=== PATIENT | female | born 1990 | race American Indian/Alaskan Native ===

== ENCOUNTER 2016-12-07 08:38 | Emergency (ER) | payer BC, MEDICAID ==
--- NOTE | 2016-12-07 09:43 | Emergency Department Report ---
Entered by ALEJANDRA CASAS, acting as scribe for TELMA MAYS PA. Chief Complaint: Nausea/Vomiting/Diarrhea Stated Complaint: DIZZINESS,N/V Time Seen by Provider: 12/07/16 09:26 - HPI History of Present Illness: 26 y/o female with Hx of sickle cell disease presents c/o dizziness, light headedness, WHITAKER, foul smelling urine, abd pain and N/V that started 2 days ago. Pt admits to chest pain and states Sx are similar to her past sick cell Sx. - ROS Review of Systems: as noted in HPI - Exam Vital Signs: Vital Signs 12/07/16 12/07/16 09:17 09:18 Temperature 98.2 F 98.2 F Pulse Rate 103 H 103 H Respiratory 16 16 Rate Blood Pressure 120/77 Blood Pressure 120/77 [Left] O2 Sat by Pulse 100 100 Oximetry Physical Exam: General: 26 y/o female in no acute distress. Well-developed, well-nourished. CV: Regular rate and rhythm. No murmurs rubs or gallops. Lungs: Clear to auscultation bilaterally. Abdomen: No tenderness to palpation. No guarding or rebound tenderness. Normal bowel sounds. Mini Neuro: Alert and oriented 3. MSE screening note: Focused history and physical exam performed. Due to findings the following was ordered: ED Disposition for MSE Condition: Stable This documentation as recorded by the scribe,ALEJANDRA CASAS,accurately reflects the service I personally performed and the decisions made by me,TELMA MAYS PA.
[2016-12-07 10:32] LABS: Basophils % (Auto) 1.1 % (0.0-1.8); Eosinophils % (Auto) 2.7 % (0.0-4.3); Hemoglobin 9.7 gm/dl (10.1-14.3); Mean Corpuscular HGB Conc 36 % (30-34); Mean Corpuscular Hemoglobin 34 pg (28-32); Mean Corpuscular Volume 93 fl (79-97); Platelet Count 434 K/mm3 (140-440); Red Blood Count 2.89 M/mm3 (3.65-5.03); Reticulocyte % 19.08 % (0.78-2.58); White Blood Count 15.5 K/mm3 (4.5-11.0)
[2016-12-07 10:45] LABS: Anion Gap 20 mmol/L; Blood Urea Nitrogen 8 mg/dL (7-17); Calcium 9.8 mg/dL (8.4-10.2); Carbon Dioxide 23 mmol/L (22-30); Chloride 102.1 mmol/L (98-107); Glucose 139 mg/dL (65-100); Potassium 4.6 mmol/L (3.6-5.0); Sodium 140 mmol/L (137-145)
[2016-12-07 10:55] LABS: Red Cell Distribution Width 23.3 % (13.2-15.2)
[2016-12-07 11:01] LABS: Bacteria,Urine 3+ /HPF (Negative); Bilirubin,Urine NEG (Negative); Blood,Urine SM (Negative); Ketones,Urine NEG (Negative); Leukocyte Esterase,Urine SM (Negative); Mucus,Urine FEW /HPF; Nitrite,Urine POS (Negative)
--- NOTE | 2016-12-07 11:12 | XRay Report ---
ROUTINE CHEST, TWO VIEWS: HISTORY: Sickle cell disease with chest pain. The trachea, heart, mediastinal contour, lung dior and bony thorax are unremarkable. IMPRESSION: Unremarkable chest x-ray.
[2016-12-07] MEDS ORDERED: DILAUDID IV ONE (13:06)
[2016-12-07] MEDS ORDERED: NACL 0.9% 1000 ML 1,000 ML IV ONE (13:06)
[2016-12-07] MEDS ORDERED: ZOFRAN IV ONE (13:06)
--- NOTE | 2016-12-07 13:40 | Emergency Department Report ---
ED Dizziness HPI - General Chief Complaint: Nausea/Vomiting/Diarrhea Stated Complaint: DIZZINESS,N/V Time Seen by Provider: 12/07/16 09:37 Source: patient Mode of arrival: Ambulatory Limitations: No Limitations - History of Present Illness MD Complaint: dizziness, lightheadedness -: Gradual Timing: gradual onset Description: sense of movement, "room spinning", lightheadedness History of Same: Yes History of Trauma: No Severity: mild Improves With: nothing Worsens With: nothing Associated Symptoms: other (diffuse joint pain " feels like a sickle cell crisis ") - Related Data Previous Rx's Medication Instructions Recorded Last Taken Type Folic Acid 1 mg PO DAILY #45 12/07/16 Unknown Rx HYDROcodone/APAP 10-325 [[place] 1 each PO Q6HR PRN #10 tablet 12/07/16 Unknown Rx 10-325 mg TAB] Hydroxyurea 500 mg PO DAILY #45 12/07/16 Unknown Rx Ondansetron [Zofran Odt] 4 mg PO TID #15 tab.rapdis 12/07/16 Unknown Rx Allergies Allergy/AdvReac Type Severity Reaction Status Date / Time morphine AdvReac Itching Verified 07/14/15 14:44 ED Review of Systems ROS: Stated complaint: DIZZINESS,N/V Other details as noted in HPI Comment: All other systems reviewed and negative ED Past Medical Hx - Past Medical History Previous Medical History?: Yes Hx Sickle Cell Disease: Yes (SS) Hx Asthma: Yes Hx HIV: No - Surgical History Past Surgical History?: Yes Hx Cholecystectomy: Yes (05/2012) - Social History Smoking Status: Never Smoker Substance Use Type: Prescribed - Medications Home Medications: Home Medications Medication Instructions Recorded Confirmed Last Taken Type Folic Acid 1 mg PO DAILY #45 12/07/16 Unknown Rx HYDROcodone/APAP 10-325 [[place] 1 each PO Q6HR PRN #10 tablet 12/07/16 Unknown Rx 10-325 mg TAB] Hydroxyurea 500 mg PO DAILY #45 12/07/16 Unknown Rx Ondansetron [Zofran Odt] 4 mg PO TID #15 tab.rapdis 12/07/16 Unknown Rx ED Physical Exam - General Limitations: No Limitations General appearance: alert, in no apparent distress - Head Head exam: Present: atraumatic, normocephalic - Eye Eye exam: Present: normal appearance, PERRL - ENT ENT exam: Present: normal exam, normal orophraynx, mucous membranes moist - Neck Neck exam: Present: normal inspection - Respiratory Respiratory exam: Present: normal lung sounds bilaterally. Absent: respiratory distress - Cardiovascular Cardiovascular Exam: Present: regular rate, normal rhythm. Absent: systolic murmur, diastolic murmur, rubs, gallop - GI/Abdominal GI/Abdominal exam: Present: soft, normal bowel sounds - Extremities Exam Extremities exam: Present: normal inspection - Back Exam Back exam: Present: normal inspection - Neurological Exam Neurological exam: Present: alert, oriented X3 - Psychiatric Psychiatric exam: Present: normal affect, normal mood - Skin Skin exam: Present: warm, dry, intact, normal color. Absent: rash ED Course Vital Signs 12/07/16 12/07/16 12/07/16 09:17 09:18 14:00 Temperature 98.2 F 98.2 F Pulse Rate 103 H 103 H 100 H Respiratory 16 16 16 Rate Blood Pressure 120/77 Blood Pressure 120/77 118/77 [Left] O2 Sat by Pulse 100 100 100 Oximetry ED Medical Decision Making - Lab Data Result diagrams: 12/07/16 10:08 12/07/16 10:08 - Medical Decision Making Patient doing well, labs unchanged, better after fluids and zofran , No need for admission , will dc and follow up Critical care attestation.: If time is entered above; I have spent that time in minutes in the direct care of this critically ill patient, excluding procedure time. ED Disposition Clinical Impression: Sickle cell pain crisis Disposition: DISCHARGED TO HOME OR SELFCARE Is pt being admited?: No Does the pt Need Aspirin: No Condition: Good Prescriptions: Folic Acid 1 mg PO DAILY #45 HYDROcodone/APAP 10-325 [[place] 10-325 mg TAB] 1 each PO Q6HR PRN #10 tablet PRN Reason: Pain Hydroxyurea 500 mg PO DAILY #45 Ondansetron [Zofran Odt] 4 mg PO TID #15 tab.palomadis Referrals: PRIMARY CARE, [Primary Care Provider] - 3-5 Days Time of Disposition: 15:11
[2016-12-07 16:09] VITALS: BP 120/69
== END 2016-12-07 16:10 | disposition home or self-care (01) ==
LOC: ED 08:38
DX: D57.00 Hb-SS disease with crisis, unspecified (principal); J45.909 Unspecified asthma, uncomplicated; Z90.49 Acquired absence of other specified parts of digestive tract; Z88.6 Allergy status to analgesic agent
CPT/HCPCS: 36415; 71020; 80048; 81001; 84703; 85025; 85045; 87076; 87086; 87186; 96361; 96374; 96375; 99284; J1170; J2405; J7030

== ENCOUNTER 2017-05-16 07:00 | Inpatient (IN) | payer BC ==
[2017-05-16 07:49] LABS: Basophils % (Auto) 1.1 % (0.0-1.8); Eosinophils % (Auto) 5.3 % (0.0-4.3); Hematocrit 25.4 % (30.3-42.9); Hemoglobin 9.2 gm/dl (10.1-14.3); Mean Corpuscular HGB Conc 36 % (30-34); Mean Corpuscular Hemoglobin 32 pg (28-32); Mean Corpuscular Volume 89 fl (79-97); Platelet Count 450 K/mm3 (140-440); Red Blood Count 2.86 M/mm3 (3.65-5.03); Reticulocyte % 10.95 % (0.78-2.58)
[2017-05-16 07:53] LABS: Red Cell Distribution Width 22.7 % (13.2-15.2)
[2017-05-16] MEDS ORDERED: D5NS 0.2% 1,000 ML IV SCH (08:00)
[2017-05-16] MEDS ORDERED: ZOFRAN IV ONE (10:34)
[2017-05-16] MEDS ORDERED: DILAUDID IV ONE (10:34)
[2017-05-16] MEDS ORDERED: BENADRYL IV ONE (10:34)
[2017-05-16] MEDS ORDERED: TORADOL IV ONE (10:34)
[2017-05-16 11:22] LABS: INR 1.16 (0.87-1.13)
[2017-05-16 11:23] LABS: Partial Thromboplastin Time 33.3 Sec. (24.2-36.6)
[2017-05-16 11:24] LABS: Bacteria,Urine 1+ /HPF (Negative); Bilirubin,Urine NEG (Negative); Blood,Urine NEG (Negative); Ketones,Urine NEG (Negative); Leukocyte Esterase,Urine LG (Negative); Mucus,Urine FEW /HPF; Nitrite,Urine POS (Negative); Protein,Urine <15 mg/dL mg/dL (Negative); Uric Acid Crystals,Urine 1+
[2017-05-16 11:36] LABS: Creatine Kinase MB < 1.0 ng/mL (0.0-4.0)
[2017-05-16 11:37] LABS: Alanine Aminotransferase 13 units/L (7-56); Albumin 4.2 g/dL (3.9-5); Albumin/Globulin Ratio 1.3 %; Alkaline Phosphatase 97 units/L (35-129); Anion Gap 19 mmol/L; BUN/Creatinine Ratio 12; Bilirubin,Direct 0.4 mg/dL (0-0.2); Blood Urea Nitrogen 7 mg/dL (7-17); Calcium 9.2 mg/dL (8.4-10.2); Carbon Dioxide 21 mmol/L (22-30); Chloride 104.5 mmol/L (98-107); Creatine Kinase 29 units/L (30-135); Glucose 108 mg/dL (65-100); Potassium 4.1 mmol/L (3.6-5.0); Sodium 140 mmol/L (137-145); Total Protein 7.4 g/dL (6.3-8.2)
[2017-05-16] MEDS ORDERED: ROCEPHIN/NS 1 GM/50 ML 1 GM/50 ML BAG IV ONE (12:21)
--- NOTE | 2017-05-16 12:28 | Emergency Department Report ---
ED General Adult HPI - General Chief complaint: Sickle Cell Crisis Stated complaint: SCC Time Seen by Provider: 05/16/17 10:25 Source: patient Mode of arrival: Ambulatory Limitations: No Limitations - History of Present Illness Initial comments: Patient describes a "sticking" chest pain and back pain and some left arm discomfort for the past more than 1 day. She states that this is not unusual for her to have chest pain with a sickle cell crisis which she believes this to be. She has has taken Aleve for the pain thus far. She does not take chronic opiates. She is a patient of Dr. Hernandez. She does not describe nausea and dizziness sweating dyspnea or cough. -: hour(s), days(s) Location: chest, back, left, upper extremity Radiation: non-radiation Severity scale (0 -10): 0 Quality: other ("sticking") Consistency: intermittent Improves with: none Worsens with: none Associated Symptoms: denies other symptoms Treatments Prior to Arrival: none - Related Data Previous Rx's Medication Instructions Recorded Last Taken Type Folic Acid 1 mg PO DAILY #45 12/07/16 Unknown Rx HYDROcodone/APAP 10-325 [[place] 1 each PO Q6HR PRN #10 tablet 12/07/16 Unknown Rx 10-325 mg TAB] Hydroxyurea 500 mg PO DAILY #45 12/07/16 Unknown Rx Ondansetron [Zofran Odt] 4 mg PO TID #15 tab.rapdis 12/07/16 Unknown Rx Allergies Allergy/AdvReac Type Severity Reaction Status Date / Time morphine AdvReac Itching Verified 07/14/15 14:44 ED Review of Systems ROS: Stated complaint: SCC Other details as noted in HPI Constitutional: denies: chills, fever Eyes: denies: eye pain, eye discharge, vision change ENT: denies: ear pain, throat pain Respiratory: denies: cough, shortness of breath, wheezing Cardiovascular: chest pain. denies: palpitations Endocrine: no symptoms reported Gastrointestinal: denies: abdominal pain, nausea, diarrhea Genitourinary: denies: urgency, dysuria, discharge Musculoskeletal: back pain. denies: joint swelling, arthralgia Skin: denies: rash, lesions Neurological: denies: headache, weakness, paresthesias Psychiatric: denies: anxiety, depression Hematological/Lymphatic: denies: easy bleeding, easy bruising ED Past Medical Hx - Past Medical History Hx Sickle Cell Disease: Yes (SS) Hx Asthma: Yes Hx HIV: No - Surgical History Hx Cholecystectomy: Yes (05/2012) - Social History Smoking Status: Never Smoker Substance Use Type: None Other Social History: No recent travel. - Medications Home Medications: Home Medications Medication Instructions Recorded Confirmed Last Taken Type Folic Acid 1 mg PO DAILY #45 12/07/16 Unknown Rx HYDROcodone/APAP 10-325 [[place] 1 each PO Q6HR PRN #10 tablet 12/07/16 Unknown Rx 10-325 mg TAB] Hydroxyurea 500 mg PO DAILY #45 12/07/16 Unknown Rx Ondansetron [Zofran Odt] 4 mg PO TID #15 tab.rapdis 12/07/16 Unknown Rx ED Physical Exam - General Limitations: No Limitations General appearance: alert, in no apparent distress - Head Head exam: Present: atraumatic, normocephalic - Eye Eye exam: Present: normal appearance, PERRL, EOMI. Absent: scleral icterus - ENT ENT exam: Present: normal exam, mucous membranes moist - Neck Neck exam: Present: normal inspection. Absent: tenderness, meningismus - Respiratory Respiratory exam: Present: normal lung sounds bilaterally. Absent: respiratory distress - Cardiovascular Cardiovascular Exam: Present: regular rate, normal rhythm. Absent: systolic murmur, diastolic murmur, rubs, gallop - GI/Abdominal GI/Abdominal exam: Present: soft, normal bowel sounds. Absent: distended, tenderness, guarding, rebound, rigid - Extremities Exam Extremities exam: Present: normal inspection, normal capillary refill. Absent: tenderness, pedal edema, joint swelling, calf tenderness - Back Exam Back exam: Present: normal inspection. Absent: CVA tenderness (R), CVA tenderness (L), muscle spasm, paraspinal tenderness, vertebral tenderness - Neurological Exam Neurological exam: Present: alert, oriented X3, CN II-XII intact. Absent: motor sensory deficit - Psychiatric Psychiatric exam: Present: normal affect, normal mood - Skin Skin exam: Present: warm, dry, intact, normal color. Absent: rash ED Course Vital Signs 05/16/17 05/16/17 07:12 11:31 Temperature 98.9 F 98.4 F Pulse Rate 92 H 84 Respiratory 18 20 Rate Blood Pressure 123/77 Blood Pressure 123/77 122/74 [Left] O2 Sat by Pulse 98 97 Oximetry - Reevaluation(s) Reevaluation #1: Given IV fluids, analgesia. Referred to Dr. Root, hospitalist for admission. Urinalysis this is consistent with UTI. I began ceftriaxone and cultured the urine. 05/16/17 12:28 ED Medical Decision Making - Lab Data Result diagrams: 05/16/17 07:30 05/16/17 10:57 Laboratory Results - last 24 hr 05/16/17 05/16/17 05/16/17 07:30 10:45 10:57 WBC 13.0 H RBC 2.86 L Hgb 9.2 L Hct 25.4 L MCV 89 MCH 32 MCHC 36 H RDW 22.7 H Plt Count 450 H Lymph % (Auto) 27.7 [place] % (Auto) 14.2 H Eos % (Auto) 5.3 H Baso % (Auto) 1.1 Lymph # 3.6 [place] # 1.9 H Eos # 0.7 H Baso # 0.1 Seg Neutrophils % 51.7 Seg Neutrophils # 6.7 Percent Retic 10.95 H PT INR APTT Sodium 140 Potassium 4.1 Chloride 104.5 Carbon Dioxide 21 L Anion Gap 19 BUN 7 Creatinine 0.6 L Estimated GFR > 60 BUN/Creatinine Ratio 12 Glucose 108 H Calcium 9.2 Magnesium 2.00 Total Bilirubin 3.40 H Direct Bilirubin 0.4 H Indirect Bilirubin 3.0 AST 30 ALT 13 Alkaline Phosphatase 97 Total Creatine Kinase 29 L CK-MB (CK-2) < 1.0 CK-MB (CK-2) Rel Index 3.4 Troponin T < 0.010 NT-Pro-B Natriuret Pep 160.2 Total Protein 7.4 Albumin 4.2 Albumin/Globulin Ratio 1.3 Urine Color Urine Turbidity Urine pH Ur Specific [place] Urine Protein Urine Glucose (UA) Urine Ketones Urine Blood Urine Nitrite Ur Reducing Substances Urine Bilirubin Urine Ictotest Urine Urobilinogen Ur Leukocyte Esterase Urine WBC (Auto) Urine RBC (Auto) U Epithel Cells (Auto) Urine Bacteria (Auto) Ur Transition Epith Cell Uric Acid Crystals Urine Mucus Urine HCG, Qual 05/16/17 05/16/17 10:57 Unknown WBC RBC Hgb Hct MCV MCH MCHC RDW Plt Count Lymph % (Auto) [place] % (Auto) Eos % (Auto) Baso % (Auto) Lymph # [place] # Eos # Baso # Seg Neutrophils % Seg Neutrophils # Percent Retic PT 15.4 H INR 1.16 H APTT 33.3 Sodium Potassium Chloride Carbon Dioxide Anion Gap BUN Creatinine Estimated GFR BUN/Creatinine Ratio Glucose Calcium Magnesium Total Bilirubin Direct Bilirubin Indirect Bilirubin AST ALT Alkaline Phosphatase Total Creatine Kinase CK-MB (CK-2) CK-MB (CK-2) Rel Index Troponin T NT-Pro-B Natriuret Pep Total Protein Albumin Albumin/Globulin Ratio Urine Color Yellow Urine Turbidity Clear Urine pH 6.0 Ur Specific [place] 1.011 Urine Protein <15 mg/dl Urine Glucose (UA) Neg Urine Ketones Neg Urine Blood Neg Urine Nitrite Pos Ur Reducing Substances Not Reportable Urine Bilirubin Neg Urine Ictotest Not Reportable Urine Urobilinogen 4.0 Ur Leukocyte Esterase Lg Urine WBC (Auto) 87.0 H Urine RBC (Auto) 6.0 U Epithel Cells (Auto) 1.0 Urine Bacteria (Auto) 1+ Ur Transition Epith Cell < 1 Uric Acid Crystals 1+ Urine Mucus Few Urine HCG, Qual Negative - EKG Data -: EKG Interpreted by Me EKG shows normal: sinus rhythm, axis, intervals, QRS complexes, ST-T waves Rate: normal - EKG Data Interpretation: nonspecific ST-T wave luis, other (somewhat prolonged QTC) Critical care attestation.: If time is entered above; I have spent that time in minutes in the direct care of this critically ill patient, excluding procedure time. ED Disposition Clinical Impression: Sickle cell pain crisis Chest pain Qualifiers: Chest pain type: unspecified Qualified Code(s): R07.9 - Chest pain, unspecified UTI (urinary tract infection) Qualifiers: Urinary tract infection type: acute cystitis Hematuria presence: without hematuria Qualified Code(s): N30.00 - Acute cystitis without hematuria Disposition: OP ADMIT IP TO THIS HOSP Is pt being admited?: Yes Does the pt Need Aspirin: Yes Condition: Stable Instructions: Chest Pain (ED) Referrals: PRIMARY CARE, [Primary Care Provider] - 3-5 Days Time of Disposition: 12:31
--- NOTE | 2017-05-16 12:46 | XRay Report ---
AP CHEST: HISTORY: chest pain AP view of the chest demonstrates a normal mediastinal and cardiac contour with clear lungs and normal bony and soft tissue structures. IMPRESSION: Unremarkable AP chest.
[2017-05-16] MEDS ORDERED: SODIUM BICARBONATE IV ONE ×2 (16:06→16:07)
[2017-05-16] MEDS ORDERED: CALCIUM CHLORIDE IV ONE (16:08)
--- NOTE | 2017-05-16 21:56 | Consultation ---
History of Present Illness - Reason for Consult Consult date: 05/16/17 anemia/SCD/Pain. Requesting physician: SUN LAO - History of Present Illness Thank you for this consult, patient seen/examined, record reviewed, case d/w patient. She presented, and admitted for sxs control.UA +, anemia., dehydration. Past History Past Medical History: anemia Social history: no significant social history, Family history: no significant family history Medications and Allergies Allergies Allergy/AdvReac Type Severity Reaction Status Date / Time morphine AdvReac Itching Verified 07/14/15 14:44 Home Medications Medication Instructions Recorded Confirmed Last Taken Type Folic Acid 1 mg PO DAILY #45 12/07/16 Unknown Rx HYDROcodone/APAP 10-325 [[place] 1 each PO Q6HR PRN #10 tablet 12/07/16 Unknown Rx 10-325 mg TAB] Hydroxyurea 500 mg PO DAILY #45 12/07/16 Unknown Rx Ondansetron [Zofran Odt] 4 mg PO TID #15 tab.rapdis 12/07/16 Unknown Rx Active Meds: Active Medications Dextrose/Sodium Chloride (D5ns 0.2%) 1,000 mls @ 250 mls/hr IV DIRECT VICTORINO Last Admin: 05/16/17 11:29 Dose: 250 mls/hr Review of Systems Constitutional: fatigue, chronic pain Breasts: deferred Endocrine: cold intolerance Exam - Constitutional Vitals: Temp Pulse Resp BP Pulse Ox 98.0 F 84 16 122/64 98 05/16/17 20:04 05/16/17 20:04 05/16/17 20:04 05/16/17 20:04 05/16/17 20:04 General appearance: Present: mild distress, well-nourished - EENT Eyes: Present: PERRL ENT: hearing intact, clear oral mucosa - Neck Neck: Present: supple, normal ROM - Respiratory Respiratory effort: normal Respiratory: bilateral: CTA - Cardiovascular Heart Sounds: Present: S1 & S2. Absent: rub, click - Extremities Extremities: pulses symmetrical, No edema Peripheral Pulses: within normal limits - Abdominal General gastrointestinal: Present: soft, non-tender, non-distended, normal bowel sounds Female genitourinary: Present: deferred - Rectal Rectal Exam: deferred - Integumentary Integumentary: Present: clear, warm, dry - Musculoskeletal Musculoskeletal: gait normal, strength equal bilaterally - Psychiatric Psychiatric: appropriate mood/affect, intact judgment & insight - Neurologic Neurologic: CNII-XII intact, moves all extremities Results - Labs CBC & Chem 7: 05/16/17 07:30 05/16/17 10:57 Labs: Abnormal lab results 05/16/17 Range/Units Unknown Urine WBC (Auto) 87.0 H (0.0-6.0) /HPF Assessment and Plan - Patient Problems (1) Chest pain Current Visit: Yes Status: Acute Qualifiers: Chest pain type: unspecified Ischemic chest pain type: I Qualified Code(s ): R07.9 - Chest pain, unspecified Plan to address problem: this is part of her crisis, but not ACS. (2) Sickle cell pain crisis Current Visit: Yes Status: Acute Plan to address problem: Pain control, hydration. (3) UTI (urinary tract infection) Current Visit: Yes Status: Acute Qualifiers: Urinary tract infection type: acute cystitis Hematuria presence: without hematuria Indwelling urinary catheter type: I Encounter type: E Qualified Code(s): N30.00 - Acute cystitis without hematuria Plan to address problem: culture, IV ABX.
[2017-05-16] MEDS ORDERED: DILAUDID IV PRN (22:05)
[2017-05-16] MEDS ORDERED: MILK OF MAGNESIA PO PRN (22:32)
[2017-05-16] MEDS ORDERED: TYLENOL PO PRN (22:32)
[2017-05-16] MEDS ORDERED: DULCOLAX PR PRN (22:32)
--- NOTE | 2017-05-16 22:32 | Event Note ---
Date: 05/16/17 See H/p in reports Sickle cell crisis UTI
[2017-05-16] MEDS: DILAUDID IV PRN (23:41)
[2017-05-16] MEDS: D5NS 1,000 ML IV SCH (23:41)
[2017-05-16] MEDS: ZOFRAN IV PRN (23:41)
[2017-05-16] MEDS: BENADRYL IV PRN (23:41)
[2017-05-17 06:06] LABS: Basophils % (Auto) 0.9 % (0.0-1.8); Eosinophils % (Auto) 5.4 % (0.0-4.3); Hematocrit 23.2 % (30.3-42.9); Hemoglobin 8.4 gm/dl (10.1-14.3); Mean Corpuscular HGB Conc 36 % (30-34); Mean Corpuscular Hemoglobin 33 pg (28-32); Mean Corpuscular Volume 90 fl (79-97); Platelet Count 451 K/mm3 (140-440); Red Blood Count 2.59 M/mm3 (3.65-5.03); Reticulocyte % 14.36 % (0.78-2.58); White Blood Count 15.7 K/mm3 (4.5-11.0)
[2017-05-17 06:07] LABS: Alanine Aminotransferase 15 units/L (7-56); Albumin 3.6 g/dL (3.9-5); Albumin/Globulin Ratio 1.2 %; Alkaline Phosphatase 83 units/L (35-129); Anion Gap 15 mmol/L; BUN/Creatinine Ratio 8; Blood Urea Nitrogen 5 mg/dL (7-17); Calcium 8.4 mg/dL (8.4-10.2); Carbon Dioxide 22 mmol/L (22-30); Glucose 107 mg/dL (65-100); Potassium 4.4 mmol/L (3.6-5.0); Sodium 138 mmol/L (137-145); Total Protein 6.5 g/dL (6.3-8.2)
[2017-05-17 06:13] LABS: Red Cell Distribution Width 22.4 % (13.2-15.2)
--- NOTE | 2017-05-17 07:57 | History and Physical Report ---
CHIEF COMPLAINT: Chest pain and pain all over for 1 day. HISTORY OF PRESENT ILLNESS: A 27-year-old female with history of sickle cell disease, comes in for retrosternal chest pain and left arm pain and mid back pain. The patient believes that she is in sickle cell crisis. The patient does not take any chronic opiates. Her last admission was many years ago as per the patient. No shortness of breath. No syncope, no seizures. PAST MEDICAL HISTORY: Significant for sickle cell disease. PAST SURGICAL HISTORY: Cholecystectomy in 2011. CURRENT MEDICATIONS: Hydroxyurea and [place] 10/325 q.i.d. p.r.n. SOCIAL HISTORY: Does not smoke. No alcohol, no recreational drugs. FAMILY HISTORY: Significant for hypertension. REVIEW OF SYSTEMS: Significant for pain all over, especially chest and mid back pain and left arm. Otherwise, review of systems is negative. PHYSICAL EXAMINATION: GENERAL: Young female, cooperative during examination. VITAL SIGNS: Blood pressure is 123/77, temperature is 98.9, pulse is 92, respirations are 18. HEENT: Unremarkable. Pupils equal and reactive. NECK: Supple, no lymphadenopathy, no thyromegaly. LUNGS: Clear to auscultation and percussion. Good air entry. CARDIOVASCULAR: S1, S2 heard. No gallop, no murmur, no rub. Apical impulse in left fifth intercostal space and midclavicular line. ABDOMEN: Soft and benign. No hepatosplenomegaly. No guarding, no rigidity. Hernial orifices are normal. EXTREMITIES: Good pedal pulses. No pedal edema. LABORATORY DATA: Significant for white count of 9.2 and hematocrit of 25.4. Retic count is 10.95. Urine was positive for 87 white cells. ASSESSMENT AND PLAN: 1. Sickle cell crisis. The patient did get IV fluids and IV Dilaudid. The patient is not on chronic opiates. He is not a pain medication seeker. Retic count is higher. Dr. Hernandez, her primary care physician and Hematology was consulted. 2. Urinary tract infection. The patient started on IV Rocephin. 3. Deep venous thrombosis prophylaxis. Lovenox 40 mg subcutaneous daily. [facility]# [id number] VSM/NTS
[2017-05-17] MEDS ORDERED: PEPCID IV SCH (10:00)
[2017-05-17] MEDS: D5NS 1,000 ML IV SCH (11:00)
[2017-05-17] MEDS: ZOFRAN IV PRN (11:01)
[2017-05-17] MEDS: DILAUDID IV PRN ×2 (11:01→20:45)
[2017-05-17] MEDS: BENADRYL IV PRN ×2 (11:02→20:44)
[2017-05-17] MEDS: ROCEPHIN/NS 1 GM/50 ML 1 GM/50 ML BAG IV SCH (11:23)
--- NOTE | 2017-05-17 14:13 | Progress Note ---
Assessment and Plan Assessment and plan: Patient 27-year-old woman with history of sickle cell disease followed by Dr. Hernandez presents with bone pains -Sickle cell anemia: Consulted hematology/oncology -Sickle cell vaso-occlusive pain crisis: Treated with fluids, pain control -UTI with sepsis poa: treat with abx and follow ctx -DVT prophylaxis: Subcutaneous Lovenox ordered History Interval history: Patient was seen and examined. Follow-up on current diagnosis/bone pain still present. Overnight uneventful. Patient denies any chest pain, shortness breath , nausea/vomiting or severe headaches. Imaging, nursing note, chart, labs and old chart reviewed. Discussed with patient. Hospitalist Physical - Physical exam Narrative exam: GEN: WDWN, NAD, AWAKE, ALERT, ORIENTATED 3 HEENT: NCAT, EOMI, PERRL, OP Clear NECK: supple, no adenopathy, no thyromegaly, no JVD CVS/HEART: RRR, NORMAL S1S2, NO JVD, pulses present bilaterally CHEST/LUNGS: CTA B, Symmetrical chest expansion, good air entry bilaterally GI/Abdomen: soft, NTND, good bowel sounds, no guarding or rebound /Bladder: no suprapubic tenderness, no CVA or paraspinal tenderness EXT/Skin: no c/c/e, no significant edema or obvious rash MSK: FROM x 4 Neuro: CN 2-12 grossly intact, no new focal deficits Psych: calm - Constitutional Vitals: Temp Pulse Resp BP Pulse Ox 98.4 F 82 16 109/67 97 05/17/17 04:30 05/17/17 12:59 05/17/17 04:30 05/17/17 04:30 05/17/17 12:59 General appearance: Present: well-nourished Results - Labs CBC & Chem 7: 05/17/17 04:58 05/17/17 04:58 Labs: Laboratory Last Values WBC 15.7 K/mm3 (4.5-11.0) H 05/17/17 04:58 RBC 2.59 M/mm3 (3.65-5.03) L 05/17/17 04:58 Hgb 8.4 gm/dl (10.1-14.3) L 05/17/17 04:58 Hct 23.2 % (30.3-42.9) L 05/17/17 04:58 MCV 90 fl (79-97) 05/17/17 04:58 MCH 33 pg (28-32) H 05/17/17 04:58 MCHC 36 % (30-34) H 05/17/17 04:58 RDW 22.4 % (13.2-15.2) H 05/17/17 04:58 Plt Count 451 K/mm3 (140-440) H 05/17/17 04:58 Lymph % (Auto) 20.5 % (13.4-35.0) 05/17/17 04:58 [place] % (Auto) 11.6 % (0.0-7.3) H 05/17/17 04:58 Eos % (Auto) 5.4 % (0.0-4.3) H 05/17/17 04:58 Baso % (Auto) 0.9 % (0.0-1.8) 05/17/17 04:58 Lymph # 3.2 K/mm3 (1.2-5.4) 05/17/17 04:58 [place] # 1.8 K/mm3 (0.0-0.8) H 05/17/17 04:58 Eos # 0.9 K/mm3 (0.0-0.4) H 05/17/17 04:58 Baso # 0.1 K/mm3 (0.0-0.1) 05/17/17 04:58 Seg Neutrophils % 61.6 % (40.0-70.0) 05/17/17 04:58 Seg Neutrophils # 9.7 K/mm3 (1.8-7.7) H 05/17/17 04:58 Percent Retic 14.36 % (0.78-2.58) H 05/17/17 04:58 PT 15.4 Sec. (12.2-14.9) H 05/16/17 10:57 INR 1.16 (0.87-1.13) H 05/16/17 10:57 APTT 33.3 Sec. (24.2-36.6) 05/16/17 10:57 Sodium 138 mmol/L (137-145) 05/17/17 04:58 Potassium 4.4 mmol/L (3.6-5.0) 05/17/17 04:58 Chloride 105.0 mmol/L (98-107) 05/17/17 04:58 Carbon Dioxide 22 mmol/L (22-30) 05/17/17 04:58 Anion Gap 15 mmol/L 05/17/17 04:58 BUN 5 mg/dL (7-17) L 05/17/17 04:58 Creatinine 0.6 mg/dL (0.7-1.2) L 05/17/17 04:58 Estimated GFR > 60 ml/min 05/17/17 04:58 BUN/Creatinine Ratio 8 % 05/17/17 04:58 Glucose 107 mg/dL (65-100) H 05/17/17 04:58 Calcium 8.4 mg/dL (8.4-10.2) 05/17/17 04:58 Magnesium 2.00 mg/dL (1.7-2.3) 05/16/17 10:57 Total Bilirubin 2.80 mg/dL (0.1-1.2) H 05/17/17 04:58 Direct Bilirubin 0.4 mg/dL (0-0.2) H 05/16/17 10:57 Indirect Bilirubin 3.0 mg/dL 05/16/17 10:57 AST 32 units/L (5-40) 05/17/17 04:58 ALT 15 units/L (7-56) 05/17/17 04:58 Alkaline Phosphatase 83 units/L (35-129) 05/17/17 04:58 Total Creatine Kinase 29 units/L (30-135) L 05/16/17 10:57 CK-MB (CK-2) < 1.0 ng/mL (0.0-4.0) 05/16/17 10:57 CK-MB (CK-2) Rel Index 3.4 (0-4) 05/16/17 10:57 Troponin T < 0.010 ng/mL (0.00-0.029) 05/16/17 10:45 NT-Pro-B Natriuret Pep 160.2 pg/mL (0-450) 05/16/17 10:45 Total Protein 6.5 g/dL (6.3-8.2) 05/17/17 04:58 Albumin 3.6 g/dL (3.9-5) L 05/17/17 04:58 Albumin/Globulin Ratio 1.2 % 05/17/17 04:58 Urine Color Yellow (Yellow) 05/16/17 Unknown Urine Turbidity Clear (Clear) 05/16/17 Unknown Urine pH 6.0 (5.0-7.0) 05/16/17 Unknown Ur Specific [place] 1.011 (1.003-1.030) 05/16/17 Unknown Urine Protein <15 mg/dl mg/dL (Negative) 05/16/17 Unknown Urine Glucose (UA) Neg mg/dL (Negative) 05/16/17 Unknown Urine Ketones Neg mg/dL (Negative) 05/16/17 Unknown Urine Blood Neg (Negative) 05/16/17 Unknown Urine Nitrite Pos (Negative) 05/16/17 Unknown Ur Reducing Substances Not Reportable 05/16/17 Unknown Urine Bilirubin Neg (Negative) 05/16/17 Unknown Urine Ictotest Not Reportable 05/16/17 Unknown Urine Urobilinogen 4.0 mg/dL (<2.0) 05/16/17 Unknown Ur Leukocyte Esterase Lg (Negative) 05/16/17 Unknown Urine WBC (Auto) 87.0 /HPF (0.0-6.0) H 05/16/17 Unknown Urine RBC (Auto) 6.0 /HPF (0.0-6.0) 05/16/17 Unknown U Epithel Cells (Auto) 1.0 /HPF (0-13.0) 05/16/17 Unknown Urine Bacteria (Auto) 1+ /HPF (Negative) 05/16/17 Unknown Ur Transition Epith Cell < 1 /HPF 05/16/17 Unknown Uric Acid Crystals 1+ 05/16/17 Unknown Urine Mucus Few /HPF 05/16/17 Unknown Urine HCG, Qual Negative (Negative) 05/16/17 Unknown
[2017-05-17] MEDS: NACL 0.45% 1000 ML 1,000 ML IV SCH (21:34)
[2017-05-17] MEDS: PEPCID PO SCH (21:34)
[2017-05-17] MEDS: LOVENOX SUB-Q SCH (21:34)
--- NOTE | 2017-05-17 23:44 | Event Note ---
Date: 05/17/17 patient seen/examined, labs reviewed.see full note.
--- NOTE | 2017-05-18 01:02 | Progress Note ---
Assessment and Plan - Patient Problems (1) Chest pain Current Visit: Yes Status: Acute Qualifiers: Chest pain type: unspecified Ischemic chest pain type: I Qualified Code(s ): R07.9 - Chest pain, unspecified Plan to address problem: this is part of her crisis, but not ACS. (2) Sickle cell pain crisis Current Visit: Yes Status: Acute Plan to address problem: Pain control, hydration. (3) UTI (urinary tract infection) Current Visit: Yes Status: Acute Qualifiers: Urinary tract infection type: acute cystitis Hematuria presence: without hematuria Indwelling urinary catheter type: I Encounter type: E Qualified Code(s): N30.00 - Acute cystitis without hematuria Plan to address problem: culture, IV ABX. Subjective Date of service: 05/18/17 Interval history: Patient seen, resting in bed, labs reviewed, profound UTI, resulting in leukocytosis. Objective - Constitutional Vitals: Vital Signs - 12hr 05/17/17 16:00 Temperature 98.2 F Pulse Rate 61 Blood Pressure 124/69 [Left] General appearance: Present: mild distress, well-nourished - EENT Eyes: PERRL, EOM intact ENT: hearing intact, clear oral mucosa Ears: bilateral: normal - Neck Neck: supple, normal ROM - Respiratory Respiratory effort: normal Respiratory: bilateral: CTA - Breasts Breasts: deferred - Cardiovascular Rhythm: regular Heart Sounds: Present: S1 & S2. Absent: gallop, rub Extremities: pulses intact, No edema, normal color, Full ROM - Gastrointestinal General gastrointestinal: Present: soft, non-tender, non-distended, normal bowel sounds Rectal Exam: deferred - Genitourinary Female genitourinary: deferred - Integumentary Integumentary: clear, warm, dry - Musculoskeletal Musculoskeletal: 1, strength equal bilaterally - Neurologic Neurologic: moves all extremities - Psychiatric Psychiatric: memory intact, appropriate mood/affect, intact judgment & insight - Labs CBC & Chem 7: 05/17/17 04:58 05/17/17 04:58 Labs: Abnormal lab results 05/17/17 05/17/17 Range/Units 04:58 04:58 WBC 15.7 H (4.5-11.0) K/mm3 RBC 2.59 L (3.65-5.03) M/mm3 Hgb 8.4 L (10.1-14.3) gm/dl Hct 23.2 L (30.3-42.9) % MCH 33 H (28-32) pg MCHC 36 H (30-34) % RDW 22.4 H (13.2-15.2) % Plt Count 451 H (140-440) K/mm3 [place] % (Auto) 11.6 H (0.0-7.3) % Eos % (Auto) 5.4 H (0.0-4.3) % [place] # 1.8 H (0.0-0.8) K/mm3 Eos # 0.9 H (0.0-0.4) K/mm3 Seg Neutrophils # 9.7 H (1.8-7.7) K/mm3 Percent Retic 14.36 H (0.78-2.58) % BUN 5 L (7-17) mg/dL Creatinine 0.6 L (0.7-1.2) mg/dL Glucose 107 H (65-100) mg/dL Total Bilirubin 2.80 H (0.1-1.2) mg/dL Albumin 3.6 L (3.9-5) g/dL
[2017-05-18] MEDS: NACL 0.45% 1000 ML 1,000 ML IV SCH ×2 (07:00→16:30)
[2017-05-18] MEDS: PEPCID PO SCH ×2 (09:39→23:40)
[2017-05-18] MEDS: ROCEPHIN/NS 1 GM/50 ML 1 GM/50 ML BAG IV SCH (09:40)
--- NOTE | 2017-05-18 13:16 | Progress Note ---
Assessment and Plan Assessment and plan: Patient 27-year-old woman with history of sickle cell disease followed by Dr. Hernandez presents with bone pains -Sickle cell anemia: Consulted hematology/oncology -Sickle cell vaso-occlusive pain crisis: Treated with fluids, pain control -UTI with sepsis poa: treat with abx and follow ctx -DVT prophylaxis: Subcutaneous Lovenox ordered full code Disposition: continue inpatient care, one more day of iv abx, anticipate discharge tomorrow History Interval history: Patient was seen and examined. Follow-up on current diagnosis/bone pain still present. Overnight uneventful. Patient denies any chest pain, shortness breath , nausea/vomiting or severe headaches. Imaging, nursing note, chart, labs and old chart reviewed. Discussed with patient. Hospitalist Physical - Physical exam Narrative exam: GEN: WDWN, NAD, AWAKE, ALERT, ORIENTATED 3 HEENT: NCAT, EOMI, PERRL, OP Clear NECK: supple, no adenopathy, no thyromegaly, no JVD CVS/HEART: RRR, NORMAL S1S2, NO JVD, pulses present bilaterally CHEST/LUNGS: CTA B, Symmetrical chest expansion, good air entry bilaterally GI/Abdomen: soft, NTND, good bowel sounds, no guarding or rebound /Bladder: no suprapubic tenderness, no CVA or paraspinal tenderness EXT/Skin: no c/c/e, no significant edema or obvious rash MSK: FROM x 4 Neuro: CN 2-12 grossly intact, no new focal deficits Psych: calm - Constitutional Vitals: Temp Pulse Resp BP Pulse Ox 97.6 F 79 18 112/73 94 05/18/17 11:29 05/18/17 04:46 05/18/17 11:29 05/18/17 11:29 05/18/17 04:46 General appearance: Present: well-nourished. Absent: mild distress Results - Labs CBC & Chem 7: 05/17/17 04:58 05/17/17 04:58 Labs: Laboratory Last Values WBC 15.7 K/mm3 (4.5-11.0) H 05/17/17 04:58 RBC 2.59 M/mm3 (3.65-5.03) L 05/17/17 04:58 Hgb 8.4 gm/dl (10.1-14.3) L 05/17/17 04:58 Hct 23.2 % (30.3-42.9) L 05/17/17 04:58 MCV 90 fl (79-97) 05/17/17 04:58 MCH 33 pg (28-32) H 05/17/17 04:58 MCHC 36 % (30-34) H 05/17/17 04:58 RDW 22.4 % (13.2-15.2) H 05/17/17 04:58 Plt Count 451 K/mm3 (140-440) H 05/17/17 04:58 Lymph % (Auto) 20.5 % (13.4-35.0) 05/17/17 04:58 [place] % (Auto) 11.6 % (0.0-7.3) H 05/17/17 04:58 Eos % (Auto) 5.4 % (0.0-4.3) H 05/17/17 04:58 Baso % (Auto) 0.9 % (0.0-1.8) 05/17/17 04:58 Lymph # 3.2 K/mm3 (1.2-5.4) 05/17/17 04:58 [place] # 1.8 K/mm3 (0.0-0.8) H 05/17/17 04:58 Eos # 0.9 K/mm3 (0.0-0.4) H 05/17/17 04:58 Baso # 0.1 K/mm3 (0.0-0.1) 05/17/17 04:58 Seg Neutrophils % 61.6 % (40.0-70.0) 05/17/17 04:58 Seg Neutrophils # 9.7 K/mm3 (1.8-7.7) H 05/17/17 04:58 Percent Retic 14.36 % (0.78-2.58) H 05/17/17 04:58 PT 15.4 Sec. (12.2-14.9) H 05/16/17 10:57 INR 1.16 (0.87-1.13) H 05/16/17 10:57 APTT 33.3 Sec. (24.2-36.6) 05/16/17 10:57 Sodium 138 mmol/L (137-145) 05/17/17 04:58 Potassium 4.4 mmol/L (3.6-5.0) 05/17/17 04:58 Chloride 105.0 mmol/L (98-107) 05/17/17 04:58 Carbon Dioxide 22 mmol/L (22-30) 05/17/17 04:58 Anion Gap 15 mmol/L 05/17/17 04:58 BUN 5 mg/dL (7-17) L 05/17/17 04:58 Creatinine 0.6 mg/dL (0.7-1.2) L 05/17/17 04:58 Estimated GFR > 60 ml/min 05/17/17 04:58 BUN/Creatinine Ratio 8 % 05/17/17 04:58 Glucose 107 mg/dL (65-100) H 05/17/17 04:58 Calcium 8.4 mg/dL (8.4-10.2) 05/17/17 04:58 Magnesium 2.00 mg/dL (1.7-2.3) 05/16/17 10:57 Total Bilirubin 2.80 mg/dL (0.1-1.2) H 05/17/17 04:58 Direct Bilirubin 0.4 mg/dL (0-0.2) H 05/16/17 10:57 Indirect Bilirubin 3.0 mg/dL 05/16/17 10:57 AST 32 units/L (5-40) 05/17/17 04:58 ALT 15 units/L (7-56) 05/17/17 04:58 Alkaline Phosphatase 83 units/L (35-129) 05/17/17 04:58 Total Creatine Kinase 29 units/L (30-135) L 05/16/17 10:57 CK-MB (CK-2) < 1.0 ng/mL (0.0-4.0) 05/16/17 10:57 CK-MB (CK-2) Rel Index 3.4 (0-4) 05/16/17 10:57 Troponin T < 0.010 ng/mL (0.00-0.029) 05/16/17 10:45 NT-Pro-B Natriuret Pep 160.2 pg/mL (0-450) 05/16/17 10:45 Total Protein 6.5 g/dL (6.3-8.2) 05/17/17 04:58 Albumin 3.6 g/dL (3.9-5) L 05/17/17 04:58 Albumin/Globulin Ratio 1.2 % 05/17/17 04:58 Urine Color Yellow (Yellow) 05/16/17 Unknown Urine Turbidity Clear (Clear) 05/16/17 Unknown Urine pH 6.0 (5.0-7.0) 05/16/17 Unknown Ur Specific [place] 1.011 (1.003-1.030) 05/16/17 Unknown Urine Protein <15 mg/dl mg/dL (Negative) 05/16/17 Unknown Urine Glucose (UA) Neg mg/dL (Negative) 05/16/17 Unknown Urine Ketones Neg mg/dL (Negative) 05/16/17 Unknown Urine Blood Neg (Negative) 05/16/17 Unknown Urine Nitrite Pos (Negative) 05/16/17 Unknown Ur Reducing Substances Not Reportable 05/16/17 Unknown Urine Bilirubin Neg (Negative) 05/16/17 Unknown Urine Ictotest Not Reportable 05/16/17 Unknown Urine Urobilinogen 4.0 mg/dL (<2.0) 05/16/17 Unknown Ur Leukocyte Esterase Lg (Negative) 05/16/17 Unknown Urine WBC (Auto) 87.0 /HPF (0.0-6.0) H 05/16/17 Unknown Urine RBC (Auto) 6.0 /HPF (0.0-6.0) 05/16/17 Unknown U Epithel Cells (Auto) 1.0 /HPF (0-13.0) 05/16/17 Unknown Urine Bacteria (Auto) 1+ /HPF (Negative) 05/16/17 Unknown Ur Transition Epith Cell < 1 /HPF 05/16/17 Unknown Uric Acid Crystals 1+ 05/16/17 Unknown Urine Mucus Few /HPF 05/16/17 Unknown Urine HCG, Qual Negative (Negative) 05/16/17 Unknown
[2017-05-18] MEDS: ZOFRAN IV PRN (13:42)
[2017-05-18] MEDS: DILAUDID IV PRN (14:21)
[2017-05-18] MEDS: BENADRYL IV PRN (14:21)
[2017-05-18] MEDS ORDERED: DILAUDID IV PRN (20:22)
[2017-05-18] MEDS: LOVENOX SUB-Q SCH (23:40)
[2017-05-19] MEDS: NACL 0.45% 1000 ML 1,000 ML IV SCH (07:50)
[2017-05-19 07:57] VITALS: BP 116/65
[2017-05-19] MEDS: ROCEPHIN/NS 1 GM/50 ML 1 GM/50 ML BAG IV SCH (09:20)
[2017-05-19] MEDS: BENADRYL IV PRN (09:21)
[2017-05-19] MEDS: PEPCID PO SCH (09:21)
[2017-05-19] MEDS: ZOFRAN IV PRN (09:23)
--- NOTE | 2017-05-19 13:22 | Discharge Summary ---
Providers - Providers Date of Admission: 05/16/17 13:21 Date of discharge: 05/19/17 Attending physician: AMINTA VILLA Primary care physician: ALICIA LIGHT MD Hospitalization Condition: Stable Hospital course: Patient 27-year-old woman with history of sickle cell disease followed by Dr. Hernandez presents with bone pains -Sickle cell anemia: Consulted hematology/oncology -Sickle cell vaso-occlusive pain crisis: Treated with fluids, pain control -UTI with sepsis poa: treat with abx and follow ctx -DVT prophylaxis: Subcutaneous Lovenox ordered full code Disposition: home, anticipate discharge Disposition: DC-01 TO HOME OR SELFCARE Time spent for discharge: 35 minutes Core Measure Documentation - Palliative Care Palliative Care/ Comfort Measures: Not Applicable - Core Measures Any of the following diagnoses?: none - VTE Discharge Requirements Deep Vein Thrombosis/Pulmonary Embolism Present on Admission: No Has pt received <5 days of overlap therapy or INR<2.0: No Anticoagulant overlap therapy prescribed at discharge: No Contraindication No Overlap Therapy order at DC: Not Indicated Exam - Physical Exam Narrative exam: GEN: WDWN, NAD, AWAKE, ALERT, ORIENTATED 3 HEENT: NCAT, EOMI, PERRL, OP Clear NECK: supple, no adenopathy, no thyromegaly, no JVD CVS/HEART: RRR, NORMAL S1S2, NO JVD, pulses present bilaterally CHEST/LUNGS: CTA B, Symmetrical chest expansion, good air entry bilaterally GI/Abdomen: soft, NTND, good bowel sounds, no guarding or rebound /Bladder: no suprapubic tenderness, no CVA or paraspinal tenderness EXT/Skin: no c/c/e, no significant edema or obvious rash MSK: FROM x 4 Neuro: CN 2-12 grossly intact, no new focal deficits Psych: calm - Constitutional Vitals: Temp Pulse Resp BP Pulse Ox 98.7 F 78 20 116/65 95 05/19/17 07:55 05/19/17 07:55 05/19/17 07:55 05/19/17 07:55 05/19/17 07:55 Plan Activity: other (no strenous activity until cleared by pcp) Diet: regular Additional Instructions: Sickle cell medication and pain medications from Dr. Hernandez Follow up with: PRIMARY CARE, [Primary Care Provider] - 3-5 Days SALOME HERNANDEZ DO [Staff Physician] - 7 Days Prescriptions: Levofloxacin [Levaquin TAB] 500 mg PO QDAY #4 day
== END 2017-05-19 15:03 | disposition home or self-care (01) | DRG 871 ==
LOC: ED 07:00 → 4A 13:21 → 3A 05-17 18:37
PROVIDERS: ADMIT Internal Medicine; ATTEND Internal Medicine
DX: A41.9 Sepsis, unspecified organism (principal); D57.00 Hb-SS disease with crisis, unspecified; N39.0 Urinary tract infection, site not specified; Z88.5 Allergy status to narcotic agent; J45.909 Unspecified asthma, uncomplicated; Z90.49 Acquired absence of other specified parts of digestive tract; Z82.49 Family history of ischemic heart disease and other diseases of the circulatory system
CPT/HCPCS: 36415; 71010; 80048; 80053; 80074; 81001; 81025; 82550; 82553; 83735; 83880; 84484; 85025; 85045; 85610; 85730; 87076; 87086; 87186; 93005; 93010; J0696; J1170; J1200; J1650; J1885; J2405; J7042

== ENCOUNTER 2017-09-06 08:57 | Emergency (ER) | payer BC ==
[2017-09-06 09:13] VITALS: BP 119/76
[2017-09-06 09:35] LABS: Hematocrit 28.6 % (30.3-42.9); Hemoglobin 9.9 gm/dl (10.1-14.3); Mean Corpuscular HGB Conc 35 % (30-34); Mean Corpuscular Hemoglobin 31 pg (28-32); Mean Corpuscular Volume 88 fl (79-97); Platelet Count 543 K/mm3 (140-440); Red Blood Count 3.25 M/mm3 (3.65-5.03)
[2017-09-06 09:40] LABS: Red Cell Distribution Width 24.6 % (13.2-15.2)
[2017-09-06] MEDS ORDERED: D5NS 0.2% 1,000 ML IV SCH (10:00)
[2017-09-06 11:23] LABS: Band Neutrophils # (Manual) 0.3 K/mm3; Basophils % (Manual) 0 % (0.0-1.8); Eosinophils % (Manual) 0 % (0.0-4.3); Total Cells Counted 100
[2017-09-06 11:24] LABS: Anisocytosis 3+; Poikilocytosis 2+; Sickle Cells 2+
== END 2017-09-06 10:00 | disposition left against medical advice (07) ==
LOC: ED 08:57
DX: M79.1 Myalgia (principal); Z53.21 Procedure and treatment not carried out due to patient leaving prior to being seen by health care provider
CPT/HCPCS: 36415; 85007; 85025; 85045

== ENCOUNTER 2018-02-15 11:48 | Emergency (ER) | payer BC ==
[2018-02-15] MEDS ORDERED: NACL 0.9% 1000 ML 1,000 ML IV ONE ×2 (12:33→12:34)
[2018-02-15] MEDS ORDERED: DILAUDID IV ONE (12:34)
[2018-02-15] MEDS ORDERED: ZOFRAN IV ONE ×2 (12:34→13:46)
[2018-02-15 12:55] LABS: Hemoglobin 8.6 gm/dl (10.1-14.3); Mean Corpuscular HGB Conc 36 % (30-34); Mean Corpuscular Hemoglobin 32 pg (28-32); Mean Corpuscular Volume 89 fl (79-97); Platelet Count 497 K/mm3 (140-440); Red Blood Count 2.71 M/mm3 (3.65-5.03)
[2018-02-15 12:58] LABS: Red Cell Distribution Width 25.6 % (13.2-15.2)
[2018-02-15 13:03] LABS: BUN/Creatinine Ratio 12; Blood Urea Nitrogen 7 mg/dL (7-17); Calcium 9.2 mg/dL (8.4-10.2); Hemolysis Index 13
--- NOTE | 2018-02-15 13:41 | Emergency Department Report ---
ED General Adult HPI - General Chief complaint: Sickle Cell Crisis Stated complaint: SICKLE CELL BACK AND JOINT PAIN Time Seen by Provider: 02/15/18 12:21 Source: patient Mode of arrival: Ambulatory Limitations: No Limitations - History of Present Illness Initial comments: Patient presents to the emergency department with complaint of diffuse body pain secondary to sickle cell. Patient has a history of sickle cell anemia status last 3 days she's had pain that she was trying to treat at home with hydrocodone but has not had any relief. Patient denies chest pain, abdominal pain, headache. No other associated symptoms. Radiation: non-radiation Severity scale (0 -10): 4 Quality: sharp Consistency: constant Improves with: none Worsens with: none Associated Symptoms: denies other symptoms Treatments Prior to Arrival: other ([place]) - Related Data Home Medications Medication Instructions Recorded Confirmed Last Taken Folic Acid [Folvite] 1 mg PO QDAY 06/14/17 06/14/17 Unknown HYDROcodone/APAP 10-325 [[place] 1 tab PO QDAY PRN 06/14/17 06/14/17 Unknown 10-325 mg TAB] Hydroxyurea [Hydrea] 500 mg PO QDAY 06/14/17 06/14/17 Unknown Previous Rx's Medication Instructions Recorded Last Taken Type Levofloxacin [Levaquin TAB] 500 mg PO QDAY #5 tablet 06/17/17 Unknown Rx Pantoprazole [Protonix TAB] 40 mg PO BID #60 tablet 06/17/17 Unknown Rx Promethazine [Phenergan SUPPOS] 12.5 mg [place] Q6H PRN #12 supp.rect 06/17/17 Unknown Rx HYDROcodone/ACETAMINOPHEN [[place] 1 each PO Q6HR PRN #12 tablet 02/15/18 Unknown Rx 10-325 Tablet] Allergies Allergy/AdvReac Type Severity Reaction Status Date / Time morphine AdvReac Itching Verified 07/14/15 14:44 ED Review of Systems ROS: Stated complaint: SICKLE CELL BACK AND JOINT PAIN Other details as noted in HPI Constitutional: denies: chills, fever Eyes: denies: eye pain, eye discharge, vision change ENT: denies: ear pain, throat pain Respiratory: denies: cough, shortness of breath, wheezing Cardiovascular: denies: chest pain, palpitations Endocrine: no symptoms reported Gastrointestinal: denies: abdominal pain, nausea, diarrhea Genitourinary: denies: urgency, dysuria, discharge Musculoskeletal: denies: back pain, joint swelling, arthralgia Skin: denies: rash, lesions Neurological: denies: headache, weakness, paresthesias Psychiatric: denies: anxiety, depression Hematological/Lymphatic: denies: easy bleeding, easy bruising ED Past Medical Hx - Past Medical History Hx Sickle Cell Disease: Yes (sickle cell, last crisis 05/25) Hx Asthma: Yes Hx COPD: No Hx HIV: No Additional medical history: Gastric ulcers - Surgical History Past Surgical History?: Yes Hx Cholecystectomy: Yes (05/2012) - Social History Smoking Status: Never Smoker Substance Use Type: None - Medications Home Medications: Home Medications Medication Instructions Recorded Confirmed Last Taken Type Folic Acid [Folvite] 1 mg PO QDAY 06/14/17 06/14/17 Unknown History HYDROcodone/APAP 10-325 [[place] 1 tab PO QDAY PRN 06/14/17 06/14/17 Unknown History 10-325 mg TAB] Hydroxyurea [Hydrea] 500 mg PO QDAY 06/14/17 06/14/17 Unknown History Levofloxacin [Levaquin TAB] 500 mg PO QDAY #5 tablet 06/17/17 Unknown Rx Pantoprazole [Protonix TAB] 40 mg PO BID #60 tablet 06/17/17 Unknown Rx Promethazine [Phenergan SUPPOS] 12.5 mg [place] Q6H PRN #12 supp.rect 06/17/17 Unknown Rx HYDROcodone/ACETAMINOPHEN [[place] 1 each PO Q6HR PRN #12 tablet 02/15/18 Unknown Rx 10-325 Tablet] ED Physical Exam - General Limitations: No Limitations General appearance: alert, in no apparent distress - Head Head exam: Present: atraumatic, normocephalic - Eye Eye exam: Present: normal appearance, EOMI - ENT ENT exam: Present: mucous membranes moist - Neck Neck exam: Present: normal inspection - Respiratory Respiratory exam: Present: normal lung sounds bilaterally. Absent: respiratory distress, wheezes, rales, rhonchi - Cardiovascular Cardiovascular Exam: Present: regular rate, normal rhythm. Absent: systolic murmur, diastolic murmur, rubs, gallop - GI/Abdominal GI/Abdominal exam: Present: soft, normal bowel sounds. Absent: distended, tenderness - Extremities Exam Extremities exam: Present: normal inspection - Back Exam Back exam: Present: normal inspection - Neurological Exam Neurological exam: Present: alert, oriented X3, CN II-XII intact. Absent: motor sensory deficit - Psychiatric Psychiatric exam: Present: normal affect, normal mood - Skin Skin exam: Present: warm, dry, intact, normal color. Absent: rash ED Course Vital Signs 02/15/18 11:55 Temperature 99.0 F Pulse Rate 96 H Respiratory 16 Rate Blood Pressure 117/68 O2 Sat by Pulse 100 Oximetry ED Medical Decision Making - Lab Data Result diagrams: 02/15/18 12:24 02/15/18 12:24 - Medical Decision Making Discussed results with the patient Patient had relief of her symptoms with IV Dilaudid Patient stated that she feels well enough to go home Critical care attestation.: If time is entered above; I have spent that time in minutes in the direct care of this critically ill patient, excluding procedure time. ED Disposition Clinical Impression: Sickle cell crisis Disposition: DC-01 TO HOME OR SELFCARE Is pt being admited?: No Does the pt Need Aspirin: No Condition: Stable Instructions: Sickle Cell Crisis (ED) Additional Instructions: Return if worse Prescriptions: HYDROcodone/ACETAMINOPHEN [[place] 10-325 Tablet] 1 each PO Q6HR PRN #12 tablet PRN Reason: pain Referrals: PRIMARY CARE, [Primary Care Provider] - 3-5 Days Time of Disposition: 13:49
[2018-02-15] MEDS ORDERED: DILAUDID IM ONE (13:46)
[2018-02-15 14:03] LABS: Anisocytosis 2+; Ovalocytes 1+; Poikilocytosis 3+; Sickle Cells 2+; Target Cells Few; Total Cells Counted 100
[2018-02-15 14:04] LABS: Platelet Estimate Cons
[2018-02-15 14:45] VITALS: BP 139/74
== END 2018-02-15 14:44 | disposition home or self-care (01) ==
LOC: ED 11:48
DX: D57.00 Hb-SS disease with crisis, unspecified (principal); J45.909 Unspecified asthma, uncomplicated; Z90.49 Acquired absence of other specified parts of digestive tract; Z88.5 Allergy status to narcotic agent
CPT/HCPCS: 36415; 80048; 83615; 84703; 85007; 85025; 85045; 96372; 96374; 96375; 96376; 99283; J1170; J2405; J7030

== ENCOUNTER 2018-02-19 15:11 | Emergency (ER) | payer BC ==
[2018-02-19 15:38] LABS: Basophils # (Auto) 0.1 K/mm3 (0.0-0.1); Basophils % (Auto) 0.8 % (0.0-1.8); Eosinophils # (Auto) 0.8 K/mm3 (0.0-0.4); Eosinophils % (Auto) 5.4 % (0.0-4.3); Hematocrit 26.2 % (30.3-42.9); Hemoglobin 8.9 gm/dl (10.1-14.3); Lymphocytes # (Auto) 3.5 K/mm3 (1.2-5.4); Lymphocytes % (Auto) 23.4 % (13.4-35.0); Mean Corpuscular HGB Conc 34 % (30-34); Mean Corpuscular Hemoglobin 30 pg (28-32); Mean Corpuscular Volume 89 fl (79-97); Monocytes # (Auto) 1.3 K/mm3 (0.0-0.8); Monocytes % (Auto) 8.6 % (0.0-7.3); Platelet Count 592 K/mm3 (140-440); Red Blood Count 2.95 M/mm3 (3.65-5.03)
[2018-02-19 15:39] LABS: Red Cell Distribution Width 23.3 % (13.2-15.2)
[2018-02-19 15:56] LABS: Alanine Aminotransferase 8 units/L (7-56); Albumin 4.5 g/dL (3.9-5); BUN/Creatinine Ratio 13; Blood Urea Nitrogen 8 mg/dL (7-17); Calcium 9.7 mg/dL (8.4-10.2); Hemolysis Index 14
[2018-02-19 17:12] LABS: Bacteria,Urine 2+ /HPF (Negative); Bilirubin,Urine NEG (Negative); Blood,Urine NEG (Negative); Color,Urine Yellow (Yellow); Hyaline Casts,Urine 1 /LPF; Mucus,Urine FEW /HPF; Protein,Urine <15 mg/dL mg/dL (Negative)
[2018-02-20] MEDS ORDERED: ZOFRAN IV ONE (00:21)
[2018-02-20] MEDS ORDERED: SUBLIMAZE IV ONE (00:21)
[2018-02-20] MEDS ORDERED: D5NS 0.2% 1,000 ML IV SCH (01:00)
[2018-02-20] MEDS ORDERED: BENADRYL IV ONE (01:43)
[2018-02-20] MEDS ORDERED: DILAUDID IV ONE (01:43)
--- NOTE | 2018-02-20 01:51 | Emergency Department Report ---
HPI - General Chief Complaint: Sickle Cell Crisis Time Seen by Provider: 02/20/18 00:20 - HPI HPI: The patient is a 28-year-old female who presents for evaluation of sickle cell pain. The patient reports bilateral low back pain since yesterday, 05/18 in severity, throbbing in quality, exacerbated with movement, The patient denies blunt trauma to the back, fall, fever, chills, night sweats, saddle anesthesia, paresthesias, numbness or tingling in the legs, leg weakness, urine or bowel incontinence or retention, difficulty ambulating, or other focal neurological deficits. ED Past Medical Hx - Past Medical History Hx Sickle Cell Disease: Yes (sickle cell, last crisis 05/25) Hx Asthma: Yes Hx COPD: No Hx HIV: No Additional medical history: Gastric ulcers - Surgical History Hx Cholecystectomy: Yes (05/2012) - Social History Smoking Status: Never Smoker Substance Use Type: None - Medications Home Medications: Home Medications Medication Instructions Recorded Confirmed Last Taken Type Folic Acid [Folvite] 1 mg PO QDAY 06/14/17 06/14/17 Unknown History HYDROcodone/APAP 10-325 [[place] 1 tab PO QDAY PRN 06/14/17 06/14/17 Unknown History 10-325 mg TAB] Hydroxyurea [Hydrea] 500 mg PO QDAY 06/14/17 06/14/17 Unknown History Levofloxacin [Levaquin TAB] 500 mg PO QDAY #5 tablet 06/17/17 Unknown Rx Pantoprazole [Protonix TAB] 40 mg PO BID #60 tablet 06/17/17 Unknown Rx Promethazine [Phenergan SUPPOS] 12.5 mg [place] Q6H PRN #12 supp.rect 06/17/17 Unknown Rx HYDROcodone/ACETAMINOPHEN [[place]and 1 each PO Q6HR PRN #12 tablet 02/15/18 Unknown Rx 10-325 Tablet] ED Review of Systems ROS: Stated complaint: SICKLE CELL PAIN Other details as noted in HPI Constitutional: denies: fever ENT: denies: throat or neck pain Respiratory: denies: cough, shortness of breath Cardiovascular: denies: chest pain Endocrine: denies unexplained weight loss or gain Gastrointestinal: denies: abdominal pain, nausea Genitourinary: denies: dysuria Musculoskeletal: reports back pain denies: leg swelling Skin: denies: rash Neurological: denies: headache Hematological/Lymphatic: denies: easy bleeding or easy bruising Psych: denies sadness or hopelessness Physical Exam - Physical Exam Vital Signs: Vital Signs 02/19/18 02/20/18 02/20/18 15:16 01:22 01:30 Temperature 98.3 F Pulse Rate 98 H 87 Respiratory 16 17 18 Rate Blood Pressure 135/77 116/67 O2 Sat by Pulse 99 99 98 Oximetry Physical Exam: General: well-nourished, well-developed, no acute distress Head: Normocephalic, atraumatic Eyes: normal sclera ENT: Mucous membranes are pink and moist Neck: trachea midline, neck supple, No neck stiffness, no cervical adenopathy Respiratory: Breath sounds equal bilaterally, no wheezing, rales, or rhonchi Cardio: S1 and S2 present, no murmurs, rubs, gallops, capillary refill is brisk Abdomen: Normoactive bowel sounds, soft abdomen, no rigidity, no guarding or rebound tenderness Musc: Tenderness to palpation present to bilateral lower lumbar paraspinal musculature, pain is elicited with flexion at the hip, normal active range of motion at the hip intact, no spinous step-off or obvious deformity, ipsi- lateral and contralateral straight leg raise tests are negative. On extremity testing, compartments are soft and pliable, no obvious gross motor strength deficit, 5+ motor strength, including extension of the great toe bilaterally, no muscular atrophy, spasticity, fasciculations, or clonus, no obvious gross sensation deficit including web space between 1st and 2nd toes, reflexes 2+ & symmetric on DTR testing at the knee and ankle joints, distal pulses intact. Skin: No rash Neuro: no facial drooping, normal speech Psych: Normal affect ED Course Vital Signs 02/19/18 02/20/18 02/20/18 15:16 01:22 01:30 Temperature 98.3 F Pulse Rate 98 H 87 Respiratory 16 17 18 Rate Blood Pressure 135/77 116/67 O2 Sat by Pulse 99 99 98 Oximetry ED Medical Decision Making - Lab Data Result diagrams: 02/19/18 15:24 02/19/18 15:24 - Medical Decision Making The patient was seen and examined by myself. The patient is placed on a payroll administrative assistant and continuous pulse ox. On initial evaluation, the patient was found to be in no distress. No findings on exam concerning for cauda equina syndrome, spinal stenosis, epidural abscess, or other emergent etiology of back pain. As the patient has no midline tenderness on exam, no neuro deficits, and no findings concerning for emergent etiology of their back pain, imaging will not be obtained at this time. IV access is established and the patient is given fluid resuscitation, Zofran, IV fentanyl, and IV dilaudid for her pain. Lab results reveal elevated reticulocyte count, and a stable hemoglobin level at patient baseline. Lab results otherwise are not concerning. The patient was reevaluated and reported that their pain was significantly improved. The patient is stable for discharge with outpatient follow-up. The patient is given follow-up and return instructions. The patient expressed understanding and agreed with the plan. The patient is discharged in stable condition. Critical care attestation.: If time is entered above; I have spent that time in minutes in the direct care of this critically ill patient, excluding procedure time. ED Disposition Clinical Impression: Sickle cell pain crisis, Dehydration Acute low back pain Qualifiers: Back pain laterality: bilateral Sciatica presence: without sciatica Qualified Code(s): M54.5 - Low back pain Disposition: DC-01 TO HOME OR SELFCARE Is pt being admited?: No Does the pt Need Aspirin: No Condition: Stable Instructions: Sickle Cell Crisis (ED) Referrals: PRIMARY CARE, [Primary Care Provider] - 3-5 Days Forms: Work/School Release Form(ED) Time of Disposition: 01:51
[2018-02-20 03:35] VITALS: BP 107/60
== END 2018-02-20 04:02 | disposition home or self-care (01) ==
LOC: ED 15:11
DX: D57.419 Sickle-cell thalassemia, unspecified, with crisis (principal); E86.0 Dehydration; M54.5 Low back pain; J45.909 Unspecified asthma, uncomplicated; Z90.49 Acquired absence of other specified parts of digestive tract
CPT/HCPCS: 36415; 80053; 81001; 85025; 85045; 96365; 96375; 99283; J1170; J1200; J2405; J3010

== ENCOUNTER 2018-02-21 09:05 | Emergency (ER) | payer BC, MEDICAID ==
[2018-02-21] MEDS ORDERED: NACL 0.9% 1000 ML 1,000 ML IV ONE ×2 (10:20→11:44)
[2018-02-21] MEDS ORDERED: ZOFRAN IV ONE (10:20)
[2018-02-21] MEDS ORDERED: DILAUDID IV ONE ×3 (10:20→19:10)
--- NOTE | 2018-02-21 10:25 | Emergency Department Report ---
Blank Doc - Documentation Documentation: 28-year-old female the past medical history sickle cell disease, previous cholecystectomy, and gastric ulcers presents to the hospital complaining of ongoing back pain secondary to sickle cell crisis and epigastric abdominal pain , vomiting, and by mouth intolerance since yesterday. Patient has been in the ER February 15 and February 20 for sickle cell related back and leg pain. Patient has continued back pain but now has epigastric pain radiating to her back and generalized abdominal pain. Patient states she has been unable to tolerate food or liquids since yesterday and having green vomitus. She denies melena, hematochezia, hematemesis, diarrhea, or fever. Patient is taking Prilosec and hydrocodone 10 mg at home without relief. 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 gen abd pain, max in epgastric generalized mid and lower back tenderness recent past med record reviewed labs pending Dilaudid, zofran, NS, ordered pt does not have a port transfer to main side for evaluation
[2018-02-21 10:45] LABS: Hematocrit 28.1 % (30.3-42.9); Hemoglobin 9.9 gm/dl (10.1-14.3); Mean Corpuscular HGB Conc 35 % (30-34); Mean Corpuscular Hemoglobin 31 pg (28-32); Mean Corpuscular Volume 89 fl (79-97); Platelet Count 631 K/mm3 (140-440); Red Blood Count 3.15 M/mm3 (3.65-5.03)
[2018-02-21 10:53] LABS: Red Cell Distribution Width 22.7 % (13.2-15.2)
[2018-02-21 11:01] LABS: Alanine Aminotransferase 21 units/L (7-56); Albumin 4.7 g/dL (3.9-5); BUN/Creatinine Ratio 13; Blood Urea Nitrogen 8 mg/dL (7-17); Calcium 10.7 mg/dL (8.4-10.2); Hemolysis Index 15; Lipase 23 units/L (13-60)
[2018-02-21] MEDS ORDERED: ZOFRAN ODT PO ONE (11:42)
[2018-02-21] MEDS ORDERED: ALUM-MAG HYDROX-SIMETH 200-200-20MG/5ML PO ONE (11:42)
[2018-02-21] MEDS ORDERED: LIDOCAINE VISCOUS 2% PO ONE (11:42)
--- NOTE | 2018-02-21 12:06 | Emergency Department Report ---
ED Abdominal Pain HPI - General Chief Complaint: Abdominal Pain Stated Complaint: VOMITING, BACK PAIN, LIGHT HEADED Time Seen by Provider: 02/21/18 10:09 Source: patient Mode of arrival: Ambulatory Limitations: No Limitations - History of Present Illness Initial Comments: 1 day of upper more than lower abdominal pain. Intermittent. Sharp in nature. The pain radiates to her back. Associated with nausea/vomiting. Worse when she eats. History cholecystectomy. Feels different from her sickle cell pain. No urinary or vaginal symptoms. Severity scale (0 -10): 9 - Related Data Home Medications Medication Instructions Recorded Confirmed Last Taken Folic Acid [Folvite] 1 mg PO QDAY 06/14/17 06/14/17 Unknown HYDROcodone/APAP 10-325 [Burr 1 tab PO QDAY PRN 06/14/17 06/14/17 Unknown 10-325 mg TAB] Hydroxyurea [Hydrea] 500 mg PO QDAY 06/14/17 06/14/17 Unknown Previous Rx's Medication Instructions Recorded Last Taken Type Levofloxacin [Levaquin TAB] 500 mg PO QDAY #5 tablet 06/17/17 Unknown Rx Pantoprazole [Protonix TAB] 40 mg PO BID #60 tablet 06/17/17 Unknown Rx Promethazine [Phenergan SUPPOS] 12.5 mg [place] Q6H PRN #12 supp.rect 06/17/17 Unknown Rx HYDROcodone/ACETAMINOPHEN [Burr 1 each PO Q6HR PRN #12 tablet 02/15/18 Unknown Rx 10-325 Tablet] Cephalexin [Keflex] 500 mg PO Q8HR #30 cap 02/21/18 Unknown Rx Ondansetron [Zofran TAB] 4 mg PO Q8HR PRN #10 tablet 02/21/18 Unknown Rx Allergies Allergy/AdvReac Type Severity Reaction Status Date / Time morphine AdvReac Itching Verified 07/14/15 14:44 ED Review of Systems ROS: Stated complaint: VOMITING, BACK PAIN, LIGHT HEADED Other details as noted in HPI Comment: All other systems reviewed and negative Gastrointestinal: abdominal pain, nausea, vomiting Neurological: weakness ED Past Medical Hx - Past Medical History Hx Sickle Cell Disease: Yes (sickle cell, last crisis 05/25) Hx Asthma: Yes Hx COPD: No Hx HIV: No Additional medical history: Gastric ulcers - Surgical History Hx Cholecystectomy: Yes (05/2012) - Social History Smoking Status: Never Smoker Substance Use Type: None - Medications Home Medications: Home Medications Medication Instructions Recorded Confirmed Last Taken Type Folic Acid [Folvite] 1 mg PO QDAY 06/14/17 06/14/17 Unknown History HYDROcodone/APAP 10-325 [Burr 1 tab PO QDAY PRN 06/14/17 06/14/17 Unknown History 10-325 mg TAB] Hydroxyurea [Hydrea] 500 mg PO QDAY 06/14/17 06/14/17 Unknown History Levofloxacin [Levaquin TAB] 500 mg PO QDAY #5 tablet 06/17/17 Unknown Rx Pantoprazole [Protonix TAB] 40 mg PO BID #60 tablet 06/17/17 Unknown Rx Promethazine [Phenergan SUPPOS] 12.5 mg [place] Q6H PRN #12 supp.rect 06/17/17 Unknown Rx HYDROcodone/ACETAMINOPHEN [Burr 1 each PO Q6HR PRN #12 tablet 02/15/18 Unknown Rx 10-325 Tablet] Cephalexin [Keflex] 500 mg PO Q8HR #30 cap 02/21/18 Unknown Rx Ondansetron [Zofran TAB] 4 mg PO Q8HR PRN #10 tablet 02/21/18 Unknown Rx ED Physical Exam - General Limitations: No Limitations General appearance: alert, in no apparent distress - Head Head exam: Present: atraumatic, normocephalic - Eye Eye exam: Present: normal appearance - ENT ENT exam: Present: mucous membranes moist - Neck Neck exam: Present: normal inspection - Respiratory Respiratory exam: Present: normal lung sounds bilaterally. Absent: respiratory distress - Cardiovascular Cardiovascular Exam: Present: regular rate, normal rhythm. Absent: systolic murmur, diastolic murmur, rubs, gallop - GI/Abdominal GI/Abdominal exam: Present: soft, tenderness (diffuse, but worse in the epigastric area), normal bowel sounds. Absent: guarding, rebound - Extremities Exam Extremities exam: Present: normal inspection - Back Exam Back exam: Present: normal inspection - Neurological Exam Neurological exam: Present: alert, oriented X3 - Psychiatric Psychiatric exam: Present: normal affect, normal mood - Skin Skin exam: Present: warm, dry, intact, normal color. Absent: rash ED Course Vital Signs 02/21/18 02/21/18 02/21/18 09:10 09:24 09:30 Temperature 98.8 F Pulse Rate 109 H 81 79 Respiratory 20 16 22 Rate Blood Pressure 123/84 Blood Pressure [Right] O2 Sat by Pulse 99 100 100 Oximetry 02/21/18 02/21/18 02/21/18 10:42 10:45 10:52 Temperature 98.6 F Pulse Rate 91 H 91 H Respiratory 15 16 Rate Blood Pressure Blood Pressure 130/86 [Right] O2 Sat by Pulse 99 99 100 Oximetry 02/21/18 02/21/18 02/21/18 11:00 11:16 11:26 Temperature Pulse Rate 96 H 102 H Respiratory 19 19 18 Rate Blood Pressure 129/81 129/81 Blood Pressure [Right] O2 Sat by Pulse 100 96 Oximetry 02/21/18 02/21/18 02/21/18 11:30 12:02 12:16 Temperature Pulse Rate 90 87 87 Respiratory 12 16 19 Rate Blood Pressure 129/81 124/78 124/78 Blood Pressure [Right] O2 Sat by Pulse 96 99 Oximetry 02/21/18 02/21/18 02/21/18 12:30 12:46 13:00 Temperature Pulse Rate 97 H 87 88 Respiratory 16 17 23 Rate Blood Pressure 124/78 129/81 130/72 Blood Pressure [Right] O2 Sat by Pulse 100 100 100 Oximetry 02/21/18 02/21/18 02/21/18 13:16 13:30 13:46 Temperature Pulse Rate 88 96 H 99 H Respiratory 20 20 16 Rate Blood Pressure 130/72 130/72 130/72 Blood Pressure [Right] O2 Sat by Pulse 95 89 95 Oximetry 02/21/18 02/21/18 02/21/18 14:00 14:16 14:30 Temperature Pulse Rate 92 H 94 H 90 Respiratory 13 17 20 Rate Blood Pressure 115/70 115/70 115/70 Blood Pressure [Right] O2 Sat by Pulse 100 95 94 Oximetry 02/21/18 02/21/18 02/21/18 15:24 16:24 16:30 Temperature Pulse Rate 90 95 H 94 H Respiratory 20 24 25 H Rate Blood Pressure 115/70 115/70 Blood Pressure 115/70 [Right] O2 Sat by Pulse 100 99 98 Oximetry 02/21/18 02/21/18 02/21/18 16:49 17:00 17:16 Temperature Pulse Rate 97 H 90 92 H Respiratory 15 20 22 Rate Blood Pressure 109/62 109/62 Blood Pressure [Right] O2 Sat by Pulse 97 97 97 Oximetry 02/21/18 02/21/18 02/21/18 17:30 17:46 18:00 Temperature Pulse Rate 89 89 106 H Respiratory 18 14 17 Rate Blood Pressure 109/62 109/62 109/62 Blood Pressure [Right] O2 Sat by Pulse 96 94 96 Oximetry ED Medical Decision Making - Lab Data Result diagrams: 02/21/18 10:24 02/21/18 10:24 - Radiology Data Radiology results: report reviewed, image reviewed - Medical Decision Making 28-year-old female with past history of sickle cell disease on Burr, gastric ulcers that presents to the ER with abdominal pain and vomiting. Vital signs significant for mild tachycardia with a heart rate of 109. This improved with fluids and pain control. Lab work showed elevated T bili of 5. Right upper quadrant ultrasound was unremarkable. CT scan of the abdomen/pelvis showed recurrent gastric wall thickening. Urinalysis is concerning for infection. Given patient's back pain symptoms, I am concerned for pyelonephritis. Patient was given Rocephin in the ER. When I went to reevaluate the patient and inform her of her CT results, she felt like she was having a pain crisis started to develop. She endorses diffuse joint/bone pain. I gave her 1 mg IV Dilaudid and 12.5 mg IV Benadryl. If her pain crisis is controlled, patient can be discharged home on Keflex as well as Zofran. Patient has been signed out to oncoming ER physician. - Differential Diagnosis pain crisis, sepsis, pancreatitis, gastritis, ischemic colitis, PUD Critical care attestation.: If time is entered above; I have spent that time in minutes in the direct care of this critically ill patient, excluding procedure time. ED Disposition Clinical Impression: Pyelonephritis Disposition: Z-01 MED SCREENING EXAM-CONT Is pt being admited?: No Does the pt Need Aspirin: No Condition: Stable Instructions: Abdominal Pain (ED), Acute Pyelonephritis (ED) Prescriptions: Cephalexin [Keflex] 500 mg PO Q8HR #30 cap Ondansetron [Zofran TAB] 4 mg PO Q8HR PRN #10 tablet PRN Reason: Nausea Referrals: ARIEL SWEET MD [Primary Care Provider] - 3-5 Days
--- NOTE | 2018-02-21 14:00 | Ultrasound Report ---
FINAL REPORT EXAM: US ABDOMEN LIMITED HISTORY: RUQ pain, elevated t. bili TECHNIQUE: Sonography of the right upper quadrant abdomen was performed. PRIORS: None. FINDINGS: No focal liver lesions are seen. The patient is status post cholecystectomy. There is no intra- or extrahepatic biliary dilatation. Proximal CBD is 2 mm. The visualized pancreas is unremarkable. There is no right hydronephrosis. IMPRESSION: There is no significant abnormality identified.
[2018-02-21 14:16] LABS: Basophils % (Manual) 0 % (0.0-1.8); Total Cells Counted 100
[2018-02-21 14:17] LABS: Anisocytosis 2+; Sickle Cells 2+; Target Cells 2+
[2018-02-21 14:18] LABS: Platelet Estimate Consistent w Auto
[2018-02-21 15:25] LABS: Bacteria,Urine 1+ /HPF (Negative); Bilirubin,Urine NEG (Negative); Blood,Urine NEG (Negative); Color,Urine Amber (Yellow); Hyaline Casts,Urine 1 /LPF; RBC,Urine < 1.0 /HPF (0.0-6.0)
[2018-02-21 15:35] LABS: HCG Qualitative,Urine Negative (Negative)
[2018-02-21] MEDS ORDERED: ROCEPHIN/NS 1 GM/50 ML 1 GM/50 ML BAG IV ONE (16:00)
--- NOTE | 2018-02-21 18:44 | Cat Scan Report ---
FINAL REPORT EXAM: CT ABDOMEN PELVIS W CON HISTORY: abd pain TECHNIQUE: Standard enhanced CT of the abdomen and pelvis. Coronal and sagittal reconstruction was also performed. Delayed imaging through the abdomen and pelvis was obtained. Contrast: 100 mL Omnipaque 300 given IV. PRIORS: CT a/P 06/13/2017 FINDINGS: There is diffuse concentric wall thickening of the distal half of the stomach again noted. An internal biliary drain is in place. Pneumobilia is noted which is expected with a stent in place. Gallbladder has been surgically removed. Within the abdomen, the liver, pancreas, adrenal glands, and kidneys are unremarkable. The spleen is shrunken and calcified with underlying cysts, stable. No evidence for retroperitoneal or pelvic lymphadenopathy is seen. Mesentery lymph nodes in the right lower quadrant are all normal in size. The bowel loops have normal caliber. No soft tissue mass, fluid collection, inflammatory change, or free air is seen within the abdomen or pelvis. The appendix is normal. Within the pelvis, the bladder is unremarkable. The uterus is normal. There is an involuting 1.6 cm cyst in the left ovary. No evidence for mass or lymphadenopathy is seen in the pelvis. Images through the upper abdomen include the lung bases which are expanded and clear. Bony structures show no focal abnormalities and are intact. IMPRESSION: 1. Persistent diffuse concentric wall thickening of the distal half of the stomach again noted. 2. Internal biliary stent in place with expected pneumobilia noted. No biliary dilatation is currently seen. 3. Otherwise, no change.
[2018-02-21] MEDS ORDERED: BENADRYL IV ONE (19:10)
[2018-02-21] MEDS ORDERED: SUBLIMAZE IV ONE (22:08)
[2018-02-21 23:19] VITALS: BP 112/63
== END 2018-02-21 23:20 | disposition home or self-care (01) ==
LOC: ED 09:05
DX: N12 Tubulo-interstitial nephritis, not specified as acute or chronic (principal); J45.909 Unspecified asthma, uncomplicated; Z90.49 Acquired absence of other specified parts of digestive tract; Z88.6 Allergy status to analgesic agent
CPT/HCPCS: 36415; 74177; 76705; 80053; 81001; 81025; 83690; 84703; 85007; 85025; 85045; 96361; 96365; 96366; 96375; 96376; 99285; J0696; J1170; J1200; J2405; J3010; J7030; Q9967

== ENCOUNTER 2018-02-24 17:03 | Emergency (ER) | payer BC ==
[2018-02-24] MEDS ORDERED: D5NS 0.2% 1,000 ML IV SCH (18:00)
[2018-02-24 18:02] LABS: Hematocrit 25.6 % (30.3-42.9); Hemoglobin 8.6 gm/dl (10.1-14.3); Mean Corpuscular HGB Conc 33 % (30-34); Mean Corpuscular Hemoglobin 31 pg (28-32); Mean Corpuscular Volume 93 fl (79-97); Platelet Count 560 K/mm3 (140-440); Red Blood Count 2.76 M/mm3 (3.65-5.03)
[2018-02-24 18:03] LABS: Red Cell Distribution Width 22.4 % (13.2-15.2)
[2018-02-24 18:51] LABS: Basophils % (Manual) 0 % (0.0-1.8); Total Cells Counted 100
[2018-02-24 18:52] LABS: Anisocytosis 1+; Platelet Estimate Appears Increased
[2018-02-24 18:53] LABS: Sickle Cells 2+; Target Cells 2+
[2018-02-24 18:54] LABS: Large Platelets 1+
[2018-02-24] MEDS ORDERED: BENADRYL IV ONE (21:57)
[2018-02-24] MEDS ORDERED: DILAUDID IV ONE (21:57)
[2018-02-24] MEDS ORDERED: ZOFRAN IV ONE (21:57)
--- NOTE | 2018-02-24 22:13 | Emergency Department Report ---
HPI - General Chief Complaint: Sickle Cell Crisis Time Seen by Provider: 02/24/18 21:51 - HPI HPI: Room 11 The patient is a 28-year-old female presented with a chief complaint 6 of pain crisis. Patient states she was seen in this ED 3 days ago no back pain. The initial pain had improved at the end of her visit before she began having pain crisis in bilateral lower extremities. The patient states she was administered pain medication in the ED and her left lower extremity pain improve the right lower extremity did not. The patient states she went home and the next day the pain began worse. This morning the patient noted swelling to the anterior right egan. Patient denies any preceding trauma. Patient denies any history of fever. Patient complains of pain in her right lower extremity and right upper extremity consistent with her sickle cell pain crises. The patient gives her pain score of 9/10. Location: [See above] Duration: [See above] Quality: Sickle cell pain crisis Severity: 9/10 Modifying factors: [see above] Context: [see above] Mode of transportation: [not driving] ED Past Medical Hx - Past Medical History Previous Medical History?: Yes Hx Sickle Cell Disease: Yes (sickle cell, last crisis 05/25) Hx Asthma: Yes Hx HIV: No Additional medical history: Gastric ulcers - Surgical History Past Surgical History?: Yes Hx Cholecystectomy: Yes (05/2012) - Family History Family history: no significant - Social History Smoking Status: Never Smoker Substance Use Type: None (denies illicit drug use) - Medications Home Medications: Home Medications Medication Instructions Recorded Confirmed Last Taken Type Folic Acid [Folvite] 1 mg PO QDAY 06/14/17 02/24/18 Unknown History HYDROcodone/APAP 10-325 [[place] 1 tab PO QDAY PRN 06/14/17 02/24/18 Unknown History 10-325 mg TAB] Hydroxyurea [Hydrea] 500 mg PO QDAY 06/14/17 02/24/18 Unknown History Levofloxacin [Levaquin TAB] 500 mg PO QDAY #5 tablet 06/17/17 02/24/18 Unknown Rx Pantoprazole [Protonix TAB] 40 mg PO BID #60 tablet 06/17/17 02/24/18 Unknown Rx Promethazine [Phenergan SUPPOS] 12.5 mg [place] Q6H PRN #12 supp.rect 06/17/17 Unknown Rx HYDROcodone/ACETAMINOPHEN [[place] 1 each PO Q6HR PRN #12 tablet 02/15/18 Unknown Rx 10-325 Tablet] Cephalexin [Keflex] 500 mg PO Q8HR #30 cap 02/21/18 02/24/18 Unknown Rx Ondansetron [Zofran TAB] 4 mg PO Q8HR PRN #10 tablet 02/21/18 02/24/18 Unknown Rx HYDROcodone/APAP 5-325 [[place] 1 - 2 each PO Q6HR PRN #14 tablet 02/25/18 Unknown Rx 5/325] ED Review of Systems ROS: Stated complaint: SICKLE CELL CRISIS/PAIN Other details as noted in HPI Constitutional: denies: fever Eyes: denies: eye pain ENT: denies: throat pain Respiratory: no symptoms reported Cardiovascular: denies: chest pain Endocrine: denies: unexplained weight loss Gastrointestinal: denies: abdominal pain Genitourinary: denies: dysuria Musculoskeletal: myalgia. denies: back pain Skin: denies: change in color Neurological: denies: headache Hematological/Lymphatic: other (sickle cell pain crisis) Physical Exam - Physical Exam Vital Signs: Vital Signs 02/24/18 17:07 Temperature 98.9 F Pulse Rate 104 H Respiratory 18 Rate Blood Pressure 127/79 O2 Sat by Pulse 97 Oximetry Physical Exam: GENERAL: The patient is well-developed well-nourished female lying on stretcher not appearing to be in acute distress. [] HEENT: Normocephalic. Atraumatic. Extraocular motions are intact. Patient has moist mucous membranes. NECK: Supple. Trachea midline CHEST/LUNGS: Clear to auscultation. There is no respiratory distress noted. HEART/CARDIOVASCULAR: Regular. There is no tachycardia. There is no gallop rub or murmur. ABDOMEN: Abdomen is soft, nontender. Patient has normal bowel sounds. There is no abdominal distention. SKIN: There is no cellulitis appreciated. There is no edema. There is no diaphoresis. NEURO: The patient is awake, alert, and oriented. The patient is cooperative. The patient has normal speech MUSCULOSKELETAL: There is an ovoid region of edema approximately 4 cm x 9 cm to the right pretibial region. There is no evidence of acute injury. ED Course Vital Signs 07/19/18 17:07 Temperature 98.9 F Pulse Rate 104 H Respiratory 18 Rate Blood Pressure 127/79 O2 Sat by Pulse 97 Oximetry - Reevaluation(s) Reevaluation #1: 02/25/18 00:22 Patient states she is feeling "good." Patient states she would prefer to go home. Strong warnings given. Discussion with Dr. Raines discussed with the patient - Consultations Consultation #1: 02/25/18 00:[address] Raines ED Medical Decision Making - Lab Data Result diagrams: 02/24/18 17:21 - Radiology Data Radiology results: report reviewed (left lower extremity Doppler), image reviewed (left lower extremity Doppler) CHELSIE SHERMAN Female : 1990 [facility]# [id number] 02/24/18 18:03 - Radiology Dept. Note by MIGUEL KAPLAN Acct Num: [id number] : 1990 Patient Age: 28 VASCULAR LAB.PRELIMINARY REPORT. RLE VENOUS DUPLEX DONE. NO EVIDENCE OF DVT/SVT IN VESSELS VISUALIZED. SOFT TISSUE CHANGES SEEN IN THE RT.MID TO DISTAL ANTERIOR LOWER LEG . Initialized on 02/24/18 18:03 - END OF NOTE - Differential Diagnosis sickle cell pain crisis, DVT Critical care attestation.: If time is entered above; I have spent that time in minutes in the direct care of this critically ill patient, excluding procedure time. ED Disposition Clinical Impression: Sickle cell pain crisis, Lower leg edema Disposition: DC-01 TO HOME OR SELFCARE Is pt being admited?: No Does the pt Need Aspirin: No Condition: Stable Instructions: Sickle Cell Crisis (ED) Additional Instructions: Return to the emergency department immediately should you develop worsening symptoms, fever, inability to tolerate food or liquid or any other concerns. Prescriptions: HYDROcodone/APAP 5-325 [Plato 5/325] 1 - 2 each PO Q6HR PRN #14 tablet PRN Reason: Pain Referrals: PRIMARY CARE, [Primary Care Provider] - 3-5 Days SALOME RAINES DO [Staff Physician] - [place] Time of Disposition: 00:30
[2018-02-25] MEDS ORDERED: DILAUDID IV ONE
[2018-02-25] MEDS ORDERED: DILAUDID IM ONE
[2018-02-25 00:54] VITALS: BP 122/80
--- NOTE | 2018-02-28 15:09 | Vascular Lab Report ---
Right Lower Extremity Venous Duplex Study: Reason for Exam: Pain and swelling of the right lower extremity. Comments on the Right: All veins visualized are freely compressible without evidence of internal echogenicity. Flow is spontaneous and phasic throughout. No evidence of acute or chronic thrombus is seen in any of the vessels visualized. Nonspecific soft tissue edema is noted near the lateral ankle and distal calf. This may represent a hematoma. Clinical correlation recommended. Comments on the Left: A limited duplex study was done of the proximal veins of the left lower extremity. All veins visualized are freely compressible without evidence of internal echogenicity. Flow is spontaneous and phasic throughout. No evidence of acute or chronic thrombus is seen in any of the vessels visualized. Impression: No evidence of acute or chronic deep venous thrombosis in the right lower extremity. Nonspecific soft tissue changes noted in the distal anterior right calf just above the ankle. Clinical correlation recommended.
== END 2018-02-25 00:56 | disposition home or self-care (01) ==
LOC: ED 17:03
DX: D57.00 Hb-SS disease with crisis, unspecified (principal); R60.9 Edema, unspecified; J45.909 Unspecified asthma, uncomplicated; Z79.899 Other long term (current) drug therapy; Z88.6 Allergy status to analgesic agent
CPT/HCPCS: 36415; 84703; 85007; 85025; 85045; 93971; 96365; 96372; 96375; 96376; 99284; J1170; J1200; J2405

== ENCOUNTER 2018-04-25 12:05 | Emergency (ER) | payer BC ==
[2018-04-25] MEDS ORDERED: MORPHINE IV ONE (15:11)
[2018-04-25] MEDS ORDERED: NACL 0.9% 1000 ML 1,000 ML IV ONE (15:11)
[2018-04-25] MEDS ORDERED: ZOFRAN IV ONE (15:12)
[2018-04-25] MEDS ORDERED: BANOPHEN PO ONE (15:12)
--- NOTE | 2018-04-25 15:14 | Emergency Department Report ---
Blank Doc - Documentation Documentation: Patient presents to the emergency department with a chief complaint of sickle cell crisis. Patient states that she's had this pain since Wednesday and is located in her arms and legs which is typical for sickle cell crisis. Patient is also concerned because she is having this pain in the upper abdomen and chest that has been present for the same time as well. She states the pain radiates into her back. Patient states she has a history of ulcers and this feels slightly different than that. Patient has had a gallbladder removal still endorses having her spleen. Patient is tender to palpation in epigastric region laboratory values and imaging have been ordered and care be taken over by the mid-level care Provider with me available for consultation
[2018-04-25 15:28] LABS: BUN/Creatinine Ratio 14; Blood Urea Nitrogen 10 mg/dL (7-17); Hemolysis Index 20
[2018-04-25 16:06] LABS: INR 1.07 (0.87-1.13)
[2018-04-25 16:07] LABS: Partial Thromboplastin Time 28.7 Sec. (24.2-36.6)
[2018-04-25 16:12] LABS: Bilirubin,Direct 0.5 mg/dL (0-0.2)
[2018-04-25 16:20] LABS: Bilirubin,Urine NEG (Negative); Blood,Urine NEG (Negative); Color,Urine Yellow (Yellow); Protein,Urine <15 mg/dL mg/dL (Negative); RBC,Urine < 1.0 /HPF (0.0-6.0)
--- NOTE | 2018-04-25 16:26 | Emergency Department Report ---
ED General Adult HPI - General Chief complaint: Sickle Cell Crisis Stated complaint: SICKLE CELL/STOMACH PAIN Time Seen by Provider: 04/25/18 14:38 Source: patient Mode of arrival: Ambulatory Limitations: No Limitations - History of Present Illness Initial comments: This is a 28-year-old female nontoxic, well nourished in appearance, no acute signs of distress presents to the ED with c/o of sick cell crisis with body aches, upper abdominal pain that radiates back pain1 day. Patient denies any nausea or vomiting. Patient describes abdominal pain as cramping and aching with level of 3/10. Patient denies chest pain, short of breath, fever, chills, headache, stiff neck, numbness or tingling. Patient denies any diarrhea or constipation. Patient denies any recent travels. Patient denies having and drug allergies including morphine. -: days(s) (1) Location: abdomen Radiation: back Severity scale (0 -10): 3 Quality: aching Consistency: constant Improves with: none Worsens with: none Associated Symptoms: denies: confusion, chest pain, cough, diaphoresis, fever/ chills, headaches, malaise, nausea/vomiting, rash, seizure, shortness of breath , syncope, weakness Treatments Prior to Arrival: none - Related Data Home Medications Medication Instructions Recorded Confirmed Last Taken Folic Acid [Folvite] 1 mg PO QDAY 06/14/17 02/24/18 Unknown HYDROcodone/APAP 10-325 [[place] 1 tab PO QDAY PRN 06/14/17 02/24/18 Unknown 10-325 mg TAB] Hydroxyurea [Hydrea] 500 mg PO QDAY 06/14/17 02/24/18 Unknown Previous Rx's Medication Instructions Recorded Last Taken Type Pantoprazole [Protonix TAB] 40 mg PO BID #60 tablet 06/17/17 Unknown Rx Promethazine [Phenergan SUPPOS] 12.5 mg [place] Q6H PRN #12 supp.rect 06/17/17 Unknown Rx levoFLOXacin [Levaquin TAB] 500 mg PO QDAY #5 tablet 06/17/17 Unknown Rx HYDROcodone/ACETAMINOPHEN [[place] 1 each PO Q6HR PRN #12 tablet 02/15/18 Unknown Rx 10-325 Tablet] Ondansetron [Zofran TAB] 4 mg PO Q8HR PRN #10 tablet 02/21/18 Unknown Rx cephALEXin [Keflex] 500 mg PO Q8HR #30 cap 02/21/18 Unknown Rx HYDROcodone/APAP 5-325 [[place] 1 - 2 each PO Q6HR PRN #14 tablet 02/25/18 Unknown Rx 5/325] Acetaminophen/Codeine [Tylenol 1 tab PO Q6H PRN #12 tab 04/25/18 Unknown Rx /Codeine # 3 tab] Ibuprofen [Motrin] 600 mg PO Q8H PRN #30 tablet 04/25/18 Unknown Rx Sulfamethoxazole/Trimethoprim 1 each PO BID #14 tablet 04/25/18 Unknown Rx [Bactrim DS TAB] Allergies Allergy/AdvReac Type Severity Reaction Status Date / Time morphine AdvReac Itching Verified 07/14/15 14:44 ED Review of Systems ROS: Stated complaint: SICKLE CELL/STOMACH PAIN Other details as noted in HPI Constitutional: denies: chills, fever Eyes: denies: eye pain, eye discharge, vision change ENT: denies: ear pain, throat pain Respiratory: denies: cough, shortness of breath, wheezing Cardiovascular: denies: chest pain, palpitations Endocrine: no symptoms reported Gastrointestinal: abdominal pain. denies: nausea, vomiting, diarrhea Genitourinary: denies: urgency, dysuria, discharge Musculoskeletal: back pain. denies: joint swelling, arthralgia Skin: denies: rash, lesions Neurological: denies: headache, weakness, paresthesias Psychiatric: denies: anxiety, depression Hematological/Lymphatic: denies: easy bleeding, easy bruising ED Past Medical Hx - Past Medical History Hx Sickle Cell Disease: Yes (sickle cell, last crisis 05/25) Hx Asthma: Yes Hx COPD: No Hx HIV: No Additional medical history: Gastric ulcers - Surgical History Hx Cholecystectomy: Yes (05/2012) - Social History Smoking Status: Never Smoker Substance Use Type: None (denies illicit drug use) - Medications Home Medications: Home Medications Medication Instructions Recorded Confirmed Last Taken Type Folic Acid [Folvite] 1 mg PO QDAY 06/14/17 02/24/18 Unknown History HYDROcodone/APAP 10-325 [[place] 1 tab PO QDAY PRN 06/14/17 02/24/18 Unknown History 10-325 mg TAB] Hydroxyurea [Hydrea] 500 mg PO QDAY 06/14/17 02/24/18 Unknown History Pantoprazole [Protonix TAB] 40 mg PO BID #60 tablet 06/17/17 02/24/18 Unknown Rx Promethazine [Phenergan SUPPOS] 12.5 mg [place] Q6H PRN #12 supp.rect 06/17/17 Unknown Rx levoFLOXacin [Levaquin TAB] 500 mg PO QDAY #5 tablet 06/17/17 02/24/18 Unknown Rx HYDROcodone/ACETAMINOPHEN [[place] 1 each PO Q6HR PRN #12 tablet 02/15/18 Unknown Rx 10-325 Tablet] Ondansetron [Zofran TAB] 4 mg PO Q8HR PRN #10 tablet 02/21/18 02/24/18 Unknown Rx cephALEXin [Keflex] 500 mg PO Q8HR #30 cap 02/21/18 02/24/18 Unknown Rx HYDROcodone/APAP 5-325 [[place] 1 - 2 each PO Q6HR PRN #14 tablet 02/25/18 Unknown Rx 5/325] Acetaminophen/Codeine [Tylenol 1 tab PO Q6H PRN #12 tab 04/25/18 Unknown Rx /Codeine # 3 tab] Ibuprofen [Motrin] 600 mg PO Q8H PRN #30 tablet 04/25/18 Unknown Rx Sulfamethoxazole/Trimethoprim 1 each PO BID #14 tablet 04/25/18 Unknown Rx [Bactrim DS TAB] ED Physical Exam - General Limitations: No Limitations General appearance: alert, in no apparent distress - Head Head exam: Present: atraumatic, normocephalic - Eye Eye exam: Present: normal appearance Pupils: Present: normal accommodation - ENT ENT exam: Present: normal exam, mucous membranes moist - Neck Neck exam: Present: normal inspection, full ROM. Absent: tenderness, meningismus, lymphadenopathy - Respiratory Respiratory exam: Present: normal lung sounds bilaterally. Absent: respiratory distress, wheezes, rales, rhonchi, stridor, chest wall tenderness, accessory muscle use, decreased breath sounds, prolonged expiratory - Cardiovascular Cardiovascular Exam: Present: regular rate, normal rhythm, normal heart sounds. Absent: irregular rhythm, systolic murmur, diastolic murmur, rubs, gallop - GI/Abdominal GI/Abdominal exam: Present: soft, tenderness (diffuse upper abdomen region), normal bowel sounds. Absent: distended, guarding, rebound, rigid, diminished bowel sounds - Expanded GI/Abdominal Exam Expanded GI/Abdominal exam: Absent: psoas sign, Villareal's sign, Rovsing's sign, tenderness at Mcburney's Point - Rectal Rectal exam: Present: deferred - Extremities Exam Extremities exam: Present: normal inspection, full ROM, normal capillary refill. Absent: tenderness - Back Exam Back exam: Present: normal inspection, full ROM. Absent: tenderness, CVA tenderness (R), CVA tenderness (L), muscle spasm, paraspinal tenderness, vertebral tenderness, rash noted - Neurological Exam Neurological exam: Present: alert, oriented X3, normal gait - Psychiatric Psychiatric exam: Present: normal affect, normal mood - Skin Skin exam: Present: warm, dry, intact, normal color. Absent: rash ED Course Vital Signs 04/25/18 04/25/18 04/25/18 12:17 15:28 15:49 Temperature 99.0 F Pulse Rate 101 H Respiratory 18 18 18 Rate Blood Pressure 124/72 Blood Pressure [Left] O2 Sat by Pulse 94 Oximetry 04/25/18 18:06 Temperature 98.7 F Pulse Rate 98 H Respiratory 17 Rate Blood Pressure Blood Pressure 102/56 [Left] O2 Sat by Pulse 97 Oximetry - Reevaluation(s) Reevaluation #1: 04/25/18 16:27 Patient is speaking in full sentences with no signs of distress noted. Reevaluation #2: 04/25/18 20:36 Patient is resting comfortably with no signs of distress and stated that she feels much better and all symptoms of pain has resolved and subsided. - Consultations Consultation #1: 04/25/18 16:27 Patient has been consulted with Annel Gonzalez about patient history, physical exam , and labs and examined and screened patient and agrees to ED plan of care. Consultation #2: 04/25/18 20:29 Patient was discussed with Jerzy Gonzalez about CT findings and stated CT is same as previous visit and patient to be discharged with follow-up. ED Medical Decision Making - Lab Data Result diagrams: 04/25/18 14:37 04/25/18 14:37 - Medical Decision Making UTI This is a 28-year-old female that presents with abdominal pain and UTI. Patient is stable and was examined by me and Dr. Freeman. There is slight abdominal tenderness. Negative signs of symptoms of appendicitis. Labs obtained. UA obtained. CT of abdomen obtained and dictated by the radiologist. Patient is notified of the report with no questions noted by the patient. As per Dr. Freeman, CT is similar as previus visit and patient should be discharged with follow-up. Vital signs are stable prior to discharge. A by mouth challenge has been obtained and patient tolerated well with no nausea vomiting. Patient was notified of strict precautions of appendicitis symptoms and to return to the ED if symptoms occurs as soon as possible. Patient was also instructed to Follow-up with a primary care doctor in 3-5 days or if symptoms worsen and continue return to emergency room as soon as possible. At time of discharge, the patient does not seem toxic or ill in appearance. No acute signs of distress noted. Patient agrees to discharge treatment plan of care. No further questions noted by the patient. Critical care attestation.: If time is entered above; I have spent that time in minutes in the direct care of this critically ill patient, excluding procedure time. ED Disposition Clinical Impression: Sickle cell crisis UTI (urinary tract infection) Qualifiers: Urinary tract infection type: acute cystitis Hematuria presence: without hematuria Qualified Code(s): N30.00 - Acute cystitis without hematuria Abdominal pain Qualifiers: Abdominal location: upper abdomen, unspecified Qualified Code(s): R10.10 - Upper abdominal pain, unspecified Disposition: DC-01 TO HOME OR SELFCARE Is pt being admited?: No Does the pt Need Aspirin: No Condition: Stable Instructions: Acetaminophen/Codeine (By mouth), Urinary Tract Infection in Women (ED), Sickle Cell Crisis (ED), Acute Abdominal Pain (ED) Additional Instructions: Follow-up with a primary care doctor in 3-5 days or if symptoms worsen and continue return to emergency room as soon as possible. Do not operate any machinery while taking Tylenol with codeine as this may cause drowsiness. Prescriptions: Acetaminophen/Codeine [Tylenol /Codeine # 3 tab] 1 tab PO Q6H PRN #12 tab PRN Reason: Pain , Severe (7-10) Ibuprofen [Motrin] 600 mg PO Q8H PRN #30 tablet PRN Reason: Pain Sulfamethoxazole/Trimethoprim [Bactrim DS TAB] 1 each PO BID #14 tablet Referrals: PRIMARY CARE, [Primary Care Provider] - 3-5 Days CHAVEZ MONK MD [Staff Physician] - 3-5 Days [facility] [place] [Outside] - 3-5 Days [facility] [Outside] - 3-5 Days Forms: Work/School Release Form(ED)
[2018-04-25 16:34] LABS: Hematocrit 24.4 % (30.3-42.9); Hemoglobin 8.8 gm/dl (10.1-14.3); Mean Corpuscular HGB Conc 36 % (30-34); Mean Corpuscular Hemoglobin 32 pg (28-32); Mean Corpuscular Volume 89 fl (79-97); Platelet Count 402 K/mm3 (140-440); Red Blood Count 2.73 M/mm3 (3.65-5.03)
[2018-04-25 16:36] LABS: Red Cell Distribution Width 23.8 % (13.2-15.2)
--- NOTE | 2018-04-25 16:45 | XRay Report ---
FINAL REPORT PROCEDURE: Chest. TECHNIQUE: PA view. HISTORY: Chest pain. COMPARISON: No prior studies are available for comparison. FINDINGS: The heart and mediastinum appear normal. The lungs are clear and well expanded. There are no pleural effusions. The soft tissues and regional skeleton are unremarkable. IMPRESSION: Normal study.
[2018-04-25 18:06] LABS: Total Cells Counted 100
[2018-04-25 18:08] VITALS: BP 102/56
[2018-04-25 18:08] LABS: Basophils % (Manual) 0 % (0.0-1.8); Myelocytes # (Manual) 0.1 K/mm3
[2018-04-25 18:09] LABS: Anisocytosis 2+
[2018-04-25 18:10] LABS: Large Platelets 1+
[2018-04-25 18:11] LABS: Platelet Estimate Consistent w Auto; Sickle Cells 2+; Target Cells 2+
--- NOTE | 2018-04-25 19:07 | Cat Scan Report ---
FINAL REPORT PROCEDURE: CT abdomen and pelvis with contrast. TECHNIQUE: Computerized axial tomography of the abdomen and pelvis was performed after the IV injection of iodinated nonionic contrast. HISTORY: Abdominal pain. COMPARISON: CT abdomen and pelvis 02/21/2018. FINDINGS: The lung bases are grossly clear. There are no pleural effusions. The heart size is normal. The liver appears homogeneous. There is pneumobilia present. There are cholecystectomy clips present. There is an internal biliary stent present. This extends from the common hepatic duct into the 3rd portion of the duodenum. Near the superior end of this stent there is a fluid and air containing collection located laterally. I believe this represents a dilated central bile duct and not a true abscess. The pancreas appears normal. The spleen is very small and heavily calcified. This is unchanged. The adrenal glands are not enlarged. Both kidneys appear normal in size and configuration. The abdominal aorta has a normal caliber. There is no retroperitoneal adenopathy. The unopacified gastrointestinal tract is unremarkable. A normal appendix is visible. There are some small mesenteric lymph nodes in the right lower quadrant. The bladder and uterus appear normal. There are probable small cysts in the left ovary. The regional skeleton appears intact. IMPRESSION: Previous cholecystectomy and internal biliary stent placement. Pneumobilia. Probable dilated central bile duct. Small abscess not entirely excluded, but considered less likely. Probable small left ovarian cysts. Small mesenteric lymph nodes in the right lower quadrant.
== END 2018-04-25 21:11 | disposition home or self-care (01) ==
LOC: ED 12:05
DX: D57.00 Hb-SS disease with crisis, unspecified (principal); N30.00 Acute cystitis without hematuria; Z87.11 Personal history of peptic ulcer disease
CPT/HCPCS: 36415; 71045; 74177; 80048; 80074; 81001; 83615; 83690; 84484; 84702; 84703; 85007; 85025; 85045; 85610; 85730; 96374; 96375; 99284; J2270; J2405; J7030; Q9967; Q0163

== ENCOUNTER 2018-05-07 19:48 | Emergency (ER) | payer BC ==
[2018-05-07] MEDS ORDERED: NACL 0.9% 1000 ML 1,000 ML IV ONE (20:41)
[2018-05-07 21:10] LABS: Hemoglobin 8.8 gm/dl (10.1-14.3); Mean Corpuscular HGB Conc 37 % (30-34); Mean Corpuscular Hemoglobin 32 pg (28-32); Mean Corpuscular Volume 88 fl (79-97); Platelet Count 516 K/mm3 (140-440); Red Blood Count 2.74 M/mm3 (3.65-5.03)
[2018-05-07 21:11] LABS: Red Cell Distribution Width 24.4 % (13.2-15.2)
[2018-05-07 21:25] LABS: Alanine Aminotransferase 17 units/L (7-56); Albumin 4.6 g/dL (3.9-5); BUN/Creatinine Ratio 14; Blood Urea Nitrogen 13 mg/dL (7-17); Calcium 9.6 mg/dL (8.4-10.2); Hemolysis Index 12; Lipase 30 units/L (13-60)
[2018-05-07 21:50] LABS: Anisocytosis 2+; Band Neutrophils # (Manual) 0.2 K/mm3; Sickle Cells 2+; Total Cells Counted 100
[2018-05-07 21:51] LABS: Giant Platelets 1+; Ovalocytes 1+; Target Cells 1+
[2018-05-07 21:52] LABS: Platelet Estimate Appears Increased
[2018-05-07] MEDS ORDERED: PEPCID IV ONE (23:36)
[2018-05-07] MEDS ORDERED: DILAUDID IV ONE (23:36)
[2018-05-07] MEDS ORDERED: BENADRYL PO ONE (23:36)
--- NOTE | 2018-05-07 23:38 | Emergency Department Report ---
ED General Adult HPI - General Chief complaint: Sickle Cell Crisis Stated complaint: SICKLE CELL Time Seen by Provider: 05/07/18 23:25 Source: patient, RN notes reviewed, old records reviewed Mode of arrival: Ambulatory Limitations: No Limitations - History of Present Illness Initial comments: This is a 28-year-old female who is known to me previously. Past medical history includes sickle cell disease, previous ERCP with stent placement, and urinary tract infections. The patient presents to the ER with a complaint of her typical sickle cell pain and epigastric abdominal pain. Her sickle cell pain includes the distal left lower extremity, and paralumbar back region. She denies headache, neck pain, chest pain, shortness of breath and urinary symptoms. Patient reports that she has epigastric pain which is burning, sharp and uncomfortable, increases with palpation and decreases with rest. She reports that she is occasionally had episodes of sickle cell pain like this. -: Gradual Location: back, abdomen, left, lower extremity Radiation: extremity Quality: aching Consistency: constant Improves with: medication, rest Worsens with: movement Associated Symptoms: loss of appetite, malaise, weakness. denies: confusion, chest pain, cough, diaphoresis, fever/chills, headaches, nausea/vomiting, rash, seizure, shortness of breath, syncope - Related Data Home Medications Medication Instructions Recorded Confirmed Last Taken HYDROcodone/APAP 10-325 [[place] 1 tab PO QDAY PRN 06/14/17 02/24/18 Unknown 10-325 mg TAB] Previous Rx's Medication Instructions Recorded Last Taken Type Pantoprazole [Protonix TAB] 40 mg PO BID #60 tablet 06/17/17 Unknown Rx Promethazine [Phenergan SUPPOS] 12.5 mg SD Q6H PRN #12 supp.rect 06/17/17 Unknown Rx levoFLOXacin [Levaquin TAB] 500 mg PO QDAY #5 tablet 06/17/17 Unknown Rx Ondansetron [Zofran TAB] 4 mg PO Q8HR PRN #10 tablet 02/21/18 Unknown Rx cephALEXin [Keflex] 500 mg PO Q8HR #30 cap 02/21/18 Unknown Rx HYDROcodone/APAP 5-325 [[place] 1 - 2 each PO Q6HR PRN #14 tablet 02/25/18 Unknown Rx 5/325] Acetaminophen/Codeine [Tylenol 1 tab PO Q6H PRN #12 tab 04/25/18 Unknown Rx /Codeine # 3 tab] Ibuprofen [Motrin] 600 mg PO Q8H PRN #30 tablet 04/25/18 Unknown Rx Sulfamethoxazole/Trimethoprim 1 each PO BID #14 tablet 04/25/18 Unknown Rx [Bactrim DS TAB] Folic Acid [Folvite] 1 mg PO QDAY #30 tablet 05/08/18 Unknown Rx HYDROcodone/ACETAMINOPHEN [[place] 1 each PO Q6HR PRN #12 tablet 05/08/18 Unknown Rx 10-325 Tablet] Hydroxyurea [Hydrea] 500 mg PO QDAY #30 capsule 05/08/18 Unknown Rx Allergies Allergy/AdvReac Type Severity Reaction Status Date / Time morphine AdvReac Itching Verified 07/14/15 14:44 ED Review of Systems ROS: Stated complaint: SICKLE CELL Other details as noted in HPI Comment: All other systems reviewed and negative ED Past Medical Hx - Past Medical History Hx Sickle Cell Disease: Yes (sickle cell) Hx Asthma: Yes Hx COPD: No Hx HIV: No Additional medical history: Gastric ulcers - Surgical History Hx Cholecystectomy: Yes (05/2012) - Social History Smoking Status: Never Smoker Substance Use Type: None - Medications Home Medications: Home Medications Medication Instructions Recorded Confirmed Last Taken Type HYDROcodone/APAP 10-325 [[place] 1 tab PO QDAY PRN 06/14/17 02/24/18 Unknown History 10-325 mg TAB] Pantoprazole [Protonix TAB] 40 mg PO BID #60 tablet 06/17/17 02/24/18 Unknown Rx Promethazine [Phenergan SUPPOS] 12.5 mg SD Q6H PRN #12 supp.rect 06/17/17 Unknown Rx levoFLOXacin [Levaquin TAB] 500 mg PO QDAY #5 tablet 06/17/17 02/24/18 Unknown Rx Ondansetron [Zofran TAB] 4 mg PO Q8HR PRN #10 tablet 02/21/18 02/24/18 Unknown Rx cephALEXin [Keflex] 500 mg PO Q8HR #30 cap 02/21/18 02/24/18 Unknown Rx HYDROcodone/APAP 5-325 [[place] 1 - 2 each PO Q6HR PRN #14 tablet 02/25/18 Unknown Rx 5/325] Acetaminophen/Codeine [Tylenol 1 tab PO Q6H PRN #12 tab 04/25/18 Unknown Rx /Codeine # 3 tab] Ibuprofen [Motrin] 600 mg PO Q8H PRN #30 tablet 04/25/18 Unknown Rx Sulfamethoxazole/Trimethoprim 1 each PO BID #14 tablet 04/25/18 Unknown Rx [Bactrim DS TAB] Folic Acid [Folvite] 1 mg PO QDAY #30 tablet 05/08/18 Unknown Rx HYDROcodone/ACETAMINOPHEN [[place] 1 each PO Q6HR PRN #12 tablet 05/08/18 Unknown Rx 10-325 Tablet] Hydroxyurea [Hydrea] 500 mg PO QDAY #30 capsule 05/08/18 Unknown Rx ED Physical Exam - General Limitations: No Limitations General appearance: alert, in no apparent distress - Head Head exam: Present: atraumatic, normocephalic - Eye Eye exam: Present: normal appearance, EOMI. Absent: nystagmus - ENT ENT exam: Present: normal exam, normal orophraynx, mucous membranes moist, normal external ear exam - Neck Neck exam: Present: normal inspection, full ROM. Absent: tenderness, meningismus - Respiratory Respiratory exam: Present: normal lung sounds bilaterally. Absent: respiratory distress - Cardiovascular Cardiovascular Exam: Present: regular rate, normal rhythm, normal heart sounds. Absent: systolic murmur, diastolic murmur, rubs, gallop - GI/Abdominal GI/Abdominal exam: Present: soft, tenderness, normal bowel sounds, other (there is epigastric tenderness. There is no right upper quadrant tenderness. There is negative Villareal sign.). Absent: distended, guarding, rebound, rigid, pulsatile mass - Extremities Exam Extremities exam: Present: normal inspection, full ROM, tenderness (there is long bony tenderness in the left proximal femur. Otherwise, there is no long bony tenderness, compartments soft, 2+ pulses in the upper, lower extremities.) , normal capillary refill. Absent: pedal edema, joint swelling, calf tenderness - Back Exam Back exam: Present: normal inspection, full ROM. Absent: tenderness, CVA tenderness (R), paraspinal tenderness, vertebral tenderness - Neurological Exam Neurological exam: Present: alert, oriented X3, CN II-XII intact, normal gait, other (2+ pulses noted in the bilateral upper, lower extremities. Compartments soft. No long bony tenderness. The pelvis is stable.). Absent: motor sensory deficit - Psychiatric Psychiatric exam: Present: normal affect, normal mood - Skin Skin exam: Present: warm, dry, intact, normal color. Absent: rash ED Course Vital Signs 05/07/18 05/07/18 05/07/18 20:03 20:36 22:54 Temperature 99.1 F 99.1 F Pulse Rate 99 H 99 H Respiratory 18 18 Rate Blood Pressure 131/83 131/83 O2 Sat by Pulse 94 96 97 Oximetry 05/07/18 05/07/18 05/07/18 23:00 23:15 23:31 Temperature Pulse Rate 140 H 101 H 89 Respiratory 19 25 H 18 Rate Blood Pressure 165/94 165/94 165/94 O2 Sat by Pulse 93 94 94 Oximetry 05/07/18 05/08/18 05/08/18 23:45 00:53 01:00 Temperature Pulse Rate 85 Respiratory 23 Rate Blood Pressure 165/94 130/81 134/72 O2 Sat by Pulse 93 95 Oximetry 05/08/18 05/08/18 01:11 01:15 Temperature 99.2 F Pulse Rate Respiratory Rate Blood Pressure 134/72 O2 Sat by Pulse 90 Oximetry - Reevaluation(s) Reevaluation #1: 05/08/18 00:59 Differential diagnosis, including but not limited to: Sickle cell crisis, pneumonia, urinary tract infection, intra-abdominal infection Assessment and plan: 28-year-old female with sickle cell crisis whom I have evaluated in the past. CT scan unchanged from prior, laboratory studies at baseline, x-ray of the chest unremarkable, lactic acid unremarkable, urinalysis pending at this time. Patient will be J with fluids, hydromorphone. We will reassess. Reevaluation #2: 05/08/18 02:19 Urinalysis not consistent with urinary tract infection. Reports pain is improved, but requests additional pain medication; additional dose of hydromorphone is ordered. Reevaluation #3: 05/08/18 02:52 Patient is on cell phone. She feels improved. She'll be discharged at this time. ED Medical Decision Making - Lab Data Result diagrams: 05/07/18 20:58 05/07/18 20:58 Critical care attestation.: If time is entered above; I have spent that time in minutes in the direct care of this critically ill patient, excluding procedure time. ED Disposition Clinical Impression: Sickle cell pain crisis, Abdominal pain Disposition: DC-01 TO HOME OR SELFCARE Is pt being admited?: No Does the pt Need Aspirin: No Condition: Stable Instructions: Sickle Cell Crisis (ED) Additional Instructions: Take the pain medication, nausea medication as needed/directed. Drink 6-8 cups of water per day for the next 5 days. Advance diet as tolerated. Avoid consumption of heavy, spicy foods, Motrin, ibuprofen, Naprosyn, Aleve. Follow- up with your primary care doctor or crew dispatcher within the next week. Return to the ER right away with new pain, worsening pain, migration of pain, projectile vomiting, change in mental status, confusion, inability to tolerate liquid feeds. Referrals: SALOME RAINES DO [Staff Physician] - 3-5 Days
--- NOTE | 2018-05-08 00:36 | Cat Scan Report ---
FINAL REPORT EXAM: CT ABDOMEN PELVIS W CON HISTORY: abd pain hbss crisis TECHNIQUE: Routine axial imaging was obtained of the abdomen and pelvis following the intravenous injection of iodinated contrast. Delayed imaging was obtained through the kidneys ureters and bladder. Sagittal and coronal reconstructions were reviewed. Comparison is made to the study of 04/25/2018. FINDINGS: The lung bases reveal stable fibrotic changes. There are no infiltrates or effusions. There is a small hiatal hernia. The liver is normal size and reveals stable pneumobilia in the left hepatic ducts. There is an internal biliary stent unchanged in position from the previous study. There are no focal hepatic lesions. The gallbladder has been removed. The pancreas and adrenal glands appear normal. The spleen is very small and calcified. The kidneys enhance normally. The abdominal aorta is normal in caliber. The bowel loops reveal a large amount retained feces in the colon. There is no evidence of bowel obstruction. There are benign-appearing lymph nodes in the right lower quadrant. The appendix is not enlarged. There is no evidence of free fluid. In the pelvis the uterus and bladder appear normal. There are small follicles in the ovaries. The skeletal structures otherwise do not show any acute changes. IMPRESSION: Previous cholecystectomy with pneumobilia and internal biliary stent unchanged from the previous study. No acute process in the abdomen and pelvis. Atrophic spleen with calcifications and cystic changes. Large amount retained feces in the colon.
--- NOTE | 2018-05-08 00:49 | XRay Report ---
FINAL REPORT EXAM: XR CHEST ROUTINE 2V HISTORY: epigastric pain hbss TECHNIQUE: PA and lateral views of the chest were obtained and compared to the study of 04/25/2018. FINDINGS: Heart size and mediastinum appear normal. The lungs are clear. Pleural fluid is not seen. The skeletal structures do not show any acute changes. IMPRESSION: No acute cardiopulmonary process.
[2018-05-08 01:27] LABS: Bilirubin,Urine NEG (Negative); Blood,Urine NEG (Negative); Color,Urine Yellow (Yellow); Hyaline Casts,Urine 1 /LPF; Protein,Urine <15 mg/dL mg/dL (Negative)
[2018-05-08] MEDS ORDERED: DILAUDID IV ONE ×2 (01:50→02:18)
[2018-05-08 03:19] VITALS: BP 113/68
== END 2018-05-08 03:17 | disposition home or self-care (01) ==
LOC: ED 19:48
DX: D57.219 Sickle-cell/Hb-C disease with crisis, unspecified (principal); N39.0 Urinary tract infection, site not specified; J45.909 Unspecified asthma, uncomplicated; Z90.49 Acquired absence of other specified parts of digestive tract; Z88.5 Allergy status to narcotic agent
CPT/HCPCS: 36415; 71046; 74177; 80053; 81001; 82140; 83690; 84703; 85007; 85025; 85045; 96361; 96374; 96375; 96376; 99285; J1170; J7030; Q9967

== ENCOUNTER 2018-05-09 09:28 | Emergency (ER) | payer BC ==
[2018-05-09 10:53] LABS: Hemoglobin 9.2 gm/dl (10.1-14.3); Mean Corpuscular HGB Conc 36 % (30-34); Mean Corpuscular Hemoglobin 32 pg (28-32); Mean Corpuscular Volume 90 fl (79-97); Platelet Count 581 K/mm3 (140-440)
[2018-05-09 10:57] LABS: Red Cell Distribution Width 26.4 % (13.2-15.2)
[2018-05-09] MEDS ORDERED: D5NS 0.2% 1,000 ML IV SCH (11:00)
[2018-05-09 11:27] LABS: Anisocytosis 2+; Basophils % (Manual) 0 % (0.0-1.8); Poikilocytosis 3+; Sickle Cells 2+; Target Cells 1+; Total Cells Counted 100
[2018-05-09 11:28] LABS: Ovalocytes 1+
[2018-05-09 11:29] LABS: Large Platelets Few; Platelet Estimate Cons
[2018-05-09] MEDS ORDERED: NACL 0.9% 1000 ML 1,000 ML IV ONE (11:35)
[2018-05-09] MEDS ORDERED: ZOFRAN IV ONE ×2 (11:35→15:42)
[2018-05-09] MEDS ORDERED: DILAUDID IV ONE ×3 (11:35→15:42)
--- NOTE | 2018-05-09 11:39 | Emergency Department Report ---
HPI - General Chief Complaint: Sickle Cell Crisis Time Seen by Provider: 05/09/18 11:26 - HPI HPI: 28 yo AA F presents to the emergency department with the complaint of a three day history of upper abd pain, nausea with vomiting, low back pain and left leg pain. She has sickle cell disease and says that this is a typical presentation of a sickle cell pain crisis for her. The patient is unknown to myself but is well-known to this department. She was here 3 days ago for the same symptoms, received labs, CT imaging and medication, was diagnosed with a sickle cell pain crisis and constipation. Patient says that she tried some Tylenol with codeine for her discomfort without much relief. She denies any problems with bowel or bladder, numbness or paresthesias or any neurological deficits. She denies any fever, chest pain or shortness of breath. Her primary care physician/ carding supervisor is Dr. Raines. No recent travel or sick contacts at home. The patient also has a past medical history of gastric ulcers and a previous biliary stent. ED Past Medical Hx - Past Medical History Hx Sickle Cell Disease: Yes (sickle cell) Hx Asthma: Yes Hx COPD: No Hx HIV: No Additional medical history: Gastric ulcers - Surgical History Hx Cholecystectomy: Yes (05/2012) - Social History Smoking Status: Never Smoker Substance Use Type: None - Medications Home Medications: Home Medications Medication Instructions Recorded Confirmed Last Taken Type HYDROcodone/APAP 10-325 [[place] 1 tab PO QDAY PRN 06/14/17 02/24/18 Unknown History 10-325 mg TAB] Pantoprazole [Protonix TAB] 40 mg PO BID #60 tablet 06/17/17 02/24/18 Unknown Rx Promethazine [Phenergan SUPPOS] 12.5 mg [place] Q6H PRN #12 supp.rect 06/17/17 Unknown Rx levoFLOXacin [Levaquin TAB] 500 mg PO QDAY #5 tablet 06/17/17 02/24/18 Unknown Rx Ondansetron [Zofran TAB] 4 mg PO Q8HR PRN #10 tablet 02/21/18 02/24/18 Unknown Rx cephALEXin [Keflex] 500 mg PO Q8HR #30 cap 02/21/18 02/24/18 Unknown Rx HYDROcodone/APAP 5-325 [[place] 1 - 2 each PO Q6HR PRN #14 tablet 02/25/18 Unknown Rx 5/325] Acetaminophen/Codeine [Tylenol 1 tab PO Q6H PRN #12 tab 04/25/18 Unknown Rx /Codeine # 3 tab] Ibuprofen [Motrin] 600 mg PO Q8H PRN #30 tablet 04/25/18 Unknown Rx Sulfamethoxazole/Trimethoprim 1 each PO BID #14 tablet 04/25/18 Unknown Rx [Bactrim DS TAB] Folic Acid [Folvite] 1 mg PO QDAY #30 tablet 05/08/18 Unknown Rx HYDROcodone/ACETAMINOPHEN [[place] 1 each PO Q6HR PRN #12 tablet 05/08/18 Unknown Rx 10-325 Tablet] Hydroxyurea [Hydrea] 500 mg PO QDAY #30 capsule 05/08/18 Unknown Rx ED Review of Systems ROS: Stated complaint: SICKLE CELL ILLNESS Other details as noted in HPI Comment: All other systems reviewed and negative Constitutional: denies: chills, fever Eyes: denies: eye pain, eye discharge, vision change ENT: denies: ear pain, throat pain Respiratory: denies: cough, shortness of breath, wheezing Cardiovascular: denies: chest pain, palpitations Gastrointestinal: abdominal pain, nausea, vomiting Genitourinary: denies: dysuria, discharge Musculoskeletal: back pain, myalgia. denies: joint swelling Skin: denies: rash, lesions Neurological: denies: headache, numbness, paresthesias Physical Exam - Physical Exam Vital Signs: Vital Signs 05/09/18 09:39 Temperature 98.9 F Pulse Rate 99 H Respiratory 18 Rate Blood Pressure 118/74 O2 Sat by Pulse 98 Oximetry Physical Exam: GENERAL: The patient is well-developed well-nourished. HENT: Normocephalic. Atraumatic. Patient has moist mucous membranes. EYES: Extraocular motions are intact. Pupils equal reactive to light bilaterally. NECK: Supple. Trachea is midline. CHEST/LUNGS: Clear to auscultation. There is no respiratory distress noted. HEART/CARDIOVASCULAR: Regular. There is no tachycardia. There is no murmur. ABDOMEN: Abdomen is soft. Upper abdominal tenderness to palpation. No guarding. Patient has normal bowel sounds. There is no abdominal distention. SKIN: Skin is warm and dry. NEURO: The patient is awake, alert, and oriented. The patient is cooperative. The patient has no focal neurologic deficits. The patient has normal speech. MUSCULOSKELETAL: Unable to reproduce patient's left leg pain to palpation. No obvious deformities. There is no limitation range of motion. There is no evidence of acute injury. BACK: No midline thoracic or lumbar tenderness to palpation, step-off or deformity. There is some reproducible lumbar paraspinal tenderness to palpation. ED Course Vital Signs 05/09/18 09:39 Temperature 98.9 F Pulse Rate 99 H Respiratory 18 Rate Blood Pressure 118/74 O2 Sat by Pulse 98 Oximetry ED Medical Decision Making - Lab Data Result diagrams: 05/09/18 10:32 05/09/18 11:50 - Medical Decision Making This patient presents with what appears to be a sickle cell pain crisis with some pain in the back, upper abdomen and left leg which is consistent with previous visits. Patient's labs show a mild leukocytosis, elevated reticulocyte count, anemia, but all of these lab values are consistent with previous visits. The patient also has elevated bilirubin level but the patient has this chronically and has a previous cholecystectomy. The patient was given IV fluid, pain medication and nausea medication. She was reevaluated multiple times for multiple hours and appears improved. Multiple times the patient was seen sleeping and/or resting comfortably until she was woken up by myself. Vital signs stable throughout her ED course. The patient has good follow-up with primary care/hematology. She appears safe for discharge home at this time. She is instructed to return to the emergency Department with any worsening of her symptoms or any acute distress. Since she has a history of some chronic abdominal discomfort, I also gave her a referral for gastroenterology. Since the patient does not have any fever, chest pain, back pain, she appears low suspicion for acute chest crisis. - Differential Diagnosis sickle cell pain crisis, pancreatitis, UTI, fibromyalgia Critical Care Time: No Critical care attestation.: If time is entered above; I have spent that time in minutes in the direct care of this critically ill patient, excluding procedure time. ED Disposition Clinical Impression: Sickle cell pain crisis Abdominal pain Qualifiers: Abdominal location: upper abdomen, unspecified Qualified Code(s): R10.10 - Upper abdominal pain, unspecified Sickle cell anemia Qualifiers: Sickle-cell associated disorders: without crisis Qualified Code(s): D57.1 - Sickle-cell disease without crisis Disposition: DC- TO HOME OR SELFCARE Is pt being admited?: No Condition: Stable Instructions: Sickle Cell Crisis (ED), Abdominal Pain (ED) Additional Instructions: Please follow-up with your primary care physician/carding supervisor in the next few days. I have given you a referral for a local database report writer, Dr. Miranda, to follow up regarding your abdominal pains. Return to the emergency Department with any worsening of your symptoms or any acute distress. Referrals: PRIMARY CARE, [Primary Care Provider] - 3-5 Days SALOME RAINES DO [Staff Physician] - 3-5 Days DAGO MIRANDA MD [Staff Physician] - 3-5 Days Forms: Work/School Release Form(ED)
[2018-05-09] MEDS ORDERED: PEPCID IV ONE (11:58)
[2018-05-09 12:21] LABS: Alanine Aminotransferase 21 units/L (7-56); Albumin 4.7 g/dL (3.9-5); BUN/Creatinine Ratio 20; Blood Urea Nitrogen 8 mg/dL (7-17); Hemolysis Index 73; Lipase 35 units/L (13-60)
[2018-05-09 14:07] LABS: Bilirubin,Urine NEG (Negative); Blood,Urine NEG (Negative); Color,Urine Amber (Yellow); Mucus,Urine FEW /HPF
[2018-05-09 16:46] VITALS: BP 101/48
== END 2018-05-09 16:45 | disposition home or self-care (01) ==
LOC: ED 09:28
DX: D57.00 Hb-SS disease with crisis, unspecified (principal); R10.10 Upper abdominal pain, unspecified; J45.909 Unspecified asthma, uncomplicated
CPT/HCPCS: 36415; 80053; 81001; 83690; 84703; 85007; 85025; 85045; 96374; 96375; 96376; 99283; J1170; J2405; J7030

== ENCOUNTER 2018-05-23 10:26 | Emergency (ER) | payer BC ==
[2018-05-23] MEDS ORDERED: D5NS 0.2% 1,000 ML IV SCH (11:00)
[2018-05-23 11:16] LABS: Basophils # (Auto) 0.1 K/mm3 (0.0-0.1); Basophils % (Auto) 1.2 % (0.0-1.8); Eosinophils # (Auto) 0.6 K/mm3 (0.0-0.4); Eosinophils % (Auto) 5.5 % (0.0-4.3); Hematocrit 23.4 % (30.3-42.9); Hemoglobin 8.2 gm/dl (10.1-14.3); Lymphocytes # (Auto) 3.3 K/mm3 (1.2-5.4); Lymphocytes % (Auto) 28.9 % (13.4-35.0); Mean Corpuscular HGB Conc 35 % (30-34); Mean Corpuscular Hemoglobin 32 pg (28-32); Mean Corpuscular Volume 90 fl (79-97); Monocytes # (Auto) 1.2 K/mm3 (0.0-0.8); Monocytes % (Auto) 10.8 % (0.0-7.3); Platelet Count 477 K/mm3 (140-440); Red Blood Count 2.62 M/mm3 (3.65-5.03)
[2018-05-23 11:20] LABS: Red Cell Distribution Width 23.4 % (13.2-15.2)
[2018-05-23] MEDS ORDERED: CARAFATE PO ONE (12:33)
[2018-05-23] MEDS ORDERED: ZOFRAN ODT PO ONE (12:33)
[2018-05-23] MEDS ORDERED: PEPCID PO ONE (12:33)
[2018-05-23] MEDS ORDERED: DILAUDID IM ONE ×3 (12:33→14:23)
--- NOTE | 2018-05-23 12:34 | Emergency Department Report ---
ED General Adult HPI - General Chief complaint: Sickle Cell Crisis Stated complaint: SICKLE CELL PAIN Time Seen by Provider: 05/23/18 12:25 Source: patient, RN notes reviewed, old records reviewed Mode of arrival: Ambulatory Limitations: No Limitations - History of Present Illness Initial comments: This is a 28-year-old female who is previously known to this provider. Please see my note from 05/07/2018. The patient has a past medical history of sickle cell disease. She presents to the ER with a complaint of sickle cell pain in her bilateral upper extremities, lower extremities and back. This is accompanied by epigastric discomfort and nausea. She denies sore throat, shortness of breath, lower abdominal pain and urinary symptoms. She reports one of her triggers for sickle cell crisis pain includes change of weather and seasons, and believes that this is what has caused her pain recently. She states her pain is sharp and increases with palpation, range of motion and decreases with rest. It does not significantly radiate anywhere. Her pain typically decreases with intramuscular or intravenous hydromorphone. -: Gradual, days(s) Location: back, left, right, upper extremity, lower extremity Radiation: non-radiation Quality: aching, sharp Consistency: intermittent Improves with: medication, rest Worsens with: movement Associated Symptoms: malaise. denies: confusion, chest pain, cough, diaphoresis , fever/chills, headaches, loss of appetite, nausea/vomiting, rash, seizure, shortness of breath, syncope, weakness - Related Data Home Medications Medication Instructions Recorded Confirmed Last Taken HYDROcodone/APAP 10-325 [[place] 1 tab PO QDAY PRN 06/14/17 02/24/18 Unknown 10-325 mg TAB] Previous Rx's Medication Instructions Recorded Last Taken Type Pantoprazole [Protonix TAB] 40 mg PO BID #60 tablet 06/17/17 Unknown Rx Promethazine [Phenergan SUPPOS] 12.5 mg [place] Q6H PRN #12 supp.rect 06/17/17 Unknown Rx levoFLOXacin [Levaquin TAB] 500 mg PO QDAY #5 tablet 06/17/17 Unknown Rx Ondansetron [Zofran TAB] 4 mg PO Q8HR PRN #10 tablet 02/21/18 Unknown Rx cephALEXin [Keflex] 500 mg PO Q8HR #30 cap 02/21/18 Unknown Rx HYDROcodone/APAP 5-325 [[place] [address] - 2 each PO Q6HR PRN #14 tablet 02/25/18 Unknown Rx 5/325] Acetaminophen/Codeine [Tylenol 1 tab PO Q6H PRN #12 tab 04/25/18 Unknown Rx /Codeine # 3 tab] Ibuprofen [Motrin] 600 mg PO Q8H PRN #30 tablet 04/25/18 Unknown Rx Sulfamethoxazole/Trimethoprim 1 each PO BID #14 tablet 04/25/18 Unknown Rx [Bactrim DS TAB] Folic Acid [Folvite] 1 mg PO QDAY #30 tablet 05/08/18 Unknown Rx HYDROcodone/ACETAMINOPHEN [[place] [address] 1 each PO Q6HR PRN #12 tablet 05/08/18 Unknown Rx 10-325 Tablet] Hydroxyurea [Hydrea] 500 mg PO QDAY #30 capsule 05/08/18 Unknown Rx Acetaminophen [Tylenol Arthritis] 650 mg PO Q6HR PRN #30 tablet.er 05/23/18 Unknown Rx Famotidine [Pepcid] 20 mg PO BID #60 tablet 05/23/18 Unknown Rx Ondansetron [Zofran Odt] 4 mg PO Q8HR PRN #20 tab.rapdis 05/23/18 Unknown Rx oxyCODONE [Roxicodone] 5 mg PO Q6HR PRN #15 tablet 05/23/18 Unknown Rx Allergies Allergy/AdvReac Type Severity Reaction Status Date / Time morphine AdvReac Itching Verified 07/14/15 14:44 ED Review of Systems ROS: Stated complaint: SICKLE CELL PAIN Other details as noted in HPI Constitutional: malaise Eyes: denies: eye discharge ENT: denies: epistaxis Respiratory: denies: cough Cardiovascular: denies: chest pain Gastrointestinal: abdominal pain Genitourinary: denies: dysuria Musculoskeletal: back pain, arthralgia, myalgia Skin: denies: lesions Neurological: weakness Psychiatric: denies: anxiety ED Past Medical Hx - Past Medical History Hx Sickle Cell Disease: Yes (sickle cell) Hx Asthma: Yes Hx COPD: No Hx HIV: No Additional medical history: Gastric ulcers - Surgical History Hx Cholecystectomy: Yes (05/2012) - Social History Smoking Status: Never Smoker Substance Use Type: None - Medications Home Medications: Home Medications Medication Instructions Recorded Confirmed Last Taken Type HYDROcodone/APAP 10-325 [[place] [address] 1 tab PO QDAY PRN 06/14/17 02/24/18 Unknown History 10-325 mg TAB] Pantoprazole [Protonix TAB] 40 mg PO BID #60 tablet 06/17/17 02/24/18 Unknown Rx Promethazine [Phenergan SUPPOS] 12.5 mg [place] Q6H PRN #12 supp.rect 06/17/17 Unknown Rx levoFLOXacin [Levaquin TAB] 500 mg PO QDAY #5 tablet 06/17/17 02/24/18 Unknown Rx Ondansetron [Zofran TAB] 4 mg PO Q8HR PRN #10 tablet 02/21/18 02/24/18 Unknown Rx cephALEXin [Keflex] 500 mg PO Q8HR #30 cap 02/21/18 02/24/18 Unknown Rx HYDROcodone/APAP 5-325 [[place] [address] - 2 each PO Q6HR PRN #14 tablet 02/25/18 Unknown Rx 5/325] Acetaminophen/Codeine [Tylenol 1 tab PO Q6H PRN #12 tab 04/25/18 Unknown Rx /Codeine # 3 tab] Ibuprofen [Motrin] 600 mg PO Q8H PRN #30 tablet 04/25/18 Unknown Rx Sulfamethoxazole/Trimethoprim 1 each PO BID #14 tablet 04/25/18 Unknown Rx [Bactrim DS TAB] Folic Acid [Folvite] 1 mg PO QDAY #30 tablet 05/08/18 Unknown Rx HYDROcodone/ACETAMINOPHEN [[place] 1 each PO Q6HR PRN #12 tablet 05/08/18 Unknown Rx 10-325 Tablet] Hydroxyurea [Hydrea] 500 mg PO QDAY #30 capsule 05/08/18 Unknown Rx Acetaminophen [Tylenol Arthritis] 650 mg PO Q6HR PRN #30 tablet.er 05/23/18 Unknown Rx Famotidine [Pepcid] 20 mg PO BID #60 tablet 05/23/18 Unknown Rx Ondansetron [Zofran Odt] 4 mg PO Q8HR PRN #20 tab.rapdis 05/23/18 Unknown Rx oxyCODONE [Roxicodone] 5 mg PO Q6HR PRN #15 tablet 05/23/18 Unknown Rx ED Physical Exam - General Limitations: No Limitations General appearance: alert, in no apparent distress - Head Head exam: Present: atraumatic, normocephalic - Eye Eye exam: Present: normal appearance, EOMI. Absent: nystagmus - ENT ENT exam: Present: normal exam, normal orophraynx, mucous membranes moist, normal external ear exam - Neck Neck exam: Present: normal inspection, full ROM. Absent: tenderness, meningismus - Respiratory Respiratory exam: Present: normal lung sounds bilaterally. Absent: respiratory distress - Cardiovascular Cardiovascular Exam: Present: regular rate, normal rhythm, normal heart sounds. Absent: systolic murmur, diastolic murmur, rubs, gallop - GI/Abdominal GI/Abdominal exam: Present: soft, tenderness, normal bowel sounds, other (there is epigastric tenderness. There is no right upper quadrant tenderness. There is no lower abdominal tenderness.). Absent: distended, guarding, rebound, rigid , pulsatile mass - Extremities Exam Extremities exam: Present: normal inspection, full ROM, tenderness (there is long bony tenderness in the bilateral lower extremities. There is no redness, pus or streaking. The compartments are soft. 2+ pulses noted in the bilateral upper, lower extremities.), normal capillary refill. Absent: pedal edema, joint swelling, calf tenderness - Back Exam Back exam: Present: normal inspection, full ROM, paraspinal tenderness. Absent : tenderness, CVA tenderness (R) - Neurological Exam Neurological exam: Present: alert, oriented X3, CN II-XII intact, other ( Extraocular movements intact. Tongue midline. No facial droop. Facial sensation intact to light touch in the V1, V2, V3 distribution bilaterally. 5 and 5 strength in 4 extremities.. Sensation is intact to light touch in 4 extremities.). Absent: motor sensory deficit - Psychiatric Psychiatric exam: Present: normal affect, normal mood - Skin Skin exam: Present: warm, dry, intact, normal color. Absent: rash ED Course Vital Signs 05/23/18 05/23/18 10:50 12:31 Temperature 99 F Pulse Rate 94 H 66 Respiratory 20 16 Rate Blood Pressure 122/69 Blood Pressure 136/67 [Left] O2 Sat by Pulse 96 99 Oximetry - Reevaluation(s) Reevaluation #1: 05/23/18 13:31 Differential diagnosis, including but not limited to: Sickle cell crisis pain, GERD, gastritis, hiatal hernia Assessment and plan: 28-year-old female with probable sickle cell crisis. She is afebrile with reassuring vital signs. Had a negative CT scan of the abdomen and pelvis within the past 3 weeks. He is treated appropriately with intramuscular hydromorphone 2. Resting comfortably in her stretcher and in no distress. Vital signs stable and unremarkable. Reticulocyte count is lower than when compared to prior values. Not . Based on the objective data does not meet criteria for hospitalization, noted be discharged with outpatient follow-up with her helmet hat brim cutter. Reevaluation #2: 05/23/18 13:35 Laboratory studies reviewed, hemoglobin, hematocrit appeared to be within acceptable range when compared to prior laboratory studies. Does not meet criteria for emergent pack red blood cell transfusion. Reevaluation #3: 05/23/18 14:24 Patient reports that she is feeling improved. Noted to be playing on a cellular phone. Patient will be given a third round of hydromorphone and discharged. She indicates that she feels ready for discharge and can follow up with her outpatient helmet hat brim cutter. ED Medical Decision Making - Lab Data Result diagrams: 05/23/18 10:57 Vital Signs 05/23/18 05/23/18 10:50 12:31 Temperature 99 F Pulse Rate 94 H 66 Respiratory 20 16 Rate Blood Pressure 122/69 Blood Pressure 136/67 [Left] O2 Sat by Pulse 96 99 Oximetry Lab Results 05/23/18 05/23/18 Range/Units 10:57 10:57 WBC 11.4 H (4.5-11.0) K/mm3 RBC 2.62 L (3.65-5.03) M/mm3 Hgb 8.2 L (10.1-14.3) gm/dl Hct 23.4 L (30.3-42.9) % MCV 90 (79-97) fl MCH 32 (28-32) pg MCHC 35 H (30-34) % RDW 23.4 H (13.2-15.2) % Plt Count 477 H (140-440) K/mm3 Lymph % (Auto) 28.9 (13.4-35.0) % [place] % (Auto) 10.8 H (0.0-7.3) % Eos % (Auto) 5.5 H (0.0-4.3) % Baso % (Auto) 1.2 (0.0-1.8) % Lymph # 3.3 (1.2-5.4) K/mm3 [place] # 1.2 H (0.0-0.8) K/mm3 Eos # 0.6 H (0.0-0.4) K/mm3 Baso # 0.1 (0.0-0.1) K/mm3 Seg Neutrophils % 53.6 (40.0-70.0) % Seg Neutrophils # 6.1 (1.8-7.7) K/mm3 Percent Retic 11.31 H (0.78-2.58) % HCG, Qual Negative (Negative) - EKG Data -: EKG Interpreted by Me EKG shows normal: sinus rhythm Rate: normal - EKG Data When compared to previous EKG there are: no significant change Interpretation: unchanged when compared t 05/23/18 13:32 Sinus, 88 bpm, normal axis, QTC prolonged, high left ventricular voltage, this EKG is not a STEMI, appears unchanged from prior from 06/12/2017. Critical care attestation.: If time is entered above; I have spent that time in minutes in the direct care of this critically ill patient, excluding procedure time. ED Disposition Clinical Impression: Sickle cell pain crisis Disposition: DC-01 TO HOME OR SELFCARE Is pt being admited?: No Does the pt Need Aspirin: No Condition: Good Instructions: Sickle Cell Crisis (ED) Additional Instructions: Avoid consumption of Motrin, ibuprofen, Naprosyn, Aleve, heavy, spicy foods. Take pain medications as needed/directed. Follow-up with your primary care doctor or helmet hat brim cutter within the next 7-10 days. Return to the ER right away with new pain, worsening pain, migration of pain, projectile vomiting, change in mental status, confusion, inability to tolerate liquid feeds. Prescriptions: Acetaminophen [Tylenol Arthritis] 650 mg PO Q6HR PRN #30 tablet.er PRN Reason: Pain Famotidine [Pepcid] 20 mg PO BID #60 tablet Ondansetron [Zofran Odt] 4 mg PO Q8HR PRN #20 tab.rapdis PRN Reason: Nausea oxyCODONE [Roxicodone] 5 mg PO Q6HR PRN #15 tablet PRN Reason: Pain Referrals: SALOME RAINES DO [Staff Physician] - 3-5 Days
[2018-05-23 14:36] VITALS: BP 116/58
== END 2018-05-23 15:07 | disposition home or self-care (01) ==
LOC: ED 10:26
DX: D57.00 Hb-SS disease with crisis, unspecified (principal); J45.909 Unspecified asthma, uncomplicated; Z88.6 Allergy status to analgesic agent
CPT/HCPCS: 36415; 84703; 85025; 85045; 93005; 93010; 96372; 99283; J1170; Q0162

== ENCOUNTER 2018-09-14 08:24 | Emergency (ER) | payer BC ==
[2018-09-14] MEDS ORDERED: PEPCID IV ONE (09:18)
[2018-09-14] MEDS ORDERED: NACL 0.9% 1000 ML 1,000 ML IV ONE (09:18)
[2018-09-14] MEDS ORDERED: BENTYL IM ONE (09:18)
[2018-09-14] MEDS ORDERED: ZOFRAN IV ONE (09:18)
[2018-09-14] MEDS ORDERED: DILAUDID IV ONE ×2 (09:19→11:01)
--- NOTE | 2018-09-14 09:24 | Emergency Department Report ---
ED Abdominal Pain HPI - General Chief Complaint: Sickle Cell Crisis Stated Complaint: SICKLE CELL (R) ARM PAIN Time Seen by Provider: 09/14/18 09:10 Source: patient Mode of arrival: Ambulatory Limitations: No Limitations - History of Present Illness Initial Comments: Patient is a 28-year-old black female with past medical history of sickle cell disease (SS) who is presenting with some right arm pain and lower back pain as well as abdominal pain with nausea vomiting. Patient states pain is been present for approximately 3 days. Patient normally does not have nausea vomiting or epigastric discomfort with a sickle cell crisis. Arm pain and back pain are consistent with sickle cell 8 out of 10 in severity and aching and throbbing. Patient states that she is been unable to keep anything down for the last several days and her epigastric discomfort is crampy in nature and is also a 8 out of 10 in severity. Patient denies any fevers chills cough cold congestion or diarrhea at this time. Severity scale (0 -10): 9 - Related Data Previous Rx's Medication Instructions Recorded Last Taken Type Pantoprazole [Protonix TAB] 40 mg PO BID #60 tablet 06/17/17 Unknown Rx Promethazine [Phenergan SUPPOS] 12.5 mg [place] Q6H PRN #12 supp.rect 06/17/17 Unknown Rx levoFLOXacin [Levaquin TAB] 500 mg PO QDAY #5 tablet 06/17/17 Unknown Rx Ondansetron [Zofran TAB] 4 mg PO Q8HR PRN #10 tablet 02/21/18 Unknown Rx cephALEXin [Keflex] 500 mg PO Q8HR #30 cap 02/21/18 Unknown Rx HYDROcodone/APAP 5-325 [[place] 1 - 2 each PO Q6HR PRN #14 tablet 02/25/18 Unknown Rx 5/325] Acetaminophen/Codeine [Tylenol 1 tab PO Q6H PRN #12 tab 04/25/18 Unknown Rx /Codeine # 3 tab] Ibuprofen [Motrin] 600 mg PO Q8H PRN #30 tablet 04/25/18 Unknown Rx Sulfamethoxazole/Trimethoprim 1 each PO BID #14 tablet 04/25/18 Unknown Rx [Bactrim DS TAB] Folic Acid [Folvite] 1 mg PO QDAY #30 tablet 05/08/18 Unknown Rx Hydroxyurea [Hydrea] 500 mg PO QDAY #30 capsule 05/08/18 Unknown Rx Acetaminophen [Tylenol Arthritis] 650 mg PO Q6HR PRN #30 tablet.er 05/23/18 Unknown Rx Famotidine [Pepcid] 20 mg PO BID #60 tablet 05/23/18 Unknown Rx Ondansetron [Zofran Odt] 4 mg PO Q8HR PRN #20 tab.rapdis 05/23/18 Unknown Rx oxyCODONE [Roxicodone] 5 mg PO Q6HR PRN #15 tablet 05/23/18 Unknown Rx HYDROcodone/APAP 5-325 [[place] 1 each PO Q6HR PRN #15 tablet 06/07/18 Unknown Rx 5/325] Ibuprofen [Motrin] 800 mg PO Q8HR PRN #20 tablet 06/07/18 Unknown Rx HYDROcodone/APAP 10-325 [[place] 1 tab PO QDAY PRN #15 tablet 07/04/18 Unknown Rx 10-325 mg TAB] Ketorolac [Toradol] 10 mg PO Q6H PRN #15 tablet 07/04/18 Unknown Rx Ondansetron [Zofran Odt] 4 mg PO Q8HR PRN #10 tab.rapdis 07/04/18 Unknown Rx Famotidine [Pepcid] 20 mg PO BID #30 tablet 07/11/18 Unknown Rx HYDROcodone/ACETAMINOPHEN [[place] 1 each PO Q6HR PRN #12 tablet 07/11/18 Unknown Rx 10-325 Tablet] Ondansetron [Zofran Odt] 4 mg PO Q8HR PRN #20 tab.rapdis 07/11/18 Unknown Rx Ondansetron [Zofran Odt] 4 mg PO Q8HR #20 tab.rapdis 07/25/18 Unknown Rx Oxycodone HCl/Acetaminophen 1 each PO Q6HR PRN #20 tablet 07/25/18 Unknown Rx [Percocet 10/325 mg] Famotidine [Pepcid] 40 mg PO QHS #10 tablet 09/14/18 Unknown Rx Ibuprofen [Motrin] 600 mg PO Q8H PRN #20 tablet 09/14/18 Unknown Rx Ondansetron [Zofran Odt] 4 mg PO Q8HR PRN #10 tab.rapdis 09/14/18 Unknown Rx Oxycodone HCl/Acetaminophen 1 each PO Q6HR PRN #14 tablet 09/14/18 Unknown Rx [Percocet 7.5/325 mg] Allergies Allergy/AdvReac Type Severity Reaction Status Date / Time morphine AdvReac Itching Verified 07/04/18 08:53 ED Review of Systems ROS: Stated complaint: SICKLE CELL (R) ARM PAIN Other details as noted in HPI Comment: All other systems reviewed and negative ED Past Medical Hx - Past Medical History Hx Sickle Cell Disease: Yes (sickle cell) Hx Asthma: Yes Hx COPD: No Hx HIV: No Additional medical history: Gastric ulcers - Surgical History Hx Cholecystectomy: Yes (05/2012) - Social History Smoking Status: Never Smoker Substance Use Type: None - Medications Home Medications: Home Medications Medication Instructions Recorded Confirmed Last Taken Type Pantoprazole [Protonix TAB] 40 mg PO BID #60 tablet 06/17/17 02/24/18 Unknown Rx Promethazine [Phenergan SUPPOS] 12.5 mg [place] Q6H PRN #12 supp.rect 06/17/17 02/24/18 Unknown Rx levoFLOXacin [Levaquin TAB] 500 mg PO QDAY #5 tablet 06/17/17 02/24/18 Unknown Rx Ondansetron [Zofran TAB] 4 mg PO Q8HR PRN #10 tablet 02/21/18 02/24/18 Unknown Rx cephALEXin [Keflex] 500 mg PO Q8HR #30 cap 02/21/18 02/24/18 Unknown Rx HYDROcodone/APAP 5-325 [[place] 1 - 2 each PO Q6HR PRN #14 tablet 02/25/18 Unknown Rx 5/325] Acetaminophen/Codeine [Tylenol 1 tab PO Q6H PRN #12 tab 04/25/18 Unknown Rx /Codeine # 3 tab] Ibuprofen [Motrin] 600 mg PO Q8H PRN #30 tablet 04/25/18 Unknown Rx Sulfamethoxazole/Trimethoprim 1 each PO BID #14 tablet 04/25/18 Unknown Rx [Bactrim DS TAB] Folic Acid [Folvite] 1 mg PO QDAY #30 tablet 05/08/18 Unknown Rx Hydroxyurea [Hydrea] 500 mg PO QDAY #30 capsule 05/08/18 Unknown Rx Acetaminophen [Tylenol Arthritis] 650 mg PO Q6HR PRN #30 tablet.er 05/23/18 Unknown Rx Famotidine [Pepcid] 20 mg PO BID #60 tablet 05/23/18 Unknown Rx Ondansetron [Zofran Odt] 4 mg PO Q8HR PRN #20 tab.rapdis 05/23/18 Unknown Rx oxyCODONE [Roxicodone] 5 mg PO Q6HR PRN #15 tablet 05/23/18 Unknown Rx HYDROcodone/APAP 5-325 [[place] 1 each PO Q6HR PRN #15 tablet 06/07/18 Unknown Rx 5/325] Ibuprofen [Motrin] 800 mg PO Q8HR PRN #20 tablet 06/07/18 Unknown Rx HYDROcodone/APAP 10-325 [[place] 1 tab PO QDAY PRN #15 tablet 07/04/18 Unknown Rx 10-325 mg TAB] Ketorolac [Toradol] 10 mg PO Q6H PRN #15 tablet 07/04/18 Unknown Rx Ondansetron [Zofran Odt] 4 mg PO Q8HR PRN #10 tab.rapdis 07/04/18 Unknown Rx Famotidine [Pepcid] 20 mg PO BID #30 tablet 07/11/18 Unknown Rx HYDROcodone/ACETAMINOPHEN [[place] 1 each PO Q6HR PRN #12 tablet 07/11/18 Unknown Rx 10-325 Tablet] Ondansetron [Zofran Odt] 4 mg PO Q8HR PRN #20 tab.rapdis 07/11/18 Unknown Rx Ondansetron [Zofran Odt] 4 mg PO Q8HR #20 tab.rapdis 07/25/18 Unknown Rx Oxycodone HCl/Acetaminophen 1 each PO Q6HR PRN #20 tablet 07/25/18 Unknown Rx [Percocet 10/325 mg] Famotidine [Pepcid] 40 mg PO QHS #10 tablet 09/14/18 Unknown Rx Ibuprofen [Motrin] 600 mg PO Q8H PRN #20 tablet 09/14/18 Unknown Rx Ondansetron [Zofran Odt] 4 mg PO Q8HR PRN #10 tab.rapdis 09/14/18 Unknown Rx Oxycodone HCl/Acetaminophen 1 each PO Q6HR PRN #14 tablet 09/14/18 Unknown Rx [Percocet 7.5/325 mg] ED Physical Exam - General Limitations: No Limitations General appearance: alert, in no apparent distress - Head Head exam: Present: atraumatic, normocephalic - Eye Eye exam: Present: normal appearance - ENT ENT exam: Present: mucous membranes moist - Neck Neck exam: Present: normal inspection - Respiratory Respiratory exam: Present: normal lung sounds bilaterally. Absent: respiratory distress - Cardiovascular Cardiovascular Exam: Present: regular rate, normal rhythm. Absent: systolic murmur, diastolic murmur, rubs, gallop - GI/Abdominal GI/Abdominal exam: Present: soft, tenderness, normal bowel sounds. Absent: distended, guarding, rebound, rigid - Extremities Exam Extremities exam: Present: normal inspection - Back Exam Back exam: Present: normal inspection - Neurological Exam Neurological exam: Present: alert, oriented X3 - Psychiatric Psychiatric exam: Present: normal affect, normal mood - Skin Skin exam: Present: warm, dry, intact, normal color. Absent: rash ED Course Vital Signs 09/14/18 09/14/18 09/14/18 08:31 09:07 10:21 Temperature 98.1 F Pulse Rate 98 H Respiratory 18 17 18 Rate Blood Pressure 132/68 O2 Sat by Pulse 99 Oximetry 09/14/18 11:30 Temperature Pulse Rate Respiratory 18 Rate Blood Pressure O2 Sat by Pulse Oximetry ED Medical Decision Making - Lab Data Result diagrams: 09/14/18 09:27 09/14/18 09:27 Lab Results 09/14/18 09/14/18 Range/Units 09:27 09:27 WBC 11.0 (4.5-11.0) K/mm3 RBC 2.87 L (3.65-5.03) M/mm3 Hgb 9.1 L (10.1-14.3) gm/dl Hct 25.5 L (30.3-42.9) % MCV 89 (79-97) fl MCH 32 (28-32) pg MCHC 36 H (30-34) % RDW 24.3 H (13.2-15.2) % Plt Count 511 H (140-440) K/mm3 Lymph % (Auto) 26.0 (13.4-35.0) % [place] % (Auto) 13.7 H (0.0-7.3) % Eos % (Auto) 8.8 H (0.0-4.3) % Baso % (Auto) 1.2 (0.0-1.8) % Lymph # 2.9 (1.2-5.4) K/mm3 [place] # 1.5 H (0.0-0.8) K/mm3 Eos # 1.0 H (0.0-0.4) K/mm3 Baso # 0.1 (0.0-0.1) K/mm3 Seg Neutrophils % 50.3 (40.0-70.0) % Seg Neutrophils # 5.5 (1.8-7.7) K/mm3 Sodium 139 (137-145) mmol/L Potassium 4.5 (3.6-5.0) mmol/L Chloride 105.0 (98-107) mmol/L Carbon Dioxide 22 (22-30) mmol/L Anion Gap 17 mmol/L BUN 6 L (7-17) mg/dL Creatinine 0.4 L (0.7-1.2) mg/dL Estimated GFR > 60 ml/min BUN/Creatinine Ratio 15 % Glucose 104 H (65-100) mg/dL Calcium 8.9 (8.4-10.2) mg/dL Total Bilirubin 4.20 H (0.1-1.2) mg/dL AST 45 H (5-40) units/L ALT 34 (7-56) units/L Alkaline Phosphatase 133 H (35-129) units/L Total Protein 7.6 (6.3-8.2) g/dL Albumin 4.2 (3.9-5) g/dL Albumin/Globulin Ratio 1.2 % Lipase 37 (13-60) units/L - Radiology Data [facility] [address] [place] [address] Ultrasound Report Signed Patient: CHELSIE SHERMAN MR#: [id number] : 1990 Acct:[id number] Age/Sex: 28 / F ADM Date: 09/14/18 Loc: ED Attending Dr: Ordering Physician: ROSIE GASPAR MD Date of Service: 09/14/18 Procedure(s): US abdomen limited Accession Number(s): [id number] cc: ROSIE GASPAR MD ULTRASOUND ABDOMEN LIMITED: TECHNIQUE: Transabdominal ultrasound with color Doppler interrogation. HISTORY: Epigastric pain with nausea and vomiting. COMPARISON: 02/21/18. FINDINGS: LIVER: Normal. BILIARY SYSTEM: Cholecystectomy. There appears to be a common bile duct stent in place. The CBD measures 7.1 mm in diameter. No obvious choledocholithiasis or obstructing lesion. PANCREAS: Normal. RIGHT KIDNEY: Normal. PROXIMAL AORTA: Normal. ASCITES: None. IMPRESSION: Cholecystectomy. See above. Transcribed By: TTR Dictated By: JOSE MANUEL DESIR JR, MD Electronically Authenticated By: JOSE MANUEL DESIR JR, MD Signed Date/Time: 09/14/18 1022 DD/ 1021 - Medical Decision Making Patient did have some improvement of her pain. Nausea vomiting is improved as well. Patient's ultrasound within normal limits show that she has had a gallbladder removed which is likely why her bilirubin is elevated. There is no common bile duct dilation present. Patient likely with some gastritis. Patient be discharged home with meds for symptomatic relief. Critical care attestation.: If time is entered above; I have spent that time in minutes in the direct care of this critically ill patient, excluding procedure time. ED Disposition Clinical Impression: Sickle cell anemia with pain Gastritis Qualifiers: Gastritis type: unspecified gastritis Chronicity: acute Gastritis bleeding: without bleeding Qualified Code(s): K29.00 - Acute gastritis without bleeding Disposition: DC-01 TO HOME OR SELFCARE Is pt being admited?: No Does the pt Need Aspirin: No Condition: Stable Referrals: SALOME RAINES DO [Primary Care Provider] - 3-5 Days Time of Disposition: 12:06
[2018-09-14 09:56] LABS: Basophils # (Auto) 0.1 K/mm3 (0.0-0.1); Eosinophils % (Auto) 8.8 % (0.0-4.3); Monocytes # (Auto) 1.5 K/mm3 (0.0-0.8); Monocytes % (Auto) 13.7 % (0.0-7.3)
[2018-09-14 09:59] LABS: Basophils % (Auto) 1.2 % (0.0-1.8); Hematocrit 25.5 % (30.3-42.9); Hemoglobin 9.1 gm/dl (10.1-14.3); Lymphocytes # (Auto) 2.9 K/mm3 (1.2-5.4); Mean Corpuscular HGB Conc 36 % (30-34); Mean Corpuscular Volume 89 fl (79-97); Platelet Count 511 K/mm3 (140-440); Red Blood Count 2.87 M/mm3 (3.65-5.03); Red Cell Distribution Width 24.3 % (13.2-15.2)
[2018-09-14 10:01] LABS: Alanine Aminotransferase 34 units/L (7-56); Albumin 4.2 g/dL (3.9-5); BUN/Creatinine Ratio 15; Blood Urea Nitrogen 6 mg/dL (7-17); Calcium 8.9 mg/dL (8.4-10.2); Hemolysis Index 11
--- NOTE | 2018-09-14 10:25 | Ultrasound Report ---
ULTRASOUND ABDOMEN LIMITED: TECHNIQUE: Transabdominal ultrasound with color Doppler interrogation. HISTORY: Epigastric pain with nausea and vomiting. COMPARISON: 02/21/18. FINDINGS: LIVER: Normal. BILIARY SYSTEM: Cholecystectomy. There appears to be a common bile duct stent in place. The CBD measures 7.1 mm in diameter. No obvious choledocholithiasis or obstructing lesion. PANCREAS: Normal. RIGHT KIDNEY: Normal. PROXIMAL AORTA: Normal. ASCITES: None. IMPRESSION: Cholecystectomy. See above.
[2018-09-14 12:34] VITALS: BP 107/67
== END 2018-09-14 12:34 | disposition home or self-care (01) ==
LOC: ED 08:24
DX: K29.00 Acute gastritis without bleeding (principal); D57.1 Sickle-cell disease without crisis; J45.909 Unspecified asthma, uncomplicated; Z88.6 Allergy status to analgesic agent; Z90.49 Acquired absence of other specified parts of digestive tract; Z87.11 Personal history of peptic ulcer disease
CPT/HCPCS: 36415; 76705; 80053; 83690; 85025; 96361; 96372; 96374; 96375; 96376; 99284; J0500; J1170; J2405; J7030

== ENCOUNTER 2018-09-23 12:54 | Emergency (ER) | payer BC ==
[2018-09-23] MEDS ORDERED: NACL 0.9% 1000 ML 1,000 ML IV ONE (13:00)
--- NOTE | 2018-09-23 13:04 | Emergency Department Report ---
Chief Complaint: Chest Pain Stated Complaint: SICKLE CELL CRISIS/CHEST PAIN Time Seen by Provider: 09/23/18 12:59 - HPI History of Present Illness: Here yesterday with same sed 14 cp taking her meds MD is out of town VSS ambulatory for ekg MSE completed - Exam Vital Signs: Vital Signs 09/23/18 12:58 Temperature 98.7 F Pulse Rate 100 H Respiratory 18 Rate Blood Pressure 122/70 O2 Sat by Pulse 95 Oximetry MSE screening note: Focused history and physical exam performed. Due to findings the following was ordered: ED Disposition for MSE Condition: Stable
[2018-09-23 14:12] LABS: Hematocrit 23.7 % (30.3-42.9); Hemoglobin 8.7 gm/dl (10.1-14.3); Mean Corpuscular HGB Conc 37 % (30-34); Mean Corpuscular Volume 88 fl (79-97); Platelet Count 480 K/mm3 (140-440); Red Blood Count 2.71 M/mm3 (3.65-5.03)
[2018-09-23 14:13] LABS: Red Cell Distribution Width 22.5 % (13.2-15.2)
[2018-09-23 14:29] LABS: Alanine Aminotransferase 28 units/L (7-56); Albumin 4.1 g/dL (3.9-5); BUN/Creatinine Ratio 18; Blood Urea Nitrogen 7 mg/dL (7-17); Calcium 8.9 mg/dL (8.4-10.2); Hemolysis Index 73
[2018-09-23 14:30] LABS: Erythrocyte Sedimentation Rate 37 mm/Hr (0-20)
[2018-09-23] MEDS ORDERED: DILAUDID IV ONE ×3 (15:40→19:53)
--- NOTE | 2018-09-23 15:47 | Emergency Department Report ---
HPI - General Chief Complaint: Chest Pain Time Seen by Provider: 09/23/18 12:59 - HPI HPI: 28-year-old female presents to the emergency department with complaint of some chest pain, back pain and generalized body aches that she says is a sickle cell pain crisis. The patient was seen here yesterday for similar symptoms. She says that she has taken her oxycodone, folic acid, and hydroxyurea at home for her symptoms without any relief. No recent travel or sick contacts at home. Her rejoiner is Dr. Raines. ED Past Medical Hx - Past Medical History Hx Sickle Cell Disease: Yes (sickle cell) Hx Asthma: Yes Hx COPD: No Hx HIV: No Additional medical history: Gastric ulcers - Surgical History Hx Cholecystectomy: Yes (05/2012) - Social History Smoking Status: Never Smoker - Medications Home Medications: Home Medications Medication Instructions Recorded Confirmed Last Taken Type RX: Pantoprazole [Protonix TAB] 40 mg PO BID #60 tablet 06/17/17 02/24/18 Unknown Rx RX: Promethazine [Phenergan SUPPOS] 12.5 mg [place] Q6H PRN #12 supp.rect 06/17/17 02/24/18 Unknown Rx levoFLOXacin [Levaquin TAB] 500 mg PO QDAY #5 tablet 06/17/17 02/24/18 Unknown Rx Ondansetron [Zofran TAB] 4 mg PO Q8HR PRN #10 tablet 02/21/18 02/24/18 Unknown Rx cephALEXin [Keflex] 500 mg PO Q8HR #30 cap 02/21/18 02/24/18 Unknown Rx HYDROcodone/APAP 5-325 [[place] 1 - 2 each PO Q6HR PRN #14 tablet 02/25/18 Unknown Rx 5/325] Acetaminophen/Codeine [Tylenol 1 tab PO Q6H PRN #12 tab 04/25/18 Unknown Rx /Codeine # 3 tab] Ibuprofen [Motrin] 600 mg PO Q8H PRN #30 tablet 04/25/18 Unknown Rx Sulfamethoxazole/Trimethoprim 1 each PO BID #14 tablet 04/25/18 Unknown Rx [Bactrim DS TAB] RX: Folic Acid [Folvite] 1 mg PO QDAY #30 tablet 05/08/18 Unknown Rx RX: Hydroxyurea [Hydrea] 500 mg PO QDAY #30 capsule 05/08/18 Unknown Rx Acetaminophen [Tylenol Arthritis] 650 mg PO Q6HR PRN #30 tablet.er 05/23/18 Unknown Rx Famotidine [Pepcid] 20 mg PO BID #60 tablet 05/23/18 Unknown Rx Ondansetron [Zofran Odt] 4 mg PO Q8HR PRN #20 tab.rapdis 05/23/18 Unknown Rx oxyCODONE [Roxicodone] 5 mg PO Q6HR PRN #15 tablet 05/23/18 Unknown Rx HYDROcodone/APAP 5-325 [[place] 1 each PO Q6HR PRN #15 tablet 06/07/18 Unknown Rx 5/325] Ibuprofen [Motrin] 800 mg PO Q8HR PRN #20 tablet 06/07/18 Unknown Rx Ketorolac [Toradol] 10 mg PO Q6H PRN #15 tablet 07/04/18 Unknown Rx Ondansetron [Zofran Odt] 4 mg PO Q8HR PRN #10 tab.rapdis 07/04/18 Unknown Rx RX: HYDROcodone/APAP 10-325 [[place] 1 tab PO QDAY PRN #15 tablet 07/04/18 Unknown Rx 10-325 mg TAB] Famotidine [Pepcid] 20 mg PO BID #30 tablet 07/11/18 Unknown Rx Ondansetron [Zofran Odt] 4 mg PO Q8HR PRN #20 tab.rapdis 07/11/18 Unknown Rx RX: HYDROcodone/ACETAMINOPHEN 1 each PO Q6HR PRN #12 tablet 07/11/18 Unknown Rx [[place] 10-325 Tablet] Ondansetron [Zofran Odt] 4 mg PO Q8HR #20 tab.rapdis 07/25/18 Unknown Rx Oxycodone HCl/Acetaminophen 1 each PO Q6HR PRN #20 tablet 07/25/18 Unknown Rx [Percocet 10/325 mg] Famotidine [Pepcid] 40 mg PO QHS #10 tablet 09/14/18 Unknown Rx Ibuprofen [Motrin] 600 mg PO Q8H PRN #20 tablet 09/14/18 Unknown Rx Ondansetron [Zofran Odt] 4 mg PO Q8HR PRN #10 tab.rapdis 09/14/18 Unknown Rx Oxycodone HCl/Acetaminophen 1 each PO Q6HR PRN #14 tablet 09/14/18 Unknown Rx [Percocet 7.5/325 mg] Ketorolac [Toradol] 10 mg PO Q6H PRN #14 tablet 09/22/18 Unknown Rx Oxycodone HCl/Acetaminophen 1 each PO Q6HR PRN #10 tablet 09/22/18 Unknown Rx [Percocet 7.5/325 mg] ED Review of Systems ROS: Stated complaint: SICKLE CELL CRISIS/CHEST PAIN Other details as noted in HPI Comment: All other systems reviewed and negative Constitutional: denies: chills, fever Eyes: denies: eye pain, vision change ENT: denies: ear pain, throat pain Respiratory: denies: cough, shortness of breath Cardiovascular: chest pain. denies: palpitations Gastrointestinal: denies: abdominal pain, vomiting Genitourinary: denies: dysuria, discharge Musculoskeletal: back pain, myalgia. denies: joint swelling Skin: denies: rash, lesions Neurological: denies: headache, weakness Physical Exam - Physical Exam Vital Signs: Vital Signs 09/23/18 12:58 Temperature 98.7 F Pulse Rate 100 H Respiratory 18 Rate Blood Pressure 122/70 O2 Sat by Pulse 95 Oximetry Physical Exam: GENERAL: The patient is well-developed well-nourished. HEENT: Normocephalic. Atraumatic. Patient has moist mucous membranes. EYES: Extraocular motions are intact. Pupils are equal and reactive to light bilaterally. NECK: Supple. Trachea is midline. CHEST/LUNGS: Clear to auscultation. There is no respiratory distress noted. HEART/CARDIOVASCULAR: Regular. There is no tachycardia. There is no obvious murmur. ABDOMEN: Abdomen is soft, nontender. Patient has normal bowel sounds. There is no abdominal distention. SKIN: Skin is warm and dry. NEURO: The patient is awake, alert, and oriented. The patient is cooperative. The patient has no focal neurologic deficits. The patient has normal speech. MUSCULOSKELETAL: There is no tenderness or deformity. There is no evidence of acute injury. ED Course Vital Signs 09/23/18 12:58 Temperature 98.7 F Pulse Rate 100 H Respiratory 18 Rate Blood Pressure 122/70 O2 Sat by Pulse 95 Oximetry ED Medical Decision Making - Lab Data Result diagrams: 09/23/18 13:50 02/15/19 13:50 - EKG Data -: EKG Interpreted by Me EKG shows normal: sinus rhythm, axis, intervals, QRS complexes, ST-T waves Rate: normal - EKG Data When compared to previous EKG there are: previous EKG unavailable Interpretation: normal EKG - Radiology Data Radiology results: image reviewed interpreted by me: Chest x-ray does not show any pneumothorax, pleural effusion, pneumonia or obvious focal consolidation. - Medical Decision Making This patient presents to the emergency department with a complaint of some chest pain, back pain and other generalized body aches that she says is consistent with a sickle cell pain crisis. EKG was done that does not show any signs of ST elevation LA, ischemia or dysrhythmia. Chest x-ray does not show any pleural effusions, pneumothorax, pneumonia, focal consolidation, or any other acute process, and therefore this also does not appear consistent with chest crisis. Patient's labs show negative troponins 2 thus far. She has some anemia with hemoglobin of 8.7. her reticulocyte count is 13.1 and is consistent with previous visits. She was given a few doses of IV pain medication, IV fluid resuscitation, she was reevaluated multiple times over multiple hours and is feeling improved. I also spoke with the patient's rejoiner, Dr. Raines, who says that he does not feel that the patient requires admission at this time and would like to see her in his office on Wednesday. - Differential Diagnosis MRI, sickle cell pain crisis, chest crisis Critical Care Time: No Critical care attestation.: If time is entered above; I have spent that time in minutes in the direct care of this critically ill patient, excluding procedure time. ED Disposition Clinical Impression: Sickle cell pain crisis Disposition: TO HOME OR SELFCARE Is pt being admited?: No Condition: Stable Instructions: Sickle Cell Crisis (ED), Anemia (ED) Additional Instructions: Please follow-up with your primary care physician/rejoiner on Wednesday. Return to the emergency Department with any worsening of your symptoms or any acute distress. Referrals: SALOME RAINES DO [Staff Physician] - 09/26/18 Time of Disposition: 20:23 Heart Score - HEART Score History: Slightly suspicious EKG: Normal Age: < 45 Risk factors: 1-2 risk factors Troponin: < normal limit HEART Score: 1 - Critical Actions Critical Actions: 0-3 pts:0.9-1.7%risk of adverse cardiac event.Candidate for discharge
[2018-09-23] MEDS ORDERED: ZOFRAN ODT PO ONE (18:48)
[2018-09-23] MEDS ORDERED: ZOFRAN ODT ONE (18:48)
[2018-09-23 21:06] VITALS: BP 110/55
--- NOTE | 2018-09-23 21:24 | XRay Report ---
FINAL REPORT EXAM: XR CHEST 1V AP HISTORY: CP TECHNIQUE: Frontal portable view of the chest Comparison: Chest x-ray dated May 07, 2018, CT abdomen and pelvis dated May 07, [address] chest dated June 13, 2017 FINDINGS: There prominence of the interstitial markings in both lungs corresponding to the previously [place] findings suggestive of pulmonary fibrosis. There is the appearance of patchy areas of pulmonary consolidation in both lung bases, left greater t pleitez right. This may represent superimposed areas of pulmonary infiltrate. There is no evidence of pneumothorax or pleural fluid collection. The cardiac silhouette appears to be upper limits of normal size. The thoracic aorta and bony structures are unremarkable. Visualization detail of the thoracic spine i s limited. There is prominence of the pulmonary venous vasculature suggestive of pulmonary venous congestion. IMPRESSION: 1. Areas of pulmonary consolidation in both lung bases which may represent changes of pulmonary infil trates superimposed on previously demonstrated pulmonary fibrosis. If further imaging is required, CT chest may be helpful. 3. Appearance of pulmonary venous congestion.
== END 2018-09-23 21:06 | disposition home or self-care (01) ==
LOC: ED 12:54
DX: D57.219 Sickle-cell/Hb-C disease with crisis, unspecified (principal); J45.909 Unspecified asthma, uncomplicated; Z88.5 Allergy status to narcotic agent; Z90.49 Acquired absence of other specified parts of digestive tract
CPT/HCPCS: 36415; 71045; 80053; 84484; 84703; 85027; 85045; 85652; 93005; 93010; 96374; 96376; 99284; J1170; J7030; Q0162

== ENCOUNTER 2018-09-26 15:20 | Inpatient (IN) | payer BC ==
[2018-09-26] MEDS ORDERED: SODIUM CHLORIDE FLUSH SYRINGE 10 ML IV PRN (15:40)
[2018-09-26] MEDS: DILAUDID IV PRN ×2 (17:01→20:25)
[2018-09-26] MEDS: BENADRYL IV PRN ×2 (17:01→20:26)
[2018-09-26 17:38] LABS: Hematocrit 24.4 % (30.3-42.9); Hemoglobin 8.5 gm/dl (10.1-14.3); Mean Corpuscular HGB Conc 35 % (30-34); Mean Corpuscular Volume 92 fl (79-97); Platelet Count 516 K/mm3 (140-440); Red Blood Count 2.64 M/mm3 (3.65-5.03)
[2018-09-26 17:48] LABS: Red Cell Distribution Width 24.2 % (13.2-15.2)
[2018-09-26 17:58] LABS: Alanine Aminotransferase 35 units/L (7-56); Albumin 3.7 g/dL (3.9-5); BUN/Creatinine Ratio 14; Blood Urea Nitrogen 7 mg/dL (7-17); Calcium 8.8 mg/dL (8.4-10.2); Hemolysis Index 27
[2018-09-26 18:12] LABS: % Iron Saturation 14.58 %
[2018-09-26 18:27] LABS: Band Neutrophils # (Manual) 0.2 K/mm3; Total Cells Counted 100
[2018-09-26 18:28] LABS: Anisocytosis 3+; Hypochromasia 2+; Poikilocytosis 2+
[2018-09-26 18:29] LABS: Sickle Cells 2+; Target Cells 1+
[2018-09-26 18:30] LABS: Giant Platelets Few; Large Platelets Few; Platelet Estimate Consistent w Auto
[2018-09-26] MEDS: HEPARIN SUB-Q SCH (21:56)
[2018-09-26] MEDS: SODIUM CHLORIDE FLUSH SYRINGE 10 ML IV SCH (22:00)
--- NOTE | 2018-09-26 23:24 | History and Physical Report ---
History of Present Illness Date of examination: 09/26/18 Date of admission: 09/26/18 15:58 Chief complaint: Sickle pain crisis./dehydration. History of present illness: Patient presented to the office, with CC as above, She was examined, and directly admitted for sxs management/ control.labs reviewedm and indicates real crisis, with hemolytic process.Patient will be treated as sepsis syndrome, present on admission.Will do cultures, and put on abx, until cultures resulted. Past History Past Medical History: anemia Past Surgical History: cholecystectomy Social history: Family history: no significant family history Medications and Allergies Allergies Allergy/AdvReac Type Severity Reaction Status Date / Time morphine AdvReac Itching Verified 09/23/18 12:56 Home Medications Medication Instructions Recorded Confirmed Last Taken Type Pantoprazole [Protonix TAB] 40 mg PO BID #60 tablet 06/17/17 02/24/18 Unknown Rx Promethazine [Phenergan SUPPOS] 12.5 mg [place] Q6H PRN #12 supp.rect 06/17/17 02/24/18 Unknown Rx levoFLOXacin [Levaquin TAB] 500 mg PO QDAY #5 tablet 06/17/17 02/24/18 Unknown Rx Ondansetron [Zofran TAB] 4 mg PO Q8HR PRN #10 tablet 02/21/18 02/24/18 Unknown Rx cephALEXin [Keflex] 500 mg PO Q8HR #30 cap 02/21/18 02/24/18 Unknown Rx HYDROcodone/APAP 5-325 [[place] 1 - 2 each PO Q6HR PRN #14 tablet 02/25/18 Unknown Rx 5/325] Acetaminophen/Codeine [Tylenol 1 tab PO Q6H PRN #12 tab 04/25/18 Unknown Rx /Codeine # 3 tab] Ibuprofen [Motrin] 600 mg PO Q8H PRN #30 tablet 04/25/18 Unknown Rx Sulfamethoxazole/Trimethoprim 1 each PO BID #14 tablet 04/25/18 Unknown Rx [Bactrim DS TAB] Folic Acid [Folvite] 1 mg PO QDAY #30 tablet 05/08/18 Unknown Rx Hydroxyurea [Hydrea] 500 mg PO QDAY #30 capsule 05/08/18 Unknown Rx Acetaminophen [Tylenol Arthritis] 650 mg PO Q6HR PRN #30 tablet.er 05/23/18 Unknown Rx Famotidine [Pepcid] 20 mg PO BID #60 tablet 05/23/18 Unknown Rx Ondansetron [Zofran Odt] 4 mg PO Q8HR PRN #20 tab.rapdis 05/23/18 Unknown Rx oxyCODONE [Roxicodone] 5 mg PO Q6HR PRN #15 tablet 05/23/18 Unknown Rx HYDROcodone/APAP 5-325 [[place] 1 each PO Q6HR PRN #15 tablet 06/07/18 Unknown Rx 5/325] Ibuprofen [Motrin] 800 mg PO Q8HR PRN #20 tablet 06/07/18 Unknown Rx HYDROcodone/APAP 10-325 [[place] 1 tab PO QDAY PRN #15 tablet 07/04/18 Unknown Rx 10-325 mg TAB] Ketorolac [Toradol] 10 mg PO Q6H PRN #15 tablet 07/04/18 Unknown Rx Ondansetron [Zofran Odt] 4 mg PO Q8HR PRN #10 tab.rapdis 07/04/18 Unknown Rx Famotidine [Pepcid] 20 mg PO BID #30 tablet 07/11/18 Unknown Rx HYDROcodone/ACETAMINOPHEN [[place] 1 each PO Q6HR PRN #12 tablet 07/11/18 Unknown Rx 10-325 Tablet] Ondansetron [Zofran Odt] 4 mg PO Q8HR PRN #20 tab.rapdis 07/11/18 Unknown Rx Ondansetron [Zofran Odt] 4 mg PO Q8HR #20 tab.rapdis 07/25/18 Unknown Rx Oxycodone HCl/Acetaminophen 1 each PO Q6HR PRN #20 tablet 07/25/18 Unknown Rx [Percocet 10/325 mg] Famotidine [Pepcid] 40 mg PO QHS #10 tablet 09/14/18 Unknown Rx Ibuprofen [Motrin] 600 mg PO Q8H PRN #20 tablet 09/14/18 Unknown Rx Ondansetron [Zofran Odt] 4 mg PO Q8HR PRN #10 tab.rapdis 09/14/18 Unknown Rx Oxycodone HCl/Acetaminophen 1 each PO Q6HR PRN #14 tablet 09/14/18 Unknown Rx [Percocet 7.5/325 mg] Ketorolac [Toradol] 10 mg PO Q6H PRN #14 tablet 09/22/18 Unknown Rx Oxycodone HCl/Acetaminophen 1 each PO Q6HR PRN #10 tablet 09/22/18 Unknown Rx [Percocet 7.5/325 mg] Active Meds: Active Medications Diphenhydramine HCl (Benadryl) 12.5 mg IV Q3H PRN PRN Reason: Itching Last Admin: 09/26/18 20:26 Dose: 12.5 mg Documented by: Heparin Sodium (Porcine) (Heparin) 5,000 unit SUB-Q Q12HR VICTORINO Last Admin: 09/26/18 21:56 Dose: 5,000 unit Documented by: Hydromorphone HCl (Dilaudid) 3 mg IV Q3H PRN PRN Reason: Pain, Moderate (4-6) Last Admin: 09/26/18 20:25 Dose: 3 mg Documented by: Dextrose/Sodium Chloride (D5ns 0.2%) 1,000 mls @ 175 mls/hr IV DIRECT VICTORINO Sodium Chloride (Sodium Chloride Flush Syringe 10 Ml) 10 ml IV BID [facility] Last Admin: 09/26/18 22:00 Dose: 10 ml Documented by: Sodium Chloride (Sodium Chloride Flush Syringe 10 Ml) 10 ml IV PRN PRN PRN Reason: LINE FLUSH Review of Systems Constitutional: fever, fatigue, weakness, chronic pain Breasts: deferred Exam - Constitutional Vitals: Temp Pulse Resp BP Pulse Ox 99.2 F 92 H 20 117/61 97 09/26/18 17:20 09/26/18 17:20 09/26/18 17:20 09/26/18 17:20 09/26/18 17:20 General appearance: Present: mild distress - EENT Eyes: Present: PERRL ENT: hearing intact, clear oral mucosa - Neck Neck: Present: supple, normal ROM - Respiratory Respiratory effort: normal Respiratory: bilateral: CTA - Cardiovascular Heart Sounds: Present: S1 & S2. Absent: rub, click - Extremities Extremities: pulses symmetrical, No edema Peripheral Pulses: within normal limits - Abdominal General gastrointestinal: Present: soft, non-tender, non-distended, normal bowel sounds Female genitourinary: Present: deferred - Rectal Rectal Exam: deferred - Integumentary Integumentary: Present: clear, warm, dry - Musculoskeletal Musculoskeletal: gait normal, strength equal bilaterally - Psychiatric Psychiatric: appropriate mood/affect, intact judgment & insight - Neurologic Neurologic: CNII-XII intact, moves all extremities Results - Labs CBC & Chem 7: 09/26/18 16:43 09/26/18 16:43 Labs: Abnormal lab results 09/26/18 09/26/18 09/26/18 Range/Units 16:43 16:43 16:43 WBC 21.2 H (4.5-11.0) K/mm3 RBC 2.64 L (3.65-5.03) M/mm3 Hgb 8.5 L (10.1-14.3) gm/dl Hct 24.4 L (30.3-42.9) % MCHC 35 H (30-34) % RDW 24.2 H (13.2-15.2) % Plt Count 516 H (140-440) K/mm3 Monocytes % (Manual) 10.0 H (0.0-7.3) % Basophils % (Manual) 2.0 H (0.0-1.8) % Nucleated RBC % 6.0 H (0.0-0.9) % Seg Neutrophils # Man 11.4 H (1.8-7.7) K/mm3 Lymphocytes # (Manual) 6.6 H (1.2-5.4) K/mm3 Monocytes # (Manual) 2.1 H (0.0-0.8) K/mm3 Basophils # (Manual) 0.4 H (0.0-0.1) K/mm3 Percent Retic (0.78-2.58) % Sodium 135 L (137-145) mmol/L Carbon Dioxide 21 L (22-30) mmol/L Creatinine 0.5 L (0.7-1.2) mg/dL Glucose 106 H (65-100) mg/dL Iron 35 L (37-170) ug/dL TIBC 240 L (250-450) mcg/dL Total Bilirubin 8.10 H (0.1-1.2) mg/dL AST 49 H (5-40) units/L Alkaline Phosphatase 141 H (35-129) units/L Lactate Dehydrogenase 409 H (91-180) units/L Albumin 3.7 L (3.9-5) g/dL 09/26/18 Range/Units 16:43 WBC (4.5-11.0) K/mm3 RBC (3.65-5.03) M/mm3 Hgb (10.1-14.3) gm/dl Hct (30.3-42.9) % MCHC (30-34) % RDW (13.2-15.2) % Plt Count (140-440) K/mm3 Monocytes % (Manual) (0.0-7.3) % Basophils % (Manual) (0.0-1.8) % Nucleated RBC % (0.0-0.9) % Seg Neutrophils # Man (1.8-7.7) K/mm3 Lymphocytes # (Manual) (1.2-5.4) K/mm3 Monocytes # (Manual) (0.0-0.8) K/mm3 Basophils # (Manual) (0.0-0.1) K/mm3 Percent Retic 19.63 H (0.78-2.58) % Sodium (137-145) mmol/L Carbon Dioxide (22-30) mmol/L Creatinine (0.7-1.2) mg/dL Glucose (65-100) mg/dL Iron (37-170) ug/dL TIBC (250-450) mcg/dL Total Bilirubin (0.1-1.2) mg/dL AST (5-40) units/L Alkaline Phosphatase (35-129) units/L Lactate Dehydrogenase (91-180) units/L Albumin (3.9-5) g/dL Assessment and Plan - Patient Problems (1) Sickle cell pain crisis Current Visit: No Status: Acute Plan to address problem: pain control. (2) Jaundice Current Visit: No Status: Acute Plan to address problem: treat accordingly. (3) SIRS (systemic inflammatory response syndrome) Current Visit: No Status: Acute Plan to address problem: ABX, cultures. (4) Leukocytosis Current Visit: Yes Status: Acute Plan to address problem: treat as sepsis (5) Sickle cell anemia with pain Current Visit: Yes Status: Acute Plan to address problem: treat with pain control, hydration, monitor labs.
[2018-09-26] MEDS ORDERED: XYLOCAINE 1% MPF 5 mL INFILTRATI ONE (23:30)
[2018-09-26] MEDS ORDERED: ZOFRAN ODT PO PRN (23:33)
--- NOTE | 2018-09-26 23:54 | XRay Report ---
FINAL REPORT EXAM: XR SHOULDER 2+V LT HISTORY: PAIN TECHNIQUE: Three views left shoulder PRIORS: None. FINDINGS: No fractures are identified. No dislocation seen. The acromioclavicular joint is intact. Adjacent b staci and soft tissue structures are unremarkable. IMPRESSION: Negative shoulder series
[2018-09-27] MEDS: D5NS 0.2% 1,000 ML IV SCH ×4 (01:46→22:52)
[2018-09-27] MEDS: DILAUDID IV PRN ×4 (01:46→21:37)
[2018-09-27] MEDS: BENADRYL IV PRN ×4 (01:47→21:36)
[2018-09-27] MEDS ORDERED: ROCEPHIN IM SCH (10:00)
[2018-09-27] MEDS: FOLVITE PO SCH (11:09)
[2018-09-27] MEDS: HEPARIN SUB-Q SCH ×2 (11:09→21:36)
[2018-09-27] MEDS: ROCEPHIN/NS 1 GM/50 ML 1 GM/50 ML BAG IV SCH (11:10)
[2018-09-27] MEDS: PEPCID PO SCH ×2 (11:10→21:54)
[2018-09-27] MEDS: HYDREA PO SCH (11:10)
[2018-09-27] MEDS: SODIUM CHLORIDE FLUSH SYRINGE 10 ML IV SCH ×2 (11:21→21:56)
[2018-09-27] MEDS: TYLENOL PO PRN (19:10)
--- NOTE | 2018-09-27 22:53 | Progress Note ---
Assessment and Plan - Patient Problems (1) Sickle cell pain crisis Current Visit: No Status: Acute Plan to address problem: pain control. (2) Jaundice Current Visit: No Status: Acute Plan to address problem: treat accordingly. (3) SIRS (systemic inflammatory response syndrome) Current Visit: No Status: Acute Plan to address problem: ABX, cultures. (4) Leukocytosis Current Visit: Yes Status: Acute Plan to address problem: treat as sepsis (5) Sickle cell anemia with pain Current Visit: Yes Status: Acute Plan to address problem: treat with pain control, hydration, monitor labs. Subjective Date of service: 09/27/18 Principal diagnosis: Sepsis, Sickle pain crisis. Interval history: Patient seen/examined, resting in bed, labs reviewed, case d/w patient.Spiked fever earlier today, and tylenol given.Pain still at 8/10. Objective - Constitutional Vitals: Vital Signs - 12hr 09/27/18 09/27/18 09/27/18 12:48 17:50 18:58 Temperature 97.9 F 100.1 F H 101.5 F H Pulse Rate 80 103 H 91 H Respiratory 20 18 20 Rate Blood Pressure 115/60 93/41 Blood Pressure 104/50 [Right] O2 Sat by Pulse 97 93 Oximetry General appearance: Present: mild distress, well-nourished - EENT Eyes: PERRL, EOM intact ENT: hearing intact, clear oral mucosa Ears: bilateral: normal - Neck Neck: supple, normal ROM - Respiratory Respiratory effort: normal Respiratory: bilateral: CTA - Breasts Breasts: deferred - Cardiovascular Rhythm: regular Heart Sounds: Present: S1 & S2. Absent: gallop, rub Extremities: pulses intact, No edema, normal color, Full ROM - Gastrointestinal General gastrointestinal: Present: soft, non-tender, non-distended, normal bowel sounds Rectal Exam: deferred - Genitourinary Female genitourinary: deferred - Integumentary Integumentary: clear, warm, dry - Musculoskeletal Musculoskeletal: 1, strength equal bilaterally - Neurologic Neurologic: moves all extremities - Psychiatric Psychiatric: memory intact, appropriate mood/affect, intact judgment & insight - Labs CBC & Chem 7: 09/26/18 16:43 09/26/18 16:43 Medications & Allergies - Medications Allergies/Adverse Reactions: Allergies morphine Adverse Reaction (Verified 09/23/18 12:56) Itching Home Medications: Home Medications Medication Instructions Recorded Confirmed Last Taken Type Pantoprazole [Protonix TAB] 40 mg PO BID #60 tablet 06/17/17 09/27/18 Unknown Rx Promethazine [Phenergan SUPPOS] 12.5 mg [place] Q6H PRN #12 supp.rect 06/17/17 09/27/18 Unknown Rx levoFLOXacin [Levaquin TAB] 500 mg PO QDAY #5 tablet 06/17/17 09/27/18 Unknown Rx Ondansetron [Zofran TAB] 4 mg PO Q8HR PRN #10 tablet 02/21/18 09/27/18 Unknown Rx cephALEXin [Keflex] 500 mg PO Q8HR #30 cap 02/21/18 09/27/18 Unknown Rx HYDROcodone/APAP 5-325 [[place] 1 - 2 each PO Q6HR PRN #14 tablet 02/25/18 09/27/18 Unknown Rx 5/325] Acetaminophen/Codeine [Tylenol 1 tab PO Q6H PRN #12 tab 04/25/18 09/27/18 Unknown Rx /Codeine # 3 tab] Ibuprofen [Motrin] 600 mg PO Q8H PRN #30 tablet 04/25/18 09/27/18 Unknown Rx Sulfamethoxazole/Trimethoprim 1 each PO BID #14 tablet 04/25/18 09/27/18 Unknown Rx [Bactrim DS TAB] Folic Acid [Folvite] 1 mg PO QDAY #30 tablet 05/08/18 09/27/18 Unknown Rx Hydroxyurea [Hydrea] 500 mg PO QDAY #30 capsule 05/08/18 09/27/18 Unknown Rx Acetaminophen [Tylenol Arthritis] 650 mg PO Q6HR PRN #30 tablet.er 05/23/18 09/27/18 Unknown Rx Famotidine [Pepcid] 20 mg PO BID #60 tablet 05/23/18 09/27/18 Unknown Rx Ondansetron [Zofran Odt] 4 mg PO Q8HR PRN #20 tab.rapdis 05/23/18 09/27/18 Unknown Rx oxyCODONE [Roxicodone] 5 mg PO Q6HR PRN #15 tablet 05/23/18 09/27/18 Unknown Rx HYDROcodone/APAP 5-325 [[place] 1 each PO Q6HR PRN #15 tablet 06/07/18 09/27/18 Unknown Rx 5/325] Ibuprofen [Motrin] 800 mg PO Q8HR PRN #20 tablet 06/07/18 09/27/18 Unknown Rx HYDROcodone/APAP 10-325 [[place] 1 tab PO QDAY PRN #15 tablet 07/04/18 09/27/18 Unknown Rx 10-325 mg TAB] Ketorolac [Toradol] 10 mg PO Q6H PRN #15 tablet 07/04/18 09/27/18 Unknown Rx Ondansetron [Zofran Odt] 4 mg PO Q8HR PRN #10 tab.rapdis 07/04/18 09/27/18 Unknown Rx Famotidine [Pepcid] 20 mg PO BID #30 tablet 07/11/18 09/27/18 Unknown Rx HYDROcodone/ACETAMINOPHEN [[place] 1 each PO Q6HR PRN #12 tablet 07/11/18 09/27/18 Unknown Rx 10-325 Tablet] Ondansetron [Zofran Odt] 4 mg PO Q8HR PRN #20 tab.rapdis 07/11/18 09/27/18 Unknown Rx Ondansetron [Zofran Odt] 4 mg PO Q8HR #20 tab.rapdis 07/25/18 09/27/18 Unknown Rx Oxycodone HCl/Acetaminophen 1 each PO Q6HR PRN #20 tablet 07/25/18 09/27/18 Unknown Rx [Percocet 10/325 mg] Famotidine [Pepcid] 40 mg PO QHS #10 tablet 09/14/18 09/27/18 Unknown Rx Ibuprofen [Motrin] 600 mg PO Q8H PRN #20 tablet 09/14/18 09/27/18 Unknown Rx Ondansetron [Zofran Odt] 4 mg PO Q8HR PRN #10 tab.rapdis 09/14/18 09/27/18 Unknown Rx Oxycodone HCl/Acetaminophen 1 each PO Q6HR PRN #14 tablet 09/14/18 09/27/18 Unknown Rx [Percocet 7.5/325 mg] Ketorolac [Toradol] 10 mg PO Q6H PRN #14 tablet 09/22/18 09/27/18 Unknown Rx Oxycodone HCl/Acetaminophen 1 each PO Q6HR PRN #10 tablet 09/22/18 09/27/18 Unknown Rx [Percocet 7.5/325 mg] Active Medications: Generic Name Dose Route Start Last Admin Trade Name Nimaq PRN Reason Stop Dose Admin Acetaminophen 650 mg 09/27/18 19:02 09/27/18 19:10 Tylenol PO 650 mg Q6H PRN Administration Non Cardiac Pain or Temp>100.5 Acetaminophen/Hydrocodone Bitart 1 each 09/26/18 23:33 [place] 10/325 PO QDAY PRN Pain Diphenhydramine HCl 12.5 mg 09/26/18 15:56 09/27/18 21:36 Benadryl IV 12.5 mg Q3H PRN Administration Itching Famotidine 20 mg 09/27/18 10:00 09/27/18 21:54 Pepcid PO 20 mg BID VICTORINO Administration Folic Acid 1 mg 09/27/18 10:00 09/27/18 11:09 Folvite PO 1 mg QDAY VICTORINO Administration Heparin Sodium (Porcine) 5,000 unit 09/26/18 22:00 09/27/18 21:36 Heparin SUB-Q 5,000 unit Q12HR VICTORINO Administration Hydromorphone HCl 3 mg 09/26/18 15:40 09/27/18 21:37 Dilaudid IV 3 mg Q3H PRN Administration Pain, Moderate (4-6) Hydroxyurea 500 mg 09/27/18 10:00 09/27/18 11:10 Hydrea PO 500 mg QDAY VICTORINO Administration Dextrose/Sodium Chloride 1,000 mls @ 175 mls/hr 09/26/18 16:00 09/27/18 17:19 D5ns 0.2% IV 175 mls/hr DIRECT VICTORINO Administration Ceftriaxone Sodium 1 gm in 50 mls @ 100 mls/hr 09/27/18 10:00 09/27/18 11:10 Rocephin/Ns 1 Gm/50 Ml IV 100 mls/hr Q24HR VICTORINO Administration Ondansetron HCl 4 mg 09/26/18 23:33 Zofran Odt PO Q8HR PRN Nausea And Vomiting Sodium Chloride 10 ml 09/26/18 22:00 09/27/18 21:56 Sodium Chloride Flush Syringe 10 Ml IV 10 ml BID VICTORINO Administration Sodium Chloride 10 ml 09/26/18 15:40 Sodium Chloride Flush Syringe 10 Ml IV PRN PRN LINE FLUSH
[2018-09-28] MEDS: BENADRYL IV PRN ×7 (01:14→23:44)
[2018-09-28] MEDS: DILAUDID IV PRN ×7 (01:17→23:46)
[2018-09-28 05:02] LABS: Hematocrit 23.3 % (30.3-42.9); Hemoglobin 7.8 gm/dl (10.1-14.3); Mean Corpuscular HGB Conc 34 % (30-34); Mean Corpuscular Volume 95 fl (79-97); Platelet Count 467 K/mm3 (140-440); Red Blood Count 2.46 M/mm3 (3.65-5.03)
[2018-09-28 05:10] LABS: Red Cell Distribution Width 21.8 % (13.2-15.2)
[2018-09-28] MEDS: D5NS 0.2% 1,000 ML IV SCH ×3 (05:48→21:13)
[2018-09-28 05:54] LABS: Band Neutrophils # (Manual) 0.2 K/mm3; Total Cells Counted 100
[2018-09-28 05:55] LABS: Anisocytosis 2+; Giant Platelets Few; Hypochromasia 1+; Large Platelets Few; Ovalocytes 1+; Poikilocytosis 2+; Schistocytes Rare; Sickle Cells 1+; Target Cells 1+; Tear Drop Cells Few
[2018-09-28] MEDS: PEPCID PO SCH ×2 (10:36→23:42)
[2018-09-28] MEDS: FOLVITE PO SCH (10:36)
[2018-09-28] MEDS: HYDREA PO SCH (10:36)
[2018-09-28] MEDS: ROCEPHIN/NS 1 GM/50 ML 1 GM/50 ML BAG IV SCH (10:37)
[2018-09-28] MEDS: HEPARIN SUB-Q SCH ×2 (10:37→23:42)
[2018-09-28] MEDS: SODIUM CHLORIDE FLUSH SYRINGE 10 ML IV SCH ×2 (10:49→23:44)
--- NOTE | 2018-09-28 22:51 | Progress Note ---
Assessment and Plan - Patient Problems (1) Sickle cell pain crisis Current Visit: No Status: Acute Plan to address problem: pain control. (2) Jaundice Current Visit: No Status: Acute Plan to address problem: treat accordingly. (3) SIRS (systemic inflammatory response syndrome) Current Visit: No Status: Acute Plan to address problem: ABX, cultures. (4) Leukocytosis Current Visit: Yes Status: Acute Plan to address problem: treat as sepsis (5) Sickle cell anemia with pain Current Visit: Yes Status: Acute Plan to address problem: treat with pain control, hydration, monitor labs. Subjective Date of service: 09/28/18 Principal diagnosis: Sepsis, Sickle pain crisis. Interval history: Patient seen/examined, resting in bed, labs reviewed, case d/w patient.Spiked fever earlier today, and tylenol given.Pain still at 8/10. patient seen/examined, resting in bed, c/o was so cold in the room yesterday, due to malfunctioned temp gauge, that made her crisis worsened cultures still no growth.. Objective - Constitutional Vitals: Vital Signs - 12hr 09/28/18 09/28/18 09/28/18 12:22 18:14 22:26 Temperature 98.5 F 99.9 F H Pulse Rate 82 114 H Respiratory 20 20 Rate Blood Pressure 104/50 112/57 O2 Sat by Pulse 97 94 96 Oximetry General appearance: Present: mild distress, well-nourished - EENT Eyes: PERRL, EOM intact ENT: hearing intact, clear oral mucosa Ears: bilateral: normal - Neck Neck: supple, normal ROM - Respiratory Respiratory effort: normal Respiratory: bilateral: CTA - Breasts Breasts: deferred - Cardiovascular Rhythm: regular Heart Sounds: Present: S1 & S2. Absent: gallop, rub Extremities: pulses intact, No edema, normal color, Full ROM - Gastrointestinal General gastrointestinal: Present: soft, non-tender, non-distended, normal bowel sounds Rectal Exam: deferred - Genitourinary Female genitourinary: deferred - Integumentary Integumentary: clear, warm, dry - Musculoskeletal Musculoskeletal: 1, strength equal bilaterally - Neurologic Neurologic: moves all extremities - Psychiatric Psychiatric: memory intact, appropriate mood/affect, intact judgment & insight - Labs CBC & Chem 7: 09/28/18 04:35 09/26/18 16:43 Labs: Abnormal lab results 09/28/18 Range/Units 04:35 WBC 16.5 H (4.5-11.0) K/mm3 RBC 2.46 L (3.65-5.03) M/mm3 Hgb 7.8 L (10.1-14.3) gm/dl Hct 23.3 L (30.3-42.9) % RDW 21.8 H (13.2-15.2) % Plt Count 467 H (140-440) K/mm3 Monocytes % (Manual) 11.0 H (0.0-7.3) % Nucleated RBC % 10.0 H (0.0-0.9) % Seg Neutrophils # Man 9.1 H (1.8-7.7) K/mm3 Monocytes # (Manual) 1.8 H (0.0-0.8) K/mm3 Basophils # (Manual) 0.2 H (0.0-0.1) K/mm3 Percent Retic 19.08 H (0.78-2.58) % Medications & Allergies - Medications Allergies/Adverse Reactions: Allergies morphine Adverse Reaction (Verified 09/23/18 12:56) Itching Home Medications: Home Medications Medication Instructions Recorded Confirmed Last Taken Type Pantoprazole [Protonix TAB] 40 mg PO BID #60 tablet 06/17/17 09/27/18 Unknown Rx Promethazine [Phenergan SUPPOS] 12.5 mg [place] Q6H PRN #12 supp.rect 06/17/17 09/27/18 Unknown Rx levoFLOXacin [Levaquin TAB] 500 mg PO QDAY #5 tablet 06/17/17 09/27/18 Unknown Rx Ondansetron [Zofran TAB] 4 mg PO Q8HR PRN #10 tablet 02/21/18 09/27/18 Unknown Rx cephALEXin [Keflex] 500 mg PO Q8HR #30 cap 02/21/18 09/27/18 Unknown Rx HYDROcodone/APAP 5-325 [[place] 1 - 2 each PO Q6HR PRN #14 tablet 02/25/18 09/27/18 Unknown Rx 5/325] Acetaminophen/Codeine [Tylenol 1 tab PO Q6H PRN #12 tab 04/25/18 09/27/18 Unknown Rx /Codeine # 3 tab] Ibuprofen [Motrin] 600 mg PO Q8H PRN #30 tablet 04/25/18 09/27/18 Unknown Rx Sulfamethoxazole/Trimethoprim 1 each PO BID #14 tablet 04/25/18 09/27/18 Unknown Rx [Bactrim DS TAB] Folic Acid [Folvite] 1 mg PO QDAY #30 tablet 05/08/18 09/27/18 Unknown Rx Hydroxyurea [Hydrea] 500 mg PO QDAY #30 capsule 05/08/18 09/27/18 Unknown Rx Acetaminophen [Tylenol Arthritis] 650 mg PO Q6HR PRN #30 tablet.er 05/23/18 09/27/18 Unknown Rx Famotidine [Pepcid] 20 mg PO BID #60 tablet 05/23/18 09/27/18 Unknown Rx Ondansetron [Zofran Odt] 4 mg PO Q8HR PRN #20 tab.rapdis 05/23/18 09/27/18 Unknown Rx oxyCODONE [Roxicodone] 5 mg PO Q6HR PRN #15 tablet 05/23/18 09/27/18 Unknown Rx HYDROcodone/APAP 5-325 [[place] 1 each PO Q6HR PRN #15 tablet 06/07/18 09/27/18 Unknown Rx 5/325] Ibuprofen [Motrin] 800 mg PO Q8HR PRN #20 tablet 06/07/18 09/27/18 Unknown Rx HYDROcodone/APAP 10-325 [[place] 1 tab PO QDAY PRN #15 tablet 07/04/18 09/27/18 Unknown Rx 10-325 mg TAB] Ketorolac [Toradol] 10 mg PO Q6H PRN #15 tablet 07/04/18 09/27/18 Unknown Rx Ondansetron [Zofran Odt] 4 mg PO Q8HR PRN #10 tab.rapdis 07/04/18 09/27/18 Unknown Rx Famotidine [Pepcid] 20 mg PO BID #30 tablet 07/11/18 09/27/18 Unknown Rx HYDROcodone/ACETAMINOPHEN [[place] 1 each PO Q6HR PRN #12 tablet 07/11/18 09/27/18 Unknown Rx 10-325 Tablet] Ondansetron [Zofran Odt] 4 mg PO Q8HR PRN #20 tab.rapdis 07/11/18 09/27/18 Unknown Rx Ondansetron [Zofran Odt] 4 mg PO Q8HR #20 tab.rapdis 07/25/18 09/27/18 Unknown Rx Oxycodone HCl/Acetaminophen 1 each PO Q6HR PRN #20 tablet 07/25/18 09/27/18 Unknown Rx [Percocet 10/325 mg] Famotidine [Pepcid] 40 mg PO QHS #10 tablet 09/14/18 09/27/18 Unknown Rx Ibuprofen [Motrin] 600 mg PO Q8H PRN #20 tablet 09/14/18 09/27/18 Unknown Rx Ondansetron [Zofran Odt] 4 mg PO Q8HR PRN #10 tab.rapdis 09/14/18 09/27/18 Unknown Rx Oxycodone HCl/Acetaminophen 1 each PO Q6HR PRN #14 tablet 09/14/18 09/27/18 Unknown Rx [Percocet 7.5/325 mg] Ketorolac [Toradol] 10 mg PO Q6H PRN #14 tablet 09/22/18 09/27/18 Unknown Rx Oxycodone HCl/Acetaminophen 1 each PO Q6HR PRN #10 tablet 09/22/18 09/27/18 Unknown Rx [Percocet 7.5/325 mg] Active Medications: Generic Name Dose Route Start Last Admin Trade Name Freq PRN Reason Stop Dose Admin Acetaminophen 650 mg 09/27/18 19:02 09/27/18 19:10 Tylenol PO 650 mg Q6H PRN Administration Non Cardiac Pain or Temp>100.5 Acetaminophen/Hydrocodone Bitart 1 each 09/26/18 23:33 [place] 10/325 PO QDAY PRN Pain Diphenhydramine HCl 12.5 mg 09/26/18 15:56 09/28/18 20:12 Benadryl IV 12.5 mg Q3H PRN Administration Itching Famotidine 20 mg 09/27/18 10:00 09/28/18 10:36 Pepcid PO 20 mg BID VICTORINO Administration Folic Acid 1 mg 09/27/18 10:00 09/28/18 10:36 Folvite PO 1 mg QDAY VICTORINO Administration Heparin Sodium (Porcine) 5,000 unit 09/26/18 22:00 09/28/18 10:37 Heparin SUB-Q 5,000 unit Q12HR VICTORINO Administration Hydromorphone HCl 3 mg 09/26/18 15:40 09/28/18 20:16 Dilaudid IV 3 mg Q3H PRN Administration Pain, Moderate (4-6) Hydroxyurea 500 mg 09/27/18 10:00 09/28/18 10:36 Hydrea PO 500 mg QDAY VICTORINO Administration Dextrose/Sodium Chloride 1,000 mls @ 175 mls/hr 09/26/18 16:00 09/28/18 21:13 D5ns 0.2% IV 175 mls/hr DIRECT VICTORINO Administration Ceftriaxone Sodium 1 gm in 50 mls @ 100 mls/hr 09/27/18 10:00 09/28/18 10:37 Rocephin/Ns 1 Gm/50 Ml IV 100 mls/hr Q24HR VICTORINO Administration Ondansetron HCl 4 mg 09/26/18 23:33 Zofran Odt PO Q8HR PRN Nausea And Vomiting Sodium Chloride 10 ml 09/26/18 22:00 09/28/18 10:49 Sodium Chloride Flush Syringe 10 Ml IV Not Given BID VICTORINO Sodium Chloride 10 ml 09/26/18 15:40 Sodium Chloride Flush Syringe 10 Ml IV PRN PRN LINE FLUSH
[2018-09-29] MEDS: TYLENOL PO PRN (02:02)
[2018-09-29] MEDS: BENADRYL IV PRN ×4 (05:36→22:46)
[2018-09-29] MEDS: DILAUDID IV PRN ×4 (05:36→22:45)
[2018-09-29] MEDS: FOLVITE PO SCH (09:49)
[2018-09-29] MEDS: ROCEPHIN/NS 1 GM/50 ML 1 GM/50 ML BAG IV SCH (09:49)
[2018-09-29] MEDS: PEPCID PO SCH ×2 (09:49→22:45)
[2018-09-29] MEDS: HYDREA PO SCH (09:49)
[2018-09-29] MEDS: HEPARIN SUB-Q SCH ×2 (09:49→22:45)
--- NOTE | 2018-09-29 10:05 | XRay Report ---
FINAL REPORT PROCEDURE: XR ABDOMEN 1V AP TECHNIQUE: Abdominal radiograph, single supine AP view. HISTORY: pain COMPARISON: No prior studies are available for comparison. FINDINGS: Bowel gas pattern:There is a large amount of stool in the colon. There is no obstruction or fecal imp action. There is no bowel wall thickening. Masses or calcifications:There are densities in colon which could be ingested materials Bony structures:No significant abnormality. Other:There a common bile duct stent.. IMPRESSION: There is a large amount of stool in the colon. There is no obstruction or fecal impaction. There is n o bowel wall thickening. There are densities in colon which could be ingested materials There a common bile duct stent..
[2018-09-29] MEDS: D5NS 0.2% 1,000 ML IV SCH ×2 (10:34→18:42)
[2018-09-29] MEDS: SODIUM CHLORIDE FLUSH SYRINGE 10 ML IV SCH ×2 (10:36→22:47)
--- NOTE | 2018-09-29 19:15 | Progress Note ---
Assessment and Plan - Patient Problems (1) Sickle cell pain crisis Current Visit: No Status: Acute Plan to address problem: pain control. (2) Jaundice Current Visit: No Status: Acute Plan to address problem: treat accordingly. (3) SIRS (systemic inflammatory response syndrome) Current Visit: No Status: Acute Plan to address problem: ABX, cultures. (4) Leukocytosis Current Visit: Yes Status: Acute Plan to address problem: treat as sepsis (5) Sickle cell anemia with pain Current Visit: Yes Status: Acute Plan to address problem: treat with pain control, hydration, monitor labs. Subjective Date of service: 09/29/18 Principal diagnosis: Sepsis, Sickle pain crisis. Interval history: Patient seen/examined, resting in bed, labs reviewed, case d/w patient.Spiked fever earlier today, and tylenol given.Pain still at 8/10. patient seen/examined, resting in bed, c/o was so cold in the room yesterday, due to malfunctioned temp gauge, that made her crisis worsened cultures still no growth.. patient seen, examined, resting in bed, labs reviewed, will continue with current management. The retic count is still high. Objective - Constitutional Vitals: Vital Signs - 12hr 09/29/18 09/29/18 10:00 11:56 Temperature 98.5 F Pulse Rate 95 H Respiratory 16 Rate Blood Pressure 105/50 O2 Sat by Pulse 98 96 Oximetry General appearance: Present: mild distress, well-nourished - EENT Eyes: PERRL, EOM intact ENT: hearing intact, clear oral mucosa Ears: bilateral: normal - Neck Neck: supple, normal ROM - Respiratory Respiratory effort: normal Respiratory: bilateral: CTA - Breasts Breasts: deferred - Cardiovascular Rhythm: regular Heart Sounds: Present: S1 & S2. Absent: gallop, rub Extremities: pulses intact, No edema, normal color, Full ROM - Gastrointestinal General gastrointestinal: Present: soft, non-tender, non-distended, normal bowel sounds - Genitourinary Female genitourinary: deferred - Integumentary Integumentary: clear, warm, dry - Musculoskeletal Musculoskeletal: 1, strength equal bilaterally - Neurologic Neurologic: moves all extremities - Psychiatric Psychiatric: memory intact, appropriate mood/affect, intact judgment & insight - Labs CBC & Chem 7: 09/28/18 04:35 09/26/18 16:43 Labs: Abnormal lab results 09/29/18 Range/Units 05:10 Percent Retic 18.63 H (0.78-2.58) % Medications & Allergies - Medications Allergies/Adverse Reactions: Allergies morphine Adverse Reaction (Verified 09/23/18 12:56) Itching Home Medications: Home Medications Medication Instructions Recorded Confirmed Last Taken Type Pantoprazole [Protonix TAB] 40 mg PO BID #60 tablet 06/17/17 09/27/18 Unknown Rx Promethazine [Phenergan SUPPOS] 12.5 mg [place] Q6H PRN #12 supp.rect 06/17/17 09/27/18 Unknown Rx levoFLOXacin [Levaquin TAB] 500 mg PO QDAY #5 tablet 06/17/17 09/27/18 Unknown Rx Ondansetron [Zofran TAB] 4 mg PO Q8HR PRN #10 tablet 02/21/18 09/27/18 Unknown Rx cephALEXin [Keflex] 500 mg PO Q8HR #30 cap 02/21/18 09/27/18 Unknown Rx HYDROcodone/APAP 5-325 [[place] 1 - 2 each PO Q6HR PRN #14 tablet 02/25/18 09/27/18 Unknown Rx 5/325] Acetaminophen/Codeine [Tylenol 1 tab PO Q6H PRN #12 tab 04/25/18 09/27/18 Unknown Rx /Codeine # 3 tab] Ibuprofen [Motrin] 600 mg PO Q8H PRN #30 tablet 04/25/18 09/27/18 Unknown Rx Sulfamethoxazole/Trimethoprim 1 each PO BID #14 tablet 04/25/18 09/27/18 Unknown Rx [Bactrim DS TAB] Folic Acid [Folvite] 1 mg PO QDAY #30 tablet 05/08/18 09/27/18 Unknown Rx Hydroxyurea [Hydrea] 500 mg PO QDAY #30 capsule 05/08/18 09/27/18 Unknown Rx Acetaminophen [Tylenol Arthritis] 650 mg PO Q6HR PRN #30 tablet.er 05/23/18 09/27/18 Unknown Rx Famotidine [Pepcid] 20 mg PO BID #60 tablet 05/23/18 09/27/18 Unknown Rx Ondansetron [Zofran Odt] 4 mg PO Q8HR PRN #20 tab.rapdis 05/23/18 09/27/18 Unknown Rx oxyCODONE [Roxicodone] 5 mg PO Q6HR PRN #15 tablet 05/23/18 09/27/18 Unknown Rx HYDROcodone/APAP 5-325 [[place] 1 each PO Q6HR PRN #15 tablet 06/07/18 09/27/18 Unknown Rx 5/325] Ibuprofen [Motrin] 800 mg PO Q8HR PRN #20 tablet 06/07/18 09/27/18 Unknown Rx HYDROcodone/APAP 10-325 [[place] 1 tab PO QDAY PRN #15 tablet 07/04/18 09/27/18 Unknown Rx 10-325 mg TAB] Ketorolac [Toradol] 10 mg PO Q6H PRN #15 tablet 07/04/18 09/27/18 Unknown Rx Ondansetron [Zofran Odt] 4 mg PO Q8HR PRN #10 tab.rapdis 07/04/18 09/27/18 Unknown Rx Famotidine [Pepcid] 20 mg PO BID #30 tablet 07/11/18 09/27/18 Unknown Rx HYDROcodone/ACETAMINOPHEN [[place] 1 each PO Q6HR PRN #12 tablet 07/11/18 09/27/18 Unknown Rx 10-325 Tablet] Ondansetron [Zofran Odt] 4 mg PO Q8HR PRN #20 tab.rapdis 07/11/18 09/27/18 Unknown Rx Ondansetron [Zofran Odt] 4 mg PO Q8HR #20 tab.rapdis 07/25/18 09/27/18 Unknown Rx Oxycodone HCl/Acetaminophen 1 each PO Q6HR PRN #20 tablet 07/25/18 09/27/18 Unknown Rx [Percocet 10/325 mg] Famotidine [Pepcid] 40 mg PO QHS #10 tablet 09/14/18 09/27/18 Unknown Rx Ibuprofen [Motrin] 600 mg PO Q8H PRN #20 tablet 09/14/18 09/27/18 Unknown Rx Ondansetron [Zofran Odt] 4 mg PO Q8HR PRN #10 tab.rapdis 09/14/18 09/27/18 Unknown Rx Oxycodone HCl/Acetaminophen 1 each PO Q6HR PRN #14 tablet 09/14/18 09/27/18 Unknown Rx [Percocet 7.5/325 mg] Ketorolac [Toradol] 10 mg PO Q6H PRN #14 tablet 09/22/18 09/27/18 Unknown Rx Oxycodone HCl/Acetaminophen 1 each PO Q6HR PRN #10 tablet 09/22/18 09/27/18 Unk nown Rx [Percocet 7.5/325 mg] Active Medications: Generic Name Dose Route Start Last Admin Trade Name Nimaq PRN Reason Stop Dose Admin Acetaminophen 650 mg 09/27/18 19:02 09/29/18 02:02 Tylenol PO 650 mg Q6H PRN Administration Non Cardiac Pain or Temp>100.5 Acetaminophen/Hydrocodone Bitart 1 each 09/26/18 23:33 [place] 10/325 PO QDAY PRN Pain Diphenhydramine HCl 12.5 mg 09/26/18 15:56 09/29/18 16:03 Benadryl IV 12.5 mg Q3H PRN Administration Itching Famotidine 20 mg 09/27/18 10:00 09/29/18 09:49 Pepcid PO 20 mg BID VICTORINO Administration Folic Acid 1 mg 09/27/18 10:00 09/29/18 09:49 Folvite PO 1 mg QDAY VICTORINO Administration Heparin Sodium (Porcine) 5,000 unit 09/26/18 22:00 09/29/18 09:49 Heparin SUB-Q 5,000 unit Q12HR VICTORINO Administration Hydromorphone HCl 3 mg 09/26/18 15:40 09/29/18 16:03 Dilaudid IV 3 mg Q3H PRN Administration Pain, Moderate (4-6) Hydroxyurea 500 mg 09/27/18 10:00 09/29/18 09:49 Hydrea PO 500 mg QDAY VICTORINO Administration Dextrose/Sodium Chloride 1,000 mls @ 175 mls/hr 09/26/18 16:00 09/29/18 18:42 D5ns 0.2% IV 175 mls/hr DIRECT VICTORINO Administration Ceftriaxone Sodium 1 gm in 50 mls @ 100 mls/hr 09/27/18 10:00 09/29/18 09:49 Rocephin/Ns 1 Gm/50 Ml IV 100 mls/hr Q24HR VICTORINO Administration Ondansetron HCl 4 mg 09/26/18 23:33 Zofran Odt PO Q8HR PRN Nausea And Vomiting Sodium Chloride 10 ml 09/26/18 22:00 09/29/18 10:36 Sodium Chloride Flush Syringe 10 Ml IV Not Given BID VICTORINO Sodium Chloride 10 ml 09/26/18 15:40 09/29/18 05:41 Sodium Chloride Flush Syringe 10 Ml IV 10 ml PRN PRN Administration LINE FLUSH
[2018-09-30] MEDS: D5NS 0.2% 1,000 ML IV SCH ×3 (02:10→21:58)
[2018-09-30] MEDS: DILAUDID IV PRN ×5 (04:23→21:18)
[2018-09-30] MEDS: BENADRYL IV PRN ×4 (04:24→21:18)
[2018-09-30] MEDS: PEPCID PO SCH ×2 (10:01→21:19)
[2018-09-30] MEDS: FOLVITE PO SCH (10:01)
[2018-09-30] MEDS: HYDREA PO SCH (10:02)
[2018-09-30] MEDS: ROCEPHIN/NS 1 GM/50 ML 1 GM/50 ML BAG IV SCH (10:03)
[2018-09-30] MEDS: HEPARIN SUB-Q SCH ×2 (10:05→21:19)
[2018-09-30] MEDS: SODIUM CHLORIDE FLUSH SYRINGE 10 ML IV SCH ×2 (10:09→21:20)
--- NOTE | 2018-09-30 23:16 | Progress Note ---
Assessment and Plan - Patient Problems (1) Sickle cell pain crisis Current Visit: No Status: Acute Plan to address problem: pain control. (2) Jaundice Current Visit: No Status: Acute Plan to address problem: treat accordingly. (3) SIRS (systemic inflammatory response syndrome) Current Visit: No Status: Acute Plan to address problem: ABX, cultures. (4) Leukocytosis Current Visit: Yes Status: Acute Plan to address problem: treat as sepsis (5) Sickle cell anemia with pain Current Visit: Yes Status: Acute Plan to address problem: treat with pain control, hydration, monitor labs. (6) Leg pain, right Current Visit: Yes Status: Acute Plan to address problem: Do a doppler US Subjective Date of service: 09/30/18 Principal diagnosis: Sepsis, Sickle pain crisis. Interval history: Patient seen/examined, resting in bed, labs reviewed, case d/w patient.Spiked fever earlier today, and tylenol given.Pain still at 8/10. patient seen/examined, resting in bed, c/o was so cold in the room yesterday, due to malfunctioned temp gauge, that made her crisis worsened cultures still no growth.. patient seen, examined, resting in bed, labs reviewed, will continue with current management. The retic count is still high. patient see/examined, resting in bed, c/o right leg painful x2days. Will get doppler US venous. Objective - Constitutional Vitals: Vital Signs - 12hr 09/30/18 09/30/18 11:43 16:44 Temperature 98.5 F 99.4 F Pulse Rate 92 H 88 Respiratory 14 14 Rate Blood Pressure 108/56 108/61 O2 Sat by Pulse 98 99 Oximetry General appearance: Present: mild distress, well-nourished - EENT Eyes: PERRL, EOM intact ENT: hearing intact, clear oral mucosa Ears: bilateral: normal - Neck Neck: supple, normal ROM - Respiratory Respiratory effort: normal Respiratory: bilateral: CTA - Breasts Breasts: deferred - Cardiovascular Rhythm: regular Heart Sounds: Present: S1 & S2. Absent: gallop, rub Extremities: pulses intact, No edema, normal color, Full ROM - Gastrointestinal General gastrointestinal: Present: soft, non-tender, non-distended, normal bowel sounds Rectal Exam: deferred - Genitourinary Female genitourinary: deferred - Integumentary Integumentary: clear, warm, dry - Musculoskeletal Musculoskeletal: 1, strength equal bilaterally - Neurologic Neurologic: moves all extremities - Psychiatric Psychiatric: memory intact, appropriate mood/affect, intact judgment & insight - Labs CBC & Chem 7: 09/28/18 04:35 09/26/18 16:43 Labs: Abnormal lab results 09/30/18 Range/Units 04:42 Percent Retic 19.54 H (0.78-2.58) % Medications & Allergies - Medications Allergies/Adverse Reactions: Allergies morphine Adverse Reaction (Verified 09/23/18 12:56) Itching Home Medications: Home Medications Medication Instructions Recorded Confirmed Last Taken Type Pantoprazole [Protonix TAB] 40 mg PO BID #60 tablet 06/17/17 09/27/18 Unknown Rx Promethazine [Phenergan SUPPOS] 12.5 mg [place] Q6H PRN #12 supp.rect 06/17/17 09/27/18 Unknown Rx levoFLOXacin [Levaquin TAB] 500 mg PO QDAY #5 tablet 06/17/17 09/27/18 Unknown Rx Ondansetron [Zofran TAB] 4 mg PO Q8HR PRN #10 tablet 02/21/18 09/27/18 Unknown Rx cephALEXin [Keflex] 500 mg PO Q8HR #30 cap 02/21/18 09/27/18 Unknown Rx HYDROcodone/APAP 5-325 [[place] 1 - 2 each PO Q6HR PRN #14 tablet 02/25/18 09/27/18 Unknown Rx 5/325] Acetaminophen/Codeine [Tylenol 1 tab PO Q6H PRN #12 tab 04/25/18 09/27/18 Unknown Rx /Codeine # 3 tab] Ibuprofen [Motrin] 600 mg PO Q8H PRN #30 tablet 04/25/18 09/27/18 Unknown Rx Sulfamethoxazole/Trimethoprim 1 each PO BID #14 tablet 04/25/18 09/27/18 Unknown Rx [Bactrim DS TAB] Folic Acid [Folvite] 1 mg PO QDAY #30 tablet 05/08/18 09/27/18 Unknown Rx Hydroxyurea [Hydrea] 500 mg PO QDAY #30 capsule 05/08/18 09/27/18 Unknown Rx Acetaminophen [Tylenol Arthritis] 650 mg PO Q6HR PRN #30 tablet.er 05/23/18 09/27/18 Unknown Rx Famotidine [Pepcid] 20 mg PO BID #60 tablet 05/23/18 09/27/18 Unknown Rx Ondansetron [Zofran Odt] 4 mg PO Q8HR PRN #20 tab.rapdis 05/23/18 09/27/18 Unkn own Rx oxyCODONE [Roxicodone] 5 mg PO Q6HR PRN #15 tablet 05/23/18 09/27/18 Unknown Rx HYDROcodone/APAP 5-325 [[place] 1 each PO Q6HR PRN #15 tablet 06/07/18 09/27/18 Unknown Rx 5/325] Ibuprofen [Motrin] 800 mg PO Q8HR PRN #20 tablet 06/07/18 09/27/18 Unknown Rx HYDROcodone/APAP 10-325 [[place] 1 tab PO QDAY PRN #15 tablet 07/04/18 09/27/18 Unknown Rx 10-325 mg TAB] Ketorolac [Toradol] 10 mg PO Q6H PRN #15 tablet 07/04/18 09/27/18 Unknown Rx Ondansetron [Zofran Odt] 4 mg PO Q8HR PRN #10 tab.rapdis 07/04/18 09/27/18 Unknown Rx Famotidine [Pepcid] 20 mg PO BID #30 tablet 07/11/18 09/27/18 Unknown Rx HYDROcodone/ACETAMINOPHEN [[place] 1 each PO Q6HR PRN #12 tablet 07/11/18 09/27/18 Unknown Rx 10-325 Tablet] Ondansetron [Zofran Odt] 4 mg PO Q8HR PRN #20 tab.rapdis 07/11/18 09/27/18 Unknown Rx Ondansetron [Zofran Odt] 4 mg PO Q8HR #20 tab.rapdis 07/25/18 09/27/18 Unknown Rx Oxycodone HCl/Acetaminophen 1 each PO Q6HR PRN #20 tablet 07/25/18 09/27/18 Unknown Rx [Percocet 10/325 mg] Famotidine [Pepcid] 40 mg PO QHS #10 tablet 09/14/18 09/27/18 Unknown Rx Ibuprofen [Motrin] 600 mg PO Q8H PRN #20 tablet 09/14/18 09/27/18 Unknown Rx Ondansetron [Zofran Odt] 4 mg PO Q8HR PRN #10 tab.rapdis 09/14/18 09/27/18 Unknown Rx Oxycodone HCl/Acetaminophen 1 each PO Q6HR PRN #14 tablet 09/14/18 09/27/18 Unknown Rx [Percocet 7.5/325 mg] Ketorolac [Toradol] 10 mg PO Q6H PRN #14 tablet 09/22/18 09/27/18 Unknown Rx Oxycodone HCl/Acetaminophen 1 each PO Q6HR PRN #10 tablet 09/22/18 09/27/18 Unknown Rx [Percocet 7.5/325 mg] Active Medications: Generic Name Dose Route Start Last Admin Trade Name Freq PRN Reason Stop Dose Admin Acetaminophen 650 mg 09/27/18 19:02 09/29/18 02:02 Tylenol PO 650 mg Q6H PRN Administration Non Cardiac Pain or Temp>100.5 Acetaminophen/Hydrocodone Bitart 1 each 09/26/18 23:33 [place] 10/325 PO QDAY PRN Pain Diphenhydramine HCl 12.5 mg 09/26/18 15:56 09/30/18 21:18 Benadryl IV 12.5 mg Q3H PRN Administration Itching Famotidine 20 mg 09/27/18 10:00 09/30/18 21:19 Pepcid PO 20 mg BID VICTORINO Administration Folic Acid 1 mg 09/27/18 10:00 09/30/18 10:01 Folvite PO 1 mg QDAY VICTORINO Administration Heparin Sodium (Porcine) 5,000 unit 09/26/18 22:00 09/30/18 21:19 Heparin SUB-Q 5,000 unit Q12HR VICTORINO Administration Hydromorphone HCl 3 mg 09/26/18 15:40 09/30/18 21:18 Dilaudid IV 3 mg Q3H PRN Administration Pain, Moderate (4-6) Hydroxyurea 500 mg 09/27/18 10:00 09/30/18 10:02 Hydrea PO 500 mg QDAY VICTORINO Administration Dextrose/Sodium Chloride 1,000 mls @ 175 mls/hr 09/26/18 16:00 09/30/18 21:58 D5ns 0.2% IV 175 mls/hr DIRECT VICTORINO Administration Ceftriaxone Sodium 1 gm in 50 mls @ 100 mls/hr 09/27/18 10:00 09/30/18 10:03 Rocephin/Ns 1 Gm/50 Ml IV 100 mls/hr Q24HR VICTORINO Administration Ondansetron HCl 4 mg 09/26/18 23:33 Zofran Odt PO Q8HR PRN Nausea And Vomiting Sodium Chloride 10 ml 09/26/18 22:00 09/30/18 21:20 Sodium Chloride Flush Syringe 10 Ml IV 10 ml BID VICTORINO Administration Sodium Chloride 10 ml 09/26/18 15:40 09/29/18 05:41 Sodium Chloride Flush Syringe 10 Ml IV 10 ml PRN PRN Administration LINE FLUSH
[2018-10-01] MEDS: BENADRYL IV PRN ×5 (03:08→22:22)
[2018-10-01] MEDS: DILAUDID IV PRN ×5 (03:09→22:22)
[2018-10-01] MEDS: D5NS 0.2% 1,000 ML IV SCH ×2 (03:20→17:26)
[2018-10-01 06:03] LABS: Hemoglobin 6.8 gm/dl (10.1-14.3); Mean Corpuscular HGB Conc 34 % (30-34); Mean Corpuscular Volume 95 fl (79-97); Platelet Count 500 K/mm3 (140-440); Red Blood Count 2.08 M/mm3 (3.65-5.03)
[2018-10-01 06:05] LABS: Hematocrit 20.1 % (30.3-42.9); Red Cell Distribution Width 20.3 % (13.2-15.2)
[2018-10-01 06:25] LABS: BUN/Creatinine Ratio 8; Blood Urea Nitrogen 3 mg/dL (7-17); Calcium 8.6 mg/dL (8.4-10.2); Hemolysis Index 6
[2018-10-01 07:15] LABS: Anisocytosis 2+; Band Neutrophils # (Manual) 0.3 K/mm3; Basophils % (Manual) 0 % (0.0-1.8); Eosinophils % (Manual) 0 % (0.0-4.3); Target Cells 1+; Total Cells Counted 100
[2018-10-01 07:16] LABS: Giant Platelets Few; Hypochromasia Few; Ovalocytes 1+; Platelet Estimate Appears Increased; Poikilocytosis 1+; Schistocytes Few; Sickle Cells 1+
[2018-10-01] MEDS: ROCEPHIN/NS 1 GM/50 ML 1 GM/50 ML BAG IV SCH (10:33)
[2018-10-01] MEDS: PEPCID PO SCH ×2 (10:34→22:22)
[2018-10-01] MEDS: FOLVITE PO SCH (10:34)
[2018-10-01] MEDS: HYDREA PO SCH (10:34)
[2018-10-01] MEDS: SODIUM CHLORIDE FLUSH SYRINGE 10 ML IV SCH ×2 (10:35→22:23)
[2018-10-01] MEDS: HEPARIN SUB-Q SCH ×2 (10:35→22:29)
--- NOTE | 2018-10-01 11:36 | Vascular Lab Report ---
FINAL REPORT EXAM: VL VENOUS DUPLEX LE RT HISTORY: Right leg swelling/tender/warmth. TECHNIQUE: Grayscale and color and spectral Doppler ultrasound imaging of the right lower extremity was performed for the purposes of assessing for deep venous thrombosis. PRIORS: None. FINDINGS: No evidence of deep venous thrombosis is seen within the right common femoral through the posterior t ibial and peroneal veins. Normal compression and color flow is seen throughout the venous system of t he right lower extremity. Normal augmentation. IMPRESSION: Negative for right lower extremity deep venous thrombosis.
--- NOTE | 2018-10-01 18:28 | Progress Note ---
Assessment and Plan - Patient Problems (1) Sickle cell pain crisis Current Visit: No Status: Acute Plan to address problem: pain control. (2) Jaundice Current Visit: No Status: Acute Plan to address problem: treat accordingly. (3) SIRS (systemic inflammatory response syndrome) Current Visit: No Status: Acute Plan to address problem: ABX, cultures. (4) Leukocytosis Current Visit: Yes Status: Acute Plan to address problem: treat as sepsis (5) Sickle cell anemia with pain Current Visit: Yes Status: Acute Plan to address problem: treat with pain control, hydration, monitor labs. (6) Leg pain, right Current Visit: Yes Status: Acute Plan to address problem: Do a doppler US negative. Subjective Date of service: 10/01/18 Principal diagnosis: Sepsis, Sickle pain crisis. Interval history: Patient seen/examined, resting in bed, labs reviewed, case d/w patient.Spiked fever earlier today, and tylenol given.Pain still at 8/10. patient seen/examined, resting in bed, c/o was so cold in the room yesterday, due to malfunctioned temp gauge, that made her crisis worsened cultures still no growth.. patient seen, examined, resting in bed, labs reviewed, will continue with current management. The retic count is still high. patient see/examined, resting in bed, c/o right leg painful x2days. Will get doppler US venous. Patient seen/examined, resting in bed, labs reviewed, Hgb low enough to need transfusion replacement. Doppler us of the left leg negative for DVT. case d/w patient. Objective - Constitutional Vitals: Vital Signs - 12hr 10/01/18 10/01/18 11:24 17:07 Temperature 98.8 F 99.0 F Pulse Rate 94 H 84 Respiratory 18 18 Rate Blood Pressure 110/48 118/75 O2 Sat by Pulse 99 99 Oximetry General appearance: Present: mild distress, well-nourished - EENT Eyes: PERRL, EOM intact ENT: hearing intact, clear oral mucosa Ears: bilateral: normal - Neck Neck: supple, normal ROM - Respiratory Respiratory effort: normal Respiratory: bilateral: CTA - Breasts Breasts: deferred - Cardiovascular Rhythm: regular Heart Sounds: Present: S1 & S2. Absent: gallop, rub Extremities: pulses intact, No edema, normal color, Full ROM - Gastrointestinal General gastrointestinal: Present: soft, non-tender, non-distended, normal bowel sounds Rectal Exam: deferred - Genitourinary Female genitourinary: deferred - Integumentary Integumentary: clear, warm, dry - Musculoskeletal Musculoskeletal: 1, strength equal bilaterally - Neurologic Neurologic: moves all extremities - Psychiatric Psychiatric: memory intact, appropriate mood/affect, intact judgment & insight - Labs CBC & Chem 7: 10/01/18 05:21 10/01/18 05:21 Labs: Abnormal lab results 10/01/18 10/01/18 Range/Units 05:21 05:21 WBC 12.9 H (4.5-11.0) K/mm3 RBC 2.08 L (3.65-5.03) M/mm3 Hgb 6.8 L (10.1-14.3) gm/dl Hct 20.1 L (30.3-42.9) % MCH 33 H (28-32) pg RDW 20.3 H (13.2-15.2) % Plt Count 500 H (140-440) K/mm3 Monocytes % (Manual) 16.0 H (0.0-7.3) % Nucleated RBC % 6.0 H (0.0-0.9) % Monocytes # (Manual) 2.1 H (0.0-0.8) K/mm3 Percent Retic 17.64 H (0.78-2.58) % Sodium 135 L (137-145) mmol/L BUN 3 L (7-17) mg/dL Creatinine 0.4 L (0.7-1.2) mg/dL Glucose 122 H (65-100) mg/dL Medications & Allergies - Medications Allergies/Adverse Reactions: Allergies morphine Adverse Reaction (Verified 09/23/18 12:56) Itching Home Medications: Home Medications Medication Instructions Recorded Confirmed Last Taken Type Pantoprazole [Protonix TAB] 40 mg PO BID #60 tablet 06/17/17 09/27/18 Unknown Rx Promethazine [Phenergan SUPPOS] 12.5 mg [place] Q6H PRN #12 supp.rect 06/17/17 09/27/18 Unknown Rx levoFLOXacin [Levaquin TAB] 500 mg PO QDAY #5 tablet 06/17/17 09/27/18 Unknown Rx Ondansetron [Zofran TAB] 4 mg PO Q8HR PRN #10 tablet 02/21/18 09/27/18 Unknown R x cephALEXin [Keflex] 500 mg PO Q8HR #30 cap 02/21/18 09/27/18 Unknown Rx HYDROcodone/APAP 5-325 [[place] 1 - 2 each PO Q6HR PRN #14 tablet 02/25/18 09/27/18 Unknown Rx 5/325] Acetaminophen/Codeine [Tylenol 1 tab PO Q6H PRN #12 tab 04/25/18 09/27/18 Unknown Rx /Codeine # 3 tab] Ibuprofen [Motrin] 600 mg PO Q8H PRN #30 tablet 04/25/18 09/27/18 Unknown Rx Sulfamethoxazole/Trimethoprim 1 each PO BID #14 tablet 04/25/18 09/27/18 Unknown Rx [Bactrim DS TAB] Folic Acid [Folvite] 1 mg PO QDAY #30 tablet 05/08/18 09/27/18 Unknown Rx Hydroxyurea [Hydrea] 500 mg PO QDAY #30 capsule 05/08/18 09/27/18 Unknown Rx Acetaminophen [Tylenol Arthritis] 650 mg PO Q6HR PRN #30 tablet.er 05/23/18 09/27/18 Unknown Rx Famotidine [Pepcid] 20 mg PO BID #60 tablet 05/23/18 09/27/18 Unknown Rx Ondansetron [Zofran Odt] 4 mg PO Q8HR PRN #20 tab.rapdis 05/23/18 09/27/18 Unknown Rx oxyCODONE [Roxicodone] 5 mg PO Q6HR PRN #15 tablet 05/23/18 09/27/18 Unknown Rx HYDROcodone/APAP 5-325 [[place] 1 each PO Q6HR PRN #15 tablet 06/07/18 09/27/18 Unknown Rx 5/325] Ibuprofen [Motrin] 800 mg PO Q8HR PRN #20 tablet 06/07/18 09/27/18 Unknown Rx HYDROcodone/APAP 10-325 [[place] 1 tab PO QDAY PRN #15 tablet 07/04/18 09/27/18 Unknown Rx 10-325 mg TAB] Ketorolac [Toradol] 10 mg PO Q6H PRN #15 tablet 07/04/18 09/27/18 Unknown Rx Ondansetron [Zofran Odt] 4 mg PO Q8HR PRN #10 tab.rapdis 07/04/18 09/27/18 Unknown Rx Famotidine [Pepcid] 20 mg PO BID #30 tablet 07/11/18 09/27/18 Unknown Rx HYDROcodone/ACETAMINOPHEN [[place] 1 each PO Q6HR PRN #12 tablet 07/11/18 09/27/18 Unknown Rx 10-325 Tablet] Ondansetron [Zofran Odt] 4 mg PO Q8HR PRN #20 tab.rapdis 07/11/18 09/27/18 Unknown Rx Ondansetron [Zofran Odt] 4 mg PO Q8HR #20 tab.rapdis 07/25/18 09/27/18 Unknown Rx Oxycodone HCl/Acetaminophen 1 each PO Q6HR PRN #20 tablet 07/25/18 09/27/18 Unknown Rx [Percocet 10/325 mg] Famotidine [Pepcid] 40 mg PO QHS #10 tablet 09/14/18 09/27/18 Unknown Rx Ibuprofen [Motrin] 600 mg PO Q8H PRN #20 tablet 09/14/18 09/27/18 Unknown Rx Ondansetron [Zofran Odt] 4 mg PO Q8HR PRN #10 tab.rapdis 09/14/18 09/27/18 Unknown Rx Oxycodone HCl/Acetaminophen 1 each PO Q6HR PRN #14 tablet 09/14/18 09/27/18 Unknown Rx [Percocet 7.5/325 mg] Ketorolac [Toradol] 10 mg PO Q6H PRN #14 tablet 09/22/18 09/27/18 Unknown Rx Oxycodone HCl/Acetaminophen 1 each PO Q6HR PRN #10 tablet 09/22/18 09/27/18 Unknown Rx [Percocet 7.5/325 mg] Active Medications: Generic Name Dose Route Start Last Admin Trade Name Freq PRN Reason Stop Dose Admin Acetaminophen 650 mg 09/27/18 19:02 09/29/18 02:02 Tylenol PO 650 mg Q6H PRN Administration Non Cardiac Pain or Temp>100.5 Acetaminophen/Hydrocodone Bitart 1 each 09/26/18 23:33 [place] 10/325 PO QDAY PRN Pain Diphenhydramine HCl 12.5 mg 09/26/18 15:56 10/01/18 17:25 Benadryl IV 12.5 mg Q3H PRN Administration Itching Famotidine 20 mg 09/27/18 10:00 10/01/18 10:34 Pepcid PO 20 mg BID VICTORINO Administration Folic Acid 1 mg 09/27/18 10:00 10/01/18 10:34 Folvite PO 1 mg QDAY VICTORINO Administration Heparin Sodium (Porcine) 5,000 unit 09/26/18 22:00 10/01/18 10:35 Heparin SUB-Q 5,000 unit Q12HR VICTORNIO Administration Hydromorphone HCl 3 mg 09/26/18 15:40 10/01/18 17:24 Dilaudid IV 3 mg Q3H PRN Administration Pain, Moderate (4-6) Hydroxyurea 500 mg 09/27/18 10:00 10/01/18 10:34 Hydrea PO 500 mg QDAY VICTORINO Administration Dextrose/Sodium Chloride 1,000 mls @ 175 mls/hr 09/26/18 16:00 10/01/18 17:26 D5ns 0.2% IV 175 mls/hr DIRECT VICTORINO Administration Ceftriaxone Sodium 1 gm in 50 mls @ 100 mls/hr 09/27/18 10:00 10/01/18 10:33 Rocephin/Ns 1 Gm/50 Ml IV 100 mls/hr Q24HR VICTORINO Administration Ondansetron HCl 4 mg 09/26/18 23:33 Zofran Odt PO Q8HR PRN Nausea And Vomiting Sodium Chloride 10 ml 09/26/18 22:00 10/01/18 10:35 Sodium Chloride Flush Syringe 10 Ml IV 10 ml BID VICTORINO Administration Sodium Chloride 10 ml 09/26/18 15:40 09/29/18 05:41 Sodium Chloride Flush Syringe 10 Ml IV 10 ml PRN PRN Administration LINE FLUSH
[2018-10-01] MEDS ORDERED: NACL 0.9% 500 ML 500 ML IV ONE (19:00)
[2018-10-02] MEDS ORDERED: NACL 0.9% 500 ML 500 ML ONE (00:06)
[2018-10-02] MEDS: NORCO 10/325 PO PRN (03:24)
[2018-10-02] MEDS: TYLENOL PO PRN (03:26)
[2018-10-02 08:55] LABS: Hematocrit 27.1 % (30.3-42.9); Hemoglobin 9.3 gm/dl (10.1-14.3)
[2018-10-02] MEDS: FOLVITE PO SCH (09:46)
[2018-10-02] MEDS: HEPARIN SUB-Q SCH ×2 (09:46→23:18)
[2018-10-02] MEDS: PEPCID PO SCH ×2 (09:46→23:18)
[2018-10-02] MEDS: ROCEPHIN/NS 1 GM/50 ML 1 GM/50 ML BAG IV SCH (09:46)
[2018-10-02] MEDS: HYDREA PO SCH (09:46)
[2018-10-02] MEDS: SODIUM CHLORIDE FLUSH SYRINGE 10 ML IV SCH ×2 (09:47→23:17)
[2018-10-02] MEDS: D5NS 0.2% 1,000 ML IV SCH ×2 (12:12→18:20)
[2018-10-02] MEDS: DILAUDID IV PRN ×3 (12:22→23:14)
[2018-10-02] MEDS: BENADRYL IV PRN ×2 (12:23→23:31)
--- NOTE | 2018-10-02 20:36 | Progress Note ---
Assessment and Plan - Patient Problems (1) Sickle cell pain crisis Current Visit: No Status: Acute Plan to address problem: pain control. (2) Jaundice Current Visit: No Status: Acute Plan to address problem: treat accordingly. (3) SIRS (systemic inflammatory response syndrome) Current Visit: No Status: Acute Plan to address problem: ABX, cultures. (4) Leukocytosis Current Visit: Yes Status: Acute Plan to address problem: treat as sepsis (5) Sickle cell anemia with pain Current Visit: Yes Status: Acute Plan to address problem: treat with pain control, hydration, monitor labs. (6) Leg pain, right Current Visit: Yes Status: Acute Plan to address problem: Do a doppler US negative. Subjective Date of service: 10/02/18 Principal diagnosis: Sepsis, Sickle pain crisis. Interval history: Patient seen/examined, resting in bed, labs reviewed, case d/w patient.Spiked fever earlier today, and tylenol given.Pain still at 8/10. patient seen/examined, resting in bed, c/o was so cold in the room yesterday, due to malfunctioned temp gauge, that made her crisis worsened cultures still no growth.. patient seen, examined, resting in bed, labs reviewed, will continue with current management. The retic count is still high. patient see/examined, resting in bed, c/o right leg painful x2days. Will get doppler US venous. Patient seen/examined, resting in bed, labs reviewed, Hgb low enough to need transfusion replacement. Doppler us of the left leg negative for DVT. case d/w patient. Patient seen/examined, resting in bed, post PRBC replacement transfusion. repeated H/h 9.3, barring any other problem in the next 24hrs, will d/c home. Objective - Constitutional Vitals: Vital Signs - 12hr 10/02/18 10/02/18 11:14 17:00 Temperature 98.2 F 99.0 F Pulse Rate 89 82 Respiratory 18 20 Rate Blood Pressure 110/57 128/79 O2 Sat by Pulse 99 99 Oximetry General appearance: Present: mild distress, well-nourished - EENT Eyes: PERRL, EOM intact ENT: hearing intact, clear oral mucosa Ears: bilateral: normal - Neck Neck: supple, normal ROM - Respiratory Respiratory effort: normal Respiratory: bilateral: CTA - Breasts Breasts: deferred - Cardiovascular Rhythm: regular Heart Sounds: Present: S1 & S2. Absent: gallop, rub Extremities: pulses intact, No edema, normal color, Full ROM - Gastrointestinal General gastrointestinal: Present: soft, non-tender, non-distended, normal bowel sounds Rectal Exam: deferred - Genitourinary Female genitourinary: deferred - Integumentary Integumentary: clear, warm, dry - Musculoskeletal Musculoskeletal: 1, strength equal bilaterally - Neurologic Neurologic: moves all extremities - Psychiatric Psychiatric: memory intact, appropriate mood/affect, intact judgment & insight - Labs CBC & Chem 7: 10/02/18 08:03 10/01/18 05:21 Labs: Abnormal lab results 10/01/18 10/02/18 10/02/18 Range/Units 19:55 08:03 08:03 Hgb 9.3 L (10.1-14.3) gm/dl Hct 27.1 L D (30.3-42.9) % Percent Retic 11.35 H (0.78-2.58) % Crossmatch See Detail Medications & Allergies - Medications Allergies/Adverse Reactions: Allergies morphine Adverse Reaction (Verified 09/23/18 12:56) Itching Home Medications: Home Medications Medication Instructions Recorded Confirmed Last Taken Type Pantoprazole [Protonix TAB] 40 mg PO BID #60 tablet 06/17/17 09/27/18 Unknown Rx Promethazine [Phenergan SUPPOS] 12.5 mg [place] Q6H PRN #12 supp.rect 06/17/17 09/27/18 Unknown Rx levoFLOXacin [Levaquin TAB] 500 mg PO QDAY #5 tablet 06/17/17 09/27/18 Unknown Rx Ondansetron [Zofran TAB] 4 mg PO Q8HR PRN #10 tablet 02/21/18 09/27/18 Unknown Rx cephALEXin [Keflex] 500 mg PO Q8HR #30 cap 02/21/18 09/27/18 Unknown Rx HYDROcodone/APAP 5-325 [[place] 1 - 2 each PO Q6HR PRN #14 tablet 02/25/18 09/27/18 Unknown Rx 5/325] Acetaminophen/Codeine [Tylenol 1 tab PO Q6H PRN #12 tab 04/25/18 09/27/18 Unknown Rx /Codeine # 3 tab] Ibuprofen [Motrin] 600 mg PO Q8H PRN #30 tablet 04/25/18 09/27/18 Unknown Rx Sulfamethoxazole/Trimethoprim 1 each PO BID #14 tablet 04/25/18 09/27/18 Unknown Rx [Bactrim DS TAB] Folic Acid [Folvite] 1 mg PO QDAY #30 tablet 05/08/18 09/27/18 Unknown Rx Hydroxyurea [Hydrea] 500 mg PO QDAY #30 capsule 05/08/18 09/27/18 Unknown Rx Acetaminophen [Tylenol Arthritis] 650 mg PO Q6HR PRN #30 tablet.er 05/23/18 09/27/18 Unknown Rx Famotidine [Pepcid] 20 mg PO BID #60 tablet 05/23/18 09/27/18 Unknown Rx Ondansetron [Zofran Odt] 4 mg PO Q8HR PRN #20 tab.rapdis 05/23/18 09/27/18 Unknown Rx oxyCODONE [Roxicodone] 5 mg PO Q6HR PRN #15 tablet 05/23/18 09/27/18 Unknown Rx HYDROcodone/APAP 5-325 [[place] 1 each PO Q6HR PRN #15 tablet 06/07/18 09/27/18 Unknown Rx 5/325] Ibuprofen [Motrin] 800 mg PO Q8HR PRN #20 tablet 06/07/18 09/27/18 Unknown Rx HYDROcodone/APAP 10-325 [[place] 1 tab PO QDAY PRN #15 tablet 07/04/18 09/27/18 Unknown Rx 10-325 mg TAB] Ketorolac [Toradol] 10 mg PO Q6H PRN #15 tablet 07/04/18 09/27/18 Unknown Rx Ondansetron [Zofran Odt] 4 mg PO Q8HR PRN #10 tab.rapdis 07/04/18 09/27/18 Unkn own Rx Famotidine [Pepcid] 20 mg PO BID #30 tablet 07/11/18 09/27/18 Unknown Rx HYDROcodone/ACETAMINOPHEN [[place] 1 each PO Q6HR PRN #12 tablet 07/11/18 09/27/18 Unknown Rx 10-325 Tablet] Ondansetron [Zofran Odt] 4 mg PO Q8HR PRN #20 tab.rapdis 07/11/18 09/27/18 Unknown Rx Ondansetron [Zofran Odt] 4 mg PO Q8HR #20 tab.rapdis 07/25/18 09/27/18 Unknown Rx Oxycodone HCl/Acetaminophen 1 each PO Q6HR PRN #20 tablet 07/25/18 09/27/18 Unknown Rx [Percocet 10/325 mg] Famotidine [Pepcid] 40 mg PO QHS #10 tablet 09/14/18 09/27/18 Unknown Rx Ibuprofen [Motrin] 600 mg PO Q8H PRN #20 tablet 09/14/18 09/27/18 Unknown Rx Ondansetron [Zofran Odt] 4 mg PO Q8HR PRN #10 tab.rapdis 09/14/18 09/27/18 Unknown Rx Oxycodone HCl/Acetaminophen 1 each PO Q6HR PRN #14 tablet 09/14/18 09/27/18 Unknown Rx [Percocet 7.5/325 mg] Ketorolac [Toradol] 10 mg PO Q6H PRN #14 tablet 09/22/18 09/27/18 Unknown Rx Oxycodone HCl/Acetaminophen 1 each PO Q6HR PRN #10 tablet 09/22/18 09/27/18 Unknown Rx [Percocet 7.5/325 mg] Active Medications: Generic Name Dose Route Start Last Admin Trade Name Freq PRN Reason Stop Dose Admin Acetaminophen 650 mg 09/27/18 19:02 10/02/18 03:26 Tylenol PO 650 mg Q6H PRN Administration Non Cardiac Pain or Temp>100.5 Acetaminophen/Hydrocodone [place] 1 each 09/26/18 23:33 10/02/18 03:24 [place] 10/325 PO 1 each QDAY PRN Administration Pain Diphenhydramine HCl 25 mg 10/01/18 19:27 10/02/18 12:23 Benadryl IV 25 mg Q6H PRN Administration Itching Famotidine 20 mg 09/27/18 10:00 10/02/18 09:46 Pepcid PO 20 mg BID VICTORINO Administration Folic Acid 1 mg 09/27/18 10:00 10/02/18 09:46 Folvite PO 1 mg QDAY VICTORINO Administration Heparin Sodium (Porcine) 5,000 unit 09/26/18 22:00 10/02/18 09:46 Heparin SUB-Q 5,000 unit Q12HR VICTORINO Administration Hydromorphone HCl 3 mg 09/26/18 15:40 10/02/18 18:19 Dilaudid IV 3 mg Q3H PRN Administration Pain, Moderate (4-6) Hydroxyurea 500 mg 09/27/18 10:00 10/02/18 09:46 Hydrea PO 500 mg QDAY VICTORINO Administration Dextrose/Sodium Chloride 1,000 mls @ 175 mls/hr 09/26/18 16:00 10/02/18 18:20 D5ns 0.2% IV 175 mls/hr DIRECT VICTORINO Administration Ceftriaxone Sodium 1 gm in 50 mls @ 100 mls/hr 09/27/18 10:00 10/02/18 09:46 Rocephin/Ns 1 Gm/50 Ml IV 100 mls/hr Q24HR VICTORINO Administration Ondansetron HCl 4 mg 09/26/18 23:33 Zofran Odt PO Q8HR PRN Nausea And Vomiting Sodium Chloride 10 ml 09/26/18 22:00 10/02/18 09:47 Sodium Chloride Flush Syringe 10 Ml IV 10 ml BID VICTORINO Administration Sodium Chloride 10 ml 09/26/18 15:40 09/29/18 05:41 Sodium Chloride Flush Syringe 10 Ml IV 10 ml PRN PRN Administration LINE FLUSH
[2018-10-03] MEDS: DILAUDID IV PRN ×2 (06:32→11:06)
[2018-10-03] MEDS: D5NS 0.2% 1,000 ML IV SCH ×3 (06:40→14:26)
[2018-10-03] MEDS: HYDREA PO SCH (09:52)
[2018-10-03] MEDS: PEPCID PO SCH (09:52)
[2018-10-03] MEDS: FOLVITE PO SCH (09:52)
[2018-10-03] MEDS: HEPARIN SUB-Q SCH (09:52)
[2018-10-03] MEDS: SODIUM CHLORIDE FLUSH SYRINGE 10 ML IV SCH (10:12)
[2018-10-03] MEDS: NORCO 10/325 PO PRN (14:42)
[2018-10-03 17:15] VITALS: BP 103/59
[2018-10-03] MEDS: TYLENOL PO PRN (17:55)
--- NOTE | 2018-10-03 19:35 | Discharge Summary ---
Providers - Providers Date of Admission: 09/26/18 15:58 Date of discharge: 10/03/18 Attending physician: SALOME RAINES Primary care physician: SALOME RAINES Hospitalization Reason for admission: SICKLE PAIN CRISIS. Condition: Stable Pertinent studies: Doppler venous US, negative. Hospital course: Patient presented to the office, examined, was going through pain, enough to warrant admission into the hospital. She was admitted, treated accordingly with pain control, hydration, blood transfusion. She tolerated her treatments.she is seen/examined today, no acute distress. labs remains stable. patient will be d/stella today.She will follow up in the office. she had right leg pain/swelling, but Doppler US was negative for DVT. Disposition: DC- TO HOME OR SELFCARE - Discharge Diagnoses (1) Sickle cell pain crisis Status: Resolved (2) Jaundice Status: Chronic (3) SIRS (systemic inflammatory response syndrome) Status: Resolved (4) Leukocytosis Status: Resolved (5) Sickle cell anemia with pain Status: Resolved (6) Leg pain, right Status: Resolved Core Measure Documentation - Palliative Care Palliative Care/ Comfort Measures: Not Applicable - Core Measures Any of the following diagnoses?: none Exam - Constitutional Vitals: Temp Pulse Resp BP Pulse Ox 101.4 F H 95 H 16 103/59 97 10/03/18 16:58 10/03/18 16:58 10/03/18 16:58 10/03/18 16:58 10/03/18 16:58 General appearance: Present: no acute distress, well-nourished - EENT Eyes: Present: PERRL ENT: hearing intact, clear oral mucosa - Neck Neck: Present: supple, normal ROM - Respiratory Respiratory effort: normal Respiratory: bilateral: CTA - Cardiovascular Heart Sounds: Present: S1 & S2. Absent: rub, click - Extremities Extremities: pulses symmetrical, No edema Peripheral Pulses: within normal limits - Abdominal General gastrointestinal: Present: soft, non-tender, non-distended, normal bowel sounds Female genitourinary: Present: deferred - Rectal Rectal Exam: deferred - Integumentary Integumentary: Present: clear, warm, dry - Musculoskeletal Musculoskeletal: gait normal, strength equal bilaterally - Psychiatric Psychiatric: appropriate mood/affect, intact judgment & insight - Neurologic Neurologic: CNII-XII intact, moves all extremities Plan Activity: no restrictions Diet: regular Follow up with: ONYEGBULA,SALOME C, DO [Primary Care Provider] - 7 Days
== END 2018-10-03 20:33 | disposition home or self-care (01) | DRG 871 ==
LOC: 3A 15:20 → UNDOADMIN 15:20 → 3A 15:58
PROVIDERS: ADMIT Internal Medicine Hematology & Oncology; ATTEND Internal Medicine Hematology & Oncology
PROC: 30233N1 Transfusion of Nonautologous Red Blood Cells into Peripheral Vein, Percutaneous Approach (ICD-10-PCS; principal; 2018-10-02)
DX: A41.9 Sepsis, unspecified organism (principal); D57.00 Hb-SS disease with crisis, unspecified; M79.604 Pain in right leg; Z90.49 Acquired absence of other specified parts of digestive tract; Z88.5 Allergy status to narcotic agent; Z79.899 Other long term (current) drug therapy
CPT/HCPCS: 36415; 74018; 80048; 80053; 83550; 83615; 85007; 85018; 85025; 85045; 85660; 86850; 86900; 86901; 86920; 87040; 87086; G0378; J0696; J1170; J1200; J1644; J7040; P9016

== ENCOUNTER 2018-11-21 08:44 | Emergency (ER) | payer BC ==
[2018-11-21] MEDS ORDERED: ZOFRAN IV ONE (10:18)
[2018-11-21] MEDS ORDERED: DILAUDID IV ONE ×2 (10:18→12:14)
[2018-11-21] MEDS ORDERED: BENADRYL IV ONE (10:19)
[2018-11-21 10:45] LABS: Basophils # (Auto) 0.1 K/mm3 (0.0-0.1); Basophils % (Auto) 1.1 % (0.0-1.8); Eosinophils # (Auto) 0.4 K/mm3 (0.0-0.4); Eosinophils % (Auto) 3.7 % (0.0-4.3); Hematocrit 29.6 % (30.3-42.9); Hemoglobin 10.3 gm/dl (10.1-14.3); Lymphocytes # (Auto) 3.6 K/mm3 (1.2-5.4); Lymphocytes % (Auto) 31.5 % (13.4-35.0); Mean Corpuscular HGB Conc 35 % (30-34); Mean Corpuscular Volume 91 fl (79-97); Monocytes # (Auto) 1.2 K/mm3 (0.0-0.8); Monocytes % (Auto) 10.3 % (0.0-7.3); Platelet Count 454 K/mm3 (140-440); Red Blood Count 3.26 M/mm3 (3.65-5.03)
[2018-11-21 10:46] LABS: Red Cell Distribution Width 24.1 % (13.2-15.2)
[2018-11-21 11:04] LABS: BUN/Creatinine Ratio 12; Blood Urea Nitrogen 6 mg/dL (7-17); Calcium 9.1 mg/dL (8.4-10.2); Hemolysis Index 41
[2018-11-21] MEDS ORDERED: NACL 0.9% 1000 ML 1,000 ML IV ONE (11:52)
--- NOTE | 2018-11-21 13:28 | Emergency Department Report ---
ED General Adult HPI - General Chief complaint: Sickle Cell Crisis Stated complaint: SICKLE CALL CRISIS Time Seen by Provider: 11/21/18 10:17 Source: patient Mode of arrival: Ambulatory Limitations: No Limitations - History of Present Illness Initial comments: Patient is a 28-year-old female past medical history of sickle cell disease who presents with body pain nausea vomiting and headaches. Patient's body pain is typical for sickle cell crisis. Patient denies having any fever or any chest pain or cough. Patient's pain is a 10 out of 10 that radiates all throughout her body nothing makes it better and nothing makes it worse. Severity scale (0 -10): 7 - Related Data Previous Rx's Medication Instructions Recorded Last Taken Type Pantoprazole [Protonix TAB] 40 mg PO BID #60 tablet 06/17/17 Unknown Rx Promethazine [Phenergan SUPPOS] 12.5 mg [place] Q6H PRN #12 supp.rect 06/17/17 Unknown Rx levoFLOXacin [Levaquin TAB] 500 mg PO QDAY #5 tablet 06/17/17 Unknown Rx Ondansetron [Zofran TAB] 4 mg PO Q8HR PRN #10 tablet 02/21/18 Unknown Rx cephALEXin [Keflex] 500 mg PO Q8HR #30 cap 02/21/18 Unknown Rx HYDROcodone/APAP 5-325 [[place] 1 - 2 each PO Q6HR PRN #14 tablet 02/25/18 Unknown Rx 5/325] Acetaminophen/Codeine [Tylenol 1 tab PO Q6H PRN #12 tab 04/25/18 Unknown Rx /Codeine # 3 tab] Ibuprofen [Motrin] 600 mg PO Q8H PRN #30 tablet 04/25/18 Unknown Rx Sulfamethoxazole/Trimethoprim 1 each PO BID #14 tablet 04/25/18 Unknown Rx [Bactrim DS TAB] Folic Acid [Folvite] 1 mg PO QDAY #30 tablet 05/08/18 Unknown Rx Hydroxyurea [Hydrea] 500 mg PO QDAY #30 capsule 05/08/18 Unknown Rx Acetaminophen [Tylenol Arthritis] 650 mg PO Q6HR PRN #30 tablet.er 05/23/18 Unknown Rx Famotidine [Pepcid] 20 mg PO BID #60 tablet 05/23/18 Unknown Rx Ondansetron [Zofran Odt] 4 mg PO Q8HR PRN #20 tab.rapdis 10/15/18 Unknown Rx oxyCODONE [Roxicodone] 5 mg PO Q6HR PRN #15 tablet 05/23/18 Unknown Rx HYDROcodone/APAP 5-325 [[place] 1 each PO Q6HR PRN #15 tablet 06/07/18 Unknown Rx 5/325] Ibuprofen [Motrin] 800 mg PO Q8HR PRN #20 tablet 06/07/18 Unknown Rx HYDROcodone/APAP 10-325 [[place] 1 tab PO QDAY PRN #15 tablet 07/04/18 Unknown Rx 10-325 mg TAB] Ketorolac [Toradol] 10 mg PO Q6H PRN #15 tablet 07/04/18 Unknown Rx Ondansetron [Zofran Odt] 4 mg PO Q8HR PRN #10 tab.rapdis 07/04/18 Unknown Rx Famotidine [Pepcid] 20 mg PO BID #30 tablet 07/11/18 Unknown Rx HYDROcodone/ACETAMINOPHEN [[place] 1 each PO Q6HR PRN #12 tablet 07/11/18 Unknown Rx 10-325 Tablet] Ondansetron [Zofran Odt] 4 mg PO Q8HR PRN #20 tab.rapdis 07/11/18 Unknown Rx Ondansetron [Zofran Odt] 4 mg PO Q8HR #20 tab.rapdis 07/25/18 Unknown Rx Oxycodone HCl/Acetaminophen 1 each PO Q6HR PRN #20 tablet 07/25/18 Unknown Rx [Percocet 10/325 mg] Famotidine [Pepcid] 40 mg PO QHS #10 tablet 09/14/18 Unknown Rx Ibuprofen [Motrin] 600 mg PO Q8H PRN #20 tablet 09/14/18 Unknown Rx Ondansetron [Zofran Odt] 4 mg PO Q8HR PRN #10 tab.rapdis 09/14/18 Unknown Rx Oxycodone HCl/Acetaminophen 1 each PO Q6HR PRN #14 tablet 09/14/18 Unknown Rx [Percocet 7.5/325 mg] Ketorolac [Toradol] 10 mg PO Q6H PRN #14 tablet 09/22/18 Unknown Rx Oxycodone HCl/Acetaminophen 1 each PO Q6HR PRN #10 tablet 09/22/18 Unknown Rx [Percocet 7.5/325 mg] Allergies Allergy/AdvReac Type Severity Reaction Status Date / Time morphine AdvReac Itching Verified 11/21/18 08:47 ED Review of Systems ROS: Stated complaint: SICKLE CALL CRISIS Other details as noted in HPI Constitutional: denies: chills, fever Eyes: denies: eye pain, eye discharge, vision change ENT: denies: ear pain, throat pain Respiratory: denies: cough, shortness of breath, wheezing Cardiovascular: denies: chest pain, palpitations Endocrine: no symptoms reported Gastrointestinal: nausea. denies: abdominal pain, diarrhea Genitourinary: denies: urgency, dysuria, discharge Musculoskeletal: as per HPI. denies: back pain, joint swelling, arthralgia Skin: denies: rash, lesions Neurological: denies: headache, weakness, paresthesias Psychiatric: denies: anxiety, depression Hematological/Lymphatic: denies: easy bleeding, easy bruising ED Past Medical Hx - Past Medical History Previous Medical History?: Yes Hx Sickle Cell Disease: Yes Hx Asthma: Yes Hx COPD: No Hx HIV: No Additional medical history: Gastric ulcers - Surgical History Past Surgical History?: Yes Hx Cholecystectomy: Yes (05/2012) - Social History Smoking Status: Never Smoker Substance Use Type: None - Medications Home Medications: Home Medications Medication Instructions Recorded Confirmed Last Taken Type Pantoprazole [Protonix TAB] 40 mg PO BID #60 tablet 06/17/17 09/27/18 Unknown Rx Promethazine [Phenergan SUPPOS] 12.5 mg SD Q6H PRN #12 supp.rect 06/17/17 09/27/18 Unknown Rx levoFLOXacin [Levaquin TAB] 500 mg PO QDAY #5 tablet 06/17/17 09/27/18 Unknown Rx Ondansetron [Zofran TAB] 4 mg PO Q8HR PRN #10 tablet 02/21/18 09/27/18 Unknown R x cephALEXin [Keflex] 500 mg PO Q8HR #30 cap 02/21/18 09/27/18 Unknown Rx HYDROcodone/APAP 5-325 [[place] 1 - 2 each PO Q6HR PRN #14 tablet 02/25/18 09/27/18 Unknown Rx 5/325] Acetaminophen/Codeine [Tylenol 1 tab PO Q6H PRN #12 tab 04/25/18 09/27/18 Unknown Rx /Codeine # 3 tab] Ibuprofen [Motrin] 600 mg PO Q8H PRN #30 tablet 04/25/18 09/27/18 Unknown Rx Sulfamethoxazole/Trimethoprim 1 each PO BID #14 tablet 04/25/18 09/27/18 Unknown Rx [Bactrim DS TAB] Folic Acid [Folvite] 1 mg PO QDAY #30 tablet 05/08/18 09/27/18 Unknown Rx Hydroxyurea [Hydrea] 500 mg PO QDAY #30 capsule 05/08/18 09/27/18 Unknown Rx Acetaminophen [Tylenol Arthritis] 650 mg PO Q6HR PRN #30 tablet.er 05/23/18 09/27/18 Unknown Rx Famotidine [Pepcid] 20 mg PO BID #60 tablet 05/23/18 09/27/18 Unknown Rx Ondansetron [Zofran Odt] 4 mg PO Q8HR PRN #20 tab.rapdis 05/23/18 09/27/18 Unknown Rx oxyCODONE [Roxicodone] 5 mg PO Q6HR PRN #15 tablet 05/23/18 09/27/18 Unknown Rx HYDROcodone/APAP 5-325 [[place] 1 each PO Q6HR PRN #15 tablet 06/07/18 09/27/18 Unknown Rx 5/325] Ibuprofen [Motrin] 800 mg PO Q8HR PRN #20 tablet 06/07/18 09/27/18 Unknown Rx HYDROcodone/APAP 10-325 [[place] 1 tab PO QDAY PRN #15 tablet 07/04/18 09/27/18 Unknown Rx 10-325 mg TAB] Ketorolac [Toradol] 10 mg PO Q6H PRN #15 tablet 07/04/18 09/27/18 Unknown Rx Ondansetron [Zofran Odt] 4 mg PO Q8HR PRN #10 tab.rapdis 07/04/18 09/27/18 Unknown Rx Famotidine [Pepcid] 20 mg PO BID #30 tablet 07/11/18 09/27/18 Unknown Rx HYDROcodone/ACETAMINOPHEN [[place] 1 each PO Q6HR PRN #12 tablet 07/11/18 09/27/18 Unknown Rx 10-325 Tablet] Ondansetron [Zofran Odt] 4 mg PO Q8HR PRN #20 tab.rapdis 07/11/18 09/27/18 Unknown Rx Ondansetron [Zofran Odt] 4 mg PO Q8HR #20 tab.rapdis 07/25/18 09/27/18 Unknown Rx Oxycodone HCl/Acetaminophen 1 each PO Q6HR PRN #20 tablet 07/25/18 09/27/18 Unknown Rx [Percocet 10/325 mg] Famotidine [Pepcid] 40 mg PO QHS #10 tablet 09/14/18 09/27/18 Unknown Rx Ibuprofen [Motrin] 600 mg PO Q8H PRN #20 tablet 09/14/18 09/27/18 Unknown Rx Ondansetron [Zofran Odt] 4 mg PO Q8HR PRN #10 tab.rapdis 09/14/18 09/27/18 Unknown Rx Oxycodone HCl/Acetaminophen 1 each PO Q6HR PRN #14 tablet 09/14/18 09/27/18 Unknown Rx [Percocet 7.5/325 mg] Ketorolac [Toradol] 10 mg PO Q6H PRN #14 tablet 09/22/18 09/27/18 Unknown Rx Oxycodone HCl/Acetaminophen 1 each PO Q6HR PRN #10 tablet 09/22/18 09/27/18 Unknown Rx [Percocet 7.5/325 mg] ED Physical Exam - General Limitations: No Limitations General appearance: alert, in no apparent distress - Head Head exam: Present: atraumatic, normocephalic - Eye Eye exam: Present: scleral icterus - ENT ENT exam: Present: mucous membranes moist - Neck Neck exam: Present: normal inspection - Respiratory Respiratory exam: Present: normal lung sounds bilaterally. Absent: respiratory distress - Cardiovascular Cardiovascular Exam: Present: regular rate, normal rhythm. Absent: systolic murmur, diastolic murmur, rubs, gallop - GI/Abdominal GI/Abdominal exam: Present: soft, normal bowel sounds - Extremities Exam Extremities exam: Present: normal inspection - Back Exam Back exam: Present: normal inspection - Neurological Exam Neurological exam: Present: alert, oriented X3 - Psychiatric Psychiatric exam: Present: normal affect, normal mood - Skin Skin exam: Present: warm, dry, intact, normal color. Absent: rash ED Course Vital Signs 11/21/18 11/21/18 08:52 10:25 Temperature 98.2 F Pulse Rate 95 H Respiratory 20 16 Rate Blood Pressure 119/70 [Right] O2 Sat by Pulse 99 98 Oximetry ED Medical Decision Making - Lab Data Result diagrams: 11/21/18 10:34 11/21/18 10:34 Lab Results 11/21/18 11/21/18 11/21/18 Range/Units 10:34 10:34 10:34 WBC 11.6 H (4.5-11.0) K/mm3 RBC 3.26 L (3.65-5.03) M/mm3 Hgb 10.3 (10.1-14.3) gm/dl Hct 29.6 L (30.3-42.9) % MCV 91 (79-97) fl MCH 32 (28-32) pg MCHC 35 H (30-34) % RDW 24.1 H (13.2-15.2) % Plt Count 454 H (140-440) K/mm3 Lymph % (Auto) 31.5 (13.4-35.0) % [place] % (Auto) 10.3 H (0.0-7.3) % Eos % (Auto) 3.7 (0.0-4.3) % Baso % (Auto) 1.1 (0.0-1.8) % Lymph # 3.6 (1.2-5.4) K/mm3 [place] # 1.2 H (0.0-0.8) K/mm3 Eos # 0.4 (0.0-0.4) K/mm3 Baso # 0.1 (0.0-0.1) K/mm3 Seg Neutrophils % 53.4 (40.0-70.0) % Seg Neutrophils # 6.2 (1.8-7.7) K/mm3 Percent Retic 14.02 H (0.78-2.58) % Sodium 137 (137-145) mmol/L Potassium 4.3 (3.6-5.0) mmol/L Chloride 102.6 (98-107) mmol/L Carbon Dioxide 23 (22-30) mmol/L Anion Gap 16 mmol/L BUN 6 L (7-17) mg/dL Creatinine 0.5 L (0.7-1.2) mg/dL Estimated GFR > 60 ml/min BUN/Creatinine Ratio 12 % Glucose 147 H (65-100) mg/dL Calcium 9.1 (8.4-10.2) mg/dL Total Bilirubin 5.60 H (0.1-1.2) mg/dL Direct Bilirubin 1.0 H (0-0.2) mg/dL Indirect Bilirubin 4.6 mg/dL - Medical Decision Making Cdx: Sickle cell crisis Ddx: Vasoocculsive crisis, jaundice secondary to hemolytic disease I'll get her to count CBC BMP IV fluids IV Dilaudid oral Percocet and ibuprofen and she'll Patient's blood work shows elevated reticulocyte count I will discharge patient home as she is feeling better for her to follow up with her solutions architect. Discussed plan with patient patient agrees with plan additional verbal discharge instructions were given. Critical care attestation.: If time is entered above; I have spent that time in minutes in the direct care of this critically ill patient, excluding procedure time. ED Disposition Clinical Impression: Vasoocclusive sickle cell crisis, Jaundice Disposition: DC TO HOME OR SELFCARE Is pt being admited?: No Does the pt Need Aspirin: No Condition: Stable Instructions: Sickle Cell Crisis (ED) Referrals: KAVON KHAN MD [Primary Care Provider] - 3-5 Days
[2018-11-21] MEDS ORDERED: PERCOCET 5/325 PO ONE (13:38)
[2018-11-21] MEDS ORDERED: ATIVAN ONE (14:01)
[2018-11-22 18:36] VITALS: BP 107/56
== END 2018-11-21 14:47 | disposition home or self-care (01) ==
LOC: ED 08:44
DX: D57.00 Hb-SS disease with crisis, unspecified (principal); R17 Unspecified jaundice; J45.909 Unspecified asthma, uncomplicated; Z90.49 Acquired absence of other specified parts of digestive tract; Z88.6 Allergy status to analgesic agent
CPT/HCPCS: 36415; 80048; 82247; 82248; 85025; 85045; 96361; 96374; 96375; 96376; 99283; J1170; J1200; J2405; J7030; J2060

== ENCOUNTER 2018-12-26 09:10 | Inpatient (IN) | payer BC ==
[2018-12-26 10:24] LABS: Bilirubin,Urine NEG (Negative); Blood,Urine NEG (Negative); Color,Urine Amber (Yellow); HCG Qualitative,Urine Negative (Negative); Mucus,Urine FEW /HPF; Protein,Urine <15 mg/dL mg/dL (Negative); RBC,Urine < 1.0 /HPF (0.0-6.0)
[2018-12-26 11:44] LABS: Basophils # (Auto) 0.1 K/mm3 (0.0-0.1); Basophils % (Auto) 0.7 % (0.0-1.8); Eosinophils # (Auto) 0.3 K/mm3 (0.0-0.4); Eosinophils % (Auto) 1.6 % (0.0-4.3); Hematocrit 30.4 % (30.3-42.9); Hemoglobin 10.7 gm/dl (10.1-14.3); Lymphocytes # (Auto) 4.4 K/mm3 (1.2-5.4); Mean Corpuscular HGB Conc 35 % (30-34); Mean Corpuscular Volume 98 fl (79-97); Monocytes # (Auto) 1.9 K/mm3 (0.0-0.8); Monocytes % (Auto) 11.4 % (0.0-7.3); Platelet Count 514 K/mm3 (140-440); Red Blood Count 3.09 M/mm3 (3.65-5.03)
[2018-12-26 11:45] LABS: Red Cell Distribution Width 24.9 % (13.2-15.2)
[2018-12-26 11:58] LABS: Alanine Aminotransferase 46 units/L (7-56); Albumin 4.2 g/dL (3.9-5); BUN/Creatinine Ratio 16; Blood Urea Nitrogen 8 mg/dL (7-17); Calcium 9.1 mg/dL (8.4-10.2); Hemolysis Index 17
--- NOTE | 2018-12-26 12:05 | Emergency Department Report ---
ED General Adult HPI - General Chief complaint: Sickle Cell Crisis Stated complaint: SS CRISIS/PAIN/DIARRHEA Time Seen by Provider: 12/26/18 12:02 Source: patient, RN notes reviewed, old records reviewed Mode of arrival: Ambulatory Limitations: Physical Limitation - History of Present Illness Initial comments: Primary care doctor, hematology: Dr. Ramon Raines medical history: Sickle cell disease, questionable GERD, gastritis This is a 28-year-old female. I have evaluated this patient in the past. She presents to the emergency room with complaint of nontraumatic bilateral lower extremity pain, right arm pain, abdominal pain, nausea, vomiting, diarrhea. Symptoms started over the past 2-3 days. The arm pain and leg pain is consistent with prior episodes of sickle cell crisis. The abdominal pain is epigastric and subxiphoid, and radiates distally. No recent antibiotic use. No recent fevers. No cough. Positive sore throat. No urinary symptoms. Patient cannot recall any inciting factors that may have triggered her sickle cell crisis. Her pain typically improves with rest and with hydromorphone. She reports that in the past she was instructed that she had "stomach acid", and believes that her epigastric pain may be somewhat surprised episodes of stomach acid problems. -: Gradual, days(s) Location: abdomen, left, right, upper extremity, lower extremity Radiation: abdomen Consistency: constant Improves with: medication, rest Worsens with: movement - Related Data Home Medications Medication Instructions Recorded Confirmed Last Taken HYDROmorphone [Dilaudid] 2 mg PO Q8H 12/26/18 12/26/18 Unknown Multivitamin [One Daily 1 each PO DAILY 12/26/18 12/26/18 Unknown Multivitamin] Oxycodone HCl [oxyCONTIN ER] 30 mg PO BID 12/26/18 12/26/18 Unknown Previous Rx's Medication Instructions Recorded Last Taken Type Folic Acid [Folvite] 1 mg PO QDAY #30 tablet 05/08/18 Unknown Rx Hydroxyurea [Hydrea] 500 mg PO QDAY #30 capsule 05/08/18 Unknown Rx Allergies Allergy/AdvReac Type Severity Reaction Status Date / Time morphine AdvReac Itching Verified 11/21/18 08:47 ED Review of Systems ROS: Stated complaint: SS CRISIS/PAIN/DIARRHEA Other details as noted in HPI Constitutional: malaise, weakness Eyes: denies: eye discharge ENT: throat pain. denies: epistaxis Respiratory: denies: wheezing Cardiovascular: denies: chest pain Gastrointestinal: abdominal pain, nausea, vomiting, diarrhea. denies: constipation Genitourinary: denies: urgency Musculoskeletal: arthralgia, myalgia Skin: denies: lesions Neurological: weakness Psychiatric: denies: anxiety ED Past Medical Hx - Past Medical History Previous Medical History?: Yes Hx Sickle Cell Disease: Yes Hx Asthma: Yes Hx COPD: No Hx HIV: No Additional medical history: Gastric ulcers - Surgical History Past Surgical History?: Yes Hx Cholecystectomy: Yes (05/2012) - Social History Smoking Status: Never Smoker Substance Use Type: None - Medications Home Medications: Home Medications Medication Instructions Recorded Confirmed Last Taken Type Folic Acid [Folvite] 1 mg PO QDAY #30 tablet 05/08/18 12/26/18 Unknown Rx Hydroxyurea [Hydrea] 500 mg PO QDAY #30 capsule 05/08/18 12/26/18 Unknown Rx HYDROmorphone [Dilaudid] 2 mg PO Q8H 12/26/18 12/26/18 Unknown History Multivitamin [One Daily 1 each PO DAILY 12/26/18 12/26/18 Unknown History Multivitamin] Oxycodone HCl [oxyCONTIN ER] 30 mg PO BID 12/26/18 12/26/18 Unknown History ED Physical Exam - General Limitations: No Limitations General appearance: alert - Head Head exam: Present: atraumatic, normocephalic - Eye Eye exam: Present: normal appearance, scleral icterus. Absent: nystagmus - ENT ENT exam: Present: normal exam, normal orophraynx, mucous membranes moist, normal external ear exam, other (patient speaking in full sentences. There is no stridor. There is no dysphonia.) - Neck Neck exam: Present: normal inspection, full ROM. Absent: tenderness, meningismus - Respiratory Respiratory exam: Present: normal lung sounds bilaterally. Absent: respiratory distress, wheezes, rales, rhonchi, stridor, chest wall tenderness - Cardiovascular Cardiovascular Exam: Present: normal rhythm, tachycardia, normal heart sounds. Absent: systolic murmur, diastolic murmur, rubs, gallop - GI/Abdominal GI/Abdominal exam: Present: soft, tenderness, other (there is minimal epigastric tenderness. There is no rebound, guarding or peritoneal signs.). Absent: distended, guarding, rebound, rigid, pulsatile mass - Extremities Exam Extremities exam: Present: normal inspection, full ROM, tenderness, other (2+ pulses noted in the bilateral upper, lower extremities. Muscular compartments soft. There is no redness, pus or streaking. Upper extremity tenderness. Bilateral lower extremity tenderness.). Absent: pedal edema, calf tenderness - Back Exam Back exam: Present: normal inspection, full ROM, paraspinal tenderness. Absent: CVA tenderness (R), CVA tenderness (L) - Neurological Exam Neurological exam: Present: alert, other (Extraocular movements intact. Tongue midline. No facial droop. Facial sensation intact to light touch in the V1, V2, V3 distribution bilaterally. 5 and 5 strength in 4 extremities.. Sensation is intact to light touch in 4 extremities.). Absent: motor sensory deficit - Psychiatric Psychiatric exam: Present: normal affect, normal mood - Skin Skin exam: Present: warm, dry, intact, normal color. Absent: rash ED Course Vital Signs 12/26/18 12/26/18 09:30 13:33 Temperature 98.3 F Pulse Rate 105 H 87 Respiratory 16 18 Rate Blood Pressure 123/79 Blood Pressure 123/67 [Right] O2 Sat by Pulse 99 100 Oximetry - Reevaluation(s) Reevaluation #1: 12/26/18 12:04 [place] ethics officer aware 12/19/2018 1 12/19/2018 HYDROMORPHONE 2 MG TABLET 45.0 14 AN ARSH [id number] JORGE ([id number]) 0 25.71 MME Comm Ins [place] 12/19/2018 1 12/19/2018 OXYCODONE HCL 30 MG TABLET 30.0 15 AN ARSH [id number] JORGE ([id number]) 0 90.0 MME Comm [place] 12/19/2018 1 12/19/2018 TEMAZEPAM 15 MG CAPSULE 30.0 30 AN ARSH [id number] JORGE ([id number]) 0 Comm Ins [place] 12/05/2018 1 12/05/2018 HYDROMORPHONE 2 MG TABLET 45.0 15 AN ARSH [id number] JORGE ([id number]) 0 24.0 MME Comm Ins [place] 12/05/2018 1 12/05/2018 OXYCODONE HCL 30 MG TABLET 30.0 15 AN ARSH [id number] JORGE ([id number]) 0 90.0 MME Comm [place] 11/12/2018 1 11/07/2018 HYDROMORPHONE 2 MG TABLET 45.0 15 AN ARSH [id number] JORGE ([id number]) 0 24.0 MME Comm [place] 11/12/2018 1 11/07/2018 OXYCODONE HCL 30 MG TABLET 30.0 15 AN ARSH [id number] JORGE ([id number]) 0 90.0 MME Comm [facility] 11/03/2018 1 09/14/2018 OXYCODON-ACETAMINOPHEN 7.5-325 14.0 4 [facility] [id number] JORGE ([id number]) 0 39.38 MME Comm [facility] 10/13/2018 1 10/10/2018 HYDROMORPHONE 2 MG TABLET 45.0 15 AN ARSH [id number] JORGE ([id number]) 0 24.0 MME Comm [facility] 10/13/2018 1 10/10/2018 OXYCODONE HCL 30 MG TABLET 30.0 15 AN ARSH [id number] JORGE ([id number]) 0 90.0 MME Comm [facility] ED Medical Decision Making - Lab Data Result diagrams: 12/26/18 10:52 12/26/18 10:52 Vital Signs 12/26/18 09:30 Temperature 98.3 F Pulse Rate 105 H Respiratory 16 Rate Blood Pressure 123/79 O2 Sat by Pulse 99 Oximetry Vital Signs 12/26/18 09:30 Temperature 98.3 F Pulse Rate 105 H Respiratory 16 Rate Blood Pressure 123/79 O2 Sat by Pulse 99 Oximetry Lab Results 12/26/18 12/26/18 12/26/18 Range/Units 10:52 10:52 Unknown WBC 16.3 H (4.5-11.0) K/mm3 RBC 3.09 L (3.65-5.03) M/mm3 Hgb 10.7 (10.1-14.3) gm/dl Hct 30.4 (30.3-42.9) % MCV 98 H (79-97) fl MCH 35 H (28-32) pg MCHC 35 H (30-34) % RDW 24.9 H (13.2-15.2) % Plt Count 514 H (140-440) K/mm3 Lymph % (Auto) 27.0 (13.4-35.0) % [place] % (Auto) 11.4 H (0.0-7.3) % Eos % (Auto) 1.6 (0.0-4.3) % Baso % (Auto) 0.7 (0.0-1.8) % Lymph # 4.4 (1.2-5.4) K/mm3 [place] # 1.9 H (0.0-0.8) K/mm3 Eos # 0.3 (0.0-0.4) K/mm3 Baso # 0.1 (0.0-0.1) K/mm3 Seg Neutrophils % 59.3 (40.0-70.0) % Seg Neutrophils # 9.6 H (1.8-7.7) K/mm3 Percent Retic 17.70 H (0.78-2.58) % Sodium 139 (137-145) mmol/L Potassium 4.4 (3.6-5.0) mmol/L Chloride 102.3 (98-107) mmol/L Carbon Dioxide 21 L (22-30) mmol/L Anion Gap 20 mmol/L BUN 8 (7-17) mg/dL Creatinine 0.5 L (0.7-1.2) mg/dL Estimated GFR > 60 ml/min BUN/Creatinine Ratio 16 % Glucose 108 H (65-100) mg/dL Calcium 9.1 (8.4-10.2) mg/dL Total Bilirubin 3.80 H (0.1-1.2) mg/dL AST 36 (5-40) units/L ALT 46 (7-56) units/L Alkaline Phosphatase 117 (35-129) units/L Total Protein 7.9 (6.3-8.2) g/dL Albumin 4.2 (3.9-5) g/dL Albumin/Globulin Ratio 1.1 % Urine Color Jailyn (Yellow) Urine Turbidity Clear (Clear) Urine pH 6.0 (5.0-7.0) Ur Specific [place] 1.013 (1.003-1.030) Urine Protein <15 mg/dl (Negative) mg/dL Urine Glucose (UA) Neg (Negative) mg/dL Urine Ketones Neg (Negative) mg/dL Urine Blood Neg (Negative) Urine Nitrite Neg (Negative) Urine Bilirubin Neg (Negative) Urine Urobilinogen 2.0 (<2.0) mg/dL Ur Leukocyte Esterase Neg (Negative) Urine WBC (Auto) 2.0 (0.0-6.0) /HPF Urine RBC (Auto) < 1.0 (0.0-6.0) /HPF U Epithel Cells (Auto) 2.0 (0-13.0) /HPF Urine Mucus Few /HPF Urine HCG, Qual Negative (Negative) - EKG Data -: EKG Interpreted by Me EKG shows normal: sinus rhythm - EKG Data 12/26/18 13:38 This is a normal sinus rhythm, 82 bpm, normal axis, QTC prolonged, borderline high left ventricular voltage, this is an abnormal EKG, this is not consistent with ST elevation myocardial infarction. This EKG today appears to be unchanged from prior EKG from 09/23/2018. - Radiology Data Radiology results: pending, report reviewed, image reviewed interpreted by me: X-ray of the chest appears to be negative for acute disease Print Report Referring Physician: ANDIE HENRIQUEZ Patient Name: CHELSIE SHERMAN Date of : 1990 Sex: Female Report Date: 2018-12-26 Report Status: Finalized Findings [facility] [address] [place] [address] Cat Scan Report Signed Patient: CHELSIE SHERMAN MR#: [id number] : 1990 Acct:[id number] Age/Sex: 28 / F ADM Date: 12/26/18 Loc: 3A [id number]: SALOME RAINES DO Ordering Physician: ANDIE HENRIQUEZ MD Date of Service: 12/26/18 Procedure(s): CT abdomen pelvis w con Accession Number(s): [id number] cc: ANDIE HENRIQUEZ MD CT ABDOMEN PELVIS WITH CONTRAST: HISTORY: Abdominal pain, nausea and vomiting. COMPARISON: CT abdomen pelvis without contrast dated 07/11/18. TECHNIQUE: Helical CT in 1.25mm intervals following IV contrast. Sagittal and coronal reconstructions. FINDINGS: Lung bases: Normal. Liver: Normal. Biliary system: Cholecystectomy. The common bile duct stent is in place and unchanged. Mild pneumobilia is also unchanged. No obvious biliary obstruction. Pancreas: Normal. Spleen: The spleen is atrophic and calcified containing multiple small cysts. The spleen measures 4.6 cm. This may be related to sickle cell disease, correlate with history. Kidneys/ureters/bladder: Normal. Adrenal glands: Normal. Aorta: Normal. Intestines: Within normal limits given no oral contrast was administered. No obstruction or focal inflammation. Appendix: Normal. Pelvic viscera: A new 2.7 cm peripherally enhancing left ovarian cyst is identified. The uterus and right ovary are unremarkable. Ascites: None. Adenopathy: None. Musculoskeletal: Nor mal. IMPRESSION: 2.7 cm left ovarian cyst. Otherwise, no significant change since 07/11/18. Transcribed By: TTR Dictated By: JOSE MANUEL DESIR JR, MD Electronically Authenticated By: JOSE MANUEL DESIR JR, MD Signed Date/Time: 12/26/18 9980 - Medical Decision Making Differential diagnosis, including but not limited to: Sickle cell crisis, pneumonia, urinary tract infection, viremia, bacteremia, GERD, gastritis, intra- abdominal infection Assessment and plan: 28-year-old sickle cell patient, who is ill-appearing, tachycardic, leukocytosis, elevated reticulocyte count, found to have scleral icterus, very ill-appearing, and I am fully with this patient on previous evaluations. We have recommended admission for supportive care and continued medical management. Discussed this with the patient, who verbalizes understanding, and is amenable to hospitalization. Contacted her covering physician, Dr Ramon Raines and he has accepted the patient to his service. Patient will remain in the emergency room pending completion of CT scan of the abdomen and pelvis. Critical care attestation.: If time is entered above; I have spent that time in minutes in the direct care of this critically ill patient, excluding procedure time. ED Disposition Clinical Impression: Vasoocclusive sickle cell crisis, Jaundice, SIRS (systemic inflammatory response syndrome) Disposition: [id number] OP ADMIT IP TO THIS HOSP Is pt being admited?: Yes Does the pt Need Aspirin: No Condition: Fair
[2018-12-26] MEDS ORDERED: ROCEPHIN/NS 1 GM/50 ML 1 GM/50 ML BAG IV ONE (12:11)
[2018-12-26] MEDS ORDERED: NACL 0.9% 1000 ML 1,000 ML IV ONE (12:11)
[2018-12-26] MEDS ORDERED: REGLAN IV ONE (12:11)
[2018-12-26] MEDS ORDERED: DILAUDID IV ONE (12:11)
[2018-12-26] MEDS ORDERED: PEPCID IV ONE (12:12)
--- NOTE | 2018-12-26 12:13 | Emergency Department Report ---
ED General Adult HPI - General Chief complaint: Sickle Cell Crisis Stated complaint: SS CRISIS/PAIN/DIARRHEA Time Seen by Provider: 12/26/18 12:02 Source: patient Mode of arrival: Ambulatory Limitations: No Limitations - Related Data Previous Rx's Medication Instructions Recorded Last Taken Type Pantoprazole [Protonix TAB] 40 mg PO BID #60 tablet 06/17/17 Unknown Rx Promethazine [Phenergan SUPPOS] 12.[address] Q6H PRN #12 supp.rect 06/17/17 U nknown Rx levoFLOXacin [Levaquin TAB] 500 mg PO QDAY #5 tablet 06/17/17 Unknown Rx Ondansetron [Zofran TAB] 4 mg PO Q8HR PRN #10 tablet 02/21/18 Unknown Rx cephALEXin [Keflex] 500 mg PO Q8HR #30 cap 02/21/18 Unknown Rx HYDROcodone/APAP 5-325 [Kirby 1 - 2 each PO Q6HR PRN #14 tablet 02/25/18 Unknown Rx 5/325] Acetaminophen/Codeine [Tylenol 1 tab PO Q6H PRN #12 tab 04/25/18 Unknown Rx /Codeine # 3 tab] Ibuprofen [Motrin] 600 mg PO Q8H PRN #30 tablet 04/25/18 Unknown Rx Sulfamethoxazole/Trimethoprim 1 each PO BID #14 tablet 04/25/18 Unknown Rx [Bactrim DS TAB] Folic Acid [Folvite] 1 mg PO QDAY #30 tablet 05/08/18 Unknown Rx Hydroxyurea [Hydrea] 500 mg PO QDAY #30 capsule 05/08/18 Unknown Rx Acetaminophen [Tylenol Arthritis] 650 mg PO Q6HR PRN #30 tablet.er 05/23/18 Unknown Rx Famotidine [Pepcid] 20 mg PO BID #60 tablet 05/23/18 Unknown Rx Ondansetron [Zofran Odt] 4 mg PO Q8HR PRN #20 tab.rapdis 05/23/18 Unknown Rx oxyCODONE [Roxicodone] 5 mg PO Q6HR PRN #15 tablet 05/23/18 Unknown Rx HYDROcodone/APAP 5-325 [Kirby 1 each PO Q6HR PRN #15 tablet 06/07/18 Unknown Rx 5/325] Ibuprofen [Motrin] 800 mg PO Q8HR PRN #20 tablet 06/07/18 Unknown Rx HYDROcodone/APAP 10-325 [Kirby 1 tab PO QDAY PRN #15 tablet 07/04/18 Unknown Rx 10-325 mg TAB] Ketorolac [Toradol] 10 mg PO Q6H PRN #15 tablet 07/04/18 Unknown Rx Ondansetron [Zofran Odt] 4 mg PO Q8HR PRN #10 tab.rapdis 07/04/18 Unknown Rx Famotidine [Pepcid] 20 mg PO BID #30 tablet 07/11/18 Unknown Rx HYDROcodone/ACETAMINOPHEN [Kirby 1 each PO Q6HR PRN #12 tablet 07/11/18 Unknown Rx 10-325 Tablet] Ondansetron [Zofran Odt] 4 mg PO Q8HR PRN #20 tab.rapdis 07/11/18 Unknown Rx Ondansetron [Zofran Odt] 4 mg PO Q8HR #20 tab.rapdis 07/25/18 Unknown Rx Oxycodone HCl/Acetaminophen 1 each PO Q6HR PRN #20 tablet 07/25/18 Unknown Rx [Percocet 10/325 mg] Famotidine [Pepcid] 40 mg PO QHS #10 tablet 09/14/18 Unknown Rx Ibuprofen [Motrin] 600 mg PO Q8H PRN #20 tablet 09/14/18 Unknown Rx Ondansetron [Zofran Odt] 4 mg PO Q8HR PRN #10 tab.rapdis 09/14/18 Unknown Rx Oxycodone HCl/Acetaminophen 1 each PO Q6HR PRN #14 tablet 09/14/18 Unknown Rx [Percocet 7.5/325 mg] Ketorolac [Toradol] 10 mg PO Q6H PRN #14 tablet 09/22/18 Unknown Rx Oxycodone HCl/Acetaminophen 1 each PO Q6HR PRN #10 tablet 09/22/18 Unknown Rx [Percocet 7.5/325 mg] Allergies Allergy/AdvReac Type Severity Reaction Status Date / Time morphine AdvReac Itching Verified 11/21/18 08:47 ED Review of Systems ROS: Stated complaint: SS CRISIS/PAIN/DIARRHEA Other details as noted in HPI ED Past Medical Hx - Past Medical History Previous Medical History?: Yes Hx Sickle Cell Disease: Yes Hx Asthma: Yes Hx COPD: No Hx HIV: No Additional medical history: Gastric ulcers - Surgical History Past Surgical History?: Yes Hx Cholecystectomy: Yes (05/2012) - Social History Smoking Status: Never Smoker Substance Use Type: None - Medications Home Medications: Home Medications Medication Instructions Recorded Confirmed Last Taken Type Pantoprazole [Protonix TAB] 40 mg PO BID #60 tablet 06/17/17 09/27/18 Unknown Rx Promethazine [Phenergan SUPPOS] 12.[address] Q6H PRN #12 supp.rect 06/17/17 09/27/18 Unknown Rx levoFLOXacin [Levaquin TAB] 500 mg PO QDAY #5 tablet 06/17/17 09/27/18 Unknown Rx Ondansetron [Zofran TAB] 4 mg PO Q8HR PRN #10 tablet 02/21/18 09/27/18 Unknown Rx cephALEXin [Keflex] 500 mg PO Q8HR #30 cap 02/21/18 09/27/18 Unknown Rx HYDROcodone/APAP 5-325 [Kirby 1 - 2 each PO Q6HR PRN #14 tablet 02/25/1809/27 Unknown Rx 5/325] Acetaminophen/Codeine [Tylenol 1 tab PO Q6H PRN #12 tab 04/25/18 09/27/18 Unknown Rx /Codeine # 3 tab] Ibuprofen [Motrin] 600 mg PO Q8H PRN #30 tablet 04/25/18 09/27/18 Unknown Rx Sulfamethoxazole/Trimethoprim 1 each PO BID #14 tablet 04/25/18 09/27/18 Unknown Rx [Bactrim DS TAB] Folic Acid [Folvite] 1 mg PO QDAY #30 tablet 05/08/18 09/27/18 Unknown Rx Hydroxyurea [Hydrea] 500 mg PO QDAY #30 capsule 05/08/18 09/27/18 Unknown Rx Acetaminophen [Tylenol Arthritis] 650 mg PO Q6HR PRN #30 tablet.er 05/23/18 09/27/18 Unknown Rx Famotidine [Pepcid] 20 mg PO BID #60 tablet 05/23/18 09/27/18 Unknown Rx Ondansetron [Zofran Odt] 4 mg PO Q8HR PRN #20 tab.rapdis 05/23/18 09/27/18 Unknown Rx oxyCODONE [Roxicodone] 5 mg PO Q6HR PRN #15 tablet 05/23/18 09/27/18 Unknown Rx HYDROcodone/APAP 5-325 [[place] 1 each PO Q6HR PRN #15 tablet 06/07/18 09/27/18 Unknown Rx 5/325] Ibuprofen [Motrin] 800 mg PO Q8HR PRN #20 tablet 06/07/18 09/27/18 Unknown Rx HYDROcodone/APAP 10-325 [[place] 1 tab PO QDAY PRN #15 tablet 07/04/18 09/27/18 Unknown Rx 10-325 mg TAB] Ketorolac [Toradol] 10 mg PO Q6H PRN #15 tablet 07/04/18 09/27/18 Unknown Rx Ondansetron [Zofran Odt] 4 mg PO Q8HR PRN #10 tab.rapdis 07/04/18 09/27/18 Unknown Rx Famotidine [Pepcid] 20 mg PO BID #30 tablet 07/11/18 09/27/18 Unknown Rx HYDROcodone/ACETAMINOPHEN [Kirby 1 each PO Q6HR PRN #12 tablet 07/11/18 09/27/18 Unknown Rx 10-325 Tablet] Ondansetron [Zofran Odt] 4 mg PO Q8HR PRN #20 tab.rapdis 07/11/18 09/27/18 Unknown Rx Ondansetron [Zofran Odt] 4 mg PO Q8HR #20 tab.rapdis 07/25/18 09/27/18 Unknown Rx Oxycodone HCl/Acetaminophen 1 each PO Q6HR PRN #20 tablet 07/25/18 09/27/18 Unknown Rx [Percocet 10/325 mg] Famotidine [Pepcid] 40 mg PO QHS #10 tablet 09/14/18 09/27/18 Unknown Rx Ibuprofen [Motrin] 600 mg PO Q8H PRN #20 tablet 09/14/18 09/27/18 Unknown Rx Ondansetron [Zofran Odt] 4 mg PO Q8HR PRN #10 tab.rapdis 09/14/18 09/27/18 Unk nown Rx Oxycodone HCl/Acetaminophen 1 each PO Q6HR PRN #14 tablet 09/14/18 09/27/18 Unknown Rx [Percocet 7.5/325 mg] Ketorolac [Toradol] 10 mg PO Q6H PRN #14 tablet 09/22/18 09/27/18 Unknown Rx Oxycodone HCl/Acetaminophen 1 each PO Q6HR PRN #10 tablet 09/22/18 09/27/18 Unknown Rx [Percocet 7.5/325 mg] ED Physical Exam - General Limitations: No Limitations ED Course Vital Signs 12/26/18 09:30 Temperature 98.3 F Pulse Rate 105 H Respiratory 16 Rate Blood Pressure 123/79 O2 Sat by Pulse 99 Oximetry ED Medical Decision Making - Lab Data Result diagrams: 12/26/18 10:52 12/26/18 10:52 Critical care attestation.: If time is entered above; I have spent that time in minutes in the direct care of this critically ill patient, excluding procedure time. ED Disposition Clinical Impression: Vasoocclusive sickle cell crisis, Jaundice, SIRS (systemic inflammatory response syndrome) Disposition: 09 OP ADMIT IP TO THIS HOSP Is pt being admited?: Yes Condition: Fair Referrals: SALOME RAINES DO [Primary Care Provider] - 3-5 Days
[2018-12-26] MEDS ORDERED: D5/0.45NS 1,000 ML IV SCH (13:00)
--- NOTE | 2018-12-26 13:52 | XRay Report ---
AP CHEST: HISTORY: SIRS Compared to 09/23/18. Mild patchy infiltrate is suggested in the left lower lobe behind the heart. The remainder of the lungs are clear. No pleural effusion or pneumothorax. Normal heart size and pulmonary vessels. Normal bony thorax. IMPRESSION: Early infiltrate is suspected in left lower lobe.
--- NOTE | 2018-12-26 14:13 | Cat Scan Report ---
CT ABDOMEN PELVIS WITH CONTRAST: HISTORY: Abdominal pain, nausea and vomiting. COMPARISON: CT abdomen pelvis without contrast dated 07/11/18. TECHNIQUE: Helical CT in 1.25mm intervals following IV contrast. Sagittal and coronal reconstructions. FINDINGS: Lung bases: Normal. Liver: Normal. Biliary system: Cholecystectomy. The common bile duct stent is in place and unchanged. Mild pneumobilia is also unchanged. No obvious biliary obstruction. Pancreas: Normal. Spleen: The spleen is atrophic and calcified containing multiple small cysts. The spleen measures 4.6 cm. This may be related to sickle cell disease, correlate with history. Kidneys/ureters/bladder: Normal. Adrenal glands: Normal. Aorta: Normal. Intestines: Within normal limits given no oral contrast was administered. No obstruction or focal inflammation. Appendix: Normal. Pelvic viscera: A new 2.7 cm peripherally enhancing left ovarian cyst is identified. The uterus and right ovary are unremarkable. Ascites: None. Adenopathy: None. Musculoskeletal: Normal. IMPRESSION: 2.7 cm left ovarian cyst. Otherwise, no significant change since 07/11/18.
[2018-12-26] MEDS ORDERED: NACL 0.9% 500 ML 500 ML IV ONE (14:19)
[2018-12-26] MEDS: D5NS 0.2% 1,000 ML IV SCH ×2 (16:41→22:42)
--- NOTE | 2018-12-26 22:12 | History and Physical Report ---
History of Present Illness Date of examination: 12/26/18 Date of admission: 12/26/18 12:31 Chief complaint: Diffuse joint pain/ SOB. History of present illness: Patient presented to the ER with CC of Diffuse joint pain, SOB, generalized fatigue. Unable to control her sxs at home, hence ER visist. W/U in the Er led to admission for sxs control, and management. CxR revealed infiltrates, patient is started on IV ABX. BC , and retic elevated. Patient is admitted with Sepsis due to pneumonia. Past History Past Medical History: anemia Social history: single, lives with family Medications and Allergies Allergies Allergy/AdvReac Type Severity Reaction Status Date / Time morphine AdvReac Itching Verified 11/21/18 08:47 Home Medications Medication Instructions Recorded Confirmed Last Taken Type Folic Acid [Folvite] 1 mg PO QDAY #30 tablet 05/08/18 12/26/18 Unknown Rx Hydroxyurea [Hydrea] 500 mg PO QDAY #30 capsule 05/08/18 12/26/18 Unknown Rx HYDROmorphone [Dilaudid] 2 mg PO Q8H 12/26/18 12/26/18 Unknown History Multivitamin [One Daily 1 each PO DAILY 12/26/18 12/26/18 Unknown History Multivitamin] Oxycodone HCl [oxyCONTIN ER] 30 mg PO BID 12/26/18 12/26/18 Unknown History Active Meds: Active Medications Diphenhydramine HCl (Benadryl) 25 mg IV Q6H PRN PRN Reason: Itching Heparin Sodium (Porcine) (Heparin) 5,000 unit SUB-Q Q12HR VICTORINO Hydromorphone HCl (Dilaudid) 2 mg IV Q3H PRN PRN Reason: Pain , Severe (7-10) Dextrose/Sodium Chloride (D5/0.45ns) 1,000 mls @ 0 mls/hr IV DIRECT VICTORINO Last Admin: 12/26/18 13:26 Dose: 1,000 mls/hr Documented by: Dextrose/Sodium Chloride (D5ns 0.2%) 1,000 mls @ 175 mls/hr IV DIRECT VICTORINO Last Admin: 12/26/18 16:41 Dose: 175 mls/hr Documented by: Ceftriaxone Sodium (Rocephin/Ns 1 Gm/50 Ml) 1 gm in 50 mls @ 100 mls/hr IV Q24HR VICTORINO; Protocol Review of Systems Constitutional: fatigue, weakness, chronic pain Breasts: deferred Gastrointestinal: nausea Musculoskeletal: low back pain Exam - Constitutional Vitals: Temp Pulse Resp BP Pulse Ox 98.0 F 100 H 14 112/65 96 12/26/18 17:34 12/26/18 17:34 12/26/18 17:34 12/26/18 17:34 12/26/18 17:34 General appearance: Present: mild distress, well-nourished - EENT Eyes: Present: PERRL ENT: hearing intact, clear oral mucosa - Neck Neck: Present: supple, normal ROM - Respiratory Respiratory: bilateral: diminished - Cardiovascular Heart Sounds: Present: S1 & S2. Absent: rub, click - Extremities Extremities: pulses symmetrical, No edema Peripheral Pulses: within normal limits - Abdominal General gastrointestinal: Present: soft, non-tender, non-distended, normal bowel sounds Female genitourinary: Present: deferred - Rectal Rectal Exam: deferred - Integumentary Integumentary: Present: clear, warm, dry - Musculoskeletal Musculoskeletal: gait normal, strength equal bilaterally - Psychiatric Psychiatric: appropriate mood/affect, intact judgment & insight - Neurologic Neurologic: CNII-XII intact, moves all extremities Results - Labs CBC & Chem 7: 12/26/18 10:52 12/26/18 10:52 Labs: Abnormal lab results 12/26/18 12/26/18 12/26/18 Range/Units 10:52 10:52 13:30 WBC 16.3 H (4.5-11.0) K/mm3 RBC 3.09 L (3.65-5.03) M/mm3 MCV 98 H (79-97) fl MCH 35 H (28-32) pg MCHC 35 H (30-34) % RDW 24.9 H (13.2-15.2) % Plt Count 514 H (140-440) K/mm3 [place] % (Auto) 11.4 H (0.0-7.3) % [place] # 1.9 H (0.0-0.8) K/mm3 Seg Neutrophils # 9.6 H (1.8-7.7) K/mm3 Percent Retic 17.70 H (0.78-2.58) % Carbon Dioxide 21 L (22-30) mmol/L Creatinine 0.5 L (0.7-1.2) mg/dL Glucose 108 H (65-100) mg/dL Lactic Acid 4.10 H* (0.7-2.0) mmol/L Total Bilirubin 3.80 H (0.1-1.2) mg/dL Total Creatine Kinase (30-135) units/L 05/20/19 Range/Units 13:30 WBC (4.5-11.0) K/mm3 RBC (3.65-5.03) M/mm3 MCV (79-97) fl MCH (28-32) pg MCHC (30-34) % RDW (13.2-15.2) % Plt Count (140-440) K/mm3 [place] % (Auto) (0.0-7.3) % [place] # (0.0-0.8) K/mm3 Seg Neutrophils # (1.8-7.7) K/mm3 Percent Retic (0.78-2.58) % Carbon Dioxide (22-30) mmol/L Creatinine (0.7-1.2) mg/dL Glucose (65-100) mg/dL Lactic Acid (0.7-2.0) mmol/L Total Bilirubin (0.1-1.2) mg/dL Total Creatine Kinase 24 L (30-135) units/L Assessment and Plan - Patient Problems (1) Sepsis Current Visit: Yes Status: Acute Plan to address problem: Treat the etiology. (2) Sickle cell anemia with crisis Current Visit: Yes Status: Acute Plan to address problem: Pain control, monitor ,address /adjust labs. (3) Dehydration Current Visit: Yes Status: Acute Plan to address problem: Hydration (4) Pneumonia Current Visit: Yes Status: Acute Plan to address problem: IV ABX
[2018-12-26] MEDS: DILAUDID IV PRN (22:43)
[2018-12-26] MEDS: BENADRYL IV PRN (22:43)
[2018-12-26] MEDS: HEPARIN SUB-Q SCH (22:44)
[2018-12-27] MEDS: ZOFRAN IV PRN ×3 (00:53→21:48)
[2018-12-27] MEDS: D5NS 0.2% 1,000 ML IV SCH ×4 (03:53→22:08)
[2018-12-27] MEDS: DILAUDID IV PRN ×3 (08:08→21:48)
[2018-12-27] MEDS: ROCEPHIN/NS 1 GM/50 ML 1 GM/50 ML BAG IV SCH (09:43)
[2018-12-27] MEDS: HYDREA PO SCH (09:44)
[2018-12-27] MEDS: FOLVITE PO SCH (09:44)
[2018-12-27] MEDS: THERAGRAN Tab PO SCH (09:44)
[2018-12-27] MEDS: OxyCONTIN PO SCH ×2 (09:44→22:51)
[2018-12-27] MEDS: HEPARIN SUB-Q SCH ×2 (10:07→22:16)
[2018-12-27] MEDS: BENADRYL IV PRN (21:50)
--- NOTE | 2018-12-28 00:45 | Progress Note ---
Assessment and Plan - Patient Problems (1) Sepsis Current Visit: Yes Status: Acute Plan to address problem: Treat the etiology. (2) Sickle cell anemia with crisis Current Visit: Yes Status: Acute Plan to address problem: Pain control, monitor ,address /adjust labs. (3) Dehydration Current Visit: Yes Status: Acute Plan to address problem: Hydration (4) Pneumonia Current Visit: Yes Status: Acute Plan to address problem: IV ABX Subjective Date of service: 12/27/18 Interval history: Patient seen with late entry, labs reviewed, nad.will continue same management.D/c plan for the next 24hrs. Objective - Constitutional Vitals: Vital Signs - 12hr 12/27/18 12/27/18 12/27/18 18:16 21:00 21:31 Temperature 98.3 F Pulse Rate 70 Respiratory 16 18 Rate Blood Pressure 123/68 O2 Sat by Pulse 99 99 Oximetry 12/27/18 12/27/18 12/27/18 21:48 22:51 23:46 Temperature 98.1 F Pulse Rate 75 Respiratory 18 18 18 Rate Blood Pressure 110/59 O2 Sat by Pulse 98 Oximetry General appearance: Present: mild distress, well-nourished - EENT Eyes: PERRL, EOM intact ENT: hearing intact, clear oral mucosa Ears: bilateral: normal - Neck Neck: supple, normal ROM - Respiratory Respiratory effort: normal Respiratory: bilateral: CTA - Breasts Breasts: deferred - Cardiovascular Rhythm: regular Heart Sounds: Present: S1 & S2. Absent: gallop, rub Extremities: pulses intact, No edema, normal color, Full ROM - Gastrointestinal General gastrointestinal: Present: soft, non-tender, non-distended, normal bowel sounds Rectal Exam: deferred - Genitourinary Female genitourinary: deferred - Integumentary Integumentary: clear, warm, dry - Musculoskeletal Musculoskeletal: 1, strength equal bilaterally - Neurologic Neurologic: moves all extremities - Psychiatric Psychiatric: memory intact, appropriate mood/affect, intact judgment & insight - Labs CBC & Chem 7: 12/26/18 10:52 12/26/18 10:52 Medications & Allergies - Medications Allergies/Adverse Reactions: Allergies morphine Adverse Reaction (Verified 11/21/18 08:47) Itching Home Medications: Home Medications Medication Instructions Recorded Confirmed Last Taken Type Folic Acid [Folvite] 1 mg PO QDAY #30 tablet 05/08/18 12/26/18 Unknown Rx Hydroxyurea [Hydrea] 500 mg PO QDAY #30 capsule 05/08/18 12/26/18 Unknown Rx HYDROmorphone [Dilaudid] 2 mg PO Q8H 12/26/18 12/26/18 Unknown History Multivitamin [One Daily 1 each PO DAILY 12/26/18 12/26/18 Unknown History Multivitamin] Oxycodone HCl [oxyCONTIN ER] 30 mg PO BID 12/26/18 12/26/18 Unknown History Active Medications: Generic Name Dose Route Start Last Admin Trade Name Freq PRN Reason Stop Dose Admin Diphenhydramine HCl 25 mg 12/26/18 16:16 12/27/18 21:50 Benadryl IV 25 mg Q6H PRN Administration Itching Folic Acid 1 mg 12/27/18 10:00 12/27/18 09:44 Folvite PO 1 mg QDAY VICTORINO Administration Heparin Sodium (Porcine) 5,000 unit 12/26/18 22:00 12/27/18 22:16 Heparin SUB-Q 5,000 unit Q12HR VICTORINO Administration Hydromorphone HCl 2 mg 12/26/18 16:15 12/27/18 21:48 Dilaudid IV 2 mg Q3H PRN Administration Pain , Severe (7-10) Hydroxyurea 500 mg 12/27/18 10:00 12/27/18 09:44 Hydrea PO 500 mg QDAY VICTORINO Administration Dextrose/Sodium Chloride 1,000 mls @ 175 mls/hr 12/26/18 17:00 12/27/18 22:08 D5ns 0.2% IV 175 mls/hr DIRECT VICTORINO Administration Ceftriaxone Sodium 1 gm in 50 mls @ 100 mls/hr 12/27/18 10:00 12/27/18 09:43 Rocephin/Ns 1 Gm/50 Ml IV 100 mls/hr Q24HR VICTORINO Administration Protocol Multivitamins 1 each 12/27/18 10:00 12/27/18 09:44 Theragran Tab PO 1 each DAILY VICTORINO Administration Ondansetron HCl 4 mg 12/26/18 23:22 12/27/18 21:48 Zofran IV 4 mg Q8H PRN Administration Nausea And Vomiting Oxycodone HCl 30 mg 12/27/18 10:00 12/27/18 22:51 Oxycontin PO 30 mg Q12HR VICTORINO Administration
[2018-12-28] MEDS: D5NS 0.2% 1,000 ML IV SCH ×4 (04:26→22:05)
[2018-12-28] MEDS: BENADRYL IV PRN ×3 (09:19→22:05)
[2018-12-28] MEDS: FOLVITE PO SCH (09:19)
[2018-12-28] MEDS: ROCEPHIN/NS 1 GM/50 ML 1 GM/50 ML BAG IV SCH (09:19)
[2018-12-28] MEDS: OxyCONTIN PO SCH (09:19)
[2018-12-28] MEDS: THERAGRAN Tab PO SCH (09:19)
[2018-12-28] MEDS: ZOFRAN IV PRN ×2 (09:19→22:05)
[2018-12-28] MEDS: HYDREA PO SCH (09:23)
[2018-12-28] MEDS: DILAUDID IV PRN ×3 (10:34→22:05)
[2018-12-28] MEDS: HEPARIN SUB-Q SCH ×2 (10:35→22:05)
[2018-12-29] MEDS: OxyCONTIN PO SCH ×2 (00:17→11:46)
[2018-12-29] MEDS: BENADRYL IV PRN ×3 (04:02→14:33)
[2018-12-29] MEDS: DILAUDID IV PRN ×3 (04:02→14:35)
[2018-12-29] MEDS: D5NS 0.2% 1,000 ML IV SCH ×3 (04:07→17:25)
[2018-12-29] MEDS: ZOFRAN IV PRN (09:32)
[2018-12-29] MEDS: FOLVITE PO SCH (11:45)
[2018-12-29] MEDS: ROCEPHIN/NS 1 GM/50 ML 1 GM/50 ML BAG IV SCH (11:45)
[2018-12-29] MEDS: HYDREA PO SCH (11:46)
[2018-12-29] MEDS: THERAGRAN Tab PO SCH (11:46)
[2018-12-29] MEDS: HEPARIN SUB-Q SCH (11:47)
--- NOTE | 2018-12-29 18:31 | Discharge Summary ---
Providers - Providers Date of Admission: 12/26/18 12:31 Date of discharge: 12/29/18 Attending physician: SALOME RAINES Primary care physician: SALOME RAINES Hospitalization Reason for admission: .SCD/Anemia, pain crisis. Condition: Fair Hospital course: Patient presented to the Er with sCD /pain crisis, admitted, for sxs management. She was hydrated, pain control, and responded well. She will be d/c home today. Disposition: DC- TO HOME OR SELFCARE - Discharge Diagnoses (1) Sepsis Status: Ruled-out (2) Sickle cell anemia with crisis Status: Chronic (3) Dehydration Status: Acute (4) Pneumonia Status: Resolved Core Measure Documentation - Palliative Care Palliative Care/ Comfort Measures: Not Applicable - Core Measures Any of the following diagnoses?: none Exam - Constitutional Vitals: Temp Pulse Resp BP Pulse Ox 98.4 F 72 16 107/55 97 12/29/18 04:54 12/29/18 04:54 12/29/18 04:54 12/29/18 04:54 12/29/18 04:54 General appearance: Present: no acute distress, well-nourished - EENT Eyes: Present: PERRL ENT: hearing intact, clear oral mucosa - Neck Neck: Present: supple, normal ROM - Respiratory Respiratory effort: normal Respiratory: bilateral: CTA - Cardiovascular Heart Sounds: Present: S1 & S2. Absent: rub, click - Extremities Extremities: pulses symmetrical, No edema Peripheral Pulses: within normal limits - Abdominal General gastrointestinal: Present: soft, non-tender, non-distended, normal bowel sounds Female genitourinary: Present: deferred - Rectal Rectal Exam: deferred - Integumentary Integumentary: Present: clear, warm, dry - Musculoskeletal Musculoskeletal: gait normal, strength equal bilaterally - Psychiatric Psychiatric: appropriate mood/affect, intact judgment & insight - Neurologic Neurologic: CNII-XII intact, moves all extremities Plan Activity: no restrictions Follow up with: SALOME RAINES DO [Primary Care Provider] - 3-5 Days
[2018-12-29 18:50] VITALS: BP 109/55
== END 2018-12-29 20:09 | disposition home or self-care (01) | DRG 811 ==
LOC: ED 09:10 → 3A 12:31
PROVIDERS: ADMIT Internal Medicine Hematology & Oncology; ATTEND Internal Medicine Hematology & Oncology
DX: D57.00 Hb-SS disease with crisis, unspecified (principal); J18.9 Pneumonia, unspecified organism; J45.909 Unspecified asthma, uncomplicated; E86.0 Dehydration; Z88.5 Allergy status to narcotic agent; Z79.899 Other long term (current) drug therapy; Z90.49 Acquired absence of other specified parts of digestive tract
CPT/HCPCS: 36415; 71045; 74177; 80053; 81001; 81025; 82140; 82550; 83690; 83735; 85025; 85045; 87040; 93005; 93010; 96365; 96375; 96376; G0378; J0696; J1170; J1200; J1644; J2405; J2765; J7030; Q9967

== ENCOUNTER 2019-01-01 08:36 | Inpatient (IN) | payer BC ==
[2019-01-01] MEDS ORDERED: DILAUDID IV ONE ×2 (09:46→11:25)
[2019-01-01] MEDS ORDERED: BENADRYL IV ONE (09:46)
[2019-01-01] MEDS ORDERED: ZOFRAN IV ONE (09:46)
[2019-01-01] MEDS: D5NS 0.2% 1,000 ML IV SCH ×4 (10:00→22:23)
--- NOTE | 2019-01-01 10:00 | Emergency Department Report ---
ED General Adult HPI - General Chief complaint: Sickle Cell Crisis Stated complaint: SICKLE CELL CRISIS/SOB Time Seen by Provider: 01/01/19 09:40 Source: patient Mode of arrival: Ambulatory Limitations: No Limitations - History of Present Illness Initial comments: 28-year-old female complains of recurrent bilateral leg pain consistent with sickle cell crisis pain. She is recently discharged. She denies leg swelling. She denies recent travel or shortness of breath. She states that she has no history of VTE. She is not complaining of cough chest pain or difficulty in breathing. She is status post cholecystectomy. She states that she had a pneu monia in the past but otherwise no other serious infection. Patient was discharged on the 3 days ago: - Discharge Diagnoses (1) Sepsis Status: Ruled-out (2) Sickle cell anemia with crisis Status: Chronic (3) Dehydration Status: Acute (4) Pneumonia Status: Resolved -: Gradual, hour(s) (states awoke with pain this morning) Location: lower extremity Radiation: non-radiation Quality: aching Consistency: constant Improves with: none Worsens with: none Associated Symptoms: denies other symptoms - Related Data Home Medications Medication Instructions Recorded Confirmed Last Taken HYDROmorphone [Dilaudid] 2 mg PO Q8H 12/26/18 12/26/18 Unknown Multivitamin [One Daily 1 each PO DAILY 12/26/18 12/26/18 Unknown Multivitamin] Oxycodone HCl [oxyCONTIN ER] 30 mg PO BID 12/26/18 12/26/18 Unknown Previous Rx's Medication Instructions Recorded Last Taken Type Folic Acid [Folvite] 1 mg PO QDAY #30 tablet 05/08/18 Unknown Rx Hydroxyurea [Hydrea] 500 mg PO QDAY #30 capsule 05/08/18 Unknown Rx Allergies Allergy/AdvReac Type Severity Reaction Status Date / Time morphine AdvReac Itching Verified 01/01/19 08:44 ED Review of Systems ROS: Stated complaint: SICKLE CELL CRISIS/SOB Other details as noted in HPI Constitutional: denies: chills, fever Eyes: denies: eye pain, eye discharge, vision change ENT: denies: ear pain, throat pain Respiratory: denies: cough, shortness of breath, wheezing Cardiovascular: denies: chest pain, palpitations Endocrine: no symptoms reported Gastrointestinal: denies: abdominal pain, nausea, diarrhea Genitourinary: denies: urgency, dysuria, discharge Musculoskeletal: as per HPI, other. denies: back pain, joint swelling, arthralgia Skin: denies: rash, lesions Neurological: denies: headache, weakness, paresthesias Psychiatric: denies: anxiety, depression Hematological/Lymphatic: denies: easy bleeding, easy bruising ED Past Medical Hx - Past Medical History Previous Medical History?: Yes Hx Deep Vein Thrombosis: No Hx Pulmonary Embolism: No Hx Sickle Cell Disease: Yes Hx Asthma: Yes Hx COPD: No Hx HIV: No Additional medical history: Gastric ulcers - Surgical History Past Surgical History?: Yes Hx Cholecystectomy: Yes (05/2012) - Social History Smoking Status: Never Smoker Substance Use Type: None - Medications Home Medications: Home Medications Medication Instructions Recorded Confirmed Last Taken Type Folic Acid [Folvite] 1 mg PO QDAY #30 tablet 05/08/18 12/26/18 Unknown Rx Hydroxyurea [Hydrea] 500 mg PO QDAY #30 capsule 05/08/18 12/26/18 Unknown Rx HYDROmorphone [Dilaudid] 2 mg PO Q8H 12/26/18 12/26/18 Unknown History Multivitamin [One Daily 1 each PO DAILY 12/26/18 12/26/18 Unknown History Multivitamin] Oxycodone HCl [oxyCONTIN ER] 30 mg PO BID 12/26/18 12/26/18 Unknown History ED Physical Exam - General Limitations: No Limitations General appearance: alert, in no apparent distress - Head Head exam: Present: atraumatic, normocephalic - Eye Eye exam: Present: normal appearance - ENT ENT exam: Present: mucous membranes moist - Neck Neck exam: Present: normal inspection. Absent: tenderness, meningismus - Respiratory Respiratory exam: Present: normal lung sounds bilaterally. Absent: respiratory distress - Cardiovascular Cardiovascular Exam: Present: regular rate, normal rhythm. Absent: systolic murmur, diastolic murmur, rubs, gallop - GI/Abdominal GI/Abdominal exam: Present: soft, normal bowel sounds. Absent: distended, tenderness, guarding, rebound, rigid - Extremities Exam Extremities exam: Present: normal inspection, full ROM, normal capillary refill. Absent: tenderness, pedal edema, joint swelling, calf tenderness - Back Exam Back exam: Present: normal inspection - Neurological Exam Neurological exam: Present: alert, oriented X3, CN II-XII intact. Absent: motor sensory deficit (neurovascular Exam was intact) - Psychiatric Psychiatric exam: Present: normal affect, normal mood - Skin Skin exam: Present: warm, dry, intact, normal color. Absent: rash ED Course Vital Signs 01/01/19 01/01/19 01/01/19 08:44 09:44 09:45 Temperature 99.4 F Pulse Rate 89 94 H Respiratory 16 24 Rate Blood Pressure 111/50 138/72 O2 Sat by Pulse 100 96 99 Oximetry 01/01/19 01/01/19 01/01/19 10:00 10:16 10:30 Temperature Pulse Rate 99 H 92 H 94 H Respiratory 26 H 24 30 H Rate Blood Pressure 143/84 138/72 132/68 O2 Sat by Pulse 99 100 100 Oximetry 01/01/19 01/01/19 01/01/19 10:45 11:00 11:15 Temperature Pulse Rate 100 H 100 H 101 H Respiratory 23 26 H 29 H Rate Blood Pressure 121/68 149/90 135/85 O2 Sat by Pulse 100 100 100 Oximetry - Reevaluation(s) Reevaluation #1: Discussed with Dr. Root. We will give the patient a dose of ceftriaxone empirically further evaluation and treatment as appropriate per Dr. Root. Dr. Hernandez who was paged but did not respond. 01/01/19 12:27 ED Medical Decision Making - Lab Data Result diagrams: 01/01/19 10:06 01/01/19 10:06 Laboratory Results - last 24 hr 01/01/19 01/01/19 01/01/19 10:06 10:06 10:06 WBC 23.1 H RBC 2.52 L Hgb 8.8 L Hct 24.7 L MCV 98 H MCH 35 H MCHC 36 H RDW 22.7 H Plt Count 469 H Add Manual Diff Complete Total Counted 100 Seg Neuts % (Manual) 62.0 Band Neutrophils % 4.0 Lymphocytes % (Manual) 18.0 Reactive Lymphs % (Man) 0 Monocytes % (Manual) 10.0 H Eosinophils % (Manual) 2.0 Basophils % (Manual) 0 Metamyelocytes % 0 Myelocytes % 4.0 Promyelocytes % 0 Blast Cells % 0 Nucleated RBC % Not Reportable Seg Neutrophils # Man 14.3 H Band Neutrophils # 0.9 Lymphocytes # (Manual) 4.2 Abs React Lymphs (Man) 0.0 Monocytes # (Manual) 2.3 H Eosinophils # (Manual) 0.5 H Basophils # (Manual) 0.0 Metamyelocytes # 0.0 Myelocytes # 0.9 Promyelocytes # 0.0 Blast Cells # 0.0 WBC Morphology Not Reportable TNR Hypersegmented Neuts Not Reportable Hyposegmented Neuts Not Reportable Hypogranular Neuts Not Reportable Smudge Cells Not Reportable Toxic Granulation Not Reportable Toxic Vacuolation Not Reportable Dohle Bodies Not Reportable Pelger-Huet Anomaly Not Reportable Tam Rods Not Reportable Platelet Estimate Consistent w auto Clumped Platelets Not Reportable Plt Clumps, EDTA Not Reportable Large Platelets Not Reportable Giant Platelets Not Reportable Platelet Satelliting Not Reportable Plt Morphology Comment Not Reportable RBC Morphology Not Reportable Dimorphic RBCs Not Reportable Polychromasia Not Reportable Hypochromasia 1+ Poikilocytosis 1+ Anisocytosis Not Reportable Microcytosis Not Reportable Macrocytosis Not Reportable Spherocytes Few Pappenheimer Bodies Not Reportable Sickle Cells 1+ Target Cells Few Tear Drop Cells Not Reportable Ovalocytes Few Helmet Cells Not Reportable [place] Bodies Not Reportable [place] Rings Not Reportable Codey Cells Not Reportable Bite Cells Not Reportable Crenated Cell Not Reportable Elliptocytes Few Acanthocytes (Spur) Not Reportable Rouleaux Not Reportable Hemoglobin C Crystals Not Reportable Schistocytes Not Reportable Malaria parasites Not Reportable Percent Retic 11.72 H Kb Bodies Not Reportable Hem Pathologist Commnt No Sodium 138 Potassium 3.5 L Chloride 102.1 Carbon Dioxide 20 L Anion Gap 19 BUN 7 Creatinine 0.6 L Estimated GFR > 60 BUN/Creatinine Ratio 12 Glucose 161 H Calcium 8.3 L Total Bilirubin 5.10 H Direct Bilirubin 0.7 H Indirect Bilirubin 4.4 AST 53 H ALT 34 Alkaline Phosphatase 90 Total Protein 7.0 Albumin 3.9 Albumin/Globulin Ratio 1.3 - Radiology Data interpreted by me: X-ray shows some chronic appearing increased interstitial markings diffusely. Critical care attestation.: If time is entered above; I have spent that time in minutes in the direct care of this critically ill patient, excluding procedure time. ED Disposition Clinical Impression: Sickle cell crisis Leukocytosis Qualifiers: Leukocytosis type: unspecified Qualified Code(s): D72.829 - Elevated white blood cell count, unspecified Disposition: OP ADMIT IP TO THIS HOSP Is pt being admited?: Yes Does the pt Need Aspirin: Yes Condition: Stable Referrals: PRIMARY CARE, [Primary Care Provider] - 3-5 Days Time of Disposition: 12:29
[2019-01-01 10:29] LABS: Hematocrit 24.7 % (30.3-42.9); Hemoglobin 8.8 gm/dl (10.1-14.3); Mean Corpuscular HGB Conc 36 % (30-34); Mean Corpuscular Volume 98 fl (79-97); Platelet Count 469 K/mm3 (140-440); Red Blood Count 2.52 M/mm3 (3.65-5.03)
[2019-01-01 10:32] LABS: Red Cell Distribution Width 22.7 % (13.2-15.2)
[2019-01-01 10:51] LABS: Alanine Aminotransferase 34 units/L (7-56); Albumin 3.9 g/dL (3.9-5); BUN/Creatinine Ratio 12; Bilirubin,Direct 0.7 mg/dL (0-0.2); Blood Urea Nitrogen 7 mg/dL (7-17); Calcium 8.3 mg/dL (8.4-10.2); Hemolysis Index 22
[2019-01-01 11:13] LABS: Band Neutrophils # (Manual) 0.9 K/mm3; Basophils % (Manual) 0 % (0.0-1.8); Hypochromasia 1+; Myelocytes # (Manual) 0.9 K/mm3; Poikilocytosis 1+; Sickle Cells 1+; Total Cells Counted 100
[2019-01-01 11:14] LABS: Ovalocytes Few; Platelet Estimate Consistent w Auto; Spherocytes Few; Target Cells Few
[2019-01-01] MEDS ORDERED: ROCEPHIN/NS 1 GM/50 ML 1 GM/50 ML BAG IV ONE (12:26)
[2019-01-01] MEDS ORDERED: NARCAN 2 MG/2 ML ONE (12:28)
[2019-01-01] MEDS ORDERED: ASPIRIN PO ONE (12:29)
--- NOTE | 2019-01-01 13:18 | XRay Report ---
PROCEDURE: XR CHEST 1V AP TECHNIQUE: Chest radiograph single view. HISTORY: hypertension COMPARISONS: 05/07/2018 . FINDINGS: Heart: Normal. Mediastinum/Vessels: Normal. Lungs/Pleural space: Normal. Bony thorax: No acute osseous abnormality. Life support devices: None. IMPRESSION: No acute cardiopulmonary abnormality. This document is electronically signed by Chantell Samson MD., Jan 01 2019 01:16:50 PM ET
--- NOTE | 2019-01-01 14:33 | Vascular Lab Report ---
PROCEDURE: VL VENOUS DUPLEX LE BILAT TECHNIQUE: Duplex Doppler sonography of the bilateral lower extremities. [place] scale imaging with and without compression, spectral waveform analysis with and without augmentation, and color flow Dopple r were employed. HISTORY: bilateral leg pain COMPARISONS: None FINDINGS: Deep Venous Thrombus: None Superficial Venous Thrombus: None Venous valvular incompetence: None Soft tissue abnormality: None Other: Normal triphasic waveforms of the bilateral distal posterior tibial arteries. IMPRESSION: No evidence of deep venous thrombosis. This document is electronically signed by Chantell Samson MD., Jan 01 2019 02:32:01 PM ET
[2019-01-01] MEDS ORDERED: PERCOCET 5/325 PO PRN (14:53)
[2019-01-01] MEDS: BENADRYL IV PRN ×2 (15:40→21:55)
[2019-01-01] MEDS: DILAUDID IV PRN ×2 (15:40→21:58)
[2019-01-01] MEDS: HYDREA PO SCH (21:54)
[2019-01-01] MEDS: HEPARIN SUB-Q SCH (21:55)
[2019-01-02] MEDS: DILAUDID IV PRN ×4 (02:20→16:59)
[2019-01-02] MEDS: D5NS 0.2% 1,000 ML IV SCH ×6 (02:25→21:20)
[2019-01-02] MEDS: BENADRYL IV PRN ×3 (05:08→19:34)
[2019-01-02] MEDS: ROCEPHIN/NS 1 GM/50 ML 1 GM/50 ML BAG IV SCH (09:27)
[2019-01-02] MEDS: FOLVITE PO SCH (09:28)
[2019-01-02] MEDS: HEPARIN SUB-Q SCH ×2 (09:28→21:19)
[2019-01-02] MEDS: HYDREA PO SCH ×2 (09:28→21:19)
--- NOTE | 2019-01-02 13:14 | History and Physical Report ---
History of Present Illness Date of examination: 01/02/19 Date of admission: 01/01/19 12:30 Patient seen/examined, resting in bed, records reviewed, case d/w patient. Patient presented to the ED with CC of diffuse joint pain, She had just been d/c 2-3 days prior. W/U in the ER , led to admission in to the hospital , for sxs management , and control.WBc was elevated, and patient was started on IV ABX until cultures resulted.She is also getting hydration, and pain control. Chief complaint: SEE DATE OF ADMISSION SECTION. History of present illness: scd/pain crisis. see above. Past History Past Medical History: anemia Social history: no significant social history, single Medications and Allergies Allergies Allergy/AdvReac Type Severity Reaction Status Date / Time morphine AdvReac Itching Verified 01/01/19 08:44 Home Medications Medication Instructions Recorded Confirmed Last Taken Type Folic Acid [Folvite] 1 mg PO QDAY #30 tablet 05/08/18 01/01/19 Unknown Rx Hydroxyurea [Hydrea] 500 mg PO QDAY #30 capsule 05/08/18 01/01/19 Unknown Rx HYDROmorphone [Dilaudid] 2 mg PO Q8H 12/26/18 01/01/19 Unknown History Multivitamin [One Daily 1 each PO DAILY 12/26/18 01/01/19 Unknown History Multivitamin] Oxycodone HCl [oxyCONTIN ER] 30 mg PO BID 12/26/18 01/01/19 Unknown History Active Meds: Active Medications Diphenhydramine HCl (Benadryl) 25 mg IV Q6H PRN PRN Reason: Itching Last Admin: 01/02/19 05:08 Dose: 25 mg Documented by: Folic Acid (Folvite) 1 mg PO QDAY [facility] Last Admin: 01/02/19 09:28 Dose: 1 mg Documented by: Heparin Sodium (Porcine) (Heparin) 5,000 unit SUB-Q Q12HR [facility] Last Admin: 01/02/19 09:28 Dose: 5,000 unit Documented by: Hydromorphone HCl (Dilaudid) 2 mg IV Q3H PRN PRN Reason: Pain , Severe (7-10) Last Admin: 01/02/19 09:37 Dose: 2 mg Documented by: Hydroxyurea (Hydrea) 500 mg PO BID [facility] Last Admin: 01/02/19 09:28 Dose: 500 mg Documented by: Dextrose/Sodium Chloride (D5ns 0.2%) 1,000 mls @ 250 mls/hr IV DIRECT [facility] Last Admin: 01/02/19 10:37 Dose: 250 mls/hr Documented by: Ceftriaxone Sodium (Rocephin/Ns 1 Gm/50 Ml) 1 gm in 50 mls @ 100 mls/hr IV Q24HR [facility]; Protocol Last Admin: 01/02/19 09:27 Dose: 100 mls/hr Documented by: Oxycodone/Acetaminophen (Percocet 5/325) 2 tab PO Q6H PRN PRN Reason: Pain, Moderate (4-6) Last Admin: 01/02/19 05:08 Dose: 2 tab Documented by: Review of Systems Constitutional: chronic pain Breasts: deferred Musculoskeletal: low back pain Exam - Constitutional Vitals: Temp Pulse Resp BP Pulse Ox 98.2 F 90 19 113/64 98 01/02/19 11:58 01/02/19 11:58 01/02/19 11:58 01/02/19 11:58 01/02/19 11:58 General appearance: Present: mild distress, well-nourished - EENT Eyes: Present: PERRL ENT: hearing intact, clear oral mucosa - Neck Neck: Present: supple, normal ROM - Respiratory Respiratory effort: normal Respiratory: bilateral: CTA - Cardiovascular Heart Sounds: Present: S1 & S2. Absent: rub, click - Extremities Extremities: pulses symmetrical, No edema Peripheral Pulses: within normal limits - Abdominal General gastrointestinal: Present: soft, non-tender, non-distended, normal bowel sounds Female genitourinary: Present: deferred - Rectal Rectal Exam: deferred - Integumentary Integumentary: Present: clear, warm, dry - Musculoskeletal Musculoskeletal: gait normal, strength equal bilaterally - Psychiatric Psychiatric: appropriate mood/affect, intact judgment & insight - Neurologic Neurologic: CNII-XII intact, moves all extremities Results - Labs CBC & Chem 7: 01/01/19 10:06 01/01/19 10:06 Assessment and Plan - Patient Problems (1) Leukocytosis Current Visit: Yes Status: Acute Qualifiers: Leukocytosis type: unspecified Qualified Code(s): D72.829 - Elevated white blood cell count, unspecified Plan to address problem: This is probably due to reactive process, Vs, Vs. Await culture results., and continue ABX. (2) Sickle cell anemia with crisis Current Visit: Yes Status: Chronic Plan to address problem: Pain control (3) Dehydration Current Visit: No Status: Acute Plan to address problem: HYDRATION.
[2019-01-02] MEDS: TORADOL IV PRN (19:33)
[2019-01-02] MEDS: OxyCONTIN PO SCH (21:18)
[2019-01-03] MEDS: DILAUDID IV PRN ×5 (01:33→23:45)
[2019-01-03] MEDS: BENADRYL IV PRN ×4 (01:33→23:45)
[2019-01-03] MEDS: D5NS 0.2% 1,000 ML IV SCH (03:28)
[2019-01-03 07:53] LABS: Basophils # (Auto) 0.1 K/mm3 (0.0-0.1); Basophils % (Auto) 0.5 % (0.0-1.8); Eosinophils # (Auto) 0.5 K/mm3 (0.0-0.4); Hematocrit 23.2 % (30.3-42.9); Hemoglobin 8.3 gm/dl (10.1-14.3); Lymphocytes # (Auto) 4.2 K/mm3 (1.2-5.4); Lymphocytes % (Auto) 27.6 % (13.4-35.0); Mean Corpuscular HGB Conc 36 % (30-34); Mean Corpuscular Volume 100 fl (79-97); Monocytes % (Auto) 12.8 % (0.0-7.3); Platelet Count 443 K/mm3 (140-440); Red Blood Count 2.32 M/mm3 (3.65-5.03)
[2019-01-03 07:54] LABS: Red Cell Distribution Width 22.5 % (13.2-15.2)
[2019-01-03 08:06] LABS: BUN/Creatinine Ratio 8; Blood Urea Nitrogen 4 mg/dL (7-17); Calcium 8.1 mg/dL (8.4-10.2); Hemolysis Index 8
[2019-01-03] MEDS: OxyCONTIN PO SCH ×2 (10:49→22:15)
[2019-01-03] MEDS: HEPARIN SUB-Q SCH ×2 (10:50→22:15)
[2019-01-03] MEDS: ROCEPHIN/NS 1 GM/50 ML 1 GM/50 ML BAG IV SCH (10:50)
[2019-01-03] MEDS: FOLVITE PO SCH (10:50)
[2019-01-03] MEDS: HYDREA PO SCH ×2 (10:50→22:15)
[2019-01-03] MEDS ORDERED: K-DUR PO ONE (23:01)
--- NOTE | 2019-01-03 23:05 | Progress Note ---
Assessment and Plan - Patient Problems (1) Leukocytosis Current Visit: Yes Status: Acute Qualifiers: Leukocytosis type: unspecified Qualified Code(s): D72.829 - Elevated white blood cell count, unspecified Plan to address problem: This is probably due to reactive process, Vs, Vs. Await culture results., and continue ABX. better. (2) Sickle cell anemia with crisis Current Visit: Yes Status: Chronic Plan to address problem: Pain control (3) Dehydration Current Visit: No Status: Acute Plan to address problem: HYDRATION. Subjective Date of service: 01/03/19 Interval history: Patient seen/examined, resting in bed, labs reviewed, k replaced. Objective - Constitutional Vitals: Vital Signs - 12hr 01/03/19 01/03/19 01/03/19 12:02 17:16 17:19 Temperature 99.3 F 99.0 F Pulse Rate 106 H 95 H Respiratory 19 19 Rate Blood Pressure 127/76 122/71 O2 Sat by Pulse 98 98 Oximetry General appearance: Present: mild distress, well-nourished - EENT Eyes: PERRL, EOM intact ENT: hearing intact, clear oral mucosa Ears: bilateral: normal - Neck Neck: supple, normal ROM - Respiratory Respiratory effort: normal Respiratory: bilateral: CTA - Breasts Breasts: deferred - Cardiovascular Rhythm: regular Heart Sounds: Present: S1 & S2. Absent: gallop, rub Extremities: pulses intact, No edema, normal color, Full ROM - Gastrointestinal General gastrointestinal: Present: soft, non-tender, non-distended, normal bowel sounds Rectal Exam: deferred - Genitourinary Female genitourinary: deferred - Integumentary Integumentary: clear, warm, dry - Musculoskeletal Musculoskeletal: 1, strength equal bilaterally - Neurologic Neurologic: moves all extremities - Psychiatric Psychiatric: memory intact, appropriate mood/affect, intact judgment & insight - Labs CBC & Chem 7: 01/03/19 07:29 01/03/19 07:29 Labs: Abnormal lab results 01/03/19 01/03/19 Range/Units 07:29 07:29 WBC 15.3 H (4.5-11.0) K/mm3 RBC 2.32 L (3.65-5.03) M/mm3 Hgb 8.3 L (10.1-14.3) gm/dl Hct 23.2 L (30.3-42.9) % MCV 100 H (79-97) fl MCH 36 H (28-32) pg MCHC 36 H (30-34) % RDW 22.5 H (13.2-15.2) % Plt Count 443 H (140-440) K/mm3 [place] % (Auto) 12.8 H (0.0-7.3) % [place] # 2.0 H (0.0-0.8) K/mm3 Eos # 0.5 H (0.0-0.4) K/mm3 Seg Neutrophils # 8.6 H (1.8-7.7) K/mm3 Percent Retic 15.05 H (0.78-2.58) % Sodium 135 L (137-145) mmol/L Potassium 3.1 L (3.6-5.0) mmol/L BUN 4 L (7-17) mg/dL Creatinine 0.5 L (0.7-1.2) mg/dL Glucose 113 H (65-100) mg/dL Calcium 8.1 L (8.4-10.2) mg/dL Medications & Allergies - Medications Allergies/Adverse Reactions: Allergies morphine Adverse Reaction (Verified 01/01/19 08:44) Itching Home Medications: Home Medications Medication Instructions Recorded Confirmed Last Taken Type Folic Acid [Folvite] 1 mg PO QDAY #30 tablet 05/08/18 01/01/19 Unknown Rx Hydroxyurea [Hydrea] 500 mg PO QDAY #30 capsule 05/08/18 01/01/19 Unknown Rx HYDROmorphone [Dilaudid] 2 mg PO Q8H 12/26/18 01/01/19 Unknown History Multivitamin [One Daily 1 each PO DAILY 12/26/18 01/01/19 Unknown History Multivitamin] Oxycodone HCl [oxyCONTIN ER] 30 mg PO BID 12/26/18 01/01/19 Unknown History Active Medications: Generic Name Dose Route Start Last Admin Trade Name Freq PRN Reason Stop Dose Admin Diphenhydramine HCl 25 mg 01/01/19 14:54 01/03/19 17:26 Benadryl IV 25 mg Q6H PRN Administration Itching Folic Acid 1 mg 01/02/19 10:00 01/03/19 10:50 Folvite PO 1 mg QDAY [facility] Administration Heparin Sodium (Porcine) 5,000 unit 01/01/19 22:00 01/03/19 22:15 Heparin SUB-Q 5,000 unit Q12HR [facility] Administration Hydromorphone HCl 2 mg 01/01/19 14:52 01/03/19 20:38 Dilaudid IV 2 mg Q3H PRN Administration Pain , Severe (7-10) Hydroxyurea 500 mg 01/01/19 22:00 01/03/19 22:15 Hydrea PO 500 mg BID [facility] Administration Dextrose/Sodium Chloride 1,000 mls @ 250 mls/hr 01/01/19 10:00 01/03/19 03:28 D5ns 0.2% IV 250 mls/hr DIRECT [facility] Administration Ceftriaxone Sodium 1 gm in 50 mls @ 100 mls/hr 01/02/19 10:00 01/03/19 10:50 Rocephin/Ns 1 Gm/50 Ml IV 100 mls/hr Q24HR [facility] Administration Protocol Ketorolac Tromethamine 30 mg 01/02/19 14:26 01/02/19 19:33 Toradol IV 01/07/19 14:25 30 mg Q6H PRN Administration Pain, Moderate (4-6) Oxycodone HCl 20 mg 01/02/19 22:00 01/03/19 22:15 Oxycontin PO 20 mg Q12HR [facility] Administration
[2019-01-04] MEDS: D5NS 0.2% 1,000 ML IV SCH ×5 (06:00→22:00)
[2019-01-04 06:17] LABS: Hemoglobin 7.7 gm/dl (10.1-14.3); Mean Corpuscular HGB Conc 35 % (30-34); Mean Corpuscular Volume 101 fl (79-97); Platelet Count 423 K/mm3 (140-440); Red Blood Count 2.18 M/mm3 (3.65-5.03)
[2019-01-04 06:18] LABS: Red Cell Distribution Width 21.7 % (13.2-15.2)
[2019-01-04 06:37] LABS: BUN/Creatinine Ratio 8; Blood Urea Nitrogen 4 mg/dL (7-17); Calcium 8.6 mg/dL (8.4-10.2); Hemolysis Index 8
[2019-01-04] MEDS: HEPARIN SUB-Q SCH ×2 (09:55→21:53)
[2019-01-04] MEDS: BENADRYL IV PRN ×3 (09:56→21:53)
[2019-01-04] MEDS: DILAUDID IV PRN ×3 (09:57→21:53)
[2019-01-04] MEDS: OxyCONTIN PO SCH ×2 (09:57→21:53)
[2019-01-04] MEDS: FOLVITE PO SCH (09:57)
[2019-01-04] MEDS: HYDREA PO SCH ×2 (09:57→21:54)
[2019-01-04] MEDS: ROCEPHIN/NS 1 GM/50 ML 1 GM/50 ML BAG IV SCH (09:58)
--- NOTE | 2019-01-04 22:35 | Progress Note ---
Assessment and Plan - Patient Problems (1) Leukocytosis Current Visit: Yes Status: Acute Qualifiers: Leukocytosis type: unspecified Qualified Code(s): D72.829 - Elevated white blood cell count, unspecified Plan to address problem: This is probably due to reactive process, Vs, Vs. Await culture results., and continue ABX. better. (2) Sickle cell anemia with crisis Current Visit: Yes Status: Chronic Plan to address problem: Pain control (3) Dehydration Current Visit: No Status: Acute Plan to address problem: HYDRATION. Subjective Date of service: 01/04/19 Interval history: Patient seen/examined, resting in bed, labs reviewed, k replaced. pATIENT SEEN/EXAMINED, RESTING IN BED, LATEST LABS REVIEWED, case d/w patient. Will plan discharge as well. Objective - Constitutional Vitals: Vital Signs - 12hr 01/04/19 01/04/19 01/04/19 11:00 11:31 16:32 Temperature 98.8 F 98.9 F Pulse Rate 99 H 91 H Respiratory 16 16 Rate Blood Pressure 118/63 124/73 O2 Sat by Pulse 96 97 97 Oximetry General appearance: Present: mild distress, well-nourished - EENT Eyes: PERRL, EOM intact ENT: hearing intact, clear oral mucosa Ears: bilateral: normal - Neck Neck: supple, normal ROM - Respiratory Respiratory effort: normal Respiratory: bilateral: CTA - Breasts Breasts: deferred - Cardiovascular Rhythm: regular Heart Sounds: Present: S1 & S2. Absent: gallop, rub Extremities: pulses intact, No edema, normal color, Full ROM - Gastrointestinal General gastrointestinal: Present: soft, non-tender, non-distended, normal bowel sounds Rectal Exam: deferred - Genitourinary Female genitourinary: deferred - Integumentary Integumentary: clear, warm, dry - Musculoskeletal Musculoskeletal: 1, strength equal bilaterally - Neurologic Neurologic: moves all extremities - Psychiatric Psychiatric: memory intact, appropriate mood/affect, intact judgment & insight - Labs CBC & Chem 7: 01/04/19 05:30 01/04/19 05:30 Labs: Abnormal lab results 01/04/19 01/04/19 Range/Units 05:30 05:30 WBC 15.7 H (4.5-11.0) K/mm3 RBC 2.18 L (3.65-5.03) M/mm3 Hgb 7.7 L (10.1-14.3) gm/dl Hct 22.0 L (30.3-42.9) % MCV 101 H (79-97) fl MCH 35 H (28-32) pg MCHC 35 H (30-34) % RDW 21.7 H (13.2-15.2) % Chloride 108.2 H (98-107) mmol/L BUN 4 L (7-17) mg/dL Creatinine 0.5 L (0.7-1.2) mg/dL Medications & Allergies - Medications Allergies/Adverse Reactions: Allergies morphine Adverse Reaction (Verified 01/01/19 08:44) Itching Home Medications: Home Medications Medication Instructions Recorded Confirmed Last Taken Type Folic Acid [Folvite] 1 mg PO QDAY #30 tablet 05/08/18 01/01/19 Unknown Rx Hydroxyurea [Hydrea] 500 mg PO QDAY #30 capsule 05/08/18 01/01/19 Unknown Rx HYDROmorphone [Dilaudid] 2 mg PO Q8H 12/26/18 01/01/19 Unknown History Multivitamin [One Daily 1 each PO DAILY 12/26/18 01/01/19 Unknown History Multivitamin] Oxycodone HCl [oxyCONTIN ER] 30 mg PO BID 12/26/18 01/01/19 Unknown History Active Medications: Generic Name Dose Route Start Last Admin Trade Name Freq PRN Reason Stop Dose Admin Diphenhydramine HCl 25 mg 01/01/19 14:54 01/04/19 21:53 Benadryl IV 25 mg Q6H PRN Administration Itching Folic Acid 1 mg 01/02/19 10:00 01/04/19 09:57 Folvite PO 1 mg QDAY [facility] Administration Heparin Sodium (Porcine) 5,000 unit 01/01/19 22:00 01/04/19 21:53 Heparin SUB-Q 5,000 unit Q12HR [facility] Administration Hydromorphone HCl 2 mg 01/01/19 14:52 01/04/19 21:53 Dilaudid IV 2 mg Q3H PRN Administration Pain , Severe (7-10) Hydroxyurea 500 mg 01/01/19 22:00 01/04/19 21:54 Hydrea PO 500 mg BID [facility] Administration Dextrose/Sodium Chloride 1,000 mls @ 250 mls/hr 01/01/19 10:00 01/04/19 22:00 D5ns 0.2% IV 250 mls/hr DIRECT [facility] Administration Ceftriaxone Sodium 1 gm in 50 mls @ 100 mls/hr 01/02/19 10:00 01/04/19 09:58 Rocephin/Ns 1 Gm/50 Ml IV 100 mls/hr Q24HR [facility] Administration Protocol Ketorolac Tromethamine 30 mg 01/02/19 14:26 01/02/19 19:33 Toradol IV 01/07/19 14:25 30 mg Q6H PRN Administration Pain, Moderate (4-6) Oxycodone HCl 20 mg 01/02/19 22:00 01/04/19 21:53 Oxycontin PO 20 mg Q12HR [facility] Administration
[2019-01-05] MEDS: DILAUDID IV PRN ×3 (04:26→18:21)
[2019-01-05] MEDS: BENADRYL IV PRN ×3 (04:26→18:20)
[2019-01-05] MEDS: D5NS 0.2% 1,000 ML IV SCH ×4 (06:21→18:20)
[2019-01-05] MEDS: HYDREA PO SCH ×2 (10:00→21:29)
[2019-01-05] MEDS: ROCEPHIN/NS 1 GM/50 ML 1 GM/50 ML BAG IV SCH (10:00)
[2019-01-05] MEDS: FOLVITE PO SCH (10:01)
[2019-01-05] MEDS: HEPARIN SUB-Q SCH ×2 (10:03→21:29)
[2019-01-05] MEDS: OxyCONTIN PO SCH ×2 (10:03→21:29)
--- NOTE | 2019-01-05 20:02 | Discharge Summary ---
Providers - Providers Date of Admission: 01/01/19 12:30 Date of discharge: 01/06/19 Attending physician: SALOME RAINES Primary care physician: SALOME RAINES Hospitalization Reason for admission: SCD/Pain crisis. Condition: Stable Hospital course: Patient presented to the Er with CC as above, and admitted for sxs management, and control. She was treated with pain meds, hydration, . She is seen today, records reviewed, pain rated at 5/10, and much better.will treat for one more day, and D/c home tomorrow. Disposition: DC- TO HOME OR SELFCARE - Discharge Diagnoses (1) Leukocytosis Status: Chronic Qualifiers: Leukocytosis type: unspecified Qualified Code(s): D72.829 - Elevated white blood cell count, unspecified (2) Sickle cell anemia with crisis Status: Chronic (3) Dehydration Status: Resolved Core Measure Documentation - Palliative Care Palliative Care/ Comfort Measures: Not Applicable - Core Measures Any of the following diagnoses?: none Exam - Constitutional Vitals: Temp Pulse Resp BP Pulse Ox 98.1 F 96 H 16 114/52 95 01/05/19 16:57 01/05/19 16:57 01/05/19 16:57 01/05/19 16:57 01/05/19 16:57 General appearance: Present: mild distress, well-nourished - EENT Eyes: Present: PERRL ENT: hearing intact, clear oral mucosa - Neck Neck: Present: supple, normal ROM - Respiratory Respiratory effort: normal Respiratory: bilateral: CTA - Cardiovascular Heart Sounds: Present: S1 & S2. Absent: rub, click - Extremities Extremities: pulses symmetrical, No edema Peripheral Pulses: within normal limits - Abdominal General gastrointestinal: Present: soft, non-tender, non-distended, normal bowel sounds Female genitourinary: Present: deferred - Rectal Rectal Exam: deferred - Integumentary Integumentary: Present: clear, warm, dry - Musculoskeletal Musculoskeletal: gait normal, strength equal bilaterally - Psychiatric Psychiatric: appropriate mood/affect, intact judgment & insight - Neurologic Neurologic: CNII-XII intact, moves all extremities Plan Activity: no restrictions Diet: regular Follow up with: PRIMARY CARE, [Referring] - 3-5 Days
[2019-01-06] MEDS: BENADRYL IV PRN (02:01)
[2019-01-06] MEDS: DILAUDID IV PRN (02:01)
[2019-01-06] MEDS: TORADOL IV PRN (04:28)
[2019-01-06 06:10] VITALS: BP 126/72
[2019-01-06] MEDS: HYDREA PO SCH (09:21)
[2019-01-06] MEDS: FOLVITE PO SCH (09:22)
[2019-01-06] MEDS: OxyCONTIN PO SCH (09:22)
[2019-01-06] MEDS: HEPARIN SUB-Q SCH (09:22)
[2019-01-06] MEDS: ROCEPHIN/NS 1 GM/50 ML 1 GM/50 ML BAG IV SCH (09:24)
== END 2019-01-06 11:40 | disposition home or self-care (01) | DRG 812 ==
LOC: ED 08:36 → 3A 12:30
PROVIDERS: ADMIT Internal Medicine Hematology & Oncology; ATTEND Internal Medicine Hematology & Oncology
DX: D57.00 Hb-SS disease with crisis, unspecified (principal); D72.829 Elevated white blood cell count, unspecified; J45.909 Unspecified asthma, uncomplicated; E86.0 Dehydration; Z88.5 Allergy status to narcotic agent
CPT/HCPCS: 36415; 71045; 80048; 80076; 82140; 85007; 85025; 85027; 85045; 87040; 87116; 93970; G0378; J0696; J1170; J1200; J1644; J1885; J2310; J2405

== ENCOUNTER 2019-04-17 10:54 | Emergency (ER) | payer BC ==
--- NOTE | 2019-04-17 11:23 | Emergency Department Report ---
Blank Doc - Documentation Documentation: 29-year-old female that presents with generalized body aches with history of s ickle cell anemia. This initial assessment/diagnostic orders/clinical plan/treatment(s) is/are subject to change based on patient's health status, clinical progression and re- assessment by fellow clinical providers in the ED. Further treatment and workup at subsequent clinical providers discretion. Patient/guardians urged not to elope from the ED as their condition may be serious if not clinically assessed and managed. Initial orders include: 1- Patient sent to MAIN for further evaluation and treatment 2- labs
[2019-04-17 12:10] LABS: Basophils # (Auto) 0.2 K/mm3 (0.0-0.1); Basophils % (Auto) 1.1 % (0.0-1.8); Eosinophils # (Auto) 0.3 K/mm3 (0.0-0.4); Eosinophils % (Auto) 1.8 % (0.0-4.3); Hematocrit 29.6 % (30.3-42.9); Hemoglobin 10.5 gm/dl (10.1-14.3); Lymphocytes # (Auto) 3.6 K/mm3 (1.2-5.4); Lymphocytes % (Auto) 24.1 % (13.4-35.0); Mean Corpuscular HGB Conc 36 % (30-34); Mean Corpuscular Volume 98 fl (79-97); Monocytes # (Auto) 1.7 K/mm3 (0.0-0.8); Monocytes % (Auto) 11.4 % (0.0-7.3); Platelet Count 417 K/mm3 (140-440); Red Blood Count 3.01 M/mm3 (3.65-5.03)
[2019-04-17 12:14] LABS: Red Cell Distribution Width 20.4 % (13.2-15.2)
[2019-04-17 12:15] LABS: Alanine Aminotransferase 34 units/L (7-56); Albumin 4.7 g/dL (3.9-5); BUN/Creatinine Ratio 17; Blood Urea Nitrogen 10 mg/dL (7-17); Calcium 9.6 mg/dL (8.4-10.2); Hemolysis Index 30
[2019-04-17 14:55] VITALS: BP 138/78
[2019-04-17] MEDS ORDERED: GLUCAGEN ONE (15:57)
[2019-04-17] MEDS ORDERED: D50W (25GM) Syringe IV ONE (15:58)
== END 2019-04-17 17:00 | disposition left against medical advice (07) ==
LOC: ED 10:54
DX: R52 Pain, unspecified (principal); Z53.21 Procedure and treatment not carried out due to patient leaving prior to being seen by health care provider
CPT/HCPCS: 36415; 80053; 84703; 85025; 85045; J1610

== ENCOUNTER 2019-11-13 19:33 | Emergency (ER) | payer BC ==
[2019-11-13 22:49] LABS: Basophils # (Auto) 0.1 K/mm3 (0.0-0.1); Basophils % (Auto) 0.5 % (0.0-1.8); Eosinophils # (Auto) 0.4 K/mm3 (0.0-0.4); Eosinophils % (Auto) 2.7 % (0.0-4.3); Hematocrit 28.6 % (30.3-42.9); Hemoglobin 10.4 gm/dl (10.1-14.3); Lymphocytes # (Auto) 4.3 K/mm3 (1.2-5.4); Lymphocytes % (Auto) 27.4 % (13.4-35.0); Mean Corpuscular HGB Conc 36 % (30-34); Mean Corpuscular Volume 96 fl (79-97); Monocytes # (Auto) 1.8 K/mm3 (0.0-0.8); Monocytes % (Auto) 11.2 % (0.0-7.3); Platelet Count 472 K/mm3 (140-440); Red Cell Distribution Width 23.1 % (13.2-15.2)
[2019-11-13 23:11] LABS: Alanine Aminotransferase 32 units/L (7-56); Albumin 4.6 g/dL (3.9-5); BUN/Creatinine Ratio 18; Blood Urea Nitrogen 7 mg/dL (7-17); Calcium 9.7 mg/dL (8.4-10.2); Hemolysis Index 60
--- NOTE | 2019-11-13 23:15 | XRay Report ---
CHEST 1 VIEW INDICATION / CLINICAL INFORMATION: MAIN: Shortness of breath; Patient c/o shortness of breath, vomiting and abodominal pain 03/18. Report s this all started this morning. . COMPARISON: 01/01/2019 FINDINGS: SUPPORT DEVICES: None. HEART / MEDIASTINUM: No significant abnormality. LUNGS / PLEURA: No significant pulmonary or pleural abnormality. No pneumothorax. ADDITIONAL FINDINGS: No significant additional findings. IMPRESSION: 1. No acute findings or change in the appearance of the chest. Signer Name: Ronen Goldstein MD Signed: 11/13/2019 11:10 PM Workstation Name: [id number]
[2019-11-13] MEDS ORDERED: D5W/0.2% NACL 1,000 ML IV SCH (23:45)
[2019-11-13 23:51] LABS: Bacteria,Urine 1+ /HPF (Negative); Bilirubin,Urine NEG (Negative); Blood,Urine NEG (Negative); Color,Urine Amber (Yellow); Mucus,Urine FEW /HPF
[2019-11-13] MEDS ORDERED: ONDANSETRON 4 MG/2 ML INJ IV ONE (23:55)
[2019-11-13] MEDS ORDERED: HYDROmorphone 1 MG/1 ML INJ IV ONE (23:55)
[2019-11-13] MEDS ORDERED: diphenhydrAMINE 50 MG/ML VIAL IV ONE (23:56)
--- NOTE | 2019-11-14 | Emergency Department Report ---
ED Abdominal Pain HPI - General Chief Complaint: Abdominal Pain Stated Complaint: SOB/EMESIS/ABD PAIN Time Seen by Provider: 11/13/19 23:54 Source: patient Mode of arrival: Ambulatory Limitations: No Limitations - History of Present Illness Initial Comments: This is a 29-year-old female with history of sickle cell disease, gastric ulcers, asthma who presents with diffuse abdominal pain shortness of breath vomiting since this morning. Crampy diffuse abdominal pain 8/10. Denies fever. Denies chest pain. Denies sick contacts. Last ED visit in April. She does not have any home medication for pain relief. She states that she was unable to afford outpatient doctors visit. Personal physician Dr. David TOTH Complaint: abdominal pain -: Gradual, This morning Location: diffuse Radiation: none Migration to: no migration Severity: severe Severity scale (0 -10): 8 Quality: aching Consistency: constant Improves With: nothing Worsens With: nothing Associated Symptoms: vomiting, other (Shortness of breath) - Related Data Home Medications Medication Instructions Recorded Confirmed Last Taken HYDROmorphone [Dilaudid] 2 mg PO Q8H 12/26/18 01/01/19 Unknown Multivitamin [One Daily 1 each PO DAILY 12/26/18 01/01/19 Unknown Multivitamin] Oxycodone HCl [oxyCONTIN ER] 30 mg PO BID 12/26/18 01/01/19 Unknown Previous Rx's Medication Instructions Recorded Last Taken Type Folic Acid [Folvite] 1 mg PO QDAY #30 tablet 05/08/18 Unknown Rx Hydroxyurea [Hydrea] 500 mg PO QDAY #30 capsule 05/08/18 Unknown Rx oxyCODONE /ACETAMINOPHEN [Percocet 1 tab PO Q6HR PRN #20 tablet 11/14/19 Unknown Rx 5/325] Allergies Allergy/AdvReac Type Severity Reaction Status Date / Time morphine AdvReac Itching Verified 01/01/19 08:44 ED Review of Systems ROS: Stated complaint: SOB/EMESIS/ABD PAIN Other details as noted in HPI Comment: All other systems reviewed and negative Constitutional: denies: chills, fever, malaise Respiratory: shortness of breath. denies: cough Cardiovascular: denies: chest pain Gastrointestinal: abdominal pain, nausea, vomiting ED Past Medical Hx - Past Medical History Previous Medical History?: Yes Hx Deep Vein Thrombosis: No Hx Pulmonary Embolism: No Hx Sickle Cell Disease: Yes Hx Asthma: Yes Hx COPD: No Hx HIV: No Additional medical history: Gastric ulcers - Surgical History Past Surgical History?: Yes Hx Cholecystectomy: Yes (05/2012) - Social History Smoking Status: Never Smoker - Medications Home Medications: Home Medications Medication Instructions Recorded Confirmed Last Taken Type Folic Acid [Folvite] 1 mg PO QDAY #30 tablet 05/08/18 01/01/19 Unknown Rx Hydroxyurea [Hydrea] 500 mg PO QDAY #30 capsule 05/08/18 01/01/19 Unknown Rx HYDROmorphone [Dilaudid] 2 mg PO Q8H 12/26/18 01/01/19 Unknown History Multivitamin [One Daily 1 each PO DAILY 12/26/18 01/01/19 Unknown History Multivitamin] Oxycodone HCl [oxyCONTIN ER] 30 mg PO BID 12/26/18 01/01/19 Unknown History oxyCODONE /ACETAMINOPHEN [Percocet 1 tab PO Q6HR PRN #20 tablet 11/14/19 Unknown Rx 5/325] ED Physical Exam - General Limitations: No Limitations General appearance: alert, in no apparent distress - Head Head exam: Present: atraumatic, normocephalic - Eye Eye exam: Present: normal appearance - ENT ENT exam: Present: mucous membranes moist - Neck Neck exam: Present: normal inspection, full ROM - Respiratory Respiratory exam: Present: normal lung sounds bilaterally. Absent: respiratory distress, wheezes, rales, rhonchi - Cardiovascular Cardiovascular Exam: Present: regular rate, normal rhythm, normal heart sounds. Absent: systolic murmur, diastolic murmur, rubs, gallop - GI/Abdominal GI/Abdominal exam: Present: soft, normal bowel sounds. Absent: distended, te nderness, guarding, rebound - Extremities Exam Extremities exam: Present: normal inspection - Neurological Exam Neurological exam: Present: alert, oriented X3 - Psychiatric Psychiatric exam: Present: normal affect, normal mood - Skin Skin exam: Present: warm, dry, intact, normal color. Absent: rash ED Course Vital Signs 11/13/19 19:44 Temperature 97.9 F Pulse Rate 108 H Respiratory 20 Rate Blood Pressure 122/82 O2 Sat by Pulse 96 Oximetry ED Medical Decision Making - Lab Data Result diagrams: 11/13/19 22:34 11/13/19 22:34 - Radiology Data Radiology results: report reviewed CT chest: No acute process no interstitial lung disease CT abdomen pelvis: 2.9 cm left ovarian cyst without acute inflammatory changes in the abdomen pelvis - Medical Decision Making This is a 29-year-old female with history of sickle cell disease who presents with shortness of breath abdomen pain. No indication of acute lung process, pulmonary embolism, acute inflammatory intra-abdominal process. I do not suspect that ovarian cyst is the cause of her pain. She does have a gastric ulcer which may be the contributing cause. She has chronic leukocytosis related to sickle cell disease no fever Prescribed Percocet for pain control. Recommended follow-up with her primary care physician. Critical care attestation.: If time is entered above; I have spent that time in minutes in the direct care of this critically ill patient, excluding procedure time. ED Disposition Clinical Impression: Sickle cell anemia, Abdominal pain Disposition: DC-01 TO HOME OR SELFCARE Is pt being admited?: No Does the pt Need Aspirin: No Condition: Stable Instructions: Abdominal Pain (ED) Prescriptions: oxyCODONE /ACETAMINOPHEN [Percocet 5/325] 1 tab PO Q6HR PRN #20 tablet PRN Reason: Pain Referrals: SALOME RAINES DO [Primary Care Provider] - 3-5 Days
[2019-11-14] MEDS ORDERED: HYDROmorphone 1 MG/1 ML INJ IV ONE ×2 (00:40→01:27)
--- NOTE | 2019-11-14 01:49 | Cat Scan Report ---
CT abdomen pelvis w con, CT chest w con INDICATION / CLINICAL INFORMATION: Pt complains of abdominal pain, leukocytosis Omnipaque 300 / 100ml's was used for this exam.. TECHNIQUE: All CT scans at this location are performed using CT dose reduction for ALARA by means of automated e xposure control. COMPARISON: Abdominal/pelvic CT scan 12/26/2018 FINDINGS: Chest: No acute interstitial or airspace lung disease. No mediastinal adenopathy or pericardial effusion. No enlarged axillary lymph nodes. ABDOMEN: No change in position of the biliary stent. Again noted is pneumobilia. No focal hepatic lesions. Spleen is small and densely calcified. The pancreas, kidneys and adrenal glands are normal. No retroperitoneal adenopathy. No small bowel distention. There are stable small mesenteric lymph nodes present in the root of the small bowel mesentery and th e right lower quadrant. Pelvis: A 2.9 cm left ovarian cyst is identified. Line there are no inflammatory changes or dependent fluid c ollections in the pelvis. The appendix is normal. No skeletal abnormality. IMPRESSION: 1. 2.9 cm left ovarian cyst. 2. Biliary stent remains unchanged in position. 3. Stable small mesenteric lymph nodes. Signer Name: Ronen Goldstein MD Signed: 11/14/2019 1:45 AM Workstation Name: [id number]
[2019-11-14 02:24] VITALS: BP 122/64
== END 2019-11-14 02:37 | disposition home or self-care (01) ==
LOC: ED 19:33
DX: D57.80 Other sickle-cell disorders without crisis (principal); J45.909 Unspecified asthma, uncomplicated; Z90.49 Acquired absence of other specified parts of digestive tract; Z79.899 Other long term (current) drug therapy
CPT/HCPCS: 36415; 71046; 71260; 74177; 80053; 81001; 83690; 84703; 85025; 85045; 96361; 96374; 96375; 96376; 99285; J1170; J1200; J2405; Q9967

== ENCOUNTER 2020-10-07 16:11 | Emergency (ER) | payer BC, OTHER ==
--- NOTE | 2020-10-07 17:04 | Event Note ---
ED Screening Note ED Screening Note: 30-year-old female that presents with bilateral upper are pains and generalized body aches. Patient stated she is currently on sickle cell crisis. Patient stated taken medication as prescribed per PCP and symptoms worsen. This initial assessment/diagnostic orders/clinical plan/treatment(s) is/are subject to change based on patients health status, clinical progression and re- assessment by fellow clinical providers in the ED. Further treatment and workup at subsequent clinical providers discretion. Patient/guardian urged not to elope from the ED as their condition may be serious if not clinically assessed and managed. Initial orders include: labs UA
[2020-10-07 17:28] LABS: Hematocrit 25.7 % (30.3-42.9); Hemoglobin 9.1 gm/dl (10.1-14.3); Mean Corpuscular HGB Conc 35 % (30-34); Mean Corpuscular Volume 92 fl (79-97); Platelet Count 435 K/mm3 (140-440)
[2020-10-07 17:30] LABS: Red Cell Distribution Width 23.4 % (13.2-15.2)
[2020-10-07 17:49] LABS: Alanine Aminotransferase 23 units/L (7-56); Albumin 4.4 g/dL (3.9-5); Blood Urea Nitrogen 10 mg/dL (7-17); Hemolysis Index 27
[2020-10-07 17:56] LABS: BUN/Creatinine Ratio 17
[2020-10-07 19:43] LABS: Total Cells Counted 100
[2020-10-07] MEDS ORDERED: HYDROmorphone 1 MG/1 ML INJ IV ONE ×2 (19:54→21:41)
[2020-10-07] MEDS ORDERED: ONDANSETRON 4 MG/2 ML INJ IV ONE (19:54)
[2020-10-07] MEDS ORDERED: KETOROLAC 30 MG/1 ML INJ IV ONE (19:55)
[2020-10-07] MEDS ORDERED: diphenhydrAMINE 50 MG/ML VIAL IV ONE (19:55)
--- NOTE | 2020-10-07 19:58 | Emergency Department Report ---
HPI - General Chief Complaint: Sickle Cell Crisis Time Seen by Provider: 10/07/20 17:00 - HPI HPI: Room 35 The patient is a 30-year-old female present with a chief complaint of sickle cell pain crisis. The patient states for the past 3 to 4 days she has had pain in bilateral shoulders and bilateral shins. Patient states the pain is consistent with her previous sickle cell pain crises. Patient states she takes hydrocodone at home and it helps the pain momentarily but when she wakes back up the pain is still persistent. Patient denies any history of fever. The patient gives her pain a score of 9/10 ED Past Medical Hx - Past Medical History Hx Sickle Cell Disease: Yes Hx Asthma: Yes Additional medical history: Gastric ulcers - Surgical History Hx Cholecystectomy: Yes (05/2012) - Family History Family history: no significant - Social History Smoking Status: Never Smoker Substance Use Type: None (Denies illicit drug use) - Medications Home Medications: Home Medications Medication Instructions Recorded Confirmed Last Taken Type Folic Acid [Folvite] 1 mg PO QDAY #30 tablet 05/08/18 01/01/19 Unknown Rx Hydroxyurea [Hydrea] 500 mg PO QDAY #30 capsule 05/08/18 01/01/19 Unknown Rx HYDROmorphone [Dilaudid] 2 mg PO Q8H 12/26/18 01/01/19 Unknown History Multivitamin [One Daily 1 each PO DAILY 12/26/18 01/01/19 Unknown History Multivitamin] Oxycodone HCl [oxyCONTIN ER] 30 mg PO BID 12/26/18 01/01/19 Unknown History oxyCODONE /ACETAMINOPHEN [Percocet 1 tab PO Q6HR PRN #20 tablet 11/14/19 Unknown Rx 5/325] Ibuprofen [Motrin 800 MG tab] 800 mg PO Q8HR PRN #20 tablet 10/07/20 Unknown Rx ED Review of Systems ROS: Stated complaint: SICKLE CELL CRISIS Other details as noted in HPI Constitutional: denies: fever Eyes: denies: eye pain ENT: denies: throat pain Respiratory: no symptoms reported Cardiovascular: denies: chest pain Endocrine: no symptoms reported Gastrointestinal: denies: abdominal pain Genitourinary: denies: dysuria Musculoskeletal: denies: back pain Neurological: denies: headache Hematological/Lymphatic: other (Sickle cell pain crisis) Physical Exam - Physical Exam Vital Signs: Vital Signs 10/07/20 16:53 Temperature 99.7 F H Pulse Rate 99 H Respiratory 20 Rate Blood Pressure 127/76 O2 Sat by Pulse 96 Oximetry Physical Exam: GENERAL: The patient is well-developed well-nourished female standing in room appearing to be in mild discomfort [] HEENT: Normocephalic. Atraumatic. Extraocular motions are intact. Patient has moist mucous membranes. NECK: Supple. Trachea midline CHEST/LUNGS: Clear to auscultation. There is no respiratory distress noted. HEART/CARDIOVASCULAR: Regular. There is no tachycardia. There is no gallop rub or murmur. ABDOMEN: Abdomen is soft, nontender. Patient has normal bowel sounds. There is no abdominal distention. SKIN: There is no rash. There is no edema. There is no diaphoresis. NEURO: The patient is awake, alert, and oriented. The patient is cooperative. The patient has no focal neurologic deficits. The patient has normal speech and gait. MUSCULOSKELETAL: There is no evidence of acute injury. ED Course Vital Signs 10/07/20 16:53 Temperature 99.7 F H Pulse Rate 99 H Respiratory 20 Rate Blood Pressure 127/76 O2 Sat by Pulse 96 Oximetry - Reevaluation(s) Reevaluation #1: 10/07/20 22:50 Patient states she is now comfortable after 2 rounds of pain medication. Patient states she has hydrocodone at home ED Medical Decision Making - Lab Data Result diagrams: 10/07/20 17:01 10/07/20 17:01 - Differential Diagnosis Sickle cell pain crisis Critical care attestation.: If time is entered above; I have spent that time in minutes in the direct care of this critically ill patient, excluding procedure time. ED Disposition Clinical Impression: Sickle cell pain crisis Disposition: DC-01 TO HOME OR SELFCARE Is pt being admited?: No Does the pt Need Aspirin: No Condition: Stable Additional Instructions: Return to the emergency department should you develop worsening symptoms, inability to tolerate food or liquids, high fever or any other concerns Prescriptions: Ibuprofen [Motrin 800 MG tab] 800 mg PO Q8HR PRN #20 tablet PRN Reason: Pain, Moderate (4-6) Referrals: SALOME RAINES DO [Primary Care Provider] - 3-5 Days Time of Disposition: 22:51
[2020-10-07] MEDS ORDERED: D5W/0.2% NACL 1,000 ML IV SCH (20:00)
[2020-10-07 20:10] LABS: Sickle Cells 2+
[2020-10-07 20:14] LABS: Ovalocytes Few
[2020-10-07 20:22] LABS: Bilirubin,Urine NEG (Negative); Blood,Urine NEG (Negative); Color,Urine Yellow (Yellow); Protein,Urine <15 mg/dL mg/dL (Negative)
[2020-10-07 20:26] LABS: Large Platelets Rare
[2020-10-07 20:41] LABS: Platelet Estimate Consistent w Auto
[2020-10-07 20:42] LABS: Anisocytosis 2+
[2020-10-07 20:44] LABS: Poikilocytosis 2+
[2020-10-07 22:37] VITALS: BP 104/53
== END 2020-10-07 23:20 | disposition home or self-care (01) ==
LOC: ED 16:11
DX: D57.00 Hb-SS disease with crisis, unspecified (principal); J45.909 Unspecified asthma, uncomplicated; Z90.49 Acquired absence of other specified parts of digestive tract; Z79.1 Long term (current) use of non-steroidal anti-inflammatories (NSAID); Z79.899 Other long term (current) drug therapy; Z88.8 Allergy status to other drugs, medicaments and biological substances
CPT/HCPCS: 36415; 80053; 81001; 84703; 85007; 85025; 85045; 96361; 96374; 96375; 96376; 99283; J1170; J1200; J1885; J2405

== ENCOUNTER 2020-10-09 20:21 | Emergency (ER) | payer OTHER ==
[2020-10-09 21:16] LABS: Hematocrit 25.1 % (30.3-42.9); Hemoglobin 9.2 gm/dl (10.1-14.3); Mean Corpuscular HGB Conc 36 % (30-34); Mean Corpuscular Volume 91 fl (79-97); Platelet Count 453 K/mm3 (140-440); Red Blood Count 2.75 M/mm3 (3.65-5.03)
[2020-10-09 21:21] LABS: Red Cell Distribution Width 25.6 % (13.2-15.2)
--- NOTE | 2020-10-09 21:29 | Event Note ---
ED Screening Note ED Screening Note: pt presents for sickle cell pain that began this morning she states she "has pain all over" pt states she also has n/v and upper abd discomfort no diarrhea or urinary symptoms takes ibuprofen and hydrocodone at home her doctor is dr herbert This initial assessment/diagnostic orders/clinical plan/treatment(s) is/are subject to change based on patients health status, clinical progression and re- assessment by fellow clinical providers in the ED. Further treatment and workup at subsequent clinical providers discretion. Patient/guardian urged not to elope from the ED as their condition may be serious if not clinically assessed and managed. Initial orders include: labs, ua
[2020-10-09 21:38] LABS: Alanine Aminotransferase 20 units/L (7-56); Albumin 4.3 g/dL (3.9-5); Blood Urea Nitrogen 7 mg/dL (7-17); Calcium 9.1 mg/dL (8.4-10.2); Hemolysis Index 88
[2020-10-09 21:42] LABS: BUN/Creatinine Ratio 14
[2020-10-09 22:02] LABS: Total Cells Counted 100
[2020-10-09 22:03] LABS: Anisocytosis 2+; Hypochromasia Rare; Poikilocytosis 2+; Schistocytes Rare; Sickle Cells 2+; Spherocytes Rare
[2020-10-09 22:04] LABS: Large Platelets Rare; Ovalocytes Few
[2020-10-09 22:41] LABS: Bilirubin,Urine NEG (Negative); Blood,Urine NEG (Negative); Color,Urine Yellow (Yellow); Protein,Urine <15 mg/dL mg/dL (Negative)
[2020-10-09 22:52] LABS: HCG Qualitative,Urine Negative (Negative)
[2020-10-09] MEDS ORDERED: diphenhydrAMINE 50 MG/ML VIAL IV ONE (23:42)
[2020-10-09] MEDS ORDERED: HYDROmorphone 2 MG/1 ML INJ IV ONE (23:42)
[2020-10-09] MEDS ORDERED: ONDANSETRON 4 MG/2 ML INJ IV ONE (23:42)
[2020-10-09] MEDS ORDERED: SODIUM CHLORIDE 0.9% 1000 ML 1,000 ML IV ONE (23:43)
--- NOTE | 2020-10-09 23:46 | Emergency Department Report ---
ED General Adult HPI - General Chief complaint: Sickle Cell Crisis Stated complaint: SICKLE CELL PAIN PUI?: No Time Seen by Provider: 10/09/20 21:26 Source: patient Mode of arrival: Ambulatory Limitations: No Limitations - History of Present Illness Initial comments: Patient is a 30-year-old female that presents emergency room with complaints of sickle cell crisis. Patient complaining of back pain and upper extremity and lower extremity pain. Patient states she feels like she is in sickle cell crisis. Patient is complaining of nausea vomiting secondary to the pain. Patient denies abdominal pain. Patient states he was febrile this morning after vomiting. Patient states her fever was 100.2. Patient states she only noticed it 1 time. Patient has not taken any Tylenol or ibuprofen. Patient states that she is allergic to morphine but she is able to take Dilaudid. Patient states her pain is a 10 out of 10. Patient states sharp pain. Patient states that she is taking her medications for her sickle cell. Patient denies blood in her vomitus. Patient denies recent travel. Patient denies recent international travel. Patient denies exposure to the novel coronavirus. Patient denies sick contacts. Patient denies chills. Patient denies cough. Patient denies loss of smell. Patient denies diarrhea. Patient denies coming in contact with anybody with symptoms of the novel coronavirus. -: Sudden - Related Data Home Medications Medication Instructions Recorded Confirmed Last Taken HYDROmorphone [Dilaudid] 2 mg PO Q8H 12/26/18 01/01/19 Unknown Multivitamin [One Daily 1 each PO DAILY 12/26/18 01/01/19 Unknown Multivitamin] Oxycodone HCl [oxyCONTIN ER] 30 mg PO BID 12/26/18 01/01/19 Unknown Previous Rx's Medication Instructions Recorded Last Taken Type Folic Acid [Folvite] 1 mg PO QDAY #30 tablet 05/08/18 Unknown Rx Hydroxyurea [Hydrea] 500 mg PO QDAY #30 capsule 05/08/18 Unknown Rx oxyCODONE /ACETAMINOPHEN [Percocet 1 tab PO Q6HR PRN #20 tablet 11/14/19 Unknown Rx 5/325] Ibuprofen [Motrin 800 MG tab] 800 mg PO Q8HR PRN #20 tablet 10/07/20 Unknown Rx Ondansetron [Zofran Odt] 4 mg PO Q6HR PRN #20 tab.rapdis 10/10/20 Unknown Rx Allergies Allergy/AdvReac Type Severity Reaction Status Date / Time morphine AdvReac Itching Verified 10/07/20 16:50 ED Review of Systems ROS: Stated complaint: SICKLE CELL PAIN Other details as noted in HPI Constitutional: fever. denies: chills Eyes: denies: eye pain, eye discharge, vision change ENT: denies: ear pain, throat pain Respiratory: denies: cough, shortness of breath, wheezing Cardiovascular: denies: chest pain, palpitations Endocrine: no symptoms reported Gastrointestinal: as per HPI, abdominal pain. denies: nausea, diarrhea Genitourinary: denies: urgency, dysuria, discharge Musculoskeletal: as per HPI, back pain. denies: joint swelling, arthralgia Skin: denies: rash, lesions Neurological: denies: headache, weakness, paresthesias Psychiatric: denies: anxiety, depression Hematological/Lymphatic: denies: easy bleeding, easy bruising ED Past Medical Hx - Past Medical History Previous Medical History?: Yes Hx Deep Vein Thrombosis: No Hx Pulmonary Embolism: No Hx Sickle Cell Disease: Yes Hx Asthma: Yes Hx COPD: No Hx HIV: No Additional medical history: Gastric ulcers - Surgical History Past Surgical History?: Yes Hx Cholecystectomy: Yes (05/2012) - Family History Family history: no significant - Social History Smoking Status: Never Smoker Substance Use Type: None - Medications Home Medications: Home Medications Medication Instructions Recorded Confirmed Last Taken Type Folic Acid [Folvite] 1 mg PO QDAY #30 tablet 05/08/18 01/01/19 Unknown Rx Hydroxyurea [Hydrea] 500 mg PO QDAY #30 capsule 05/08/18 01/01/19 Unknown Rx HYDROmorphone [Dilaudid] 2 mg PO Q8H 12/26/18 01/01/19 Unknown History Multivitamin [One Daily 1 each PO DAILY 12/26/18 01/01/19 Unknown History Multivitamin] Oxycodone HCl [oxyCONTIN ER] 30 mg PO BID 12/26/18 01/01/19 Unknown History oxyCODONE /ACETAMINOPHEN [Percocet 1 tab PO Q6HR PRN #20 tablet 11/14/19 Unknown Rx 5/325] Ibuprofen [Motrin 800 MG tab] 800 mg PO Q8HR PRN #20 tablet 10/07/20 Unknown Rx Ondansetron [Zofran Odt] 4 mg PO Q6HR PRN #20 tab.rapdis 10/10/20 Unknown Rx ED Physical Exam - General Limitations: No Limitations General appearance: alert, in no apparent distress - Head Head exam: Present: atraumatic, normocephalic - Eye Eye exam: Present: normal appearance - ENT ENT exam: Present: mucous membranes moist - Neck Neck exam: Present: normal inspection - Respiratory Respiratory exam: Present: normal lung sounds bilaterally. Absent: respiratory distress, wheezes, rales - Cardiovascular Cardiovascular Exam: Present: regular rate, normal rhythm. Absent: systolic murmur, diastolic murmur, rubs, gallop - GI/Abdominal GI/Abdominal exam: Present: soft, tenderness (Generalized abdominal tenderness), normal bowel sounds. Absent: distended, guarding - Extremities Exam Extremities exam: Present: normal inspection - Back Exam Back exam: Present: normal inspection - Neurological Exam Neurological exam: Present: alert, oriented X3 - Psychiatric Psychiatric exam: Present: normal affect, normal mood - Skin Skin exam: Present: warm, dry, intact, normal color. Absent: rash ED Course Vital Signs 10/09/20 10/10/20 21:21 00:21 Temperature 98.2 F Pulse Rate 94 H 88 Respiratory 18 16 Rate Blood Pressure 143/71 Blood Pressure 131/76 [Left] O2 Sat by Pulse 95 99 Oximetry - Reevaluation(s) Reevaluation #1: Patient states her pain is a little bit better. Patient states her pain is still a 7 out of 10. Patient will be given another dose of Dilaudid. Patient will have a CT scan. Patient agrees to CT scan. 10/10/20 00:40 Reevaluation #2: Patient states her pain is better. Patient states she does not want to stay in the hospital. I discussed options. Patient refused to be admitted. Patient will be given another milligram of morphine and given discharge. I discussed all results and clinical findings with patient. I discussed plan of care with patient. Patient agrees with plan of care. Patient is stable for discharge. Patient will be discharged home. Patient given discharge instructions. Patient voiced understanding of discharge instructions. 10/10/20 02:04 ED Medical Decision Making - Lab Data Result diagrams: 10/09/20 21:05 10/09/20 21:05 - Radiology Data Radiology results: report reviewed, image reviewed interpreted by me: Chest x-ray: No pneumonia, no pneumothorax, no foreign body, no osseous finding s, no acute findings CHEST 1 VIEW 10/10/2020 12:14 AM INDICATION / CLINICAL INFORMATION: fever. COMPARISON: 11/13/2019 FINDINGS: SUPPORT DEVICES: None. HEART / MEDIASTINUM: No significant abnormality. LUNGS / PLEURA: No significant pulmonary or pleural abnormality. No p neumothorax. ADDITIONAL FINDINGS: No significant additional findings. IMPRESSION: 1. No acute findings. CT ABDOMEN AND PELVIS WITH CONTRAST HISTORY: Nausea and vomiting COMPARISON: CT on 11/13/2019 TECHNIQUE: Routine abdominal and pelvic CT exam performed following intravenous contrast administration.. All CT scans at this location are performed using CT dose reduction for KODA by means of automated exposure control. FINDINGS: CT ABDOMEN: Lung Bases: There is mild linear scarring in the lung bases without acute abnormality. Liver: No acute findings. Biliary: Biliary stent remains in place with out acute abnormality. There is stable pneumobilia. Spleen: No significant abnormality. Unenlarged. Pancreas: No significant abnormality. Adrenals: No significant abnormality. Kidneys: No significant abnormality. Lymphatics: No lymphadenopathy. Vasculature: No significant abnormality. Bowel/Peritoneum: No significant abnormality. No free air. No free fluid. Appendix not visualized. No pericecal inflammation. CT PELVIC: : No significant abnormality. Lymphatics: No lymphadenopathy. Osseous Structures: No aggressive appearing osseous lesions. Additional Findings: None IMPRESSION: 1. No acute findings. 2. Stable position of biliary stent without adverse change from prior studies. - Medical Decision Making Patient is a 30-year-old female that presents emergency room with sickle cell crisis who patient also complained of fever and patient had tenderness to palpation on exam of her abdomen. Patient given Dilaudid while in the ER. Patient given fluids, Zofran and Benadryl. Patient also given Toradol. Patient had a chest x-ray for the fever was negative for acute. Patient had abdominal CTs since the patient had abdominal pain and complained of fever this morning. Patient's abdominal CT was negative for acute findings. Patient had labs done which were consistent with a sickle cell crisis and elevated reticulocyte count. Patient given multiple doses of pain medications. I discussed admission possibility with patient and the patient refused to be admitted. Patient states she does not want to stay in the hospital. Patient given 1 last dose of Dilaudid and discharged home. Patient given follow-up instructions. Patient given discharge instructions. Patient stable for discharge. - Differential Diagnosis Sickle cell crisis, back pain, abdominal pain, fever, Critical care attestation.: If time is entered above; I have spent that time in minutes in the direct care of this critically ill patient, excluding procedure time. ED Disposition Clinical Impression: Sickle cell pain crisis, Sickle cell crisis Anemia Qualifiers: Anemia type: unspecified type Qualified Code(s): D64.9 - Anemia, unspecified Elevated WBC count Qualifiers: Leukocytosis type: unspecified Qualified Code(s): D72.829 - Elevated white blood cell count, unspecified Abdominal pain Qualifiers: Abdominal location: generalized Qualified Code(s): R10.84 - Generalized abdominal pain Back pain Qualifiers: Back pain location: low back pain Chronicity: acute Back pain laterality: bilateral Sciatica presence: without sciatica Qualified Code(s): M54.5 - Low back pain Disposition: DC- TO HOME OR SELFCARE Is pt being admited?: No Does the pt Need Aspirin: No Condition: Stable Instructions: Sickle Cell Testing, Hemolytic Anemia Additional Instructions: Patient to follow-up with primary care in 2 to 3 days. Patient to follow-up with toe puller in 2 to 3 days. Patient to rest. Patient to increase water. Patient to avoid strenuous exercise or heavy lifting until cleared by lori tologist and primary care. Patient to take Tylenol or ibuprofen as needed for pain. Patient to continue all medications. Patient to return to the ER if condition worsens, changes or new symptoms arise. Prescriptions: Ondansetron [Zofran Odt] 4 mg PO Q6HR PRN #20 tab.rapdis PRN Reason: Nausea And Vomiting Referrals: SALOME RAINES DO [Primary Care Provider] - 2-3 Days Time of Disposition: 02:09
[2020-10-10] MEDS: KETOROLAC 30 MG/1 ML INJ IV ONE ×2 (00:06→00:09)
[2020-10-10 00:22] VITALS: BP 131/76
--- NOTE | 2020-10-10 00:23 | XRay Report ---
CHEST 1 VIEW 10/10/2020 12:14 AM INDICATION / CLINICAL INFORMATION: fever. COMPARISON: 11/13/2019 FINDINGS: SUPPORT DEVICES: None. HEART / MEDIASTINUM: No significant abnormality. LUNGS / PLEURA: No significant pulmonary or pleural abnormality. No pneumothorax. ADDITIONAL FINDINGS: No significant additional findings. IMPRESSION: 1. No acute findings. Signer Name: Jeremiah Keita MD Signed: 10/10/2020 12:18 AM Workstation Name: [id number]
[2020-10-10] MEDS ORDERED: HYDROmorphone 2 MG/1 ML INJ IV ONE (00:42)
--- NOTE | 2020-10-10 01:47 | Cat Scan Report ---
CT ABDOMEN AND PELVIS WITH CONTRAST HISTORY: Nausea and vomiting COMPARISON: CT on 11/13/2019 TECHNIQUE: Routine abdominal and pelvic CT exam performed following intravenous contrast administrat ion.. All CT scans at this location are performed using CT dose reduction for ALARA by means of autom ated exposure control. FINDINGS: CT ABDOMEN: Lung Bases: There is mild linear scarring in the lung bases without acute abnormality. Liver: No acute findings. Biliary: Biliary stent remains in place with out acute abnormality. There is stable pneumobilia. Spleen: No significant abnormality. Unenlarged. Pancreas: No significant abnormality. Adrenals: No significant abnormality. Kidneys: No significant abnormality. Lymphatics: No lymphadenopathy. Vasculature: No significant abnormality. Bowel/Peritoneum: No significant abnormality. No free air. No free fluid. Appendix not visualized. No pericecal inflammation. CT PELVIC: : No significant abnormality. Lymphatics: No lymphadenopathy. Osseous Structures: No aggressive appearing osseous lesions. Additional Findings: None IMPRESSION: 1. No acute findings. 2. Stable position of biliary stent without adverse change from prior studies. Signer Name: Jeremiah Keita MD Signed: 10/10/2020 1:43 AM Workstation Name: [id number]
[2020-10-10] MEDS ORDERED: HYDROmorphone 1 MG/1 ML INJ IV ONE (02:06)
== END 2020-10-10 02:29 | disposition home or self-care (01) ==
LOC: ED 20:21
DX: D57.00 Hb-SS disease with crisis, unspecified (principal); R10.84 Generalized abdominal pain; M54.9 Dorsalgia, unspecified; D72.829 Elevated white blood cell count, unspecified; J45.909 Unspecified asthma, uncomplicated; Z90.49 Acquired absence of other specified parts of digestive tract; Z79.899 Other long term (current) drug therapy; Z88.6 Allergy status to analgesic agent
CPT/HCPCS: 36415; 71045; 74177; 80053; 81001; 81025; 83690; 85007; 85025; 85045; 96361; 96374; 96375; 96376; 99284; J1170; J1200; J1885; J2405; J7030; Q9967

== ENCOUNTER 2020-10-11 14:00 | Emergency (ER) | payer OTHER ==
--- NOTE | 2020-10-11 14:13 | Event Note ---
ED Screening Note Date of service: 10/11/20 Time: 14:10 ED Screening Note: This 30-year-old female history of sickle cell presents with generalized body aches fever This initial assessment/diagnostic orders/clinical plan/treatment(s) is/are subject to change based on patients health status, clinical progression and re- assessment by fellow clinical providers in the ED. Further treatment and workup at subsequent clinical providers discretion. Patient/guardian urged not to elope from the ED as their condition may be serious if not clinically assessed and managed. Initial orders include: Chest x-ray, CBC, retake count muscular
[2020-10-11] MEDS ORDERED: ACETAMINOPHEN 325 MG TAB PO ONE (14:15)
[2020-10-11] MEDS ORDERED: SODIUM CHLORIDE 0.9% 1000 ML 1,000 ML IV ONE (14:31)
[2020-10-11] MEDS ORDERED: HYDROmorphone 2 MG/1 ML INJ IV ONE ×2 (14:31→15:34)
[2020-10-11] MEDS ORDERED: ONDANSETRON 4 MG/2 ML INJ IV ONE (14:36)
--- NOTE | 2020-10-11 14:36 | Emergency Department Report ---
HPI - General Chief Complaint: Pain General Time Seen by Provider: 10/11/20 14:14 - HPI HPI: This is a 30-year-old female presents to the emergency department with a complaint of a "sickle cell crisis." Patient says that she has been having pain in the bilateral lower legs, nausea with vomiting, and some abdominal discomfort. The patient was seen here 2 days ago, on 10/09, and had a CT scan of the abdomen and pelvis that did not show any acute process. The patient did get some relief during her last ED visit but she says that the symptoms came back. She also complains of a low-grade fever and does present with a temperature of 100 F[address] She follows with Dr[address] Raines for hematology. She has been taking her folic acid and hydroxyurea at home. She also has a past history of asthma and gastric ulcers. No recent travel or sick contacts at home. No known exposure to anyone with COVID-19. She denies any chest pain, shortness of breath, lower extremity swelling, vaginal bleeding or discharge, dysuria. ED Past Medical Hx - Past Medical History Previous Medical History?: Yes Hx Deep Vein Thrombosis: No Hx Pulmonary Embolism: No Hx Sickle Cell Disease: Yes Hx Asthma: Yes Hx COPD: No Hx HIV: No Additional medical history: Gastric ulcers - Surgical History Past Surgical History?: Yes Hx Cholecystectomy: Yes (05/2012) - Social History Smoking Status: Never Smoker Substance Use Type: None - Medications Home Medications: Home Medications Medication Instructions Recorded Confirmed Last Taken Type Folic Acid [Folvite] 1 mg PO QDAY #30 tablet 05/08/18 01/01/19 Unknown Rx Hydroxyurea [Hydrea] 500 mg PO QDAY #30 capsule 05/08/18 01/01/19 Unknown Rx HYDROmorphone [Dilaudid] 2 mg PO Q8H 12/26/18 01/01/19 Unknown History Multivitamin [One Daily 1 each PO DAILY 12/26/18 01/01/19 Unknown History Multivitamin] Oxycodone HCl [oxyCONTIN ER] 30 mg PO BID 12/26/18 01/01/19 Unknown History oxyCODONE /ACETAMINOPHEN [Percocet 1 tab PO Q6HR PRN #20 tablet 11/14/19 Unknown Rx 5/325] Ibuprofen [Motrin 800 MG tab] 800 mg PO Q8HR PRN #20 tablet 10/07/20 Unknown Rx Ondansetron [Zofran Odt] 4 mg PO Q6HR PRN #20 tab.rapdis 10/10/20 Unknown Rx ED Review of Systems ROS: Stated complaint: SICKLE CELL CRISIS/N/V Other details as noted in HPI Comment: All other systems reviewed and negative Constitutional: chills, fever Eyes: denies: eye pain, vision change ENT: denies: ear pain, throat pain Respiratory: denies: cough, shortness of breath Cardiovascular: denies: chest pain, edema Gastrointestinal: abdominal pain, nausea, vomiting Genitourinary: denies: dysuria, discharge Musculoskeletal: myalgia. denies: joint swelling Skin: denies: rash, lesions Neurological: denies: headache, weakness Physical Exam - Physical Exam Vital Signs: Vital Signs 10/11/20 14:06 Temperature 100.0 F H Pulse Rate 102 H Respiratory 20 Rate Blood Pressure 139/76 O2 Sat by Pulse 95 Oximetry Physical Exam: GENERAL: The patient is well-developed well-nourished. HENT: Normocephalic. Atraumatic. Patient has moist mucous membranes. EYES: Extraocular motions are intact. NECK: Supple. Trachea is midline. CHEST/LUNGS: Clear to auscultation. There is no respiratory distress noted. HEART/CARDIOVASCULAR: Regular. There is no tachycardia. There is no murmur. ABDOMEN: Abdomen is soft. Mild generalized abdominal tenderness to palpation. No guarding. Patient has normal bowel sounds. There is no abdominal distention. SKIN: Skin is warm and dry. NEURO: The patient is awake, alert, and oriented. The patient is cooperative. The patient has no focal neurologic deficits. Normal speech. MUSCULOSKELETAL: There is no tenderness or deformity. There is no limitation range of motion. ED Course Vital Signs 10/11/20 14:06 Temperature 100.0 F H Pulse Rate 102 H Respiratory 20 Rate Blood Pressure 139/76 O2 Sat by Pulse 95 Oximetry - Reevaluation(s) Reevaluation #1: 10/11/20 15:34 The patient says that her pain is starting to improve but her leg pain is still a 6 out of 10. A second dose of IV analgesia will be given as well as a bolus of IV fluid. ED Medical Decision Making - Lab Data Result diagrams: 10/11/20 14:28 10/11/20 14:28 Lab Results 10/11/20 10/11/20 10/11/20 Range/Units 14:28 14:28 17:06 WBC 11.2 H (4.5-11.0) K/mm3 RBC 2.55 L (3.65-5.03) M/mm3 Hgb 8.8 L (10.1-14.3) gm/dl Hct 23.9 L (30.3-42.9) % MCV 94 (79-97) fl MCH 34 H (28-32) pg MCHC 37 H (30-34) % RDW 28.6 H (13.2-15.2) % Plt Count 415 (140-440) K/mm3 Lymph # (Auto) Fuel System Maintenance Worker Add Manual Diff Complete Total Counted 100 Seg Neuts % (Manual) 43.0 (40.0-70.0) % Lymphocytes % (Manual) 45.0 H (13.4-35.0) % Monocytes % (Manual) 7.0 (0.0-7.3) % Eosinophils % (Manual) 4.0 (0.0-4.3) % Basophils % (Manual) 1.0 (0.0-1.8) % Nucleated RBC % 2.0 H (0.0-0.9) % Seg Neutrophils # Man 4.8 (1.8-7.7) K/mm3 Band Neutrophils # 0.0 K/mm3 Lymphocytes # (Manual) 5.0 (1.2-5.4) K/mm3 Abs React Lymphs (Man) 0.0 K/mm3 Monocytes # (Manual) 0.8 (0.0-0.8) K/mm3 Eosinophils # (Manual) 0.4 (0.0-0.4) K/mm3 Basophils # (Manual) 0.1 (0.0-0.1) K/mm3 Metamyelocytes # 0.0 K/mm3 Myelocytes # 0.0 K/mm3 Promyelocytes # 0.0 K/mm3 Blast Cells # 0.0 K/mm3 WBC Morphology Not Reportable Hypersegmented Neuts Not Reportable Hyposegmented Neuts Not Reportable Hypogranular Neuts Not Reportable Smudge Cells Not Reportable Toxic Granulation Not Reportable Toxic Vacuolation Not Reportable Dohle Bodies Not Reportable Pelger-Huet Anomaly Not Reportable Tam Rods Not Reportable Platelet Estimate Consistent w auto Clumped Platelets Not Reportable Plt Clumps, EDTA Not Reportable Large Platelets Rare Giant Platelets Not Reportable Platelet Satelliting Not Reportable Plt Morphology Comment Not Reportable RBC Morphology Not Reportable Dimorphic RBCs Not Reportable Polychromasia Rare Hypochromasia Rare Poikilocytosis 2+ Anisocytosis 3+ Microcytosis Few Macrocytosis Not Reportable Spherocytes Not Reportable Pappenheimer Bodies Not Reportable Sickle Cells 2+ Target Cells Not Reportable Tear Drop Cells Not Reportable Ovalocytes Few Helmet Cells Not Reportable [place] Bodies Not Reportable Lyle Rings Not Reportable Codey Cells Not Reportable Bite Cells Not Reportable Crenated Cell Not Reportable Elliptocytes Not Reportable Acanthocytes (Spur) Not Reportable Rouleaux Not Reportable Hemoglobin C Crystals Not Reportable Schistocytes Not Reportable Malaria parasites Not Reportable Percent Retic 12.16 H (0.78-2.58) % Kb Bodies Not Reportable Hem Pathologist Commnt No Sodium 136 L (137-145) mmol/L Potassium 4.3 (3.6-5.0) mmol/L Chloride 104.4 (98-107) mmol/L Carbon Dioxide 21 L (22-30) mmol/L Anion Gap 15 mmol/L BUN 7 (7-17) mg/dL Creatinine 0.6 (0.6-1.2) mg/dL Estimated GFR > 60 ml/min BUN/Creatinine Ratio 12 % Glucose 91 (65-100) mg/dL Calcium 8.6 (8.4-10.2) mg/dL Urine Color Yellow (Yellow) Urine Turbidity Clear (Clear) Urine pH 6.0 (5.0-7.0) Ur Specific [place] 1.006 (1.003-1.030) Urine Protein <15 mg/dl (Negative) mg/dL Urine Glucose (UA) Neg (Negative) mg/dL Urine Ketones Neg (Negative) mg/dL Urine Blood Neg (Negative) Urine Nitrite Neg (Negative) Urine Bilirubin Neg (Negative) Urine Urobilinogen 4.0 (<2.0) mg/dL Ur Leukocyte Esterase Neg (Negative) Urine WBC (Auto) < 1.0 (0.0-6.0) /HPF Urine RBC (Auto) 1.0 (0.0-6.0) /HPF U Epithel Cells (Auto) 4.0 (0-13.0) /HPF - Radiology Data Radiology results: image reviewed interpreted by me: Chest x-ray does not show any acute process. There are no pleural effusions, obvious pneumonia and there is no pneumothorax. No significant cardiomegaly. - Medical Decision Making This patient presents to the emergency department with complaint of what she sa ys is a sickle cell pain crisis. She complains of some pain in the bilateral legs, some nausea with vomiting and some mild abdominal discomfort. On examination the patient does not appear in any acute distress. The abdomen is mildly tender to palpation but otherwise it is soft, nondistended and nontoxic in appearance. Also, the patient had a CT scan of the abdomen and pelvis 2 days ago the did not show any acute process. Her labs today show some anemia with a hemoglobin of 8.8, and an elevated reticulocyte count of about 12, both values are consistent with previous visits. Normal-appearing metabolic panel and urinalysis. The patient was given a dose of IV antiemetics, some IV fluid re suscitation, and a few doses of IV analgesia. She was reevaluated multiple times over multiple hours and appears improved. Patient had a low-grade fever of 100 F for which she was given some acetaminophen. Chest x-ray did not show any obvious pneumonia and she does not appear to be in any chest crisis. She has good outpatient follow-up with Dr. Raines, her telesales advisor. She will return to the emergency department with any worsening of her symptoms or with any acute distress. Critical Care Time: No Critical care attestation.: If time is entered above; I have spent that time in minutes in the direct care of this critically ill patient, excluding procedure time. ED Disposition Clinical Impression: Sickle cell pain crisis Sickle cell anemia Qualifiers: Sickle-cell associated disorders: with unspecified crisis Qualified Code(s): D57.00 - Hb-SS disease with crisis, unspecified Disposition: DC-01 TO HOME OR SELFCARE Is pt being admited?: No Condition: Stable Additional Instructions: Please follow-up with your primary care physician and/or telesales advisor in the next few days. Return to the emergency department with any worsening of your symptoms, new or concerning symptoms not addressed during this current emergency department visit, or with any acute distress. Referrals: SALOME RAINES DO [Primary Care Provider] - 2-3 Days Time of Disposition: 17:38
[2020-10-11] MEDS ORDERED: diphenhydrAMINE 50 MG/ML VIAL IV ONE (14:49)
[2020-10-11 14:54] LABS: Hematocrit 23.9 % (30.3-42.9); Hemoglobin 8.8 gm/dl (10.1-14.3); Mean Corpuscular HGB Conc 37 % (30-34); Mean Corpuscular Volume 94 fl (79-97); Platelet Count 415 K/mm3 (140-440); Red Blood Count 2.55 M/mm3 (3.65-5.03)
[2020-10-11 14:58] LABS: Blood Urea Nitrogen 7 mg/dL (7-17); Calcium 8.6 mg/dL (8.4-10.2); Hemolysis Index 22
[2020-10-11 15:01] LABS: Red Cell Distribution Width 28.6 % (13.2-15.2)
--- NOTE | 2020-10-11 15:09 | XRay Report ---
CHEST 1 VIEW 10/11/2020 2:57 PM INDICATION / CLINICAL INFORMATION: Fever. COMPARISON: 10/10/2020. FINDINGS: SUPPORT DEVICES: None. HEART / MEDIASTINUM: Stable. LUNGS / PLEURA: Mild increased opacity right base. No pleural fluid. ADDITIONAL FINDINGS: No significant additional findings. IMPRESSION: Right basilar atelectasis versus developing pneumonia. Signer Name: Garrett Mathur MD Signed: 10/11/2020 3:05 PM Workstation Name: [id number]
[2020-10-11 15:21] LABS: BUN/Creatinine Ratio 12
[2020-10-11] MEDS ORDERED: SODIUM CHLORIDE 0.9% 500 ML 500 ML IV ONE (15:34)
[2020-10-11] MEDS ORDERED: HYDROmorphone 1 MG/1 ML INJ IV ONE (16:50)
[2020-10-11 17:14] LABS: Bilirubin,Urine NEG (Negative); Blood,Urine NEG (Negative); Color,Urine Yellow (Yellow); Protein,Urine <15 mg/dL mg/dL (Negative); WBC,Urine < 1.0 /HPF (0.0-6.0)
[2020-10-11 17:39] VITALS: BP 118/61
[2020-10-11 18:42] LABS: Anisocytosis 3+; Sickle Cells 2+; Total Cells Counted 100
[2020-10-11 18:43] LABS: Poikilocytosis 2+
[2020-10-11 18:46] LABS: Ovalocytes Few
[2020-10-11 18:47] LABS: Large Platelets Rare
[2020-10-11 18:48] LABS: Hypochromasia Rare; Platelet Estimate Consistent w Auto
== END 2020-10-11 17:57 | disposition home or self-care (01) ==
LOC: ED 14:00
DX: D57.00 Hb-SS disease with crisis, unspecified (principal); J45.909 Unspecified asthma, uncomplicated; Z90.49 Acquired absence of other specified parts of digestive tract; Z79.1 Long term (current) use of non-steroidal anti-inflammatories (NSAID); Z79.899 Other long term (current) drug therapy; Z88.8 Allergy status to other drugs, medicaments and biological substances
CPT/HCPCS: 36415; 71045; 80048; 81001; 85007; 85025; 85045; 96361; 96374; 96375; 96376; 99284; J1170; J1200; J2405; J7030; J7040

== ENCOUNTER 2021-04-26 08:36 | Emergency (ER) | payer SELFPAY ==
--- NOTE | 2021-04-26 09:28 | Event Note ---
ED Screening Note Date of service: 04/26/21 Time: 09:26 ED Screening Note: 31-year-old -[place] female presents to the emergency room stating that she is in a sickle cell crisis. Patient states that she is having most of her pain on her left side arm and left lower leg. She does have mild pain on her right side. She admits to nausea but no vomiting and has a headache. She reports that she has dysuria with odor to her urine. Patient states that she did do a test on Wednesday and it was positive. Patient reports her last menstrual period was 03/29/2021. She is 3 para 2. She denies any vaginal bleeding denies any vaginal discharge and no pelvic pain or back pain. She is followed by a sickle cell provider and her last deliveries of her kids were through [employer] [facility]. This initial assessment/diagnostic orders/clinical plan/treatment(s) is/are sub ject to change based on patients health status, clinical progression and re- assessment by fellow clinical providers in the ED. Further treatment and workup at subsequent clinical providers discretion. Patient/guardian urged not to elope from the ED as their condition may be serious if not clinically assessed and managed. Initial orders include: CBC CMP retake count urinalysis urine test.
[2021-04-26] MEDS ORDERED: diphenhydrAMINE 50 MG/ML VIAL IV ONE (10:58)
[2021-04-26] MEDS ORDERED: SODIUM CHLORIDE 0.9% 1000 ML 1,000 ML IV ONE ×2 (10:58→12:13)
[2021-04-26] MEDS ORDERED: KETOROLAC 30 MG/1 ML INJ IV ONE ×2 (10:58→12:13)
[2021-04-26] MEDS ORDERED: METOCLOPRAMIDE 10 MG/2 ML INJ IV ONE (10:58)
[2021-04-26 11:07] VITALS: BP 120/80
--- NOTE | 2021-04-26 11:08 | Emergency Department Report ---
ED General Adult HPI - General Chief complaint: Urogenital-Female Stated complaint: SICKLE CELL/ UTI Time Seen by Provider: 04/26/21 10:41 Source: patient Mode of arrival: Ambulatory Limitations: No Limitations - History of Present Illness Initial comments: Patient presents with multiple complaints including sickle crisis, chest pain, abdominal pain, body pain, cough, dysuria, and . She states that she started having symptoms on Wednesday and . She had a Covid test done Wednesday for her daughter school which was negative. On Wednesday and , she started having total body pain. She states that the left is worse than the right. She has had a dry cough. She has had nausea without vomiting. She does report dysuria with an odor to her urine. She also believes that she is . She did a home test that was positive. Patient states that she just does not feel well. She is relating all of this to a sickle crisis. She states that this is similar to sickle symptoms that she has had before. She states that her total body pain is is diffuse. It is achy. She has not had fever today, but states that she did have low-grade fevers. She does not think that this is coronavirus that she has had no exposure and she had a negative test last week, but her symptoms started after the test was obtained. Severity scale (0 -10): 0 - Related Data Home Medications Medication Instructions Recorded Confirmed Last Taken HYDROmorphone [Dilaudid] 2 mg PO Q8H 12/26/18 04/26/21 Unknown Multivitamin [One Daily 1 each PO DAILY 12/26/18 04/26/21 Unknown Multivitamin] Oxycodone HCl [oxyCONTIN ER] 30 mg PO BID 12/26/18 04/26/21 Unknown Previous Rx's Medication Instructions Recorded Last Taken Type Folic Acid [Folvite] 1 mg PO QDAY #30 tablet 05/08/18 Unknown Rx Hydroxyurea [Hydrea] 500 mg PO QDAY #30 capsule 05/08/18 Unknown Rx oxyCODONE /ACETAMINOPHEN [Percocet 1 tab PO Q6HR PRN #20 tablet 11/14/19 Unknown Rx 5/325] Ibuprofen [Motrin 800 MG tab] 800 mg PO Q8HR PRN #20 tablet 10/07/20 Unknown Rx Ondansetron [Zofran Odt] 4 mg PO Q6HR PRN #20 tab.rapdis 10/10/20 Unknown Rx Azithromycin 500 mg PO DAILY #7 tablet 04/26/21 Unknown Rx Prednisone [predniSONE 5 mg (6-Day 5 mg PO .TAPER #1 tab.ds.pk 04/26/21 Unknown Rx Pack, 21 Tabs)] cephALEXin [Keflex] 500 mg PO Q8HR #20 cap 04/26/21 Unknown Rx Allergies Allergy/AdvReac Type Severity Reaction Status Date / Time morphine AdvReac Itching Verified 10/07/20 16:50 ED Review of Systems ROS: Stated complaint: SICKLE CELL/ UTI Other details as noted in HPI Comment: All other systems reviewed and negative Constitutional: no symptoms reported, fever Eyes: denies: eye pain ENT: denies: throat pain Respiratory: no symptoms reported, cough Cardiovascular: denies: chest pain Endocrine: denies: unexplained weight loss Gastrointestinal: as per HPI, nausea. denies: abdominal pain Genitourinary: as per HPI, dysuria Musculoskeletal: denies: back pain Skin: denies: rash Neurological: denies: headache Hematological/Lymphatic: denies: easy bruising ED Past Medical Hx - Past Medical History Previous Medical History?: Yes Hx Deep Vein Thrombosis: No Hx Pulmonary Embolism: No Hx Sickle Cell Disease: Yes Hx Asthma: Yes Hx COPD: No Hx HIV: No Additional medical history: Gastric ulcers - Surgical History Past Surgical History?: Yes Hx Cholecystectomy: Yes (05/2012) - Family History Family history: other (Sickle cell disease) - Social History Smoking Status: Never Smoker Substance Use Type: None - Medications Home Medications: Home Medications Medication Instructions Recorded Confirmed Last Taken Type Folic Acid [Folvite] 1 mg PO QDAY #30 tablet 05/08/18 04/26/21 Unknown Rx Hydroxyurea [Hydrea] 500 mg PO QDAY #30 capsule 05/08/18 04/26/21 Unknown Rx HYDROmorphone [Dilaudid] 2 mg PO Q8H 12/26/18 04/26/21 Unknown History Multivitamin [One Daily 1 each PO DAILY 12/26/18 04/26/21 Unknown History Multivitamin] Oxycodone HCl [oxyCONTIN ER] 30 mg PO BID 12/26/18 04/26/21 Unknown History oxyCODONE /ACETAMINOPHEN [Percocet 1 tab PO Q6HR PRN #20 tablet 11/14/19 04/26/21 Unknown Rx 5/325] Ibuprofen [Motrin 800 MG tab] 800 mg PO Q8HR PRN #20 tablet 10/07/20 04/26/21 Unknown Rx Ondansetron [Zofran Odt] 4 mg PO Q6HR PRN #20 tab.rapdis 10/10/20 04/26/21 Unknown Rx Azithromycin 500 mg PO DAILY #7 tablet 04/26/21 Unknown Rx Prednisone [predniSONE 5 mg (6-Day 5 mg PO .TAPER #1 tab.ds.pk 04/26/21 Unknown Rx Pack, 21 Tabs)] cephALEXin [Keflex] 500 mg PO Q8HR #20 cap 04/26/21 Unknown Rx ED Physical Exam - General Limitations: No Limitations General appearance: alert, in no apparent distress - Head Head exam: Present: atraumatic, normocephalic, normal inspection - Eye Eye exam: Present: normal appearance, EOMI. Absent: scleral icterus - ENT ENT exam: Present: normal exam, normal orophraynx, mucous membranes moist - Neck Neck exam: Present: full ROM. Absent: meningismus - Respiratory Respiratory exam: Present: normal lung sounds bilaterally. Absent: respiratory distress - Cardiovascular Cardiovascular Exam: Present: regular rate, normal rhythm - GI/Abdominal GI/Abdominal exam: Present: soft. Absent: tenderness - Extremities Exam Extremities exam: Present: normal capillary refill. Absent: pedal edema - Back Exam Back exam: Absent: CVA tenderness (R), CVA tenderness (L) - Neurological Exam Neurological exam: Present: alert, oriented X3, CN II-XII intact, reflexes normal. Absent: motor sensory deficit - Psychiatric Psychiatric exam: Present: normal affect, normal mood - Skin Skin exam: Present: warm, dry ED Course Vital Signs 04/26/21 04/26/21 04/26/21 08:55 09:43 11:06 Temperature 98.9 F 98.7 F Pulse Rate 107 H 100 H 98 H Respiratory 16 18 16 Rate Blood Pressure 117/73 117/73 120/80 [Left] O2 Sat by Pulse 97 100 100 Oximetry - Reevaluation(s) Reevaluation #1: 04/26/21 11:09 IV labs were ordered. Reevaluation #2: 04/26/21 13:24 Work-up is now complete. Patient has radiographic findings that could certainly be consistent with coronavirus infection. She does have a urine infection as well. Antibiotics have been treated. To be treated with steroids. She can isolate at home. ED Medical Decision Making - Lab Data Result diagrams: 04/26/21 09:23 04/26/21 09:23 - Medical Decision Making Patient presents with body pain and subjective fevers with a cough. I had concern clinically for coronavirus and her x-ray certainly could be consistent with that. In addition, she does have a urinary tract infection and is symptomatic. This will be addressed. She does have pain related to her sickle disease and has an elevated reticulocyte count, but I do not believe this represents an acute chest syndrome. She is not hypoxic. She is not tachycardic. She does not appear to be septic at this time. She would like to go home. We will treat her with antibiotics and steroids and have her follow-up with her regular physician. She is aware of the concern for coronavirus. Critical Care Time: No Critical care attestation.: If time is entered above; I have spent that time in minutes in the direct care of this critically ill patient, excluding procedure time. ED Disposition Clinical Impression: Myalgia, Cystitis, Suspected COVID-19 virus infection Disposition: 01 HOME / SELF CARE / HOMELESS Is pt being admited?: No Does the pt Need Aspirin: No Condition: Stable Instructions: Musculoskeletal Pain Additional Instructions: Use Tylenol for pain. Isolate at home. Drink plenty of water. Return for problems. Continue home medication. Follow-up with your regular doctor for recheck and further evaluation. Prescriptions: Azithromycin 500 mg PO DAILY #7 tablet cephALEXin [Keflex] 500 mg PO Q8HR #20 cap Prednisone [predniSONE 5 mg (6-Day Pack, 21 Tabs)] 5 mg PO .TAPER #1 tab.ds.pk Referrals: PRIMARY CARE, [Primary Care Provider] - 3-5 Days
[2021-04-26 11:43] LABS: Bacteria,Urine 1+ /HPF (Negative); Bilirubin,Urine NEG (Negative); Blood,Urine NEG (Negative); Color,Urine Amber (Yellow); Mucus,Urine FEW /HPF
[2021-04-26 11:49] LABS: Basophils # (Auto) 0.2 K/mm3 (0.0-0.1); Basophils % (Auto) 0.9 % (0.0-1.8); Eosinophils # (Auto) 0.3 K/mm3 (0.0-0.4); Eosinophils % (Auto) 1.7 % (0.0-4.3); Hematocrit 24.7 % (30.3-42.9); Hemoglobin 8.9 gm/dl (10.1-14.3); Lymphocytes % (Auto) 22.9 % (13.4-35.0); Mean Corpuscular HGB Conc 36 % (30-34); Mean Corpuscular Volume 98 fl (79-97); Monocytes # (Auto) 2.4 K/mm3 (0.0-0.8); Monocytes % (Auto) 13.9 % (0.0-7.3); Platelet Count 349 K/mm3 (140-440); Red Blood Count 2.52 M/mm3 (3.65-5.03)
[2021-04-26 11:51] LABS: HCG Qualitative,Urine Negative (Negative)
[2021-04-26 11:53] LABS: Red Cell Distribution Width 20.9 % (13.2-15.2)
[2021-04-26 12:04] LABS: Alanine Aminotransferase 24 units/L (7-56); Albumin 4.1 g/dL (3.9-5); Blood Urea Nitrogen 8 mg/dL (7-17); Calcium 9.3 mg/dL (8.4-10.2); Hemolysis Index 12
[2021-04-26 12:13] LABS: BUN/Creatinine Ratio 20
[2021-04-26] MEDS ORDERED: cephALEXin 500 MG CAP PO ONE (12:14)
--- NOTE | 2021-04-26 12:48 | XRay Report ---
CHEST 2 VIEWS INDICATION / CLINICAL INFORMATION: Cough. COMPARISON: 10/11/20. FINDINGS: SUPPORT DEVICES: There is a right jugular Port-A-Cath with the tip overlying the upper cavoatrial wu ction. HEART / MEDIASTINUM: The heart size is borderline. LUNGS / PLEURA: There are mild patchy parenchymal opacities in both mid to lower lung zones, greater on the left. No significant pleural effusion. No pneumothorax. ADDITIONAL FINDINGS: No significant additional findings. IMPRESSION: Patchy parenchymal opacities in both mid to lower lung zones, greater on the left, are no nspecific but likely inflammatory. Atypical causes of pneumonia, including viral pneumonia, should be considered. Signer Name: Chema Piedra MD Signed: 04/26/2021 12:43 PM Workstation Name: [id number]
== END 2021-04-26 16:30 | disposition home or self-care (01) ==
LOC: ED 08:36
DX: N30.90 Cystitis, unspecified without hematuria (principal); M79.18 Myalgia, other site
CPT/HCPCS: 36415; 71046; 80053; 81001; 81025; 84702; 85025; 85045; 87076; 87086; 87186; 96361; 96374; 99284; J1200; J1885; J2765; J7030

== ENCOUNTER 2021-04-30 11:00 | Emergency (ER) | payer SELFPAY ==
[2021-04-30] MEDS ORDERED: SODIUM CHLORIDE 0.9% 1000 ML 1,000 ML IV ONE (11:49)
[2021-04-30] MEDS ORDERED: ONDANSETRON 4 MG/2 ML INJ IV ONE (11:49)
[2021-04-30] MEDS ORDERED: HYDROmorphone 1 MG/1 ML INJ IV ONE (11:50)
--- NOTE | 2021-04-30 12:40 | Emergency Department Report ---
ED General Adult HPI - General Chief complaint: Sickle Cell Crisis Stated complaint: SICKLECELL CRISIS Time Seen by Provider: 04/30/21 11:48 Source: patient Mode of arrival: Ambulatory Limitations: No Limitations - History of Present Illness Initial comments: This is a 31-year-old female nontoxic, well nourished in appearance, no acute signs of distress presents to the ED with c/o of bilateral upper and lower extremity pains and back pain. Patient stated she is currently going to a sickle cell crisis as these are her symptoms. Patient otherwise denies any other complaints or symptoms. Patient denies any chest pain, shortness of breath, fever, chills, nausea, vomiting, headache or stiff neck. Denies any abdominal pain. Denies any urinary symptoms. Patient stated allergies to morphine but stated does not have any allergies to Dilaudid. Patient denies any trauma or injuries. -: days(s) Location: back, left, right, upper extremity, lower extremity Radiation: non-radiation Severity scale (0 -10): 8 Quality: aching Consistency: constant Improves with: none Worsens with: none Associated Symptoms: denies other symptoms. denies: confusion, chest pain, cough, diaphoresis, fever/chills, headaches, loss of appetite, malaise, nausea/vomiting, rash, seizure, shortness of breath, syncope, weakness Treatments Prior to Arrival: none - Related Data Home Medications Medication Instructions Recorded Confirmed Last Taken HYDROmorphone [Dilaudid] 2 mg PO Q8H 12/26/18 04/26/21 Unknown Multivitamin [One Daily 1 each PO DAILY 12/26/18 04/26/21 Unknown Multivitamin] Oxycodone HCl [oxyCONTIN ER] 30 mg PO BID 12/26/18 04/26/21 Unknown Previous Rx's Medication Instructions Recorded Last Taken Type Folic Acid [Folvite] 1 mg PO QDAY #30 tablet 05/08/18 Unknown Rx Hydroxyurea [Hydrea] 500 mg PO QDAY #30 capsule 05/08/18 Unknown Rx oxyCODONE /ACETAMINOPHEN [Percocet 1 tab PO Q6HR PRN #20 tablet 11/14/19 Unknown Rx 5/325] Ibuprofen [Motrin 800 MG tab] 800 mg PO Q8HR PRN #20 tablet 10/07/20 Unknown Rx Ondansetron [Zofran Odt] 4 mg PO Q6HR PRN #20 tab.rapdis 10/10/20 Unknown Rx Azithromycin 500 mg PO DAILY #7 tablet 04/26/21 Unknown Rx Prednisone [predniSONE 5 mg (6-Day 5 mg PO .TAPER #1 tab.ds.pk 04/26/21 Unknown Rx Pack, 21 Tabs)] cephALEXin [Keflex] 500 mg PO Q8HR #20 cap 04/26/21 Unknown Rx Allergies Allergy/AdvReac Type Severity Reaction Status Date / Time morphine AdvReac Itching Verified 04/30/21 11:16 ED Review of Systems ROS: Stated complaint: SICKLECELL CRISIS Other details as noted in HPI Comment: All other systems reviewed and negative Constitutional: denies: chills, fever Eyes: denies: eye pain, eye discharge, vision change ENT: denies: ear pain, throat pain Respiratory: denies: cough, shortness of breath, wheezing Cardiovascular: denies: chest pain, palpitations Endocrine: no symptoms reported Gastrointestinal: denies: abdominal pain, nausea, diarrhea Genitourinary: denies: urgency, dysuria, discharge Musculoskeletal: denies: back pain, joint swelling, arthralgia Skin: denies: rash, lesions Neurological: denies: headache, weakness, paresthesias Psychiatric: denies: anxiety, depression Hematological/Lymphatic: denies: easy bleeding, easy bruising ED Past Medical Hx - Past Medical History Hx Deep Vein Thrombosis: No Hx Pulmonary Embolism: No Hx Sickle Cell Disease: Yes Hx Asthma: Yes Hx COPD: No Hx HIV: No Additional medical history: Gastric ulcers - Surgical History Hx Cholecystectomy: Yes (05/2012) - Social History Smoking Status: Never Smoker Substance Use Type: None - Medications Home Medications: Home Medications Medication Instructions Recorded Confirmed Last Taken Type Folic Acid [Folvite] 1 mg PO QDAY #30 tablet 05/08/18 04/26/21 Unknown Rx Hydroxyurea [Hydrea] 500 mg PO QDAY #30 capsule 05/08/18 04/26/21 Unknown Rx HYDROmorphone [Dilaudid] 2 mg PO Q8H 12/26/18 04/26/21 Unknown History Multivitamin [One Daily 1 each PO DAILY 12/26/18 04/26/21 Unknown History Multivitamin] Oxycodone HCl [oxyCONTIN ER] 30 mg PO BID 12/26/18 04/26/21 Unknown History oxyCODONE /ACETAMINOPHEN [Percocet 1 tab PO Q6HR PRN #20 tablet 11/14/19 04/26/21 Unknown Rx 5/325] Ibuprofen [Motrin 800 MG tab] 800 mg PO Q8HR PRN #20 tablet 10/07/20 04/26/21 Unknown Rx Ondansetron [Zofran Odt] 4 mg PO Q6HR PRN #20 tab.rapdis 10/10/20 04/26/21 Unknown Rx Azithromycin 500 mg PO DAILY #7 tablet 04/26/21 Unknown Rx Prednisone [predniSONE 5 mg (6-Day 5 mg PO .TAPER #1 tab.ds.pk 04/26/21 Unknown Rx Pack, 21 Tabs)] cephALEXin [Keflex] 500 mg PO Q8HR #20 cap 04/26/21 Unknown Rx ED Physical Exam - General Limitations: No Limitations General appearance: alert, in no apparent distress - Head Head exam: Present: atraumatic, normocephalic - Eye Eye exam: Present: normal appearance - Neck Neck exam: Present: normal inspection, full ROM. Absent: lymphadenopathy - Respiratory Respiratory exam: Present: normal lung sounds bilaterally. Absent: respiratory distress, wheezes, rales, rhonchi, stridor, chest wall tenderness, accessory muscle use, decreased breath sounds, prolonged expiratory - Cardiovascular Cardiovascular Exam: Present: normal rhythm, normal heart sounds. Absent: irregular rhythm, systolic murmur, diastolic murmur, rubs, gallop - GI/Abdominal GI/Abdominal exam: Present: soft, normal bowel sounds. Absent: distended, tenderness, guarding, rebound, rigid, diminished bowel sounds - Extremities Exam Extremities exam: Present: normal inspection, full ROM, normal capillary refill. Absent: tenderness, joint swelling, calf tenderness - Back Exam Back exam: Present: normal inspection, full ROM. Absent: tenderness, CVA tenderness (R), CVA tenderness (L), muscle spasm, paraspinal tenderness, vertebral tenderness, rash noted - Neurological Exam Neurological exam: Present: alert, oriented X3, normal gait - Psychiatric Psychiatric exam: Present: normal affect, normal mood - Skin Skin exam: Present: warm, dry, intact, normal color. Absent: rash ED Course Vital Signs 04/30/21 04/30/21 11:19 16:01 Temperature 98 F 98.0 F Pulse Rate 103 H 82 Respiratory 18 18 Rate Blood Pressure 125/70 Blood Pressure 123/79 [Right] O2 Sat by Pulse 96 98 Oximetry - Reevaluation(s) Reevaluation #1: 04/30/21 12:40 Patient is speaking in full sentences with no signs of distress noted. ED Medical Decision Making - Lab Data Result diagrams: 04/30/21 14:25 04/30/21 14:25 Lab Results 04/30/21 04/30/21 04/30/21 Range/Units 12:07 14:25 14:25 WBC 16.0 H (4.5-11.0) K/mm3 RBC 2.59 L (3.65-5.03) M/mm3 Hgb 8.7 L (10.1-14.3) gm/dl Hct 25.4 L (30.3-42.9) % MCV 98 H (79-97) fl MCH 34 H (28-32) pg MCHC 34 (30-34) % RDW 23.9 H (13.2-15.2) % Plt Count 555 H (140-440) K/mm3 Lymph % (Auto) 16.7 (13.4-35.0) % [place] % (Auto) 5.4 (0.0-7.3) % Eos % (Auto) 0.0 (0.0-4.3) % Baso % (Auto) 0.7 (0.0-1.8) % Lymph # (Auto) 2.7 (1.2-5.4) K/mm3 [place] # (Auto) 0.9 H (0.0-0.8) K/mm3 Eos # (Auto) 0.0 (0.0-0.4) K/mm3 Baso # (Auto) 0.1 (0.0-0.1) K/mm3 Seg Neutrophils % 76.0 H (40.0-70.0) % Seg Neutrophils # 12.3 H (1.8-7.7) K/mm3 Sodium 140 (137-145) mmol/L Potassium 3.7 (3.6-5.0) mmol/L Chloride 105.0 (98-107) mmol/L Carbon Dioxide 19 L (22-30) mmol/L Anion Gap 20 mmol/L BUN 8 (7-17) mg/dL Creatinine 0.6 (0.6-1.2) mg/dL Estimated GFR > 60 ml/min BUN/Creatinine Ratio 13 % Glucose 98 (65-100) mg/dL Calcium 8.8 (8.4-10.2) mg/dL Total Bilirubin 2.40 H (0.1-1.2) mg/dL AST 26 (5-40) units/L ALT 20 (7-56) units/L Alkaline Phosphatase 131 H (35-129) units/L Total Protein 7.8 (6.3-8.2) g/dL Albumin 3.8 L (3.9-5) g/dL Albumin/Globulin Ratio 1.0 % HCG, Qual (Negative) Urine Color Yellow (Yellow) Urine Turbidity Clear (Clear) Urine pH 6.0 (5.0-7.0) Ur Specific [place] 1.008 (1.003-1.030) Urine Protein <15 mg/dl (Negative) mg/dL Urine Glucose (UA) Neg (Negative) mg/dL Urine Ketones Neg (Negative) mg/dL Urine Blood Sm (Negative) Urine Nitrite Neg (Negative) Urine Bilirubin Neg (Negative) Urine Urobilinogen 2.0 (<2.0) mg/dL Ur Leukocyte Esterase Neg (Negative) Urine WBC (Auto) 1.0 (0.0-6.0) /HPF Urine RBC (Auto) 1.0 (0.0-6.0) /HPF U Epithel Cells (Auto) 2.0 (0-13.0) /HPF Urine Bacteria (Auto) 1+ (Negative) /HPF 04/30/21 Range/Units Unknown WBC (4.5-11.0) K/mm3 RBC (3.65-5.03) M/mm3 Hgb (10.1-14.3) gm/dl Hct (30.3-42.9) % MCV (79-97) fl MCH (28-32) pg MCHC (30-34) % RDW (13.2-15.2) % Plt Count (140-440) K/mm3 Lymph % (Auto) (13.4-35.0) % [place] % (Auto) (0.0-7.3) % Eos % (Auto) (0.0-4.3) % Baso % (Auto) (0.0-1.8) % Lymph # (Auto) (1.2-5.4) K/mm3 [place] # (Auto) (0.0-0.8) K/mm3 Eos # (Auto) (0.0-0.4) K/mm3 Baso # (Auto) (0.0-0.1) K/mm3 Seg Neutrophils % (40.0-70.0) % Seg Neutrophils # (1.8-7.7) K/mm3 Sodium (137-145) mmol/L Potassium (3.6-5.0) mmol/L Chloride (98-107) mmol/L Carbon Dioxide (22-30) mmol/L Anion Gap mmol/L BUN (7-17) mg/dL Creatinine (0.6-1.2) mg/dL Estimated GFR ml/min BUN/Creatinine Ratio % Glucose (65-100) mg/dL Calcium (8.4-10.2) mg/dL Total Bilirubin (0.1-1.2) mg/dL AST (5-40) units/L ALT (7-56) units/L Alkaline Phosphatase (35-129) units/L Total Protein (6.3-8.2) g/dL Albumin (3.9-5) g/dL Albumin/Globulin Ratio % HCG, Qual Negative (Negative) Urine Color (Yellow) Urine Turbidity (Clear) Urine pH (5.0-7.0) Ur Specific [place] (1.003-1.030) Urine Protein (Negative) mg/dL Urine Glucose (UA) (Negative) mg/dL Urine Ketones (Negative) mg/dL Urine Blood (Negative) Urine Nitrite (Negative) Urine Bilirubin (Negative) Urine Urobilinogen (<2.0) mg/dL Ur Leukocyte Esterase (Negative) Urine WBC (Auto) (0.0-6.0) /HPF Urine RBC (Auto) (0.0-6.0) /HPF U Epithel Cells (Auto) (0-13.0) /HPF Urine Bacteria (Auto) (Negative) /HPF - Radiology Data [facility] [address] [place] [address] XRay Report Signed Patient: CHELSIE SHERMAN MR#: [id number] : 1990 Acct:[id number] Age/Sex: 31 / F ADM Date: 04/30/21 Loc: ED Attending Dr: Ordering Physician: MARILY OLMEDO NP Date of Service: 04/30/21 Procedure(s): XR chest routine 2V Accession Number(s): [id number] cc: MARILY OLMEDO NP Fluoro Time In Minutes: XR chest routine 2V INDICATION / CLINICAL INFORMATION: pain COMPARISON: 04/26/2021 FINDINGS: SUPPORT DEVICES: Right port terminating in the right atrium. HEART / MEDIASTINUM: No significant abnormal ity. LUNGS / PLEURA: Persistent parenchymal opacities, similar prior exam. This is most prominent in the left perihilar region. Costophrenic sulci are sharp. No pneumothorax. ADDITIONAL FINDINGS: No significant additional findings. IMPRESSION: 1. Persistent peripheral opacities, similar to prior. No significant change. Signer Name: Eugenio Rios MD Signed: 04/30/2021 2:37 PM Workstation Name: [id number] Transcribed By: CS Dictated By: Eugenio Rios MD Electronically Authenticated By: Eugenio Rios MD Signed Date/Time: 04/30/211436 DD/ 35 TD/TT: - Medical Decision Making 32-year-old female that presents with sickle cell crisis. Patient is stable and was examined by me. Patient is stable and was examined by me. Labs has been obtained. Patient received medical treatment in ER which stated symptoms has resolved and subsided. Patient stated family member will drive patient home after discharge due to possible drowsiness. Physical exam is unremarkable. Patient stated has pain medications at home. Patient was instructed to follow- up with a primary care doctor in 3-5 days or if symptoms worsen and continue return to emergency room as soon as possible. At time of discharge, the patient does not seem toxic or ill in appearance. No acute signs of distress noted. Patient agrees to discharge treatment plan of care. No further questions noted by the patient. Critical care attestation.: If time is entered above; I have spent that time in minutes in the direct care of this critically ill patient, excluding procedure time. ED Disposition Clinical Impression: Sickle cell crisis Disposition: HOME / SELF CARE / HOMELESS Is pt being admited?: No Does the pt Need Aspirin: No Condition: Stable Additional Instructions: Follow-up with a primary care doctor in 3-5 days or if symptoms worsen and continue return to emergency room as soon as possible. Referrals: PRIMARY CAREMD [Primary Care Provider] - 3-5 Days ARNOLD VALE MD [Staff Physician] - 3-5 Days Forms: Work/School Release Form(ED) Time of Disposition: 16:17
[2021-04-30 13:15] LABS: Bacteria,Urine 1+ /HPF (Negative); Bilirubin,Urine NEG (Negative); Blood,Urine SM (Negative); Color,Urine Yellow (Yellow); Protein,Urine <15 mg/dL mg/dL (Negative)
[2021-04-30] MEDS ORDERED: diphenhydrAMINE 50 MG/ML VIAL IV ONE (14:26)
--- NOTE | 2021-04-30 14:41 | XRay Report ---
XR chest routine 2V INDICATION / CLINICAL INFORMATION: pain COMPARISON: 04/26/2021 FINDINGS: SUPPORT DEVICES: Right port terminating in the right atrium. HEART / MEDIASTINUM: No significant abnormality. LUNGS / PLEURA: Persistent parenchymal opacities, similar prior exam. This is most prominent in the l eft perihilar region. Costophrenic sulci are sharp. No pneumothorax. ADDITIONAL FINDINGS: No significant additional findings. IMPRESSION: 1. Persistent peripheral opacities, similar to prior. No significant change. Signer Name: Eugenio Rios MD Signed: 04/30/2021 2:37 PM Workstation Name: [id number]
[2021-04-30 14:47] LABS: Basophils # (Auto) 0.1 K/mm3 (0.0-0.1); Hemoglobin 8.7 gm/dl (10.1-14.3); Monocytes # (Auto) 0.9 K/mm3 (0.0-0.8); Monocytes % (Auto) 5.4 % (0.0-7.3); Red Blood Count 2.59 M/mm3 (3.65-5.03)
[2021-04-30 15:11] LABS: Alanine Aminotransferase 20 units/L (7-56); Albumin 3.8 g/dL (3.9-5); Blood Urea Nitrogen 8 mg/dL (7-17); Calcium 8.8 mg/dL (8.4-10.2); Hemolysis Index 21
[2021-04-30 15:17] LABS: BUN/Creatinine Ratio 13
[2021-04-30 16:02] VITALS: BP 125/70
[2021-04-30 16:08] LABS: Basophils % (Auto) 0.7 % (0.0-1.8); Hematocrit 25.4 % (30.3-42.9); Lymphocytes # (Auto) 2.7 K/mm3 (1.2-5.4); Lymphocytes % (Auto) 16.7 % (13.4-35.0); Mean Corpuscular HGB Conc 34 % (30-34); Mean Corpuscular Volume 98 fl (79-97); Platelet Count 555 K/mm3 (140-440)
[2021-04-30 16:09] LABS: Red Cell Distribution Width 23.9 % (13.2-15.2)
== END 2021-04-30 16:33 | disposition home or self-care (01) ==
LOC: ED 11:00
DX: D57.00 Hb-SS disease with crisis, unspecified (principal); J45.909 Unspecified asthma, uncomplicated; Z88.5 Allergy status to narcotic agent; Z79.899 Other long term (current) drug therapy
CPT/HCPCS: 36415; 71046; 80053; 81001; 84703; 85025; 96361; 96374; 96375; 99284; J1170; J1200; J1642; J2405; J7030

== ENCOUNTER 2021-05-06 08:53 | Emergency (ER) | payer SELFPAY ==
--- NOTE | 2021-05-06 09:21 | Event Note ---
ED Screening Note ED Screening Note: here often SSD co abd pain also hx asthma and gastric ulcers This initial assessment/diagnostic orders/clinical plan/treatment(s) is/are subject to change based on patients health status, clinical progression and re- assessment by fellow clinical providers in the ED. Further treatment and workup at subsequent clinical providers discretion. Patient/guardian urged not to elope from the ED as their condition may be serious if not clinically assessed and managed. Initial orders include: labs- has a port
[2021-05-06 09:59] LABS: Hemoglobin 10.2 gm/dl (10.1-14.3); Mean Corpuscular HGB Conc 35 % (30-34); Mean Corpuscular Volume 96 fl (79-97); Platelet Count 510 K/mm3 (140-440); Red Blood Count 3.04 M/mm3 (3.65-5.03); Red Cell Distribution Width 23.2 % (13.2-15.2)
[2021-05-06 10:06] LABS: Alanine Aminotransferase 79 units/L (7-56); Albumin 4.1 g/dL (3.9-5); Blood Urea Nitrogen 6 mg/dL (7-17); Calcium 9.5 mg/dL (8.4-10.2); Hemolysis Index 6
[2021-05-06 10:22] LABS: BUN/Creatinine Ratio 10
[2021-05-06] MEDS ORDERED: ONDANSETRON 4 MG/2 ML INJ IV ONE (11:17)
[2021-05-06] MEDS ORDERED: diphenhydrAMINE 50 MG/ML VIAL IV ONE (11:17)
[2021-05-06] MEDS ORDERED: HYDROmorphone 2 MG/1 ML INJ IV ONE (11:17)
[2021-05-06] MEDS ORDERED: SODIUM CHLORIDE 0.9% 1000 ML 1,000 ML IV ONE ×2 (11:18→11:22)
[2021-05-06] MEDS ORDERED: KETOROLAC 30 MG/1 ML INJ IV ONE (11:18)
--- NOTE | 2021-05-06 11:21 | Emergency Department Report ---
HPI - General Chief Complaint: Sickle Cell Crisis Time Seen by Provider: 05/06/21 09:19 - HPI HPI: 31-year-old female with history of sickle cell disease, gastric ulcers, and asthma presents complaining of approximately 3 days of symptoms typical of her s ickle cell crises including whole body pain and aches, nausea with some occasional nonbloody nonbilious emesis, and mid lower abdominal pain which is intermittent. On further questioning she also says she has had some mild dysuria over the same period of time. There are no known aggravating or all eviating factors. She denies any associated fever/chills, headache, vision change, sore throat, shortness of breath, cough, back pain, flank pain, chest pain, shortness of breath, weakness, sensory changes, vaginal bleeding, or any other symptoms. Her LMP was on April 26. She is here because she desires appropriate pain control. ED Past Medical Hx - Past Medical History Previous Medical History?: Yes Hx Deep Vein Thrombosis: No Hx Pulmonary Embolism: No Hx Sickle Cell Disease: Yes Hx Asthma: Yes Hx COPD: No Hx HIV: No Additional medical history: Gastric ulcers - Surgical History Past Surgical History?: Yes Hx Cholecystectomy: Yes (05/2012) - Social History Smoking Status: Never Smoker Substance Use Type: None - Medications Home Medications: Home Medications Medication Instructions Recorded Confirmed Last Taken Type Folic Acid [Folvite] 1 mg PO QDAY #30 tablet 05/08/18 04/26/21 Unknown Rx Hydroxyurea [Hydrea] 500 mg PO QDAY #30 capsule 05/08/18 04/26/21 Unknown Rx HYDROmorphone [Dilaudid] 2 mg PO Q8H 12/26/18 04/26/21 Unknown History Multivitamin [One Daily 1 each PO DAILY 12/26/18 04/26/21 Unknown History Multivitamin] Oxycodone HCl [oxyCONTIN ER] 30 mg PO BID 12/26/18 04/26/21 Unknown History oxyCODONE /ACETAMINOPHEN [Percocet 1 tab PO Q6HR PRN #20 tablet 11/14/19 04/26/21 Unknown Rx 5/325] Ibuprofen [Motrin 800 MG tab] 800 mg PO Q8HR PRN #20 tablet 10/07/20 04/26/21 Unknown Rx Ondansetron [Zofran Odt] 4 mg PO Q6HR PRN #20 tab.rapdis 10/10/20 04/26/21 Unknown Rx Azithromycin 500 mg PO DAILY #7 tablet 04/26/21 Unknown Rx Prednisone [predniSONE 5 mg (6-Day 5 mg PO .TAPER #1 tab.ds.pk 04/26/21 Unknown Rx Pack, 21 Tabs)] cephALEXin [Keflex] 500 mg PO Q8HR #20 cap 04/26/21 Unknown Rx ED Review of Systems ROS: Stated complaint: SICKLE CELL PAIN,N/V,ABD PAIN Other details as noted in HPI Constitutional: denies: chills, fever Eyes: denies: eye pain, vision change ENT: denies: throat pain, congestion Respiratory: denies: cough, shortness of breath Cardiovascular: denies: chest pain, palpitations Endocrine: denies: increased hunger, increased thirst Gastrointestinal: abdominal pain, nausea, vomiting. denies: diarrhea Genitourinary: dysuria. denies: hematuria, discharge Musculoskeletal: denies: back pain, joint swelling Skin: denies: rash, lesions Neurological: denies: headache, weakness, numbness Psychiatric: denies: anxiety, depression Physical Exam - Physical Exam Vital Signs: Vital Signs 05/06/21 09:17 Temperature 98.6 F Pulse Rate 115 H Respiratory 18 Rate Blood Pressure 162/96 O2 Sat by Pulse 96 Oximetry Physical Exam: GENERAL: Well developed and well nourished. No acute distress HEAD: Normocephalic. No obvious signs of trauma. ENT: Very dry mucous membranes. EYES: Extraocular movements are intact. Pupils are equal round and reactive to light bilaterally. Scleral icterus is present. NECK: Supple. Full ROM is intact. Trachea is midline. LUNGS: Nonlabored breathing. Equal chest rise bilaterally. Clear to auscultation bilaterally. CARDIOVASCULAR: Tachycardic but with regular rhythm. No murmurs or rubs. VASCULAR: Cap refill < 2 seconds ABDOMEN: Abdomen is soft and nondistended. There is tenderness of the bilateral lower quadrants as well as the mid lower abdomen without guarding or rebound tenderness. SKIN: Skin is warm and dry NEURO: Patient is awake, alert, and oriented. 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 No focal deficits. Normal motor and sensory exam throughout. Normal speech. MUSCULOSKELETAL: No obvious deformities. No significant tenderness. Normal ROM throughout. BACK/SPINE: No costovertebral angle tenderness. ED Course Vital Signs 05/06/21 09:17 Temperature 98.6 F Pulse Rate 115 H Respiratory 18 Rate Blood Pressure 162/96 O2 Sat by Pulse 96 Oximetry ED Medical Decision Making - Lab Data Result diagrams: 05/06/21 09:31 05/06/21 09:31 Lab Results 05/06/21 05/06/21 05/06/21 Range/Units 09:31 09:31 11:32 WBC 12.7 H (4.5-11.0) K/mm3 RBC 3.04 L (3.65-5.03) M/mm3 Hgb 10.2 (10.1-14.3) gm/dl Hct 29.0 L (30.3-42.9) % MCV 96 (79-97) fl MCH 34 H (28-32) pg MCHC 35 H (30-34) % RDW 23.2 H (13.2-15.2) % Plt Count 510 H (140-440) K/mm3 Percent Retic 14.68 H (0.78-2.58) % Sodium 136 L (137-145) mmol/L Potassium 4.2 (3.6-5.0) mmol/L Chloride 102.0 (98-107) mmol/L Carbon Dioxide 24 (22-30) mmol/L Anion Gap 14 mmol/L BUN 6 L (7-17) mg/dL Creatinine 0.6 (0.6-1.2) mg/dL Estimated GFR > 60 ml/min BUN/Creatinine Ratio 10 % Glucose 109 H (65-100) mg/dL Calcium 9.5 (8.4-10.2) mg/dL Magnesium 1.90 (1.7-2.3) mg/dL Total Bilirubin 3.60 H (0.1-1.2) mg/dL AST 114 H (5-40) units/L ALT 79 H (7-56) units/L Alkaline Phosphatase 137 H (35-129) units/L Total Protein 8.4 H (6.3-8.2) g/dL Albumin 4.1 (3.9-5) g/dL Albumin/Globulin Ratio 1.0 % Lipase 28 (13-60) units/L HCG, Qual (Negative) Urine Color (Yellow) Urine Turbidity (Clear) Urine pH (5.0-7.0) Ur Specific [place] (1.003-1.030) Urine Protein (Negative) mg/dL Urine Glucose (UA) (Negative) mg/dL Urine Ketones (Negative) mg/dL Urine Blood (Negative) Urine Nitrite (Negative) Urine Bilirubin (Negative) Urine Urobilinogen (<2.0) mg/dL Ur Leukocyte Esterase (Negative) Urine WBC (Auto) (0.0-6.0) /HPF Urine RBC (Auto) (0.0-6.0) /HPF U Epithel Cells (Auto) (0-13.0) /HPF Urine Mucus /HPF 05/06/21 05/06/21 Range/Units 11:32 Unknown WBC (4.5-11.0) K/mm3 RBC (3.65-5.03) M/mm3 Hgb (10.1-14.3) gm/dl Hct (30.3-42.9) % MCV (79-97) fl MCH (28-32) pg MCHC (30-34) % RDW (13.2-15.2) % Plt Count (140-440) K/mm3 Percent Retic (0.78-2.58) % Sodium (137-145) mmol/L Potassium (3.6-5.0) mmol/L Chloride (98-107) mmol/L Carbon Dioxide (22-30) mmol/L Anion Gap mmol/L BUN (7-17) mg/dL Creatinine (0.6-1.2) mg/dL Estimated GFR ml/min BUN/Creatinine Ratio % Glucose (65-100) mg/dL Calcium (8.4-10.2) mg/dL Magnesium (1.7-2.3) mg/dL Total Bilirubin (0.1-1.2) mg/dL AST (5-40) units/L ALT (7-56) units/L Alkaline Phosphatase (35-129) units/L Total Protein (6.3-8.2) g/dL Albumin (3.9-5) g/dL Albumin/Globulin Ratio % Lipase (13-60) units/L HCG, Qual Negative (Negative) Urine Color [place] (Yellow) Urine Turbidity Clear (Clear) Urine pH 6.0 (5.0-7.0) Ur Specific [place] 1.012 (1.003-1.030) Urine Protein 30 mg/dl (Negative) mg/dL Urine Glucose (UA) Neg (Negative) mg/dL Urine Ketones Neg (Negative) mg/dL Urine Blood Neg (Negative) Urine Nitrite Neg (Negative) Urine Bilirubin Neg (Negative) Urine Urobilinogen 4.0 (<2.0) mg/dL Ur Leukocyte Esterase Tr (Negative) Urine WBC (Auto) 4.0 (0.0-6.0) /HPF Urine RBC (Auto) 1.0 (0.0-6.0) /HPF U Epithel Cells (Auto) 2.0 (0-13.0) /HPF Urine Mucus Few /HPF - Medical Decision Making 31-year-old female with sickle cell disease presents complaining of 3 days of sickle cell pain which she describes as pain everywhere. She also has been experiencing nausea with some occasional vomiting and lower abdominal pain which she says is typical of her sickle cell crises. She also reports having some mild dysuria as well. Denies chest pain or fever. On initial assessment, she is afebrile and with tachycardia in the 110s. Blood pressure is elevated. The remainder of her vital signs are grossly within normal limits. She is in no acute distress. Physical examination reveals findings of dry mucous membranes, jaundice/scleral icterus, as well as bilateral lower and mid abdominal tenderness without CVA tenderness. The tenderness does not involve the upper groin/adnexal region. Patient denies vaginal complaints of any kind. Labs were drawn in triage and reveal white blood cell count of 12.7 and hemoglobin of 10.2 with appropriately elevated reticulocyte count. Findings may represent hemoconcentration. In addition, patient is noted to have mildly elevated AST of 114 and ALT of 79. Review of the patient's past medical records reveals that this is a new finding. We will add on a test, lipase, urinalysis, magnesium level, CT of the abdomen pelvis to assess for evidence of appendici tis, pancreatitis, hepatitis, diverticulitis, or other intra-abdominal catastrophe. We will give 2 L of IV fluid, IV Dilaudid, Benadryl, Zofran, and Toradol and then reassess. test, lipase, magnesium level, and urinalysis are all within normal limits. Urinalysis does not show evidence of infection. On repeat assessment, the patient reports that her pain is much improved as well as the remainder of her symptoms. Tachycardia has resolved. CT of the abdomen and pelvis reveals findings which may represent mild mesenteric adenitis. In addition there is circumferential bladder wall thickening which is most often a sign of urinary tract infection. However, given that the patient's urinalysis shows no signs of infection, this may represent interstitial cystitis. Urine culture has been sent. I discussed these findings with the patient as well as the patient's newly elevated liver enzymes and conveyed that these require close follow-up with a primary care doctor and/or her clinical supervisor for possible further work-up. I also discussed the possibility of interstitial cystitis given the CT findings, her dysuria and lack of infection on urinalysis, although this is not the only possible diagnosis and therefore follow-up is of utmost importance. I advised that she follow-up with a urologist over the next few days. Referral will be given. I recommend that she follow-up in the next several days for repeat labs to ensure that her transaminitis is not worsening. I advised that she return to the emergency department or be seen by a doctor should her symptoms worsen, should she develop new concerning symptoms or have any other health concerns. The patient expressed understanding and agreement with the plan of care Critical care attestation.: If time is entered above; I have spent that time in minutes in the direct care of this critically ill patient, excluding procedure time. ED Disposition Clinical Impression: Sickle cell crisis, Cystitis, Mesenteric adenitis, Transaminitis Disposition: 01 HOME / SELF CARE / HOMELESS Is pt being admited?: No Condition: Stable Instructions: Mesenteric Adenitis, Adult, Eating Plan for Interstitial Cystitis, Hemolytic Anemia, Liver Function Tests, Interstitial Cystitis Additional Instructions: Your labs reveal a mild elevation of your liver enzymes, AST and ALT. This needs to be followed up by your clinical supervisor in the next few days to ensure that these levels are not increasing. In addition, your CT scan of your abdomen re vealed evidence of possible mesenteric adenitis which is inflamed lymph nodes. This also needs to be followed up by your clinical supervisor or another doctor in the next few days. Your CT scan also shows swelling of your bladder without evidence of infection. This could represent a problem which needs to be addressed by a urologist. Referral has been given to urology for you to follow- up with this problem. If her symptoms worsen or you develop new concerns please return to the emergency department immediately. Referrals: PRIMARY CARE, [Primary Care Provider] - 3-5 Days YARELI ASCENCIO MD [Staff Physician] - 3-5 Days
[2021-05-06 12:52] VITALS: BP 146/103
[2021-05-06 13:50] LABS: Bilirubin,Urine NEG (Negative); Blood,Urine NEG (Negative); Color,Urine Amber (Yellow); Mucus,Urine FEW /HPF
--- NOTE | 2021-05-06 14:37 | Cat Scan Report ---
CT ABDOMEN AND PELVIS WITH CONTRAST HISTORY: Bilateral lower abdominal tenderness. COMPARISON: 10/10/2020, 11/14/2019. TECHNIQUE: CT images of the abdomen and pelvis were obtained following administration of intravenous contrast. Oral contrast was not utilized which limits evaluation of the gastrointestinal tract. All C T scans at this location are performed using CT dose reduction for ALARA by means of automated exposu re control. CONTRAST: 100 ml of intravenous contrast administered. FINDINGS: Limited evaluation of the lung bases shows unchanged mild parenchymal scarring. Mildly enlarged mesenteric lymph nodes are most pronounced within the right lower abdomen. The appear ance is unchanged dating back to 11/14/2019 CT. The appendix is normal in appearance. A biliary stent is again noted with proximal extent within the common bile duct. The distal extent ap pears to be within the third portion of the duodenum. Pneumobilia is again noted. Patient status post suspected cholecystectomy. The spleen demonstrates unchanged atrophic appearance and is heavily calcified. There is circumferential thickening of the urinary bladder wall which appears new, possibly accentuat ed by the collapsed state. Mild diastases of the rectus musculature near the umbilicus, stable. The kidneys and adrenal glands are unremarkable. Gastrointestinal tract shows no evidence of bowel wa ll thickening or pathologic distention. No free intraperitoneal gas or fluid. Osseous structures show no evidence of acute fracture or aggressive osseous destructive lesion. IMPRESSION: Mildly enlarged mesenteric lymph nodes are most pronounced within the right lower abdomen. This appea alexa is similar compared to prior imaging dating back to 2019 and may reflect some degree of chronic reactive/inflammatory process. Some component of mesenteric adenitis may be present. The appendix is normal in appearance. Circumferential thickening of the urinary bladder wall, possibly representing cystitis. Recommend cor relation with urinalysis. No significant change in position of biliary stent with stable pneumobilia. Signer Name: Shialesh Anderson MD Signed: 05/06/2021 2:32 PM Workstation Name: [id number]
== END 2021-05-06 16:37 | disposition home or self-care (01) ==
LOC: ED 08:53
DX: D57.00 Hb-SS disease with crisis, unspecified (principal); R30.0 Dysuria; N30.90 Cystitis, unspecified without hematuria; I88.9 Nonspecific lymphadenitis, unspecified
CPT/HCPCS: 36415; 74177; 80053; 81001; 83690; 83735; 84703; 85027; 85045; 87086; 96361; 96374; 96375; 99284; J1170; J1200; J1642; J1885; J2405; J7030; Q9967

== ENCOUNTER 2021-06-14 12:24 | Emergency (ER) | payer OTHER ==
[2021-06-14 12:54] VITALS: BP 113/68
[2021-06-14] MEDS ORDERED: HYDROmorphone 1 MG/1 ML INJ IV ONE ×3 (13:13→14:43)
[2021-06-14] MEDS ORDERED: SODIUM CHLORIDE 0.9% 1000 ML 1,000 ML IV ONE ×3 (13:13→14:43)
[2021-06-14] MEDS ORDERED: diphenhydrAMINE 50 MG/ML VIAL IV ONE (13:16)
--- NOTE | 2021-06-14 13:24 | Emergency Department Report ---
ED General Adult HPI - General Chief complaint: Sickle Cell Crisis Stated complaint: NAUSEA,VOMITING,BODY HEADACHES ETC Time Seen by Provider: 06/14/21 13:07 Source: patient Mode of arrival: Ambulatory Limitations: No Limitations - History of Present Illness Initial comments: Patient is 31 years old female with history of sickle cell disease. Patient p resented to the ER complaining of generalized body ache mainly to the lower back and lower extremities for the last 2 days. Patient denied any fever or chills. No chest pain or shortness of breath. Severity scale (0 -10): 8 - Related Data Home Medications Medication Instructions Recorded Confirmed Last Taken HYDROmorphone [Dilaudid] 2 mg PO Q8H 12/26/18 04/26/21 Unknown Multivitamin [One Daily 1 each PO DAILY 12/26/18 04/26/21 Unknown Multivitamin] Oxycodone HCl [oxyCONTIN ER] 30 mg PO BID 12/26/18 04/26/21 Unknown Previous Rx's Medication Instructions Recorded Last Taken Type Folic Acid [Folvite] 1 mg PO QDAY #30 tablet 05/08/18 Unknown Rx Hydroxyurea [Hydrea] 500 mg PO QDAY #30 capsule 05/08/18 Unknown Rx oxyCODONE /ACETAMINOPHEN [Percocet 1 tab PO Q6HR PRN #20 tablet 11/14/19 Unknown Rx 5/325] Ibuprofen [Motrin 800 MG tab] 800 mg PO Q8HR PRN #20 tablet 10/07/20 Unknown Rx Ondansetron [Zofran Odt] 4 mg PO Q6HR PRN #20 tab.rapdis 10/10/20 Unknown Rx Azithromycin 500 mg PO DAILY #7 tablet 04/26/21 Unknown Rx Prednisone [predniSONE 5 mg (6-Day 5 mg PO .TAPER #1 tab.ds.pk 04/26/21 Unknown Rx Pack, 21 Tabs)] cephALEXin [Keflex] 500 mg PO Q8HR #20 cap 04/26/21 Unknown Rx Allergies Allergy/AdvReac Type Severity Reaction Status Date / Time morphine AdvReac Itching Verified 04/30/21 11:16 ED Review of Systems ROS: Stated complaint: NAUSEA,VOMITING,BODY HEADACHES ETC Other details as noted in HPI Comment: All other systems reviewed and negative Constitutional: denies: chills, fever Respiratory: denies: cough, shortness of breath, SOB with exertion, SOB at rest Cardiovascular: denies: chest pain, palpitations Gastrointestinal: denies: abdominal pain, nausea, vomiting Musculoskeletal: back pain, arthralgia, myalgia Neurological: denies: headache, weakness ED Past Medical Hx - Past Medical History Hx Deep Vein Thrombosis: No Hx Pulmonary Embolism: No Hx Sickle Cell Disease: Yes Hx Asthma: Yes Hx COPD: No Hx HIV: No Additional medical history: Gastric ulcers - Surgical History Hx Cholecystectomy: Yes (05/2012) - Social History Smoking Status: Never Smoker Substance Use Type: None - Medications Home Medications: Home Medications Medication Instructions Recorded Confirmed Last Taken Type Folic Acid [Folvite] 1 mg PO QDAY #30 tablet 05/08/18 04/26/21 Unknown Rx Hydroxyurea [Hydrea] 500 mg PO QDAY #30 capsule 05/08/18 04/26/21 Unknown Rx HYDROmorphone [Dilaudid] 2 mg PO Q8H 12/26/18 04/26/21 Unknown History Multivitamin [One Daily 1 each PO DAILY 12/26/18 04/26/21 Unknown History Multivitamin] Oxycodone HCl [oxyCONTIN ER] 30 mg PO BID 12/26/18 04/26/21 Unknown History oxyCODONE /ACETAMINOPHEN [Percocet 1 tab PO Q6HR PRN #20 tablet 11/14/19 04/26/21 Unknown Rx 5/325] Ibuprofen [Motrin 800 MG tab] 800 mg PO Q8HR PRN #20 tablet 10/07/20 04/26/21 Unknown Rx Ondansetron [Zofran Odt] 4 mg PO Q6HR PRN #20 tab.rapdis 10/10/20 04/26/21 Unknown Rx Azithromycin 500 mg PO DAILY #7 tablet 04/26/21 Unknown Rx Prednisone [predniSONE 5 mg (6-Day 5 mg PO .TAPER #1 tab.ds.pk 04/26/21 Unknown Rx Pack, 21 Tabs)] cephALEXin [Keflex] 500 mg PO Q8HR #20 cap 04/26/21 Unknown Rx ED Physical Exam - General Limitations: No Limitations General appearance: alert, in no apparent distress - Head Head exam: Present: atraumatic, normocephalic, normal inspection - Neck Neck exam: Present: normal inspection. Absent: tenderness, meningismus - Respiratory Respiratory exam: Present: normal lung sounds bilaterally - Cardiovascular Cardiovascular Exam: Present: regular rate, normal rhythm, normal heart sounds - GI/Abdominal GI/Abdominal exam: Present: soft, normal bowel sounds. Absent: distended, t enderness, guarding, rebound, rigid, organomegaly, mass, bruit, pulsatile mass, hernia - Extremities Exam Extremities exam: Present: normal inspection, full ROM, normal capillary refill. Absent: tenderness - Back Exam Back exam: Present: normal inspection, full ROM. Absent: CVA tenderness (R), CVA tenderness (L) - Neurological Exam Neurological exam: Present: alert, oriented X3, CN II-XII intact, normal gait, reflexes normal. Absent: motor sensory deficit - Psychiatric Psychiatric exam: Present: normal mood - Skin Skin exam: Present: warm, intact, normal color ED Course Vital Signs 06/14/21 12:51 Temperature 98.9 F Pulse Rate 101 H Respiratory 20 Rate Blood Pressure 113/68 [Right] O2 Sat by Pulse 96 Oximetry ED Medical Decision Making - Lab Data Result diagrams: 06/14/21 13:35 06/14/21 13:35 - Medical Decision Making Patient is 31 years old female with history of sickle cell disease. Patient presented to the ER complaining of generalized body ache mainly to the lower back and lower extremities for the last 2 days. Patient denied any fever or chills. No chest pain or shortness of breath. Patient received multiple doses of pain medication, IV fluids and antiemetic medicine. Labs reviewed and showed a chronic anemia and elevated reticulocyte count and leukocytosis. Patient stated that she is feeling much better and her pain is under control now. Patient advised to follow-up with her primary doctor in the next 2 to 3 days and to return to the ER if she develop any new symptoms Critical care attestation.: If time is entered above; I have spent that time in minutes in the direct care o f this critically ill patient, excluding procedure time. ED Disposition Clinical Impression: Leukocytosis, Sickle cell crisis Disposition: HOME / SELF CARE / HOMELESS Is pt being admited?: No Condition: Stable Instructions: Hemolytic Anemia Referrals: PRIMARY CARE, [Primary Care Provider] - 3-5 Days
[2021-06-14] MEDS ORDERED: ONDANSETRON 4 MG/2 ML INJ IV ONE (13:43)
[2021-06-14 13:47] LABS: Hematocrit 25.6 % (30.3-42.9); Mean Corpuscular HGB Conc 35 % (30-34); Mean Corpuscular Volume 84 fl (79-97); Platelet Count 313 K/mm3 (140-440); Red Blood Count 3.06 M/mm3 (3.65-5.03)
[2021-06-14 14:06] LABS: Alanine Aminotransferase 19 units/L (7-56); Albumin 4.4 g/dL (3.9-5); Bilirubin,Direct 0.6 mg/dL (0-0.2); Blood Urea Nitrogen 10 mg/dL (7-17); Calcium 9.1 mg/dL (8.4-10.2); Hemolysis Index 11
[2021-06-14 14:08] LABS: BUN/Creatinine Ratio 17
[2021-06-14 14:29] LABS: Red Cell Distribution Width 25.5 % (13.2-15.2)
[2021-06-14 15:09] LABS: Total Cells Counted 100
[2021-06-14 15:11] LABS: Poikilocytosis 2+
[2021-06-14 15:12] LABS: Anisocytosis 2+; Ovalocytes 1+; Sickle Cells 1+; Target Cells Few
== END 2021-06-14 17:22 | disposition home or self-care (01) ==
LOC: ED 12:24
DX: D72.829 Elevated white blood cell count, unspecified (principal); D57.00 Hb-SS disease with crisis, unspecified; J45.909 Unspecified asthma, uncomplicated; Z88.5 Allergy status to narcotic agent; Z79.899 Other long term (current) drug therapy
CPT/HCPCS: 36415; 80048; 80076; 85007; 85025; 85045; 96361; 96374; 96375; 96376; 99283; J1170; J1200; J1642; J2405; J7030

== ENCOUNTER 2021-06-17 21:40 | Emergency (ER) | payer SELFPAY ==
[2021-06-18 01:45] LABS: Hematocrit 26.6 % (30.3-42.9); Hemoglobin 9.3 gm/dl (10.1-14.3); Mean Corpuscular HGB Conc 35 % (30-34); Mean Corpuscular Volume 87 fl (79-97); Red Blood Count 3.05 M/mm3 (3.65-5.03)
[2021-06-18 01:48] LABS: Platelet Count 360 K/mm3 (140-440); Red Cell Distribution Width 27.5 % (13.2-15.2)
[2021-06-18 01:51] LABS: Alanine Aminotransferase 23 units/L (7-56); Albumin 4.2 g/dL (3.9-5); Blood Urea Nitrogen 10 mg/dL (7-17); Hemolysis Index 33
--- NOTE | 2021-06-18 01:51 | Emergency Department Report ---
HPI - General Chief Complaint: Nausea/Vomiting/Diarrhea Time Seen by Provider: 06/18/21 01:06 - HPI HPI: 31-year-old -[place] female presents to the emergency department with a complaint of a 3 to 4-day history of nausea with vomiting, and the complaint of generalized pain consistent with a sickle cell pain crisis. Patient was seen here on 06/14 for the same symptoms. She was discharged home with Zofran ODT and pain medication, Percocet. Patient says that she has been taking his medication without any relief. She follows with Dr. Raines for PCP/hematology but has not seen him regarding these current symptoms or current crisis. She denies any fever, chest pain, abdominal pain, dysuria, vaginal bleeding or discharge. No recent travel or sick contacts at home. ED Past Medical Hx - Past Medical History Hx Deep Vein Thrombosis: No Hx Pulmonary Embolism: No Hx Sickle Cell Disease: Yes Hx Asthma: Yes Hx COPD: No Hx HIV: No Additional medical history: Gastric ulcers - Surgical History Hx Cholecystectomy: Yes (05/2012) - Social History Smoking Status: Never Smoker Substance Use Type: None - Medications Home Medications: Home Medications Medication Instructions Recorded Confirmed Last Taken Type Folic Acid [Folvite] 1 mg PO QDAY #30 tablet 05/08/18 04/26/21 Unknown Rx Hydroxyurea [Hydrea] 500 mg PO QDAY #30 capsule 05/08/18 04/26/21 Unknown Rx HYDROmorphone [Dilaudid] 2 mg PO Q8H 12/26/18 04/26/21 Unknown History Multivitamin [One Daily 1 each PO DAILY 12/26/18 04/26/21 Unknown History Multivitamin] Oxycodone HCl [oxyCONTIN ER] 30 mg PO BID 12/26/18 04/26/21 Unknown History oxyCODONE /ACETAMINOPHEN [Percocet 1 tab PO Q6HR PRN #20 tablet 11/14/19 04/26/21 Unknown Rx 5/325] Ibuprofen [Motrin 800 MG tab] 800 mg PO Q8HR PRN #20 tablet 10/07/20 04/26/21 Unknown Rx Azithromycin 500 mg PO DAILY #7 tablet 04/26/21 Unknown Rx Prednisone [predniSONE 5 mg (6-Day 5 mg PO .TAPER #1 tab.ds.pk 04/26/21 Unknown Rx Pack, 21 Tabs)] cephALEXin [Keflex] 500 mg PO Q8HR #20 cap 04/26/21 Unknown Rx Ondansetron [Zofran Odt] 4 mg PO Q8HR PRN #14 tab.rapdis 06/14/21 Unknown Rx oxyCODONE /ACETAMINOPHEN [Percocet 1 tab PO Q6HR PRN #14 tablet 06/14/21 Unknown Rx 5/325] Ondansetron [Zofran ODT TAB] 4 mg PO Q6HR PRN #15 tab.rapdis 06/18/21 Unknown Rx ED Review of Systems ROS: Stated complaint: SICKLE CELL VOMITING Other details as noted in HPI Comment: All other systems reviewed and negative Constitutional: denies: chills, fever Eyes: denies: eye pain, vision change ENT: denies: ear pain, throat pain Respiratory: denies: cough, shortness of breath Cardiovascular: denies: chest pain, palpitations Gastrointestinal: nausea, vomiting. denies: abdominal pain Genitourinary: denies: dysuria, discharge Musculoskeletal: myalgia. denies: joint swelling Skin: denies: rash, lesions Neurological: denies: headache, weakness Physical Exam - Physical Exam Vital Signs: Vital Signs 06/17/21 22:51 Temperature 98.8 F Pulse Rate 103 H Respiratory 18 Rate Blood Pressure 122/77 [Right] O2 Sat by Pulse 98 Oximetry Physical Exam: GENERAL: The patient is well-developed well-nourished. HENT: Normocephalic. Atraumatic. Patient has moist mucous membranes. EYES: Extraocular motions are intact. NECK: Supple. Trachea is midline. CHEST/LUNGS: Clear to auscultation. There is no respiratory distress noted. HEART/CARDIOVASCULAR: Regular. There is no tachycardia. There is no murmur. ABDOMEN: Abdomen is soft, nontender. Patient has normal bowel sounds. SKIN: Skin is warm and dry. NEURO: The patient is awake, alert, and oriented. The patient is cooperative. The patient has no focal neurologic deficits. Normal speech. MUSCULOSKELETAL: There is no tenderness or deformity. There is no limitation range of motion. ED Course Vital Signs 06/17/21 22:51 Temperature 98.8 F Pulse Rate 103 H Respiratory 18 Rate Blood Pressure 122/77 [Right] O2 Sat by Pulse 98 Oximetry ED Medical Decision Making - Lab Data Result diagrams: 06/18/21 01:21 06/18/21 01:21 Lab Results 06/18/21 06/18/21 06/18/21 Range/Units 01:21 01: 01:21 WBC 16.7 H (4.5-11.0) K/mm3 RBC 3.05 L (3.65-5.03) M/mm3 Hgb 9.3 L (10.1-14.3) gm/dl Hct 26.6 L (30.3-42.9) % MCV 87 (79-97) fl MCH 31 (28-32) pg MCHC 35 H (30-34) % RDW 27.5 H (13.2-15.2) % Plt Count 360 (140-440) K/mm3 Lymph # (Auto) Unit Nurse Add Manual Diff Complete Total Counted 100 Seg Neuts % (Manual) 36.0 L (40.0-70.0) % Monocytes % (Manual) 4.0 (0.0-7.3) % Eosinophils % (Manual) 4.0 (0.0-4.3) % Nucleated RBC % 3.0 H (0.0-0.9) % Seg Neutrophils # Man 6.0 (1.8-7.7) K/mm3 Band Neutrophils # 0.0 K/mm3 Lymphocytes # (Manual) 9.4 H (1.2-5.4) K/mm3 Abs React Lymphs (Man) 0.0 K/mm3 Monocytes # (Manual) 0.7 (0.0-0.8) K/mm3 Eosinophils # (Manual) 0.7 H (0.0-0.4) K/mm3 Basophils # (Manual) 0.0 (0.0-0.1) K/mm3 Metamyelocytes # 0.0 K/mm3 Myelocytes # 0.0 K/mm3 Promyelocytes # 0.0 K/mm3 Blast Cells # 0.0 K/mm3 WBC Morphology Not Reportable Hypersegmented Neuts Not Reportable Hyposegmented Neuts Not Reportable Hypogranular Neuts Not Reportable Smudge Cells Not Reportable Toxic Granulation Not Reportable Toxic Vacuolation Not Reportable Dohle Bodies Not Reportable Pelger-Huet Anomaly Not Reportable Tam Rods Not Reportable Platelet Estimate Consistent w auto Clumped Platelets Not Reportable Plt Clumps, EDTA Not Reportable Large Platelets Not Reportable Giant Platelets Not Reportable Platelet Satelliting Not Reportable Plt Morphology Comment Not Reportable RBC Morphology Not Reportable Dimorphic RBCs Not Reportable Polychromasia 1+ Hypochromasia Few Poikilocytosis Not Reportable Anisocytosis 3+ Microcytosis Not Reportable Macrocytosis Not Reportable Spherocytes Not Reportable Pappenheimer Bodies Not Reportable Sickle Cells 2+ Target Cells Few Tear Drop Cells Not Reportable Ovalocytes Not Reportable Helmet Cells Not Reportable [place] Bodies Not Reportable [place] Rings Not Reportable [place] Cells Not Reportable Bite Cells Not Reportable Crenated Cell Not Reportable Elliptocytes Not Reportable Acanthocytes (Spur) Not Reportable Rouleaux Not Reportable Hemoglobin C Crystals Not Reportable Schistocytes Not Reportable Malaria parasites Not Reportable Percent Retic 16.34 H (0.78-2.58) % Kb Bodies Not Reportable Hem Pathologist Commnt No Sodium 136 L (137-145) mmol/L Potassium 4.6 (3.6-5.0) mmol/L Chloride 102.8 (98-107) mmol/L Carbon Dioxide 20 L (22-30) mmol/L Anion Gap 18 mmol/L BUN 10 (7-17) mg/dL Creatinine 0.6 (0.6-1.2) mg/dL Estimated GFR > 60 ml/min BUN/Creatinine Ratio 17 % Glucose 105 H (65-100) mg/dL Calcium 9.0 (8.4-10.2) mg/dL Total Bilirubin 3.50 H (0.1-1.2) mg/dL AST 35 (5-40) units/L ALT 23 (7-56) units/L Alkaline Phosphatase 109 (35-129) units/L Total Protein 7.8 (6.3-8.2) g/dL Albumin 4.2 (3.9-5) g/dL Albumin/Globulin Ratio 1.2 % HCG, Qual Negative (Negative) - Medical Decision Making This patient presents with a few days of generalized body aches and pains, as well as nausea with vomiting, that she says is a sickle cell crisis. Heart and lung sounds are normal to auscultation. The patient does not appear in any respiratory or acute distress. She denies any chest pain or fever and does not appear to be in a chest crisis. Patient's labs shows a leukocytosis of about 16,000, anemia with a hemoglobin of 9.3, reticulocyte count of 16 total bilirubin of 3.5. All these are consistent with previous visits. Patient was given 2 doses of IV analgesia and 1 dose of antiemetic, as well as a liter of IV fluid. Upon reevaluation she is feeling greatly improved. She was able to pass an oral challenge. Vital signs have been reassuring throughout her ED course including being afebrile. 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 Critical Care Time: No Critical care attestation.: If time is entered above; I have spent that time in minutes in the direct care of this critically ill patient, excluding procedure time. ED Disposition Clinical Impression: Sickle cell crisis Nausea & vomiting Qualifiers: Vomiting type: unspecified Vomiting Intractability: non-intractable Qualified Code(s): R11.2 - Nausea with vomiting, unspecified Anemia Qualifiers: Anemia type: unspecified type Qualified Code(s): D64.9 - Anemia, unspecified Disposition: 01 HOME / SELF CARE / HOMELESS Is pt being admited?: No Condition: Stable Instructions: Nausea and Vomiting, Adult, Musculoskeletal Pain Additional Instructions: Please follow-up with your primary care physician in the next few days. Increase your oral rehydration. Return to the emergency department with any worsening of your symptoms, new or concerning symptoms not addressed during this current emergency department visit, or with any acute distress. Prescriptions: Ondansetron [Zofran ODT TAB] 4 mg PO Q6HR PRN #15 tab.rapdis PRN Reason: Nausea And Vomiting Referrals: SALOME RAINES DO [Staff Physician] - 2-3 Days Time of Disposition: 05:14
[2021-06-18] MEDS ORDERED: diphenhydrAMINE 50 MG/ML VIAL IV ONE (01:52)
[2021-06-18] MEDS ORDERED: HYDROmorphone 1 MG/1 ML INJ IV ONE ×2 (01:52→04:21)
[2021-06-18] MEDS ORDERED: SODIUM CHLORIDE 0.9% 1000 ML 1,000 ML IV ONE (01:52)
[2021-06-18] MEDS ORDERED: ONDANSETRON 4 MG/2 ML INJ IV ONE (01:52)
[2021-06-18 01:53] LABS: BUN/Creatinine Ratio 17
[2021-06-18 04:28] LABS: Anisocytosis 3+; Total Cells Counted 100
[2021-06-18 04:29] LABS: Sickle Cells 2+
[2021-06-18 04:31] LABS: Target Cells Few
[2021-06-18 04:32] LABS: Hypochromasia Few; Platelet Estimate Consistent w Auto
[2021-06-18 05:36] VITALS: BP 113/62
== END 2021-06-18 05:46 | disposition home or self-care (01) ==
LOC: ED 21:40
DX: D64.9 Anemia, unspecified (principal); R11.2 Nausea with vomiting, unspecified; J45.909 Unspecified asthma, uncomplicated; Z88.5 Allergy status to narcotic agent; Z79.899 Other long term (current) drug therapy
CPT/HCPCS: 36415; 80053; 84703; 85007; 85025; 85045; 96361; 96374; 96375; 96376; 99283; J1170; J1200; J1642; J2405; J7030

== ENCOUNTER 2021-06-29 11:13 | Emergency (ER) | payer MEDICAID, OTHER ==
[2021-06-29] MEDS ORDERED: HYDROmorphone 2 MG/1 ML INJ IV ONE ×2 (11:35→13:31)
[2021-06-29] MEDS ORDERED: ONDANSETRON 4 MG/2 ML INJ IV ONE ×2 (11:35→14:31)
[2021-06-29] MEDS ORDERED: diphenhydrAMINE 50 MG/ML VIAL IV ONE ×2 (11:35→14:31)
[2021-06-29] MEDS ORDERED: PANTOPRAZOLE 40 MG INJ IV ONE (11:42)
--- NOTE | 2021-06-29 11:44 | Emergency Department Report ---
ED General Adult HPI - General Chief complaint: Sickle Cell Crisis Stated complaint: SICKLE CELL PAIN PUI?: No Time Seen by Provider: 06/29/21 11:26 Source: patient Mode of arrival: Ambulatory Limitations: No Limitations - History of Present Illness Initial comments: Chief complaint: "I hurt all over. I just feel bad." HPI: This is a 31-year-old female history of sickle cell disease, asthma, gastric ulcer who presents with pain generalized since this morning. She has generalized body pain in all extremities as well as epigastric abdominal pain, vomiting and frontal headache. 10 pain. LMP June 21, 2021 She denies fever, chest pain, shortness of breath. Right-sided Port-A-Cath placed at [facility] earlier this year. Accuracy Expert is Dr. Raines Home medications: Omeprazole Dilaudid Promethazine Hydroxyurea -: Gradual, days(s) (1 day) Location: head, abdomen, left, right, upper extremity, lower extremity Severity scale (0 -10): 10 Quality: aching Consistency: constant Improves with: none Worsens with: none Associated Symptoms: nausea/vomiting - Related Data Home Medications Medication Instructions Recorded Confirmed Last Taken HYDROmorphone [Dilaudid] 2 mg PO Q8H 12/26/18 04/26/21 Unknown Multivitamin [One Daily 1 each PO DAILY 12/26/18 04/26/21 Unknown Multivitamin] Oxycodone HCl [oxyCONTIN ER] 30 mg PO BID 12/26/18 04/26/21 Unknown Previous Rx's Medication Instructions Recorded Last Taken Type Folic Acid [Folvite] 1 mg PO QDAY #30 tablet 05/08/18 Unknown Rx Hydroxyurea [Hydrea] 500 mg PO QDAY #30 capsule 05/08/18 Unknown Rx oxyCODONE /ACETAMINOPHEN [Percocet 1 tab PO Q6HR PRN #20 tablet 11/14/19 Unknown Rx 5/325] Ibuprofen [Motrin 800 MG tab] 800 mg PO Q8HR PRN #20 tablet 10/07/20 Unknown Rx Azithromycin 500 mg PO DAILY #7 tablet 04/26/21 Unknown Rx Prednisone [predniSONE 5 mg (6-Day 5 mg PO .TAPER #1 tab.ds.pk 04/26/21 Unknown Rx Pack, 21 Tabs)] cephALEXin [Keflex] 500 mg PO Q8HR #20 cap 04/26/21 Unknown Rx Ondansetron [Zofran Odt] 4 mg PO Q8HR PRN #14 tab.rapdis 06/14/21 Unknown Rx oxyCODONE /ACETAMINOPHEN [Percocet 1 tab PO Q6HR PRN #14 tablet 06/14/21 Unknown Rx 5/325] Ondansetron [Zofran ODT TAB] 4 mg PO Q6HR PRN #15 tab.rapdis 06/18/21 Unknown Rx Allergies Allergy/AdvReac Type Severity Reaction Status Date / Time morphine AdvReac Itching Verified 04/30/21 11:16 ED Review of Systems ROS: Stated complaint: SICKLE CELL PAIN Other details as noted in HPI Comment: All other systems reviewed and negative Constitutional: malaise. denies: chills, fever Respiratory: denies: cough, shortness of breath Cardiovascular: denies: chest pain Gastrointestinal: abdominal pain, nausea, vomiting. denies: diarrhea Neurological: headache ED Past Medical Hx - Past Medical History Previous Medical History?: Yes Hx Deep Vein Thrombosis: No Hx Pulmonary Embolism: No Hx Sickle Cell Disease: Yes Hx Asthma: Yes Hx COPD: No Hx HIV: No Additional medical history: Gastric ulcers - Surgical History Past Surgical History?: Yes Hx Cholecystectomy: Yes (05/2012) Additional Surgical History: Port-A-Cath 12/2020 [facility] - Social History Smoking Status: Never Smoker Substance Use Type: None - Medications Home Medications: Home Medications Medication Instructions Recorded Confirmed Last Taken Type Folic Acid [Folvite] 1 mg PO QDAY #30 tablet 05/08/18 04/26/21 Unknown Rx Hydroxyurea [Hydrea] 500 mg PO QDAY #30 capsule 05/08/18 04/26/21 Unknown Rx HYDROmorphone [Dilaudid] 2 mg PO Q8H 12/26/18 04/26/21 Unknown History Multivitamin [One Daily 1 each PO DAILY 12/26/18 04/26/21 Unknown History Multivitamin] Oxycodone HCl [oxyCONTIN ER] 30 mg PO BID 12/26/18 04/26/21 Unknown History oxyCODONE /ACETAMINOPHEN [Percocet 1 tab PO Q6HR PRN #20 tablet 11/14/19 Unknown Rx 5/325] Ibuprofen [Motrin 800 MG tab] 800 mg PO Q8HR PRN #20 tablet 10/07/20 04/26/21 Unknown Rx Azithromycin 500 mg PO DAILY #7 tablet 04/26/21 Unknown Rx Prednisone [predniSONE 5 mg (6-Day 5 mg PO .TAPER #1 tab.ds.pk 04/26/21 Unknown Rx Pack, 21 Tabs)] cephALEXin [Keflex] 500 mg PO Q8HR #20 cap 04/26/21 Unknown Rx Ondansetron [Zofran Odt] 4 mg PO Q8HR PRN #14 tab.rapdis 06/14/21 Unknown Rx oxyCODONE /ACETAMINOPHEN [Percocet 1 tab PO Q6HR PRN #14 tablet 06/14/21 Unknown Rx 5/325] Ondansetron [Zofran ODT TAB] 4 mg PO Q6HR PRN #15 tab.rapdis 06/18/21 Unknown Rx ED Physical Exam - General Limitations: No Limitations General appearance: alert, in no apparent distress, other (Nontoxic-appearing) - Head Head exam: Present: atraumatic, normocephalic - Eye Eye exam: Present: normal appearance - ENT ENT exam: Present: mucous membranes moist - Neck Neck exam: Present: normal inspection - Respiratory Respiratory exam: Present: normal lung sounds bilaterally. Absent: respiratory distress, wheezes, rales, rhonchi - Cardiovascular Cardiovascular Exam: Present: regular rate, normal rhythm, other (Port-A-Cath site: No tenderness no erythema no edema healthy healed skin). Absent: systolic murmur, diastolic murmur, rubs, gallop - GI/Abdominal GI/Abdominal exam: Present: soft, normal bowel sounds. Absent: distended, tenderness, guarding, rebound - Extremities Exam Extremities exam: Present: normal inspection - Neurological Exam Neurological exam: Present: alert, oriented X3 - Psychiatric Psychiatric exam: Present: normal affect, normal mood - Skin Skin exam: Present: warm, dry, intact, normal color. Absent: rash ED Course Vital Signs 06/29/21 06/29/21 06/29/21 11:17 12:00 12:42 Temperature 99.2 F Pulse Rate 111 H 90 Respiratory 20 17 Rate Blood Pressure 131/85 Blood Pressure 137/86 [Left] O2 Sat by Pulse 94 97 96 Oximetry - Reevaluation(s) Reevaluation #1: 06/29/21 14:00 Pain has much improved. Her pain score is now 5 out of 10.. ED Medical Decision Making - Lab Data Result diagrams: 06/29/21 11:36 - Radiology Data Radiology results: report reviewed - Medical Decision Making 1. Sickle cell disease pain crisis without thromboembolic complication, patient received IV fluid D5 0.25 NS, IV diphenhydramine, IV Dilaudid, Zofran IV. 2. Abdominal pain attributed to peptic ulcer disease: Patient was given IV Protonix in emergency department 3. Tension headache: No red flags to suggest severe disease entity such as fever, sudden onset or neurological deficit Patient improved with treatment emergency department. She desired to be disc harged home. Discharged home in improved stable condition. Critical care attestation.: If time is entered above; I have spent that time in minutes in the direct care of this critically ill patient, excluding procedure time. ED Disposition Clinical Impression: Sickle-cell disease with vaso-occlusive pain, Tension headache, Peptic ulcer disease Disposition: HOME / SELF CARE / HOMELESS Is pt being admited?: No Does the pt Need Aspirin: No Condition: Stable Referrals: SALOME RAINES DO [Staff Physician] - 3-5 Days Forms: Work/School Release Form(ED)
[2021-06-29] MEDS ORDERED: D5W/0.2% NACL 1,000 ML IV SCH (12:00)
[2021-06-29 14:22] LABS: Alanine Aminotransferase 18 units/L (7-56); Albumin 4.1 g/dL (3.9-5); Blood Urea Nitrogen 6 mg/dL (7-17); Calcium 8.8 mg/dL (8.4-10.2); Hemolysis Index 31
[2021-06-29 14:26] LABS: BUN/Creatinine Ratio 15
[2021-06-29] MEDS ORDERED: HYDROmorphone 1 MG/1 ML INJ IV ONE (14:31)
[2021-06-29 14:36] LABS: Hematocrit 26.7 % (30.3-42.9); Hemoglobin 9.2 gm/dl (10.1-14.3); Mean Corpuscular HGB Conc 34 % (30-34); Mean Corpuscular Volume 87 fl (79-97); Platelet Count 330 K/mm3 (140-440); Red Blood Count 3.09 M/mm3 (3.65-5.03)
[2021-06-29 14:39] LABS: Red Cell Distribution Width 24.2 % (13.2-15.2)
[2021-06-29 15:23] VITALS: BP 121/74
[2021-06-29 17:15] LABS: Anisocytosis 2+; Band Neutrophils # (Manual) 0.1 K/mm3; Platelet Estimate Consistent w Auto; Sickle Cells 2+; Target Cells 2+; Total Cells Counted 100
== END 2021-06-29 15:23 | disposition home or self-care (01) ==
LOC: ED 11:13
DX: G44.209 Tension-type headache, unspecified, not intractable (principal); K27.9 Peptic ulcer, site unspecified, unspecified as acute or chronic, without hemorrhage or perforation; D57.00 Hb-SS disease with crisis, unspecified; J45.909 Unspecified asthma, uncomplicated
CPT/HCPCS: 36415; 80053; 85007; 85025; 85045; 96361; 96374; 96375; 96376; 99283; C9113; J1170; J1200; J1642; J2405; J7042

== ENCOUNTER 2021-08-10 22:09 | Emergency (ER) | payer MEDICAID ==
[2021-08-11] MEDS ORDERED: KETOROLAC 30 MG/1 ML INJ IV ONE (04:09)
[2021-08-11] MEDS ORDERED: SODIUM CHLORIDE 0.9% 1000 ML 1,000 ML IV ONE ×2 (04:09)
[2021-08-11] MEDS ORDERED: HYDROmorphone 1 MG/1 ML INJ IV ONE (04:09)
[2021-08-11 05:02] LABS: Hematocrit 28.9 % (30.3-42.9); Hemoglobin 9.5 gm/dl (10.1-14.3); Mean Corpuscular HGB Conc 33 % (30-34); Platelet Count 269 K/mm3 (140-440); Red Blood Count 2.45 M/mm3 (3.65-5.03)
[2021-08-11 05:04] LABS: Mean Corpuscular Volume 118 fl (79-97)
[2021-08-11 05:34] LABS: Calcium 9.4 mg/dL (8.4-10.2)
[2021-08-11] MEDS ORDERED: diphenhydrAMINE 50 MG/ML VIAL ONE (06:17)
[2021-08-11] MEDS ORDERED: diphenhydrAMINE 50 MG/ML VIAL IV ONE (06:20)
[2021-08-11 06:44] LABS: Total Cells Counted 100
[2021-08-11 06:45] LABS: Anisocytosis 2+; Ovalocytes 1+
[2021-08-11 06:46] LABS: Macrocytosis 1+; Platelet Estimate Consistent w Auto; Target Cells Rare
[2021-08-11 07:01] VITALS: BP 116/76
--- NOTE | 2021-08-11 07:57 | Emergency Department Report ---
Blank Doc - Documentation Documentation: [id number] had assumed care from Dr. Nina. The labs are pending. 0755-reticulocyte count has been added on. Urine is still pending. Straight cath has been ordered. [id number]-UA is finally available. Retake count has been noted. Patient states that she feels well. She was treated with cephalexin and discharged. She does not appear to be septic or toxic. She does not have evidence of an acute chest syndrome.
[2021-08-11 10:30] LABS: Bilirubin,Urine NEG (Negative); Blood,Urine NEG (Negative); Color,Urine Amber (Yellow); Mucus,Urine FEW /HPF
[2021-08-11 10:35] LABS: HCG Qualitative,Urine Negative (Negative)
[2021-08-11] MEDS ORDERED: cephALEXin 500 MG CAP PO ONE (11:12)
== END 2021-08-11 12:12 | disposition home or self-care (01) ==
LOC: ED 22:09
DX: N39.0 Urinary tract infection, site not specified (principal)
CPT/HCPCS: 36415; 80048; 81001; 81025; 85007; 85025; 85045; 87076; 87086; 87186; 96361; 96374; 96375; 99283; J1170; J1200; J1642; J1885; J7030; Q0162

== ENCOUNTER 2021-11-02 11:34 | Emergency (ER) | payer OTHER ==
[2021-11-02] MEDS ORDERED: KETOROLAC 30 MG/1 ML INJ IV ONE (12:46)
[2021-11-02] MEDS ORDERED: FAMOTIDINE 20 MG/2 ML INJ IV ONE (12:46)
[2021-11-02] MEDS ORDERED: ONDANSETRON 4 MG/2 ML INJ IV ONE (12:46)
[2021-11-02] MEDS ORDERED: HYDROmorphone 1 MG/1 ML INJ IV ONE (12:46)
[2021-11-02] MEDS ORDERED: diphenhydrAMINE 50 MG/ML VIAL IV ONE (12:46)
[2021-11-02] MEDS ORDERED: D5W/0.2% NACL 1,000 ML IV SCH (13:00)
[2021-11-02 13:33] LABS: Basophils # (Auto) 0.1 K/mm3 (0.0-0.1); Basophils % (Auto) 0.6 % (0.0-1.8); Eosinophils % (Auto) 9.7 % (0.0-4.3); Hematocrit 28.4 % (30.3-42.9); Hemoglobin 10.4 gm/dl (10.1-14.3); Lymphocytes % (Auto) 40.9 % (13.4-35.0); Mean Corpuscular HGB Conc 37 % (30-34); Mean Corpuscular Volume 112 fl (79-97); Monocytes # (Auto) 1.2 K/mm3 (0.0-0.8); Monocytes % (Auto) 12.2 % (0.0-7.3); Platelet Count 405 K/mm3 (140-440); Red Blood Count 2.54 M/mm3 (3.65-5.03); Red Cell Distribution Width 17.9 % (13.2-15.2)
[2021-11-02 13:36] LABS: Alanine Aminotransferase 23 units/L (7-56); Albumin 4.1 g/dL (3.9-5); Blood Urea Nitrogen 7 mg/dL (7-17); Calcium 9.1 mg/dL (8.4-10.2); Hemolysis Index 5
[2021-11-02 13:38] LABS: BUN/Creatinine Ratio 12
--- NOTE | 2021-11-02 13:47 | Emergency Department Report ---
ED General Adult HPI - General Chief complaint: Sickle Cell Crisis Stated complaint: SICKLE CELL CRISIS/LIGHT HEADED/UTI/STOMACH PAIN Time Seen by Provider: 11/02/21 12:18 Source: patient Mode of arrival: Ambulatory Limitations: No Limitations - History of Present Illness Initial comments: 31-year-old patient with past medical history sickle cell disease presents is complaining of pain secondary to sickle cell crisis. Several days. Patient complains of pain mostly in her back and upper extremities typical of her sickle cell crisis. She also complains of sharp epigastric abdominal tenderness worse with palpation with one episode of nonbilious, nonbloody vomitus yesterday. Patient denies fever, dysuria, focal weakness, or focal numbness. She typically takes hydrocodone 10 mg as needed for pain but does not currently have any narcotic pain relievers at home. 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 Severity scale (0 -10): 7 - Related Data Home Medications Medication Instructions Recorded Confirmed Last Taken HYDROmorphone [Dilaudid] 2 mg PO Q8H 12/26/18 04/26/21 Unknown Multivitamin [One Daily 1 each PO DAILY 12/26/18 04/26/21 Unknown Multivitamin] Oxycodone HCl [oxyCONTIN ER] 30 mg PO BID 12/26/18 04/26/21 Unknown Previous Rx's Medication Instructions Recorded Last Taken Type Folic Acid [Folvite] 1 mg PO QDAY #30 tablet 05/08/18 Unknown Rx Hydroxyurea [Hydrea] 500 mg PO QDAY #30 capsule 05/08/18 Unknown Rx oxyCODONE /ACETAMINOPHEN [Percocet 1 tab PO Q6HR PRN #20 tablet 11/14/19 Unknown Rx 5/325] Ibuprofen [Motrin 800 MG tab] 800 mg PO Q8HR PRN #20 tablet 10/07/20 Unknown Rx Prednisone [predniSONE 5 mg (6-Day 5 mg PO .TAPER #1 tab.ds.pk 04/26/21 Unknown Rx Pack, 21 Tabs)] cephALEXin [Keflex] 500 mg PO Q8HR #20 cap 04/26/21 Unknown Rx Ondansetron [Zofran Odt] 4 mg PO Q8HR PRN #14 tab.rapdis 06/14/21 Unknown Rx oxyCODONE /ACETAMINOPHEN [Percocet 1 tab PO Q6HR PRN #14 tablet 06/14/21 Unknown Rx 5/325] Ondansetron [Zofran ODT TAB] 4 mg PO Q6HR PRN #15 tab.rapdis 06/18/21 Unknown Rx cephALEXin [Keflex] 500 mg PO Q6HR #28 capsule 08/11/21 Unknown Rx Famotidine [Pepcid] 20 mg PO BID #30 tablet 11/02/21 Unknown Rx HYDROcodone/APAP 10-325 [[place] 1 each PO Q6HR PRN #20 tablet 11/02/21 Unknown Rx 10/325] Allergies Allergy/AdvReac Type Severity Reaction Status Date / Time morphine AdvReac Itching Verified 04/30/21 11:16 ED Review of Systems ROS: Stated complaint: SICKLE CELL CRISIS/LIGHT HEADED/UTI/STOMACH PAIN Other details as noted in HPI Comment: All other systems reviewed and negative ED Past Medical Hx - Past Medical History Previous Medical History?: Yes Hx Deep Vein Thrombosis: No Hx Pulmonary Embolism: No Hx Sickle Cell Disease: Yes Hx Asthma: Yes Hx COPD: No Hx HIV: No Additional medical history: Gastric ulcers - Surgical History Past Surgical History?: Yes Hx Cholecystectomy: Yes (05/2012) Additional Surgical History: Port-A-Cath 12/2020 [facility] - Social History Smoking Status: Never Smoker Substance Use Type: Prescribed - Medications Home Medications: Home Medications Medication Instructions Recorded Confirmed Last Taken Type Folic Acid [Folvite] 1 mg PO QDAY #30 tablet 05/08/18 04/26/21 Unknown Rx Hydroxyurea [Hydrea] 500 mg PO QDAY #30 capsule 05/08/18 04/26/21 Unknown Rx HYDROmorphone [Dilaudid] 2 mg PO Q8H 12/26/18 04/26/21 Unknown History Multivitamin [One Daily 1 each PO DAILY 12/26/18 04/26/21 Unknown History Multivitamin] Oxycodone HCl [oxyCONTIN ER] 30 mg PO BID 12/26/18 04/26/21 Unknown History oxyCODONE /ACETAMINOPHEN [Percocet 1 tab PO Q6HR PRN #20 tablet 11/14/19 04/26/21 Unknown Rx 5/325] Ibuprofen [Motrin 800 MG tab] 800 mg PO Q8HR PRN #20 tablet 10/07/20 04/26/21 Unknown Rx Prednisone [predniSONE 5 mg (6-Day 5 mg PO .TAPER #1 tab.ds.pk 04/26/21 Unknown Rx Pack, 21 Tabs)] cephALEXin [Keflex] 500 mg PO Q8HR #20 cap 04/26/21 Unknown Rx Ondansetron [Zofran Odt] 4 mg PO Q8HR PRN #14 tab.rapdis 06/14/21 Unknown Rx oxyCODONE /ACETAMINOPHEN [Percocet 1 tab PO Q6HR PRN #14 tablet 06/14/21 Unknown Rx 5/325] Ondansetron [Zofran ODT TAB] 4 mg PO Q6HR PRN #15 tab.rapdis 06/18/21 Unknown Rx cephALEXin [Keflex] 500 mg PO Q6HR #28 capsule 08/11/21 Unknown Rx Famotidine [Pepcid] 20 mg PO BID #30 tablet 11/02/21 Unknown Rx HYDROcodone/APAP 10-325 [[place] 1 each PO Q6HR PRN #20 tablet 11/02/21 Unknown Rx 10/325] ED Physical Exam - General Limitations: No Limitations - Other Other exam information: General: No acute distress Head: Atraumatic Eyes: normal appearance ENT: Moist mucous membranes Neck: Normal appearance, no midline tenderness Chest: Clear to auscultation bilaterally CV: Regular rate and rhythm Abdomen: Soft, normal bowel sounds, mild epigastric tenderness, nondistended, no rebound or guarding Back: Normal inspection Extremity: Normal inspection, full range of motion Neuro: Alert O x 3, no facial asymmetry, speech clear, no gross motor sensory deficit Psych: Appropriate behavior Skin: No rash ED Course Vital Signs 11/02/21 11/02/21 11/02/21 11:55 12:35 12:41 Temperature 98.7 F Pulse Rate 119 H 89 Respiratory 20 19 Rate Blood Pressure 139/94 137/84 Blood Pressure 139/94 [Right] O2 Sat by Pulse 97 79 L 99 Oximetry ED Medical Decision Making - Lab Data Result diagrams: 11/02/21 12:59 11/02/21 12:59 Lab Results 11/02/21 11/02/21 11/02/21 Range/Units 12:59 12:59 12:59 WBC 9.8 (4.5-11.0) K/mm3 RBC 2.54 L (3.65-5.03) M/mm3 Hgb 10.4 (10.1-14.3) gm/dl Hct 28.4 L (30.3-42.9) % MCV 112 H (79-97) fl MCH 41 H (28-32) pg MCHC 37 H (30-34) % RDW 17.9 H (13.2-15.2) % Plt Count 405 (140-440) K/mm3 Lymph % (Auto) 40.9 H (13.4-35.0) % [place] % (Auto) 12.2 H (0.0-7.3) % Eos % (Auto) 9.7 H (0.0-4.3) % Baso % (Auto) 0.6 (0.0-1.8) % Lymph # (Auto) 4.0 (1.2-5.4) K/mm3 [place] # (Auto) 1.2 H (0.0-0.8) K/mm3 Eos # (Auto) 1.0 H (0.0-0.4) K/mm3 Baso # (Auto) 0.1 (0.0-0.1) K/mm3 Seg Neutrophils % 36.6 L (40.0-70.0) % Seg Neutrophils # 3.6 (1.8-7.7) K/mm3 Percent Retic 9.01 H (0.78-2.58) % Sodium 138 (137-145) mmol/L Potassium 3.7 (3.6-5.0) mmol/L Chloride 107.9 H (98-107) mmol/L Carbon Dioxide 19 L (22-30) mmol/L Anion Gap 15 mmol/L BUN 7 (7-17) mg/dL Creatinine 0.6 (0.6-1.2) mg/dL Estimated GFR > 60 ml/min BUN/Creatinine Ratio 12 % Glucose 80 (65-100) mg/dL Calcium 9.1 (8.4-10.2) mg/dL Total Bilirubin 1.90 H (0.1-1.2) mg/dL AST 28 (5-40) units/L ALT 23 (7-56) units/L Alkaline Phosphatase 132 H (35-129) units/L Total Protein 7.4 (6.3-8.2) g/dL Albumin 4.1 (3.9-5) g/dL Albumin/Globulin Ratio 1.2 % Lipase 33 (13-60) units/L HCG, Qual Negative (Negative) - Medical Decision Making Patient felt better after ED treatment and will be discharged home. She did not receive IV fluids and symptoms improved prior to IV fluid administration. Tachycardia resolved with pain reduction. Patient does not require a blood transfusion at this time and does not have any clinical or laboratory findings of infection. Critical Care Time: No Critical care attestation.: If time is entered above; I have spent that time in minutes in the direct care of this critically ill patient, excluding procedure time. ED Disposition Clinical Impression: Vasoocclusive sickle cell crisis, Epigastric pain Disposition: HOME / SELF CARE / HOMELESS Is pt being admited?: No Does the pt Need Aspirin: No Condition: Stable Instructions: Abdominal Pain, Adult, Hemolytic Anemia Additional Instructions: Take the medication as prescribed. Follow-up with your doctor or doctor/clinic provided. Return if symptoms worsen as indicated by your discharge instructions. Prescriptions: HYDROcodone/APAP 10-325 [[place] 10/325] 1 each PO Q6HR PRN #20 tablet PRN Reason: Pain Famotidine [Pepcid] 20 mg PO BID #30 tablet Referrals: SALOME RAINES DO [Primary Care Provider] - 3-5 Days Time of Disposition: 14:08
[2021-11-02 16:56] VITALS: BP 135/75
== END 2021-11-02 16:57 | disposition home or self-care (01) ==
LOC: ED 11:34
DX: D57.819 Other sickle-cell disorders with crisis, unspecified (principal); R10.13 Epigastric pain; Z88.5 Allergy status to narcotic agent; J45.909 Unspecified asthma, uncomplicated
CPT/HCPCS: 36415; 80053; 83690; 84703; 85025; 85045; 96374; 96375; 99283; J1170; J1200; J1642; J1885; J2405; J3490

== ENCOUNTER 2021-11-05 08:50 | Emergency (ER) | payer OTHER ==
[2021-11-05] MEDS ORDERED: HYDROmorphone 1 MG/1 ML INJ IV ONE ×3 (09:17→11:11)
[2021-11-05] MEDS ORDERED: diphenhydrAMINE 50 MG/ML VIAL IV ONE (09:17)
[2021-11-05] MEDS ORDERED: ONDANSETRON 4 MG/2 ML INJ IV ONE (09:17)
--- NOTE | 2021-11-05 09:20 | Emergency Department Report ---
ED General Adult HPI - General Chief complaint: Sickle Cell Crisis Stated complaint: SICKLE CELL CRISIS PUI?: No Time Seen by Provider: 11/05/21 09:12 Source: patient Mode of arrival: Ambulatory Limitations: No Limitations - History of Present Illness Initial comments: Chief complaint: Abdominal pain back pain leg pain HPI: This is a 31-year-old female with history of sickle cell disease,. Gastric ulcer cholelithiasis who presents with lower back pain abdominal pain and left leg pain for several days. Patient had persistent pain since discharge from the ER 3 days ago. Dull epigastric pain. Mild. Denies vomiting. Denies fever. No radiation. Acute lower back pain 10 out of 10 in severity. Left leg pain located at the knee extending to the foot. No trauma. No swelling. No rash -: Gradual, days(s) (3 days ago) Location: back, abdomen, left, lower extremity Severity scale (0 -10): 8 Quality: aching Consistency: constant Improves with: none Worsens with: none Associated Symptoms: denies other symptoms Treatments Prior to Arrival: other (Treatment at this hospital 3 days ago) - Related Data Home Medications Medication Instructions Recorded Confirmed Last Taken HYDROmorphone [Dilaudid] 2 mg PO Q8H 12/26/18 04/26/21 Unknown Multivitamin [One Daily 1 each PO DAILY 12/26/18 04/26/21 Unknown Multivitamin] Oxycodone HCl [oxyCONTIN ER] 30 mg PO BID 12/26/18 04/26/21 Unknown Previous Rx's Medication Instructions Recorded Last Taken Type Folic Acid [Folvite] 1 mg PO QDAY #30 tablet 05/08/18 Unknown Rx Hydroxyurea [Hydrea] 500 mg PO QDAY #30 capsule 05/08/18 Unknown Rx oxyCODONE /ACETAMINOPHEN [Percocet 1 tab PO Q6HR PRN #20 tablet 11/14/19 Unknown Rx 5/325] Ibuprofen [Motrin 800 MG tab] 800 mg PO Q8HR PRN #20 tablet 10/07/20 Unknown Rx Prednisone [predniSONE 5 mg (6-Day 5 mg PO .TAPER #1 tab.ds.pk 04/26/21 Unknown Rx Pack, 21 Tabs)] cephALEXin [Keflex] 500 mg PO Q8HR #20 cap 04/26/21 Unknown Rx Ondansetron [Zofran Odt] 4 mg PO Q8HR PRN #14 tab.rapdis 06/14/21 Unknown Rx oxyCODONE /ACETAMINOPHEN [Percocet 1 tab PO Q6HR PRN #14 tablet 06/14/21 Unknown Rx 5/325] Ondansetron [Zofran ODT TAB] 4 mg PO Q6HR PRN #15 tab.rapdis 06/18/21 Unknown Rx cephALEXin [Keflex] 500 mg PO Q6HR #28 capsule 08/11/21 Unknown Rx Famotidine [Pepcid] 20 mg PO BID #30 tablet 11/02/21 Unknown Rx HYDROcodone/APAP 10-325 [[place] 1 each PO Q6HR PRN #20 tablet 11/02/21 Unknown Rx 10/325] Allergies Allergy/AdvReac Type Severity Reaction Status Date / Time morphine AdvReac Itching Verified 04/30/21 11:16 ED Review of Systems ROS: Stated complaint: SICKLE CELL CRISIS Other details as noted in HPI Comment: All other systems reviewed and negative Constitutional: denies: chills, fever, malaise Respiratory: denies: cough, shortness of breath Cardiovascular: denies: chest pain Gastrointestinal: abdominal pain Musculoskeletal: back pain ED Past Medical Hx - Past Medical History Previous Medical History?: Yes Hx Deep Vein Thrombosis: No Hx Pulmonary Embolism: No Hx Sickle Cell Disease: Yes Hx Asthma: Yes Hx COPD: No Hx HIV: No Additional medical history: Gastric ulcers - Surgical History Past Surgical History?: Yes Hx Cholecystectomy: Yes (05/2012) Additional Surgical History: Port-A-Cath 12/2020 [facility] - Social History Smoking Status: Never Smoker Substance Use Type: Prescribed - Medications Home Medications: Home Medications Medication Instructions Recorded Confirmed Last Taken Type Folic Acid [Folvite] 1 mg PO QDAY #30 tablet 05/08/18 04/26/21 Unknown Rx Hydroxyurea [Hydrea] 500 mg PO QDAY #30 capsule 05/08/18 04/26/21 Unknown Rx HYDROmorphone [Dilaudid] 2 mg PO Q8H 12/26/18 04/26/21 Unknown History Multivitamin [One Daily 1 each PO DAILY 12/26/18 04/26/21 Unknown History Multivitamin] Oxycodone HCl [oxyCONTIN ER] 30 mg PO BID 12/26/18 04/26/21 Unknown History oxyCODONE /ACETAMINOPHEN [Percocet 1 tab PO Q6HR PRN #20 tablet 11/14/19 04/26/21 Unknown Rx 5/325] Ibuprofen [Motrin 800 MG tab] 800 mg PO Q8HR PRN #20 tablet 10/07/20 04/26/21 Unknown Rx Prednisone [predniSONE 5 mg (6-Day 5 mg PO .TAPER #1 tab.ds.pk 04/26/21 Unknown Rx Pack, 21 Tabs)] cephALEXin [Keflex] 500 mg PO Q8HR #20 cap 04/26/21 Unknown Rx Ondansetron [Zofran Odt] 4 mg PO Q8HR PRN #14 tab.rapdis 06/14/21 Unknown Rx oxyCODONE /ACETAMINOPHEN [Percocet 1 tab PO Q6HR PRN #14 tablet 06/14/21 Unknown Rx 5/325] Ondansetron [Zofran ODT TAB] 4 mg PO Q6HR PRN #15 tab.rapdis 06/18/21 Unknown Rx cephALEXin [Keflex] 500 mg PO Q6HR #28 capsule 08/11/21 Unknown Rx Famotidine [Pepcid] 20 mg PO BID #30 tablet 11/02/21 Unknown Rx HYDROcodone/APAP 10-325 [[place] 1 each PO Q6HR PRN #20 tablet 11/02/21 Unknown Rx 10/325] ED Physical Exam - General Limitations: No Limitations General appearance: alert, in no apparent distress - Head Head exam: Present: atraumatic, normocephalic - Eye Eye exam: Present: normal appearance - ENT ENT exam: Present: mucous membranes moist - Neck Neck exam: Present: normal inspection, full ROM - Respiratory Respiratory exam: Present: normal lung sounds bilaterally. Absent: respiratory distress, wheezes, rales, rhonchi, stridor - Cardiovascular Cardiovascular Exam: Present: regular rate, normal rhythm, normal heart sounds. Absent: systolic murmur, diastolic murmur, rubs, gallop - GI/Abdominal GI/Abdominal exam: Present: soft, normal bowel sounds. Absent: distended, tenderness, guarding, rebound - Extremities Exam Extremities exam: Present: normal inspection - Back Exam Back exam: Present: normal inspection - Neurological Exam Neurological exam: Present: alert, oriented X3 - Psychiatric Psychiatric exam: Present: normal affect, normal mood - Skin Skin exam: Present: warm, dry, intact, normal color. Absent: rash ED Course Vital Signs 11/05/21 11/05/21 11/05/21 08:56 10:03 11:40 Temperature 98.4 F Pulse Rate 94 H 84 81 Respiratory 18 18 18 Rate Blood Pressure 143/83 125/73 142/88 [Right] O2 Sat by Pulse 99 98 100 Oximetry ED Medical Decision Making - Lab Data Result diagrams: 11/05/21 09:32 - Medical Decision Making 1. Sickle cell disease pain crisis without evidence of thromboembolic complication or infection. Patient's pain improved with IV hydromorphone and IV isotonic fluid infusion. Patient also received IV Zofran and IV Benadryl. Reticulocyte count appropriately elevated. Chemistry unremarkable. 2. Left leg pain due to sickle cell disease vaso-occlusive crisis. Doppler ultrasound negative for DVT. 3. Epigastric abdominal pain with history of peptic ulcer disease and no evidence of peritonitis on exam. Critical care attestation.: If time is entered above; I have spent that time in minutes in the direct care of this critically ill patient, excluding procedure time. ED Disposition Clinical Impression: Vasoocclusive sickle cell crisis, Peptic ulcer disease, Sickle cell disease Disposition: HOME / SELF CARE / HOMELESS Is pt being admited?: No Does the pt Need Aspirin: No Condition: Stable Instructions: Abdominal Pain, Adult, [id number] Referrals: SALOME RAINES DO [Primary Care Provider] - 3-5 Days
[2021-11-05] MEDS ORDERED: D5W/0.2% NACL 1,000 ML IV SCH (10:00)
[2021-11-05 10:20] LABS: Alanine Aminotransferase 17 units/L (7-56); Albumin 3.8 g/dL (3.9-5); Bilirubin,Direct 0.2 mg/dL (0-0.2); Blood Urea Nitrogen 6 mg/dL (7-17); Calcium 9.1 mg/dL (8.4-10.2); Hemolysis Index 12
[2021-11-05 10:22] LABS: BUN/Creatinine Ratio 10
--- NOTE | 2021-11-05 10:45 | Vascular Lab Report ---
DUPLEX DOPPLER LOWER EXTREMITY VEINS, LEFT INDICATION / CLINICAL INFORMATION: Left leg pain; hx of sickle cell disease. TECHNIQUE: Duplex doppler imaging was performed through the veins of the left lower extremity using v enous compression and other maneuvers. COMPARISON: None available. FINDINGS: LEFT COMMON FEMORAL VEIN: Negative. LEFT FEMORAL VEIN: Negative. LEFT POPLITEAL VEIN: Negative. LEFT CALF VEINS: Negative. ADDITIONAL FINDINGS: No abnormal mass or fluid collection is seen. IMPRESSION: No sonographic evidence for DVT in the left lower extremity. Signer Name: Chema Piedra MD Signed: 11/05/2021 10:41 AM Workstation Name: [employer] [id number]
[2021-11-05 11:40] VITALS: BP 142/88
== END 2021-11-05 12:06 | disposition home or self-care (01) ==
LOC: ED 08:50
DX: D57.219 Sickle-cell/Hb-C disease with crisis, unspecified (principal); K27.9 Peptic ulcer, site unspecified, unspecified as acute or chronic, without hemorrhage or perforation; J45.909 Unspecified asthma, uncomplicated; Z90.49 Acquired absence of other specified parts of digestive tract; Z79.899 Other long term (current) drug therapy; Z91.09 Other allergy status, other than to drugs and biological substances
CPT/HCPCS: 36415; 80048; 80076; 83690; 84703; 85045; 93971; 96374; 96375; 96376; 99284; J1170; J1200; J1642; J2405; J7042

== ENCOUNTER 2021-11-26 10:30 | Emergency (ER) | payer SELFPAY ==
[2021-11-26] MEDS ORDERED: HYDROmorphone 1 MG/1 ML INJ IV ONE (11:13)
[2021-11-26] MEDS ORDERED: ONDANSETRON 4 MG/2 ML INJ IV ONE (11:13)
[2021-11-26] MEDS ORDERED: KETOROLAC 30 MG/1 ML INJ IV ONE (11:13)
[2021-11-26] MEDS ORDERED: SODIUM CHLORIDE 0.9% 1000 ML 1,000 ML IV ONE (11:13)
[2021-11-26 11:23] LABS: Hematocrit 28.4 % (30.3-42.9); Hemoglobin 9.9 gm/dl (10.1-14.3); Mean Corpuscular HGB Conc 35 % (30-34); Mean Corpuscular Volume 102 fl (79-97); Platelet Count 357 K/mm3 (140-440); Red Blood Count 2.79 M/mm3 (3.65-5.03)
--- NOTE | 2021-11-26 11:27 | Emergency Department Report ---
<ROSANNE SIMON - Last Filed: 11/26/21 14:03> ED Back Pain/Injury HPI - General Chief Complaint: Sickle Cell Crisis Stated Complaint: SICKLE CELL CRISIS/NAUSEA Source: patient Limitations: No Limitations - History of Present Illness Initial Comments: Patient is a 31-year-old -[place] female with a history of chronic sickle cell disease with frequent pain crisis presents to the ED with complaint of acute onset persistent low back pain and bilateral lower extremity pain for the last 3 days. Patient states that she usually takes [place] 10 mg - 325 mg tablets at home but that despite taking this medication the pain has been constant and persistent. Patient states that she usually comes to the ED for treatment of her breakthrough pain. Patient states that she has an appointment with her primary care physician on Wednesday December 01, 2021 for a follow-up and evaluation. Patient states that she could not be able to wait because of the worsening pain. Patient denies chest pain, shortness of breath, fever, chills, cough, nasal and sinus congestion, fall, heavy lifting, strenuous physical activities, abdominal pain, nausea and vomiting or diarrhea, dysuria or urinary frequency and urgency, numbness and tingling or weakness of lower extremities bilaterally. MD Complaint: back pain, other (Bilateral lower extremity pain) -: Sudden, days(s) (3) Similar Symptoms Previously: Yes (Chronic sickle cell pain crisis) Place: home Radiation: none Severity: severe Severity scale (0 -10): 8 Quality: sharp, aching Consistency: constant Improves With: none Worsens With: none Context: other (Chronic sickle cell pain crisis) Associated Symptoms: denies other symptoms. denies: confusion, weakness, chest pain, numbness, difficulty walking, cough, difficulty urinating, fever/chills, constipation, headaches, loss of appetite, malaise, nausea/vomiting, rash, seizure, syncope - Related Data Home Medications Medication Instructions Recorded Confirmed Last Taken HYDROmorphone [Dilaudid] 2 mg PO Q8H 12/26/18 04/26/21 Unknown Multivitamin [One Daily 1 each PO DAILY 12/26/18 04/26/21 Unknown Multivitamin] Oxycodone HCl [oxyCONTIN ER] 30 mg PO BID 12/26/18 04/26/21 Unknown Previous Rx's Medication Instructions Recorded Last Taken Type Folic Acid [Folvite] 1 mg PO QDAY #30 tablet 05/08/18 Unknown Rx Hydroxyurea [Hydrea] 500 mg PO QDAY #30 capsule 05/08/18 Unknown Rx oxyCODONE /ACETAMINOPHEN [Percocet 1 tab PO Q6HR PRN #20 tablet 11/14/19 Unknown Rx 5/325] Ibuprofen [Motrin 800 MG tab] 800 mg PO Q8HR PRN #20 tablet 10/07/20 Unknown Rx Prednisone [predniSONE 5 mg (6-Day 5 mg PO .TAPER #1 tab.ds.pk 04/26/21 Unknown Rx Pack, 21 Tabs)] cephALEXin [Keflex] 500 mg PO Q8HR #20 cap 04/26/21 Unknown Rx Ondansetron [Zofran Odt] 4 mg PO Q8HR PRN #14 tab.rapdis 06/14/21 Unknown Rx oxyCODONE /ACETAMINOPHEN [Percocet 1 tab PO Q6HR PRN #14 tablet 06/14/21 Unknown Rx 5/325] Ondansetron [Zofran ODT TAB] 4 mg PO Q6HR PRN #15 tab.rapdis 06/18/21 Unknown Rx cephALEXin [Keflex] 500 mg PO Q6HR #28 capsule 08/11/21 Unknown Rx Famotidine [Pepcid] 20 mg PO BID #30 tablet 11/02/21 Unknown Rx HYDROcodone/APAP 10-325 [[place] 1 each PO Q6HR PRN #20 tablet 11/02/21 Unknown Rx 10/325] Allergies Allergy/AdvReac Type Severity Reaction Status Date / Time morphine AdvReac Itching Verified 04/30/21 11:16 ED Review of Systems Constitutional: denies: chills, fever Eyes: denies: eye pain, eye discharge, vision change ENT: denies: ear pain, throat pain Respiratory: denies: cough, shortness of breath, wheezing Cardiovascular: denies: chest pain, palpitations Endocrine: no symptoms reported Gastrointestinal: denies: abdominal pain, nausea, diarrhea Genitourinary: denies: urgency, dysuria, discharge Musculoskeletal: back pain (Low back pain), arthralgia, other (Bilateral lower extremity pain). denies: joint swelling Skin: denies: rash, lesions Neurological: denies: headache, weakness, paresthesias Psychiatric: denies: anxiety, depression Hematological/Lymphatic: denies: easy bleeding, easy bruising ED Past Medical Hx - Past Medical History Hx Deep Vein Thrombosis: No Hx Pulmonary Embolism: No Hx Sickle Cell Disease: Yes Hx Asthma: Yes Hx COPD: No Hx HIV: No Additional medical history: Gastric ulcers - Surgical History Hx Cholecystectomy: Yes (05/2012) Additional Surgical History: Port-A-Cath 12/2020 [facility] - Social History Smoking Status: Never Smoker Substance Use Type: Prescribed - Medications Home Medications: Home Medications Medication Instructions Recorded Confirmed Last Taken Type Folic Acid [Folvite] 1 mg PO QDAY #30 tablet 05/08/18 04/26/21 Unknown Rx Hydroxyurea [Hydrea] 500 mg PO QDAY #30 capsule 05/08/18 04/26/21 Unknown Rx HYDROmorphone [Dilaudid] 2 mg PO Q8H 12/26/18 04/26/21 Unknown History Multivitamin [One Daily 1 each PO DAILY 12/26/18 04/26/21 Unknown History Multivitamin] Oxycodone HCl [oxyCONTIN ER] 30 mg PO BID 12/26/18 04/26/21 Unknown History oxyCODONE /ACETAMINOPHEN [Percocet 1 tab PO Q6HR PRN #20 tablet 11/14/19 04/26/21 Unknown Rx 5/325] Ibuprofen [Motrin 800 MG tab] 800 mg PO Q8HR PRN #20 tablet 10/07/20 04/26/21 Unknown Rx Prednisone [predniSONE 5 mg (6-Day 5 mg PO .TAPER #1 tab.ds.pk 04/26/21 Unknown Rx Pack, 21 Tabs)] cephALEXin [Keflex] 500 mg PO Q8HR #20 cap 04/26/21 Unknown Rx Ondansetron [Zofran Odt] 4 mg PO Q8HR PRN #14 tab.rapdis 06/14/21 Unknown Rx oxyCODONE /ACETAMINOPHEN [Percocet 1 tab PO Q6HR PRN #14 tablet 06/14/21 Unknown Rx 5/325] Ondansetron [Zofran ODT TAB] 4 mg PO Q6HR PRN #15 tab.rapdis 06/18/21 Unknown Rx cephALEXin [Keflex] 500 mg PO Q6HR #28 capsule 08/11/21 Unknown Rx Famotidine [Pepcid] 20 mg PO BID #30 tablet 11/02/21 Unknown Rx HYDROcodone/APAP 10-325 [[place] 1 each PO Q6HR PRN #20 tablet 11/02/21 Unknown Rx 10/325] ED Physical Exam - General Limitations: No Limitations General appearance: alert, in no apparent distress - Head Head exam: Present: atraumatic, normocephalic, normal inspection - Eye Eye exam: Present: normal appearance, PERRL, EOMI Pupils: Present: normal accommodation - ENT ENT exam: Present: normal exam, normal orophraynx, mucous membranes moist, TM's normal bilaterally, normal external ear exam - Neck Neck exam: Present: normal inspection, full ROM. Absent: tenderness - Respiratory Respiratory exam: Present: normal lung sounds bilaterally. Absent: respiratory distress, wheezes, rales, rhonchi, chest wall tenderness, accessory muscle use, prolonged expiratory - Cardiovascular Cardiovascular Exam: Present: normal rhythm, tachycardia, normal heart sounds. Absent: systolic murmur, diastolic murmur, rubs, gallop - GI/Abdominal GI/Abdominal exam: Present: soft, normal bowel sounds. Absent: distended, tenderness, guarding, hyperactive bowel sounds, hypoactive bowel sounds, organomegaly - Extremities Exam Extremities exam: Present: normal inspection, full ROM, normal capillary refill. Absent: tenderness - Back Exam Back exam: Present: normal inspection, full ROM, tenderness (Palpable lum bosacral paraspinal musculoskeletal tenderness), muscle spasm, paraspinal tenderness. Absent: CVA tenderness (R), CVA tenderness (L), vertebral tenderness - Neurological Exam Neurological exam: Present: alert, oriented X3, CN II-XII intact, normal gait, reflexes normal - Psychiatric Psychiatric exam: Present: normal affect, normal mood - Skin Skin exam: Present: warm, dry, intact, normal color. Absent: rash ED Medical Decision Making - Lab Data Result diagrams: 11/26/21 11:05 11/26/21 12:10 - Medical Decision Making This is a 31-year-old -[place] female with a history of chronic sickle cell disease with frequent pain crisis presents to the ED with complaint of acute onset persistent low back pain and bilateral lower extremity pain for the last 3 days. Patient states that she usually takes [place] 10 mg - 325 mg tablets at home but that despite taking this medication the pain has been constant and persistent. Patient states that she usually comes to the ED for treatment of her breakthrough pain. Patient states that she has an appointment with her primary care physician on Wednesday December 01, 2021 for a follow-up and evaluation. Patient states that she could not be able to wait because of the worsening pain. In the ED, patient is alert and oriented x3 and is not in distress. Patient appears to be in pain. Labs are drawn, patient treated for pain. Chest x-ray showed no acute cardiopulmonary normalities or pneumonitis. Patient care was transferred to the ED attending physician Dr. Alvarenga who assumed care and she will review all lab test results, reevaluate the patient and subsequently disposition the patient. - Differential Diagnosis Muscle spasm; muscle strain; chronic pain syndrome ED Disposition Clinical Impression: Vasoocclusive sickle cell crisis Disposition: 30 STILL A PATIENT Is pt being admited?: No Condition: Stable Instructions: Hemolytic Anemia Referrals: PRIMARY CARE, [Primary Care Provider] - 3-5 Days <JEREMIAH ALVARENGA - Last Filed: 11/26/21 14:50> ED Review of Systems ROS: Stated complaint: SICKLE CELL CRISIS/NAUSEA Other details as noted in HPI ED Course Vital Signs 11/26/21 11/26/21 10:37 12:14 Temperature 98.4 F Pulse Rate 100 H Respiratory 18 18 Rate Blood Pressure 129/78 O2 Sat by Pulse 97 99 Oximetry ED Medical Decision Making - Lab Data Result diagrams: 11/26/21 11:05 11/26/21 12:10 Critical care attestation.: If time is entered above; I have spent that time in minutes in the direct care of this critically ill patient, excluding procedure time. ED Disposition Is pt being admited?: No Does the pt Need Aspirin: No
[2021-11-26 12:00] LABS: Anisocytosis 1+; Basophils % (Manual) 0 % (0.0-1.8); Myelocytes # (Manual) 0.2 K/mm3; Total Cells Counted 100
[2021-11-26 12:01] LABS: Sickle Cells 2+; Target Cells 1+
[2021-11-26 12:02] LABS: Large Platelets Few; Platelet Estimate Consistent w Auto
--- NOTE | 2021-11-26 13:34 | XRay Report ---
CHEST 1 VIEW 11/26/2021 1:10 PM INDICATION / CLINICAL INFORMATION: pain. COMPARISON: 04/30/2021 FINDINGS: SUPPORT DEVICES: Stable position of port. HEART / MEDIASTINUM: No significant abnormality. LUNGS / PLEURA: Stable chronic interstitial scarring in both lung bases. No acute findings. No pneumo thorax. ADDITIONAL FINDINGS: No significant additional findings. IMPRESSION: 1. No acute findings. Signer Name: Jeremiah Keita MD Signed: 11/26/2021 1:29 PM Workstation Name: [id number]
[2021-11-26 13:40] LABS: Alanine Aminotransferase 24 units/L (7-56); Albumin 4.3 g/dL (3.9-5); BUN/Creatinine Ratio 10; Blood Urea Nitrogen 7 mg/dL (7-17); Calcium 9.3 mg/dL (8.4-10.2); Hemolysis Index 7
[2021-11-26 14:03] LABS: Bacteria,Urine 1+ /HPF (Negative); Bilirubin,Urine NEG (Negative); Blood,Urine MOD (Negative); Color,Urine Yellow (Yellow); Protein,Urine <15 mg/dL mg/dL (Negative)
[2021-11-26 15:05] VITALS: BP 139/65
== END 2021-11-26 15:05 | disposition still patient (30) ==
LOC: ED 10:30
DX: D57.819 Other sickle-cell disorders with crisis, unspecified (principal); J45.909 Unspecified asthma, uncomplicated; Z90.49 Acquired absence of other specified parts of digestive tract; Z79.899 Other long term (current) drug therapy; Z91.09 Other allergy status, other than to drugs and biological substances
CPT/HCPCS: 36415; 71045; 80053; 81001; 84703; 85007; 85025; 85045; 87076; 87086; 87186; 96361; 96374; 96375; 99284; J1170; J1885; J2405; J7030

== ENCOUNTER 2022-04-30 07:12 | Emergency (ER) | payer SELFPAY ==
[2022-04-30 07:28] VITALS: BP 124/86
[2022-04-30 10:43] LABS: Hematocrit 25.6 % (30.3-42.9); Hemoglobin 8.8 gm/dl (10.1-14.3); Mean Corpuscular HGB Conc 35 % (30-34); Mean Corpuscular Volume 93 fl (79-97); Platelet Count 359 K/mm3 (140-440); Red Blood Count 2.74 M/mm3 (3.65-5.03)
[2022-04-30 10:45] LABS: Red Cell Distribution Width 25.6 % (13.2-15.2)
[2022-04-30 10:50] LABS: Alanine Aminotransferase 29 units/L (7-56); Albumin 4.5 g/dL (3.9-5); Blood Urea Nitrogen 8 mg/dL (7-17); Calcium 9.4 mg/dL (8.4-10.2); Hemolysis Index 82
[2022-04-30 10:53] LABS: BUN/Creatinine Ratio 16
--- NOTE | 2022-04-30 11:09 | XRay Report ---
CHEST 1 VIEW 04/30/2022 11:00 AM INDICATION / CLINICAL INFORMATION: sob, hx sickle cell. COMPARISON: 11/26/2021. FINDINGS: SUPPORT DEVICES: Chest port unchanged. HEART / MEDIASTINUM: No significant abnormality. LUNGS / PLEURA: Chronic increased interstitial markings stable. No pneumothorax. ADDITIONAL FINDINGS: No significant additional findings. IMPRESSION: 1. No acute infiltrate. 2. Chronic increased interstitial markings stable. Signer Name: Garrett Mathur MD Signed: 04/30/2022 11:05 AM Workstation Name: [email or web address]
--- NOTE | 2022-05-01 10:22 | Electrocardiograph Report ---
[facility] Test Date: 2022-04-30 Test Time: 08:54:41 Pat Name: CHELSIE SHERMAN Department: Room: Gender: F Test Carrier: ARCHANA : 1990 Requested By: MARITO RAY Order Number: [id number] Reading MD: Cristino Galeas Measurements Intervals [place] Rate: 98 P: 51 MT: 165 QRS: 76 QRSD: 86 T: 60 QT: 377 QTc: 483 Interpretive Statements Sinus rhythm No previous ECG available for comparison Electronically Signed On 05-01-2022 10:22:08 EDT by Cristino Galeas
== END 2022-05-01 05:09 | disposition left against medical advice (07) ==
LOC: ED 07:12
DX: D57.00 Hb-SS disease with crisis, unspecified (principal); Z53.21 Procedure and treatment not carried out due to patient leaving prior to being seen by health care provider
CPT/HCPCS: 36415; 71045; 80053; 84703; 85027; 85045; 93005

== ENCOUNTER 2022-05-01 09:46 | Emergency (ER) | payer SELFPAY ==
[2022-05-01 18:52] LABS: Alanine Aminotransferase 28 units/L (7-56); Albumin 4.6 g/dL (3.9-5); Blood Urea Nitrogen 7 mg/dL (7-17); Calcium 9.5 mg/dL (8.4-10.2); Hemolysis Index 65
[2022-05-01 18:57] LABS: Hematocrit 26.7 % (30.3-42.9); Hemoglobin 8.9 gm/dl (10.1-14.3); Mean Corpuscular HGB Conc 34 % (30-34); Mean Corpuscular Volume 94 fl (79-97); Platelet Count 394 K/mm3 (140-440); Red Blood Count 2.85 M/mm3 (3.65-5.03)
[2022-05-01 19:04] LABS: BUN/Creatinine Ratio 14
[2022-05-02] MEDS ORDERED: SODIUM CHLORIDE 0.9% 1000 ML 1,000 ML IV ONE (01:48)
[2022-05-02] MEDS ORDERED: KETOROLAC 30 MG/1 ML INJ IV ONE ×2 (01:48→04:20)
[2022-05-02] MEDS ORDERED: HYDROmorphone 1 MG/1 ML INJ IV ONE ×3 (01:48→04:28)
--- NOTE | 2022-05-02 03:38 | Emergency Department Report ---
ED General Adult HPI - General Chief complaint: Sickle Cell Crisis Stated complaint: SICKLE CELL CRISIS Time Seen by Provider: 05/01/22 23:46 Source: patient Mode of arrival: Ambulatory Limitations: Physical Limitation - History of Present Illness Initial comments: 32-year-old female history of sickle cell anemia presents emergency department with pain. Patient reports she is experiencing pain in her joints and is a result of a sickle cell a sickle cell crisis. Patient reports her symptoms started about 2 days ago and has progressively gotten worse without improvement. She denies fever, she denies any recent illness, no chest pain, no shortness of breath, no headache dizziness weakness or vision changes, no nausea vomiting abdominal pain. - Related Data Home Medications Medication Instructions Recorded Confirmed Last Taken HYDROmorphone [Dilaudid] 2 mg PO Q8H 12/26/18 04/26/21 Unknown Multivitamin [One Daily 1 each PO DAILY 12/26/18 04/26/21 Unknown Multivitamin] Oxycodone HCl [oxyCONTIN ER] 30 mg PO BID 12/26/18 04/26/21 Unknown Previous Rx's Medication Instructions Recorded Last Taken Type Folic Acid [Folvite] 1 mg PO QDAY #30 tablet 05/08/18 Unknown Rx Hydroxyurea [Hydrea] 500 mg PO QDAY #30 capsule 05/08/18 Unknown Rx oxyCODONE /ACETAMINOPHEN [Percocet 1 tab PO Q6HR PRN #20 tablet 11/14/19 Unknown Rx 5/325] Ibuprofen [Motrin 800 MG tab] 800 mg PO Q8HR PRN #20 tablet 10/07/20 Unknown Rx Prednisone [predniSONE 5 mg (6-Day 5 mg PO .TAPER #1 tab.ds.pk 04/26/21 Unknown Rx Pack, 21 Tabs)] cephALEXin [Keflex] 500 mg PO Q8HR #20 cap 04/26/21 Unknown Rx Ondansetron [Zofran Odt] 4 mg PO Q8HR PRN #14 tab.rapdis 06/14/21 Unknown Rx oxyCODONE /ACETAMINOPHEN [Percocet 1 tab PO Q6HR PRN #14 tablet 06/14/21 Unknown Rx 5/325] Ondansetron [Zofran ODT TAB] 4 mg PO Q6HR PRN #15 tab.rapdis 06/18/21 Unknown Rx cephALEXin [Keflex] 500 mg PO Q6HR #28 capsule 08/11/21 Unknown Rx Famotidine [Pepcid] 20 mg PO BID #30 tablet 11/02/21 Unknown Rx HYDROcodone/APAP 10-325 [[place] 1 each PO Q6HR PRN #20 tablet 11/02/21 Unknown Rx 10/325] cephALEXin [Keflex] 500 mg PO Q12HR #14 cap 11/26/21 Unknown Rx Allergies Allergy/AdvReac Type Severity Reaction Status Date / Time morphine AdvReac Itching Verified 05/01/22 10:27 ED Review of Systems ROS: Stated complaint: SICKLE CELL CRISIS Other details as noted in HPI Constitutional: denies: weakness Musculoskeletal: back pain, arthralgia. denies: joint swelling Neurological: denies: headache, weakness ED Past Medical Hx - Past Medical History Hx Deep Vein Thrombosis: No Hx Pulmonary Embolism: No Hx Sickle Cell Disease: Yes Hx Asthma: Yes Hx COPD: No Hx HIV: No Additional medical history: Gastric ulcers - Surgical History Hx Cholecystectomy: Yes (05/2012) Additional Surgical History: Port-A-Cath 12/2020 [facility] - Social History Smoking Status: Never Smoker Substance Use Type: Prescribed - Medications Home Medications: Home Medications Medication Instructions Recorded Confirmed Last Taken Type Folic Acid [Folvite] 1 mg PO QDAY #30 tablet 05/08/18 04/26/21 Unknown Rx Hydroxyurea [Hydrea] 500 mg PO QDAY #30 capsule 05/08/18 04/26/21 Unknown Rx HYDROmorphone [Dilaudid] 2 mg PO Q8H 12/26/18 04/26/21 Unknown History Multivitamin [One Daily 1 each PO DAILY 12/26/18 04/26/21 Unknown History Multivitamin] Oxycodone HCl [oxyCONTIN ER] 30 mg PO BID 12/26/18 04/26/21 Unknown History oxyCODONE /ACETAMINOPHEN [Percocet 1 tab PO Q6HR PRN #20 tablet 11/14/19 04/26/21 Unknown Rx 5/325] Ibuprofen [Motrin 800 MG tab] 800 mg PO Q8HR PRN #20 tablet 10/07/20 04/26/21 Unknown Rx Prednisone [predniSONE 5 mg (6-Day 5 mg PO .TAPER #1 tab.ds.pk 04/26/21 Unknown Rx Pack, 21 Tabs)] cephALEXin [Keflex] 500 mg PO Q8HR #20 cap 04/26/21 Unknown Rx Ondansetron [Zofran Odt] 4 mg PO Q8HR PRN #14 tab.rapdis 06/14/21 Unknown Rx oxyCODONE /ACETAMINOPHEN [Percocet 1 tab PO Q6HR PRN #14 tablet 06/14/21 Unknown Rx 5/325] Ondansetron [Zofran ODT TAB] 4 mg PO Q6HR PRN #15 tab.rapdis 06/18/21 Unknown Rx cephALEXin [Keflex] 500 mg PO Q6HR #28 capsule 08/11/21 Unknown Rx Famotidine [Pepcid] 20 mg PO BID #30 tablet 11/02/21 Unknown Rx HYDROcodone/APAP 10-325 [[place] 1 each PO Q6HR PRN #20 tablet 11/02/21 Unknown Rx 10/325] cephALEXin [Keflex] 500 mg PO Q12HR #14 cap 11/26/21 Unknown Rx ED Physical Exam - General Limitations: Physical Limitation General appearance: alert, in no apparent distress - Head Head exam: Present: atraumatic - Eye Eye exam: Present: normal appearance (Pale appearing at base), PERRL - ENT ENT exam: Present: normal exam - Neck Neck exam: Present: normal inspection - Respiratory Respiratory exam: Present: normal lung sounds bilaterally. Absent: respiratory distress - Cardiovascular Cardiovascular Exam: Present: regular rate, normal rhythm - GI/Abdominal GI/Abdominal exam: Present: soft. Absent: distended - Extremities Exam Extremities exam: Present: normal inspection, full ROM, normal capillary refill. Absent: tenderness - Back Exam Back exam: Present: normal inspection, full ROM, tenderness - Neurological Exam Neurological exam: Present: alert, oriented X3, CN II-XII intact, normal gait. Absent: motor sensory deficit - Psychiatric Psychiatric exam: Present: normal affect, normal mood - Skin Skin exam: Present: warm, dry, intact, normal color ED Course Vital Signs 05/01/22 10:24 Temperature 99.2 F Pulse Rate 92 H Respiratory 16 Rate Blood Pressure 115/64 O2 Sat by Pulse 98 Oximetry ED Medical Decision Making - Lab Data Result diagrams: 05/01/22 17:46 05/01/22 17:46 - Medical Decision Making 32-year-old female history of sickle cell anemia presents emergency department with pain. Patient reports she is experiencing pain in her joints and is a result of a sickle cell a sickle cell crisis. Patient reports her symptoms started about 2 days ago and has progressively gotten worse without improvement. She denies fever, she denies any recent illness, no chest pain, no shortness of breath, no headache dizziness weakness or vision changes, no nausea vomiting abdominal pain. Labs are reassuring and appears to be at baseline, patient has been stable vital signs, afebrile, pain addressed in the emergency department with improvement, and "tolerable". 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 Gone over ED findings with patient as well as plan for follow-up. Also discussed return precautions with patient, all questions and concerns addressed. Patient is stable to be discharged follow-up outpatient. Audio voice dictation device used, hence the chart might contain some dictation errors, mispronunciations, wrong spelling and wrong verbiage. Critical care attestation.: If time is entered above; I have spent that time in minutes in the direct care of this critically ill patient, excluding procedure time. ED Disposition Clinical Impression: Sickle cell pain crisis Disposition: HOME / SELF CARE / HOMELESS Is pt being admited?: No Does the pt Need Aspirin: No Condition: Stable Instructions: Sickle Cell Anemia, Pediatric Referrals: PRIMARY CARE, [Primary Care Provider] - 3-5 Days GEOVANNY WILLAMS MD [Staff Physician] - 3-5 Days
[2022-05-02] MEDS ORDERED: diphenhydrAMINE 50 MG/ML VIAL IV ONE (04:28)
[2022-05-02 08:14] VITALS: BP 119/70
== END 2022-05-02 08:12 | disposition home or self-care (01) ==
LOC: ED 09:46
DX: D57.219 Sickle-cell/Hb-C disease with crisis, unspecified (principal); Z88.5 Allergy status to narcotic agent; Z90.49 Acquired absence of other specified parts of digestive tract
CPT/HCPCS: 36415; 80053; 85027; 85045; 96361; 96374; 96375; 96376; 99283; J1170; J1200; J1642; J1885